=== PATIENT | female | born 1955 | race Caucasian/White ===

== ENCOUNTER → 2018-06-29 07:44 | Outpatient (CLI) | payer MEDICAID | END | disposition home or self-care (01) | LOC: D.RT 07:44 | DX: J44.9 Chronic obstructive pulmonary disease, unspecified (principal) ==

== ENCOUNTER → 2018-07-18 13:46 | Outpatient (CLI) | payer MEDICAID | END | disposition home or self-care (01) | LOC: D.NM 13:46 | DX: C34.90 Malignant neoplasm of unspecified part of unspecified bronchus or lung (principal) ==

== ENCOUNTER → 2018-07-27 09:54 | Outpatient (CLI) | payer MEDICAID | END | disposition home or self-care (01) | LOC: D.LAB 09:54 | DX: Z01.812 Encounter for preprocedural laboratory examination (principal) ==

== ENCOUNTER 2019-07-05 22:23 | Inpatient (IN) | payer MEDICARE, OTHER ==
[~2019-07-05] VITALS: Ht 175.3 cm; Wt 104.7 kg
[2019-07-05 22:40] VITALS: BP 121/78
[2019-07-05 23:00] VITALS: BP 123/72
[2019-07-05 23:10] VITALS: BP 124/72
[2019-07-05 23:23] VITALS: BP 114/66
--- NOTE | 2019-07-05 23:30 | NUR ---
PT TO CT AT THIS TIME WITH NURSE AND RESPIRATORY.
[2019-07-05 23:51] VITALS: BP 110/68
[2019-07-06] VITALS (28 sets, daily range): BP systolic 90–132; BP diastolic 51–86; BMI 30.1; BMI 29.9
--- NOTE | 2019-07-06 01:00 | NUR ---
Received patient from ER to 230, postitioned in bed and connected to monitor. Patient sedated with eyes closed, weakly moves extremities/does not follow instructions. ETT 7.5 @ 23cm, secured. S1/S2 noted NSR on telemetry, rythmic and regular. Vent settings AC R-16 V-500 40% P-5 with O2 sat 100%, lung sounds clear RUL/RML diminished RLL with MARISOL/LLL diminished/expiratory wheeze noted. Abdomen is round/soft with bowel sounds hypoactive x4, non-tender. [place] secured, clear yellow urine noted. Generalized edema noted all with all pulses palpable, skin cool/dry. NGT R nare to LIWS, yellow/green drainage noted. Oral care/suctioning provided, no further needs at this time. See flowsheet for details, all VSS and will continue to monitor.
--- NOTE | 2019-07-06 03:00 | NUR ---
Reassessment completed per flowsheet, no changes noted from previous assessment. Vent settings unchanged from previous with O2 sat 100%, lung sounds clear RUL/RML with diminished RLL and MARISOL/LLL diminished with expiratory wheeze noted. All pulses palpable with cap refill < 3 sec, skin cool/dry. Oral care/suctioning provided, repositioned for comfort. See flowsheet for details, all VSS and will continue to monitor.
--- NOTE | 2019-07-06 05:00 | NUR ---
Patient sedated in bed on vent with eyes closed, no s/s of distress at this time. Full bed bath/linen change performed, patient tolerated well. No further needs and will continue to monitor.
[2019-07-06 07:53] LABS: BASOPHILS 0 % (0-2); EOSINOPHILS 0 % (0-7); HEMATOCRIT 23.5 % (36.0-48.0); HEMOGLOBIN 7.8 g/dL (12-16); IMMATURE GRANULOCYTES 0.8 % (0-5); LYMPHOCYTES 4.8 % (15-50); MCHC 33.2 g/dL (31.0-37.0); MCV 93.3 fL (80.0-100.0); MEAN PLATELET VOLUME 8.4 fL (7.4-10.4); MONOCYTES 7.9 % (2-11); NEUTROPHILS 86.5 % (40-80); PLATELET COUNT 186 10x3/uL (130-400); RBC 2.52 10x6/uL (4.00-5.40); RDW 15.1 % (11.5-14.5); WBC 9.2 10x3/uL (4.8-10.8)
--- NOTE | 2019-07-06 08:00 | NUR ---
LYING IN BED ON VENT AT THIS TIME. NO ACUTE DISTRESS NOTED. VSS. PT NOT CURRENTLY FOLLOWING COMMANDS, RESPONDS TO PAINFUL STIMULATION. TURNED Q2H, ORAL CARE PROVIDED Q2H. WILL CONTINUE PLAN OF CARE.
[2019-07-06 08:01] LABS: INR 1.35 (0.85-1.17); PROTIME 16.1 SECONDS (11.6-15.0)
[2019-07-06 08:07] LABS: ALBUMIN 2.2 g/dL (3.4-5.0); ANION GAP 7.4 mmol/L (8-16); BILIRUBIN - TOTAL 0.35 mg/dL (0.2-1.3); CALCIUM 8.1 mg/dL (8.5-10.1); CARBON DIOXIDE 32.3 mmol/L (21.0-32.0); CREATININE - SERUM 0.9 mg/dL (0.6-1.3); MAGNESIUM - SERUM 1.7 mg/dL (1.8-2.4); PHOSPHOROUS 2.9 mg/dL (2.5-4.9); POTASSIUM - SERUM 3.7 mmol/L (3.5-5.1); PROTEIN - SERUM 5.8 g/dL (6.4-8.2)
--- NOTE | 2019-07-06 10:08 | NUR ---
DR KRAMER PAGED AT THIS TIME.
--- NOTE | 2019-07-06 11:52 | NUR ---
SPOKE WITH PTS DAUGHTER, UPDATES PROVIDED WELL SHE SPOKE WITH DR CONTRERAS AND RECIEVED UPDATES. ALSO CONSENTS RECIEVED FOR BLOOD PRODUCTS, AND BRONCHOSCOPY. VSS. NO ACUTE DISTRESS NOTED. WILL CONTINUE PLAN OF CARE.
--- NOTE | 2019-07-06 11:57 | NUR ---
PER DR MOLINA, ADMIN 1 U PRBC TOTAL FOR NOW. WILL ADMIN WHEN READY PER BLOOD BANK.
--- NOTE | 2019-07-06 12:24 | NUR ---
BLOOD GLUCOSE IS 68; PER DR MOLINA CHANGE FLUIDS FROM NS AT 100ML/HR TO D5 1/2 NS AT 100ML/HR. NO NEW ORDERS. WILL CONTINUE PLAN OF CARE.
--- NOTE | 2019-07-06 14:03 | NUR ---
WILL ADMIN BLOOD WHEN READY PER BLOOD BANK. NO ACUTE DISTRESS NOTED. VSS. WILL CONTINUE PLAN OF CARE.
--- NOTE | 2019-07-06 16:03 | NUR ---
SPOKE WITH PTS DAUGHTER, UPDATES PROVIDED. NO ACUTE DISTRESS NOTED. PT TURNED Q2H. WILL CONTINUE PLAN OF CARE.
[2019-07-06 16:20] LABS: APPEARANCE CLEAR (CLEAR); BILIRUBIN NEGATIVE (NEGATIVE); COLOR YELLOW (YELLOW); GLUCOSE NEGATIVE (NEGATIVE); KETONE NEGATIVE (NEGATIVE); NITRITE NEGATIVE (NEGATIVE); PROTEIN NEGATIVE (NEGATIVE); UROBILINOGEN NORMAL (NORMAL)
--- NOTE | 2019-07-06 16:45 | NUR ---
1 U PRBC INFUSION ADMIN INITIATED AT THIS TIME. VSS. NO ACUTE DISTRESS NOTED. WILL CONTINUE PLAN OF CARE.
--- NOTE | 2019-07-06 19:20 | NUR ---
PT DAUGHTER CALLED, PASSWORD PROVIDED, UPDATE GIVEN.
--- NOTE | 2019-07-06 21:10 | NUR ---
NO VISITORS PRESENT AT THIS TIME, VSS, CONT TO MONITOR.
--- NOTE | 2019-07-06 23:30 | NUR ---
REASSESSMENT PER FLOWSHEET, NO ACUTE CHANGES NOTED, CONT TO MONITOR.
[2019-07-07] VITALS (24 sets, daily range): BP systolic 97–135; BP diastolic 54–71
--- NOTE | 2019-07-07 01:20 | NUR ---
RT AT BEDSIDE, ORAL CARE AND SUCTIONING PROVIDED, VSS.
[2019-07-07 03:43] LABS: BASOPHILS 0.1 % (0-2); EOSINOPHILS 0 % (0-7); HEMATOCRIT 23.8 % (36.0-48.0); HEMOGLOBIN 8.2 g/dL (12-16); IMMATURE GRANULOCYTES 1.3 % (0-5); LYMPHOCYTES 4.9 % (15-50); MCH 30.6 pg (26.0-34.0); MCHC 34.5 g/dL (31.0-37.0); MEAN PLATELET VOLUME 8.5 fL (7.4-10.4); MONOCYTES 7.7 % (2-11); PLATELET COUNT 168 10x3/uL (130-400); RBC 2.68 10x6/uL (4.00-5.40); RDW 15.6 % (11.5-14.5); WBC 10.1 10x3/uL (4.8-10.8)
[2019-07-07 03:44] LABS: MCV 88.8 fL (80.0-100.0)
[2019-07-07 04:18] LABS: ALBUMIN 1.9 g/dL (3.4-5.0); ALKALINE PHOSPHATASE 64 U/L (46-116); ALT (SGPT) 25 U/L (10-68); BILIRUBIN - TOTAL 0.46 mg/dL (0.2-1.3); CALC OSMOLALITY 260 mosm/kg (275-300); CALCIUM 7.5 mg/dL (8.5-10.1); CARBON DIOXIDE 30.1 mmol/L (21.0-32.0); CHLORIDE - SERUM 94 mmol/L (98-107); CREATININE - SERUM 0.9 mg/dL (0.6-1.3); GLUCOSE 149 mg/dL (74-106); MAGNESIUM - SERUM 1.7 mg/dL (1.8-2.4); PHOSPHOROUS 2.9 mg/dL (2.5-4.9); PROTEIN - SERUM 4.7 g/dL (6.4-8.2); SODIUM 128 mmol/L (136-145); UREA NITROGEN 15 mg/dL (7-18); eGFR NON AFRICAN AMERICAN 67 mL/min (90-120)
[2019-07-07 04:24] LABS: POTASSIUM - SERUM 4.3 mmol/L (3.5-5.1); TROPONIN-I < 0.017 ng/mL (0.000-0.060)
--- NOTE | 2019-07-07 05:06 | NUR ---
FIRST OF 2 TOTAL DOSES OF MAG OX INITIATED PER ELECTROLYTE PROTOCOL.
--- NOTE | 2019-07-07 07:09 | NUR ---
PT SISTER CALLED, PASSWORD PROVIDED, UPDATE GIVEN AND ALL QUESTIONS ANSWERED.
--- NOTE | 2019-07-07 07:35 | NUR ---
UP IN BED ON VENT AT THIS TIME. NO ACUTE DISTRESS NOTED. DOES NOT FOLLOW COMMANDS, DOES RESPOND TO PAINFUL STIMULI. UNABLE TO PERFORM SEDATION VACATION BECAUSE PT BECOMES EASILY DISTRESSED EVIDENCED BY BITING ON TUBE EVEN WITH A BITE BLOCK, COUGHING WITH RED FACE STRAINING, AND SITTING UP. SEDATION MEDS TITRATED TO ORDER, SEE IV FLOWSHEET FOR FURTHER INFORMATION. VSS. WILL CONTINUE PLAN OF CARE.
--- NOTE | 2019-07-07 09:37 | NUR ---
LYING IN BED ON VENT. NO ACUTE DISTRESS NOTED. VSS. TURNED Q2H. ORAL CARE PROVIDED Q2H. DIFFICULT TO PROVIDE ORAL CARE BECAUSE PT BITES DOWN EVEN WITH BITE BLOCK. SEDATION TITRATED TO ORDER. WILL CONTINUE PLAN OF CARE.
--- NOTE | 2019-07-07 10:40 | NUR ---
NOTED ORDER FOR PT TO RECIEVE 2 U PRBC. FIRST UNIT INITIATED AT THIS TIME. NO ACUTE DISTRESS NOTED. VSS. WILL CONTINUE PLAN OF CARE.
--- NOTE | 2019-07-07 11:37 | NUR ---
PER DR CONTRERAS: OBTAIN EKG, DECREASE D5 1/2 NS FROM 100ML TO 75ML/HR, AND ADMIN 40 LASIX IV IN BETWEEN UNITS OF BLOOD. ALSO RECIEVED ORDERS FOR TUBE FEEDS. WILL START TUBE FEEDS WHEN RECIEVE PUMP FROM SENIOR FIRMWARE ENGINEER. VSS. WILL CONTINUE PLAN OF CARE.
--- NOTE | 2019-07-07 13:45 | NUR ---
2ND UNIT OF PRBC INITIATED AT THIS TIME. NO ACUTE DISTRESS NOTED. VSS. WILL CONTINUE PLAN OF CARE.
--- NOTE | 2019-07-07 15:16 | NUR ---
SPOKE WITH PTS DAUGHTER VIA PHONE, UPDATES PROVIDED. NO ACUTE DISTRESS NOTED. NO CHANGE. VSS. TURNED Q2H. WILL CONTINUE PLAN OF CARE.
--- NOTE | 2019-07-07 17:12 | NUR ---
CHG BATH GIVEN AT THIS TIME WITH TOTAL LINEN CHANGE. TUBE FEEDS ALSO STARTED AT THIS TIME PER ORDERS VIA NGT. PLACEMENT VERIFIED VIA AUSCULTATION. NO ACUTE DISTRESS NOTED. VSS. WILL CONTINUE PLAN OF CARE.
--- NOTE | 2019-07-07 17:17 | NUR ---
ATTEMPTING TO TITRATE DIPROVAN AT THIS TIME PER DR CONTRERAS ORDERS TO TITRATE OFF AND USE FENTANYL FOR SEDATION WITH VERSED PRN. SEE IV FLOWSHEET FOR FURTHER INFORMATION REGARDING TITRATIONS. NO ACUTE DISTRESS NOTED. VSS. WILL CONTINUE PLAN OF CARE.
[2019-07-08] VITALS (24 sets, daily range): BP systolic 83–110; BP diastolic 46–81
[2019-07-08 04:12] LABS: % SATURATION 58 % (15-55); IRON 102 ug/dl (35-150); TOTAL IRON BIND CAPACITY 175 ug/dl (260-445); UNSAT IRON BIND CAPACITY 73 ug/dl (150-375)
[2019-07-08 04:20] LABS: HEMOGLOBIN 10.1 g/dL (12-16); MCH 30.2 pg (26.0-34.0); MCHC 34.8 g/dL (31.0-37.0); MCV 86.8 fL (80.0-100.0); MEAN PLATELET VOLUME 8.8 fL (7.4-10.4); PLATELET COUNT 192 10x3/uL (130-400); RBC 3.34 10x6/uL (4.00-5.40); RDW 16.6 % (11.5-14.5); WBC 12.7 10x3/uL (4.8-10.8)
[2019-07-08 04:26] LABS: ALBUMIN 1.9 g/dL (3.4-5.0); ALKALINE PHOSPHATASE 64 U/L (46-116); BILIRUBIN - TOTAL 0.68 mg/dL (0.2-1.3); CALCIUM 7.9 mg/dL (8.5-10.1); CARBON DIOXIDE 31.6 mmol/L (21.0-32.0); CHLORIDE - SERUM 93 mmol/L (98-107); FERRITIN 723 ng/mL (3-244); GLUCOSE 162 mg/dL (74-106); MAGNESIUM - SERUM 1.8 mg/dL (1.8-2.4); POTASSIUM - SERUM 4.5 mmol/L (3.5-5.1); PROTEIN - SERUM 5.2 g/dL (6.4-8.2); SODIUM 128 mmol/L (136-145); TROPONIN-I < 0.017 ng/mL (0.000-0.060); eGFR NON AFRICAN AMERICAN 59 mL/min (90-120)
[2019-07-08 04:27] LABS: ALT (SGPT) 33 U/L (10-68); CALC OSMOLALITY 262 mosm/kg (275-300); PHOSPHOROUS 3.9 mg/dL (2.5-4.9); UREA NITROGEN 19 mg/dL (7-18)
[2019-07-08 05:20] LABS: EOSINOPHILS 1 % (0-7); LYMPHOCYTES 10 % (15-50); MONOCYTES 2 % (2-11); NEUTROPHILS 85 % (40-80); PLATELET ESTIMATE DECREASED
--- NOTE | 2019-07-08 07:00 | NUR ---
REPORT RECEIVED. ASSESSMENT COMPLETE PER FLOW SHEET. VSS. ORAL CARE ADM. REPOSITIONED FOR COMFORT. WILL CONTINUE TO MONITOR
--- NOTE | 2019-07-08 08:20 | NUR ---
VENT ALARMING VENT CARE ADM. NEEDS MET
--- NOTE | 2019-07-08 09:10 | NUR ---
FAMILY CALLED GIVEN UPDATE.
--- NOTE | 2019-07-08 09:32 | NUR ---
Nutrition follow-up: Pt intubated, sedated with Fentynal Pulmocare started @ 20 ml/hr -> increase 10 ml Q 12 hours to goal rate of 40 ml/hr via OGT Labs reviewed Wt: 208# RDN following.
--- NOTE | 2019-07-08 10:15 | NUR ---
DR CONTRERAS AT BEDSIDE GIVEN UPDATE. NEW ORDERS RECIEVED.
--- NOTE | 2019-07-08 11:15 | NUR ---
REASSESSMENT COMPLETE PER FLOW SHEET. VSS. NO NEW CHANGES WILL CONTINUE TO MONITOR
--- NOTE | 2019-07-08 13:10 | NUR ---
COMPLETE BB LINEN CHANGE ADM. CHG BATH ADM. WILL CONTINUE TO MONITOR
--- NOTE | 2019-07-08 15:15 | NUR ---
REASSESSMENT COMPLETE PER FLOW SHEET. VSS. NO NEW CHANGES PT RESTING COMFORTABLY WILL CONTINUE TO MONITOR
--- NOTE | 2019-07-08 19:00 | NUR ---
PT IN BED SEDATED BUT FOLLOWS COMMANDS. ASSESSMENT COMPLETED, SEE FLOWSHEET. PT ON VENT, FENTANYL ACTING MANAGER, LT AC PIV INFUSION, SEE FLOWSHEET. NGT IN PLACE, SEE FLOWSHEET. ORAL CARE PROVIDED, WILL CONTINUE TO MONITOR.
--- NOTE | 2019-07-08 21:17 | NUR ---
15CC'S RESIDUAL, ADVANCED TUBE FEEDING TO 20ML/HR PER ORDER.
--- NOTE | 2019-07-08 21:54 | MORECARE ---
CASE MANAGEMENT DISCHARGE SUMMARY PATIENT: JINA COLINDRES UNIT: [id number] ADM DATE: 07/05/19 AGE: 64 : 53 SEX: F ROOM/BED: D.2308 AUTHOR: CHARLINE JO PHYSICIAN: REFERRING PHYSICIAN: RHONA MOLINA MD DATE OF SERVICE: 07/08/19 Discharge Plan Patient Name: JINA COLINDRES [facility] [facility] 1955 Planned Disposition: Anticipated Discharge Date: Discharge Date: Expected LOS: Initial Reviewer: [email or web address] Initial Review Date: 07/06/2019 Generated: 07/08/19 10:54 pm Comments DCP- Discharge Planning Updated by [email or web address]: Mahi Root on 07/08/19 8:[address] Late Entry 1155 CM attempted to visit with patient regarding discharge planning/ needs. Patient currently on vent no family available. CM will continue to follow and assist as needed with discharge planning / needs Patient Name: JINA COLINDRES Page [id number] at 2154 All edits/amendments must be made on the electronic document DICTATION DATE: 07/08/192152 PROP MAKER: MICHAEL 07/08/192152 RPT#: [id number] DC DATE: STATUS: ADM IN [facility] [address] [place] [address] END OF REPORT
--- NOTE | 2019-07-08 23:00 | NUR ---
PT RESTING IN BED, NO ACUTE DISTRESS NOTED. ORAL CARE PROVIDED, WILL CONTINUE TO MONITOR.
[2019-07-09] VITALS (25 sets, daily range): BP systolic 88–130; BP diastolic 41–90
--- NOTE | 2019-07-09 01:00 | NUR ---
PT RESTING IN BED, AROUSES TO VOICE AND FOLLOWS COMMANDS. NO ACUTE DISTRESS NOTED. WILL CONTINUE TO MONITOR.
--- NOTE | 2019-07-09 03:00 | NUR ---
PT RESTING IN BED, AROUSES TO VOICE AND FOLLOWS COMMANDS. PT SUCTIONED AND TURNED, NO ACUTE DISTRESS NOTED. WILL CONTINUE TO MONITOR.
[2019-07-09 03:49] LABS: BASOPHILS 0.2 % (0-2); EOSINOPHILS 0 % (0-7); HEMATOCRIT 30.5 % (36.0-48.0); HEMOGLOBIN 10.5 g/dL (12-16); IMMATURE GRANULOCYTES 5.4 % (0-5); LYMPHOCYTES 2.4 % (15-50); MCHC 34.4 g/dL (31.0-37.0); MCV 87.1 fL (80.0-100.0); MEAN PLATELET VOLUME 8.5 fL (7.4-10.4); MONOCYTES 8.6 % (2-11); NEUTROPHILS 83.4 % (40-80); RDW 16.6 % (11.5-14.5)
[2019-07-09 03:53] LABS: PLATELET COUNT 150 10x3/uL (130-400); WBC 18.4 10x3/uL (4.8-10.8)
[2019-07-09 04:03] LABS: ALBUMIN 1.8 g/dL (3.4-5.0); ANION GAP 8.4 mmol/L (8-16); BILIRUBIN - TOTAL 2.02 mg/dL (0.2-1.3); CALCIUM 7.6 mg/dL (8.5-10.1); CARBON DIOXIDE 29.4 mmol/L (21.0-32.0); CREATININE - SERUM 1.1 mg/dL (0.6-1.3); MAGNESIUM - SERUM 2.1 mg/dL (1.8-2.4); PHOSPHOROUS 3.8 mg/dL (2.5-4.9); POTASSIUM - SERUM 4.8 mmol/L (3.5-5.1); PROTEIN - SERUM 5.4 g/dL (6.4-8.2); VANCOMYCIN - RANDOM 29.2 ug/mL (10.0-20.0)
--- NOTE | 2019-07-09 05:00 | NUR ---
PT CALM AND COOPERATIVE, SEDATED BUT FOLLOWS COMMANDS. NO ACUTE DISTRESS NOTED, WILL CONTINUE TO MONITOR.
--- NOTE | 2019-07-09 07:00 | NUR ---
PT IN BED WITH EYES OPEN. VSS. COMPLETED ASSESSMENT PER FLOWSHEET, FOR ASSESSMENT INFORMATION SEE FLOWSHEET. NO NEEDS OR DISTRESS NOTED AT THIS TIME. WILL CONT TO MONITOR.
--- NOTE | 2019-07-09 08:35 | NUR ---
PT RESTING IN BED. ASSESSMENT COMPLETED PER FLOWSHEET, SEE FLOWSHEET FOR INFORMATION. VSS. WILL CONT TO MONITOR.
--- NOTE | 2019-07-09 09:00 | NUR ---
PT CONTINUING TO BITE DOWN ON ETT. INSERTED BITE BLOCK AND PROVIDED ORAL CARE. THICK CLEAR SECRETIONS SUCTIONED FROM MOUTH. NO NEEDS OR DISTRESS NOTED AT THIS TIME. WILL CONT TO MONITOR.
--- NOTE | 2019-07-09 11:00 | NUR ---
1100 MEDICATIONS GIVEN. NO DISTRESS OR NEEDS NOTED AT THIS TIME. WILL CONT TO MONITOR. VSS.
--- NOTE | 2019-07-09 13:00 | NUR ---
CHG BED BATH AND COMPLETE LINEN CHANGE COMPLETED. NO NEEDS OR DISTRESS NOTED AT THIS TIME. VSS. WILL CONT TO MONITOR.
--- NOTE | 2019-07-09 13:38 | EC ---
PATIENT:JINA COLINDRES DATE OF SERVICE: 07/05/19 SEX: F MEDICAL RECORD: [id number] DATE OF : 53 LOCATION[facility] D.230 AGE OF PATIENT: 64 ADMISSION DATE: 07/05/19 REFERRING PHYSICIAN: INTERPRETING PHYSICIAN: ARACELI CHOWDARY MD ECHOCARDIOGRAM REPORT ECHO CHARGES 4 ECHO COMPLETE Date: 07/08/19 CLINICAL DIAGNOSIS: SOB ECHOCARDIOGRAPHIC MEASUREMENTS (adult normal given) AC root (d.<3.7cm) 2.5 cm LV Septum d (<1.2 cm> 1.2 cm Valve Excursion 1.8 cm LV Septum (systole) 1.7 cm Left Atria (s.<4.0cm> 3.7 cm LVPW d(<1.2cm) 1.1 cm RV (d.<2.3cm) 3.4 cm LVPW (sytole) 1.6 cm LV diastole(<5.6CM) 5.7 cm MV E-F(>70mm/sec) cm LV systole 4.7 cm LVOT Diameter 2.0 cm MV exc.(>10mm) cm Est.ejection fraction (50-75%) % DOPPLER: LVIT cm/sec A 92 cm/sec E 81 cm/sec LA cm/sec RVSP 21.7 mmHg LVOT 133 cm/sec AOP1/2T m/s Asc. Ao 161 cm/sec RVOT 81 cm/sec RA cm/sec PA 117 cm/sec AV Gradient Peak 10.4 mmHg AV Mean 5.9 mmHg AV Area 2.7 cm MV Gradient Peak 4.2 mmHg MV Mean 2.7 mmHg MV Area cm COMMENTS: Colliery Clerk: Luna [employer] Sales Representative: 1 Dr. Chowdary TAPE# PACS Pericardial Effusion N DATE OF SERVICE: 07/08/2019 PROCEDURE: Echocardiogram. FINDINGS: 1. Left ventricular chamber size is mildly dilated. Left ventricular systolic function is preserved at 50% to 55%. 2. Left atrium is within normal limits. Right atrium and right ventricular chamber sizes are mildly dilated. 3. Valvular structures have normal structure and motion. ECHOCARDIOGRAM REPORT [id number] JINA COLINDRES 4. Doppler interrogation reveals only trace tricuspid regurgitation, no other valvular insufficiency or stenosis. Pulmonary systolic pressure estimated at 21 mmHg. 5. No evidence of pericardial effusion or left ventricular thrombus. TRANSINT:[id number] Voice Confirmation ID: [id number] DOCUMENT ID: [id number] ARACELI CHOWDARY MD at 1338 CC: [id number] DICTATION DATE: 07/08/19 165 HEMMER LOCKSTITCH: 07/09/19 0129 ADM IN [facility] [address] [place] [address]
--- NOTE | 2019-07-09 14:00 | NUR ---
INCREASED NG TUBE FEEDING BY 10 ML/HR. NO RESIDUAL NOTED. VSS. WILL CONT TO MONITOR.
--- NOTE | 2019-07-09 15:00 | NUR ---
PT IN BED RESTING WITH EYES CLOSED. NO NEEDS OR DISTRESS NOTED AT THIS TIME. VSS. WILL CONT TO MONITOR.
[2019-07-09 16:09] LABS: AFB SPECIMEN PROCESSING Concentration (())
--- NOTE | 2019-07-09 17:00 | NUR ---
COMPLETED ORAL AND ENDOTRACHEAL INLINE SUCTION, PT TOLERATED WELL. VSS STABLE. WILL CONT TO MONITOR.
--- NOTE | 2019-07-09 18:37 | MORECARE ---
CASE MANAGEMENT DISCHARGE SUMMARY PATIENT: JINA COLINDRES UNIT: [id number] ADM DATE: 07/05/19 AGE: 64 : 53 SEX: F ROOM/BED: D.2308 AUTHOR: CHARLINE JO PHYSICIAN: REFERRING PHYSICIAN: RHONA MOLINA MD DATE OF SERVICE: 07/09/19 Discharge Plan Patient Name: JINA COLINDRES [facility] : 1955 Planned Disposition: Anticipated Discharge Date: Discharge Date: Expected LOS: Initial Reviewer: [email or web address] Initial Review Date: 07/06/2019 Generated: 07/09/19 7:37 pm Comments DCP- Discharge Planning Updated by LISA: Mahi Root on 07/08/19 8:[address] Late Entry 1155 CM attempted to visit with patient regarding discharge planning/ needs. Patient currently on vent no family available. CM will continue to follow and assist as needed with discharge planning / needs DCPIA - Discharge Planning Initial Assessment Updated by LISA: Mahi Root on 07/09/19 6:35 pm * Is the patient Alert and Oriented? No * PCP [facility] IN [place] * Pharmacy [place]? * Preadmission Environment Home Alone * ADLs Independent Last DP export: 07/08/19 8:54 p Patient Name: JINA COLINDRES Page [id number] at 1837 All edits/amendments must be made on the electronic document DICTATION DATE: 07/09/191836 ONSITE CASE MANAGER: MICHAEL 07/09/191836 RPT#: [id number] DC DATE: STATUS: ADM IN [facility] [address] [place] [address] END OF REPORT
--- NOTE | 2019-07-09 18:57 | MORECARE ---
CASE MANAGEMENT DISCHARGE SUMMARY PATIENT: JINA COLINDRES UNIT: [id number] ADM DATE: 07/05/19 AGE: 64 : 53 SEX: F ROOM/BED: D.2305 AUTHOR: SANDRO,DOC PHYSICIAN: REFERRING PHYSICIAN: RHONA MOLINA MD DATE OF SERVICE: 07/09/19 Discharge Plan Patient Name: JINA COLINDRES Facility: [facility]:[place] : 1955 Planned Disposition: Anticipated Discharge Date: Discharge Date: Expected LOS: Initial Reviewer: [email or web address] Initial Review Date: 07/06/2019 Generated: 07/09/19 7:56 pm Comments DCP- Discharge Planning Updated by [email or web address]: Mahi Root on 07/09/19 5:[address] Patient is still on vent and sedated. CM spoke with Ly Meza (Inward Toll Operator- [facility]) called to check status of patient. Ly stated that the patient doesn't have any close family here. The only relative she is aware of is her mother Gracia Blevins that lives in [place]. ([phone]) Ly stated she does have a son somewhere but doesn't know his name. Ly stated that BREANA Chavira [phone] manages patients money and pays her bills. Ly was able to give CM patient's PCP clinic and Pharmacy information. Ly stated that CM may can look at patients contacts on her phone and get more information. Carmela Marlon (good friend) [phone]. CM called patient's mother Gracia [phone]. She stated that she was in hospital in [place], [place] and she may get out sometime next week. CM realized that Gracia is very confused and not understanding CM's conversation. Gracia was not able to give CM any creditable information. CM will continue to try to contact some family or POA. DCP- Discharge Planning Updated by [id number]: Mahi Root on 07/08/19 8:[address] Late Entry 1155 CM attempted to visit with patient regarding discharge planning/ needs. Patient currently on vent no family available. CM will continue to follow and assist as needed with discharge planning / needs DCPIA - Discharge Planning Initial Assessment Updated by [id number]: Mahi Root on 07/09/19 6:35 pm * Is the patient Alert and Oriented? No * PCP [facility] IN [place] * Pharmacy [place]? * Preadmission Environment Home Alone * ADLs Independent Last DP export: 07/09/19 5:37 p Patient Name: JINA COLINDRES Page [phone] at 1857 All edits/amendments must be made on the electronic document DICTATION DATE: 07/09/191855 POT RUNNER: MICHAEL 07/09/191855 RPT#: [id number] DC DATE: STATUS: ADM IN [facility] [address] [place] [address] END OF REPORT
--- NOTE | 2019-07-09 19:00 | NUR ---
SHIFT ASSESSMENT COMPLETE. PT IS SEDATED ON VENT, OPENS EYES AND FOLLOWS ALL COMMANDS. NGT TO L NARE INFUSING PULMOCARE @ 30 ML/HR. PLACEMENT CHECKED VIA AUSCULATATION, 60 ML RESIDUAL, FLUSHED LINE. VENT SETTINGS: A/C RATE OF 16, TIDAL VOLUME 500, FIO2 40%, PEEP 5.0, O2 SAT 97%. CRACKLES HEARD BILAT THROUGHOUT ALL LOBES, SUCTIONED VIA INLINE, CLEAR SECRETIONS NOTED. S1S2 AUDIBLE, NSR SHOWING ON MONITOR. ABD SOFT, BS ACTIVE X4. UNACCESSED PORT SEEN IN R UPPER CHEST. L AC PIV INFUSING D5NS @ 75 ML/HR AND FENTANYL SIGNING TEACHER @ 450 MCG/H (9 ML/HR). RADIAL PULSES PALP. MEHTA CATH INTACT DRAINING TARA URINE. PEDAL PULSES PALP. BUTTOCKS HAS REDDENED AREA. REPOSITIONED FOR COMFORT. RT AT BEDSIDE FOR ORAL CARE. NO FURTHER FINDINGS AT THIS TIME. WILL CONT WITH POC.
--- NOTE | 2019-07-09 21:55 | NUR ---
URINE SAMPLE COLLECTED VIA MEHTA CATH AND SENT TO LAB.
--- NOTE | 2019-07-09 23:00 | NUR ---
REASSESSMENT COMPLETE. NO CHANGES IN PT CONDITION. VSS. SEE FLOWSHEET FOR FURTHER DETIALS. REPOSITIONED FOR COMFORT. ORAL CARE PROVIDED. WILL CONT WITH POC.
[2019-07-10] VITALS (24 sets, daily range): BP systolic 99–141; BP diastolic 55–77
--- NOTE | 2019-07-10 01:00 | NUR ---
IV TUBING CHANGED, DATED AND LABELED. REPOSITIONED FOR COMFORT. ORAL CARE PROVIDED VIA RT. WILL CONT WITH POC. VSS.
--- NOTE | 2019-07-10 03:00 | NUR ---
REASSESSMENT COMPLETE. NO CHANGES FROM PREVIOUS ASSESSMENT. SEE FLOWSHEET FOR FURTHER DETIALS. VSS. REPOSITIONED FOR COMFORT. ORAL CARE PROVIDED. WILL CONT WITH POC.
[2019-07-10 04:38] LABS: HEMATOCRIT 30.5 % (36.0-48.0); HEMOGLOBIN 10.6 g/dL (12-16); MCH 30.5 pg (26.0-34.0); MCHC 34.8 g/dL (31.0-37.0); MCV 87.9 fL (80.0-100.0); MEAN PLATELET VOLUME 8.8 fL (7.4-10.4); PLATELET COUNT 155 10x3/uL (130-400); RBC 3.47 10x6/uL (4.00-5.40); RDW 16.3 % (11.5-14.5); WBC 23.9 10x3/uL (4.8-10.8)
[2019-07-10 04:39] LABS: ALBUMIN 1.6 g/dL (3.4-5.0); ANION GAP 9.4 mmol/L (8-16); BILIRUBIN - TOTAL 1.47 mg/dL (0.2-1.3); CALCIUM 7.5 mg/dL (8.5-10.1); CARBON DIOXIDE 28.4 mmol/L (21.0-32.0); CREATININE - SERUM 1.1 mg/dL (0.6-1.3); MAGNESIUM - SERUM 2.5 mg/dL (1.8-2.4); PHOSPHOROUS 2.9 mg/dL (2.5-4.9); POTASSIUM - SERUM 4.8 mmol/L (3.5-5.1); PROTEIN - SERUM 4.6 g/dL (6.4-8.2); VANCOMYCIN - RANDOM 16.4 ug/mL (10.0-20.0)
--- NOTE | 2019-07-10 05:00 | NUR ---
MEHTA AND ORAL CARE PROVIDED. REPOSITIONED FOR COMFORT. WILL CONT WITH POC.
[2019-07-10 05:43] LABS: LYMPHOCYTES 6 % (15-50); MONOCYTES 6 % (2-11); NEUTROPHILS 87 % (40-80); PLATELET ESTIMATE DECREASED
--- NOTE | 2019-07-10 06:30 | NUR ---
FAMILY CALLED, PASSWORD GIVEN. UPDATE PROVIDED.
--- NOTE | 2019-07-10 07:00 | NUR ---
BEDISDE REPORT RECIEVED. PT IN BED WITH EYES OPEN. ASSESSMENT COMPLETED PER FLOWSHEET, SEE FLOWSHEET FOR ADDITIONAL INFORMATION. VSS. WILL CONT TO MONITOR.
--- NOTE | 2019-07-10 09:00 | NUR ---
0900 MEDICATIONS GIVEN. ORAL AND ENDOTRACHEAL INLINE SUCTIONED PT, PT TOLERATED WELL. VSS. WILL CONT TO MONITOR.
--- NOTE | 2019-07-10 11:00 | NUR ---
BEDBATH GIVEN, PT HAD A LIQUID BM. VSS. WILL CONT TO MONITOR.
--- NOTE | 2019-07-10 12:35 | NUR ---
Nutrition follow-up: Pt remains intubated, sedated Pulmocare @ 30 ml/hr with goal rate of 40 ml/hr Reglan started today due to high residuals per acquisition cost estimator Labs reviewed WT: 218# RDN following.
--- NOTE | 2019-07-10 13:00 | NUR ---
PICC INSERTED INTO LEFT UPPER ARM. PT TOLERATED WELL. VSS. WILL CONT TO MONITOR.
[2019-07-10 13:10] LABS: FUNGUS STAIN Final report (())
--- NOTE | 2019-07-10 15:00 | NUR ---
PT IN BED WITH EYES OPEN. VSS. NO NEEDS OR DISTRESS NOTED AT THIS TIME. WILL CONT TO MONITOR.
--- NOTE | 2019-07-10 17:00 | NUR ---
PT TURNED ON RIGHT SIDE. NO NEEDS OR DISTRESS NOTED AT THIS TIME. VSS. WILL CONT TO MONITOR.
--- NOTE | 2019-07-10 19:00 | NUR ---
SHIFT ASSESSMENT COMPLETE. PT IS SEDATED ON VENT. EYES ARE OPEN AND SHE IS ABLE TO FOLLOW ALL COMMANDS. PERRLA, 3 MM, BRISK REACTION TO LIGHT. NGT L NARE INFUSING PULMOCARE @ 40 ML/HR WITH 10 ML FLUSH Q1H. PLACEMENT CHECKED VIA AUSCULTATION, 0 RESIDUAL. ETT SIZE 7.5, 22 CM LIP LINE LEFT. VENT SETTINGS: A/C RATE OF 16, TIDAL VOLUME 500, FIO2 40%, PEEP 5.0, O2 SAT 97%. S1S2 AUDIBLE, HR 103 SINUS TACH SHOWING ON MONITOR. EXP WHEEZES HEARD BILAT THROUGHOUT ALL LOBES. ORAL CARE PROVIDED, SUCTIONED VIA INLINE AND ORAL, CLEAR SECRETIONS NOTED. ABD FLAT AND SOFT, HYPOACTIVE BS X4. L UPPER ARM PICC INFUSING D5NS @ 75 ML/HR AND FENTANYL CYTOLOGY MANAGER @ 450 MCG/HR. L A/C PIV SALINE LOC'D. RADIAL PULSES PALP. MEHTA CATH INTACT DRAINING TARA URINE. PEDAL PULSES PALP. REPOSITIONED FOR COMFORT AND ELEVATED EXT ON PILLOWS. L&R WRIST RESTRAINTS REMOVED AND SKIN ASSESSED, WNL. NO FURTHER FINDINGS AT THIS TIME. WILL CONT TO MONITOR CLOSELY IN ICU.
--- NOTE | 2019-07-10 21:00 | NUR ---
NO VISITORS DURING VISITATION HOURS. REPOSITIONED FOR COMFORT. ORAL CARE PROVIDED. VSS. WILL CONT WITH POC.
--- NOTE | 2019-07-10 23:00 | NUR ---
REASSESSMENT COMPLETE. NO CHANGES FROM PREVIOUS ASSESSMENT. SEE FLOWSHEET FOR FURTHER DETAILS. VSS. REPOSITIONED FOR COMFORT, ORAL CARE PROVIDED. WILL CONT WITH POC.
[2019-07-11] VITALS (24 sets, daily range): BP systolic 120–159; BP diastolic 66–89
--- NOTE | 2019-07-11 01:00 | NUR ---
REPOSITIONED FOR COMFORT. ORAL CARE PROVIDED. NO SIGNS OF ACUTE DISTRESS NOTED. VSS. WILL CONT WITH POC.
--- NOTE | 2019-07-11 03:00 | NUR ---
REASSESSMENT COMPLETE. NO CHANGES IN PT CONDITION. VSS. SEE FLOWSHEET FOR FURTHER DETAILS. WILL CONT WITH POC.
--- NOTE | 2019-07-11 05:00 | NUR ---
CHG BATH, ORAL CARE AND REPOSITIONED FOR COMFORT. PT TOLERATED WELL. VSS. MEHTA CARE PROVIDED. NO FURTHER NEEDS AT THIS TIME. WILL CONT WITH POC.
[2019-07-11 05:35] LABS: BASOPHILS 0.2 % (0-2); EOSINOPHILS 0 % (0-7); HEMATOCRIT 29.3 % (36.0-48.0); HEMOGLOBIN 9.8 g/dL (12-16); LYMPHOCYTES 1.8 % (15-50); MCH 29.9 pg (26.0-34.0); MCHC 33.4 g/dL (31.0-37.0); MCV 89.3 fL (80.0-100.0); MEAN PLATELET VOLUME 9.1 fL (7.4-10.4); MONOCYTES 5.3 % (2-11); NEUTROPHILS 85.7 % (40-80); PLATELET COUNT 132 10x3/uL (130-400); RBC 3.28 10x6/uL (4.00-5.40); RDW 16.5 % (11.5-14.5); WBC 22.8 10x3/uL (4.8-10.8)
[2019-07-11 05:44] LABS: ANION GAP 3.8 mmol/L (8-16); CALCIUM 7.6 mg/dL (8.5-10.1); CARBON DIOXIDE 26.4 mmol/L (21.0-32.0); POTASSIUM - SERUM 5.2 mmol/L (3.5-5.1); VANCOMYCIN - RANDOM 23.3 ug/mL (10.0-20.0)
[2019-07-11 05:56] LABS: CREATININE - SERUM 1.4 mg/dL (0.6-1.3)
--- NOTE | 2019-07-11 07:00 | NUR ---
BEDSIDE REPORT RECIEVED. COMPLETED ASSESSMENT PER FLOWSHEET, SEE FLOWSHEET FOR ADDITIONAL INFORMATION. 0800 MEDICATIONS GIVEN. VSS. WILL CONT TO MONITOR.
--- NOTE | 2019-07-11 09:00 | NUR ---
ORAL CARE COMPLETED, SUCTIONED AND REPOSITIONED FOR COMFORT. NO NEEDS OR DISTRESS NOTED AT THIS TIME. WILL CONT TO MONITOR.
--- NOTE | 2019-07-11 09:15 | MORECARE ---
CASE MANAGEMENT DISCHARGE SUMMARY PATIENT: JINA COLINDRES UNIT: [id number] ADM DATE: 07/05/19 AGE: 64 : 53 SEX: F ROOM/BED: D.2302 AUTHOR: SANDRO,DOC PHYSICIAN: REFERRING PHYSICIAN: RHONA MOLINA MD DATE OF SERVICE: 07/11/19 Discharge Plan Patient Name: JINA COLINDRES Facility: [facility]:[place] : 1955 Planned Disposition: Anticipated Discharge Date: Discharge Date: Expected LOS: Initial Reviewer: [email or web address] Initial Review Date: 07/06/2019 Generated: 07/11/19 10:15 am DCP- Discharge Planning Updated by [email or web address]: Mahi Root on 07/09/19 5:[address] Patient is still on vent and sedated. CM spoke with Ly Meza (Industrial Maintenance Mechanic- [facility]) called to check status of patient. Ly stated that the patient doesn't have any close family here. The only relative she is aware of is her mother Gracia Blevins that lives in [place]. ([phone]) Ly stated she does have a son somewhere but doesn't know his name. Ly stated that BREANA Chvaira [phone] manages patients money and pays her bills. Ly was able to give CM patient's PCP clinic and Pharmacy information. Ly stated that CM may can look at patients contacts on her phone and get more information. Carmela Marlon (good friend) [phone]. CM called patient's mother Gracia [phone]. She stated that she was in hospital in [place], [place] and she may get out sometime next week. CM realized that Gracia is very confused and not understanding CM's conversation. Gracia was not able to give CM any creditable information. CM will continue to try to contact some family or POA. DCP- Discharge Planning Updated by [id number]: Mahi Root on 07/08/19 8:[address] Late Entry 1155 CM attempted to visit with patient regarding discharge planning/ needs. Patient currently on vent no family available. CM will continue to follow and assist as needed with discharge planning / needs DCPIA - Discharge Planning Initial Assessment Updated by [email or web address]: Mahi Root on 07/09/19 6:35 pm * Is the patient Alert and Oriented? No * PCP [facility] [place] * Pharmacy [place]? * Preadmission Environment Home Alone * ADLs Independent Last DP export: 07/09/19 5:57 p Patient Name: JINA COLINDRES Page [id number] at 0915 All edits/amendments must be made on the electronic document DICTATION DATE: 07/11/19913 WELDING MACHINE OPERATOR HELPER GAS: MICHAEL 07/11/19913 RPT#: [id number] DC DATE: STATUS: ADM IN [facility] [address] [place] [address] END OF REPORT
--- NOTE | 2019-07-11 11:00 | NUR ---
1100 MEDICATIONS GIVEN. NO NEEDS OR DISTRESS NOTED AT THIS TIME. VSS. WILL CONT TO MONITOR.
--- NOTE | 2019-07-11 13:00 | NUR ---
DECREASED FENTANYL PER ORDRS TO TRY CPAP. TOLERATED WELL. VSS. WILL CONT TO MONITOR.
--- NOTE | 2019-07-11 15:00 | NUR ---
PT DID NOT TOLERATED DEEP SUCTIONING, HR 160. STOPPED STIMULATION AND HR DECREASED TO 102. INCREASED FENTANYL. NO NEEDS NOTED AT THIS TIME. VSS. WILL CONT TO MONITOR.
--- NOTE | 2019-07-11 17:00 | NUR ---
CHG BEDBATH GIVEN. COMPLETE LINEN CHANGE. NO NEEDS OR DISTRESS NOTED AT THIS TIME. VSS. WILL CONT TO MONITOR.
--- NOTE | 2019-07-11 19:00 | NUR ---
REPORT REC'D, ASSUMED PT'S CARE. ASSESSMENT COMPLETED PER FLOWSHEETS. PT SEDATED ON VENT, AROUSES WITH VOICES, FOLLOWS SIMPLE COMMANDS. ST ON CM. CONT SEDATION PER ORDER TO KEEP CALM ON VENT. REPOSITIONED FOR COMFORT.HOB UP. SIDE RAILS UP. WILL CONT TO MONITOR.
--- NOTE | 2019-07-11 21:00 | NUR ---
NO VISITORS NOTED, SCHEDULED MEDS GIVENT PER ORDER WITHOUT DIFFIC. VSS.
--- NOTE | 2019-07-11 23:00 | NUR ---
REASSESSMENT COMPLETED PER FLOWSHEETS. PT ON VENT WITHOUT DISTRESS. VSS. CONT TO MONITOR.
[2019-07-12] VITALS (24 sets, daily range): BP systolic 126–162; BP diastolic 60–86
--- NOTE | 2019-07-12 01:00 | NUR ---
REPOSITIONED FOR COMFORT. PILLOWS IN USE FOR SUPPORT. MOUTH CARE PROVIDED PER VAP. CPOC.
[2019-07-12 06:01] LABS: ANION GAP 10.5 mmol/L (8-16); CALCIUM 8.1 mg/dL (8.5-10.1); CARBON DIOXIDE 28.4 mmol/L (21.0-32.0); CREATININE - SERUM 1.2 mg/dL (0.6-1.3); POTASSIUM - SERUM 5.9 mmol/L (3.5-5.1)
[2019-07-12 06:27] LABS: HEMATOCRIT 30.4 % (36.0-48.0); MCH 30.5 pg (26.0-34.0); MCHC 32.9 g/dL (31.0-37.0); MCV 92.7 fL (80.0-100.0); MEAN PLATELET VOLUME 9.5 fL (7.4-10.4); PLATELET COUNT 155 10x3/uL (130-400); RBC 3.28 10x6/uL (4.00-5.40); RDW 16.4 % (11.5-14.5); WBC 22.8 10x3/uL (4.8-10.8)
--- NOTE | 2019-07-12 07:00 | NUR ---
SHIFT ASSESSMENT COMPLETED. PT CARE ASSUMED, MONITORS ON AND WORKING, VITALS STABLE. PT SEDATED ON VENTILATOR. VENT SETTINGS NOTED. SEE FLOW SHEET FOR FURTHER DETAILS. WILL CONTINUE TO OBSERVE.
[2019-07-12 08:07] LABS: EOSINOPHILS 1 % (0-7); LYMPHOCYTES 2 % (15-50); MONOCYTES 5 % (2-11); NEUTROPHILS 83 % (40-80); PLATELET ESTIMATE NORMAL
--- NOTE | 2019-07-12 09:00 | NUR ---
PT TURNED AND REPOSITIONED FOR COMFORT, MONITORS ON AND WORKING, RUNS OF SVT NOTED DURING TIMES OF REPOSITIONING OR BREATHING TREATMENTS. MD AWARE, WILL CONTINUE TO OBSERVE.
--- NOTE | 2019-07-12 09:57 | NUR ---
NUTRITION F/U PT REMAINS ON VENT, TOLERATING PULMOCARE TUBE FEEDS AT GOAL RATE 40 CC/HR. WILL CONTINUE TO MONITOR PT PROGRESS. RD FOLLOWING
--- NOTE | 2019-07-12 11:00 | NUR ---
PT TURNED AND REPOSITIONED FOR COMFORT, PT ON CPAP TRIALS, PT TOLERATING WELL THIS SHIFT. MONITORS ON AND WORKING, VITALS STABLE. SEE FLOW SHEET FOR FURTHER DETIALS. WILL CONTINUE TO OBSERVE.
--- NOTE | 2019-07-12 13:00 | NUR ---
NO CHANGES, PT CONTINUES TO TOLERATE CPAP TRIAL WELL, PT TURNED AND REPOSTIONED FOR COMFORT, MONITORS ON AND WORKING, WILL CONTINUE TO OBSERVE.
--- NOTE | 2019-07-12 15:00 | NUR ---
PT CONTINUES CPAP TRIALS, MONITORS ON AND WORKING, PT TURNED AND REPOSITIONED FOR COMFORT, ORAL CARE PROVIDED. SEE FLOW SHEET FOR FURTHER DETAILS. WILL CONTINUE TO OBSERVE.
--- NOTE | 2019-07-12 17:00 | NUR ---
PT SWITCHED BACK OVER TO ASSIST CONTROL, MONITORS ON AND WORKING, VITALS STABLE. PT TURNED AND REPOSTIONED FOR COMFORT, WILL CONTINUE TO OBSERVE.
--- NOTE | 2019-07-12 19:45 | NUR ---
RECEIVED CARE OF PT, ASSESSMENT PER FLOWSHEET. PT INTUBATED AND SEDATED, ABLE TO FOLLOW SIMPLE COMMANDS, NGT WITH PULMOCARE INFUSING AT 40CC/HR-PLACEMENT VERIFIED WITH AUSC OF SM AIR BOLUS, MEHTA CATH PATENT, PPP, HR SR ON CM.
--- NOTE | 2019-07-12 21:10 | NUR ---
NPO VISITORS PRESENT AT THIS TIME, VSS, CONT POC.
--- NOTE | 2019-07-12 23:45 | NUR ---
REASSESSMENT PER FLOWSHEET, NO ACUTE CHANGES NOTED, INCREASED HR NOTED WITH SUCTIONING OR WHEN PT COUGHING. WITHOUT STIMULATION HR SLOWS BACK TO SR WITHOUT INTERVENTION, WILL MONITOR.
[2019-07-13] VITALS (25 sets, daily range): BP systolic 80–177; BP diastolic 54–99; Ht 175.3 cm; Wt 104.7 kg
--- NOTE | 2019-07-13 03:45 | NUR ---
REASSESSMENT PER FLOWSHEET, NO ACUTE CHANGES NOTED, ORAL CARE AND SUCTIONING PROVIDED, INCREASED HR AGAIN NOTED WITH STIMULATION.
--- NOTE | 2019-07-13 03:50 | NUR ---
HR BACK TO SR IN 70'S-80'S.
[2019-07-13 06:13] LABS: ALBUMIN 2.2 g/dL (3.4-5.0); ANION GAP 11.4 mmol/L (8-16); BILIRUBIN - TOTAL 0.69 mg/dL (0.2-1.3); CALCIUM 8.3 mg/dL (8.5-10.1); CARBON DIOXIDE 28.7 mmol/L (21.0-32.0); CREATININE - SERUM 1.1 mg/dL (0.6-1.3)
[2019-07-13 06:17] LABS: POTASSIUM - SERUM 6.1 mmol/L (3.5-5.1)
--- NOTE | 2019-07-13 06:22 | NUR ---
AM LABS REVIEWED, NOTHING TO TREAT PER ELECTROLYTE PROTOCOL.
--- NOTE | 2019-07-13 07:00 | NUR ---
SHIFT ASSESSMENT COMPLETED. PT CARE ASSUMED. MONITORS ON AND WORKING, VITALS STABLE. VENT SETTINGS NOTED. SEE FLOW SHEET FOR FURTHER DETIALS. WILL CONTINUE TO OBSERVE.
[2019-07-13 07:05] LABS: BASOPHILS 0.3 % (0-2); EOSINOPHILS 0 % (0-7); HEMATOCRIT 32.1 % (36.0-48.0); HEMOGLOBIN 10.4 g/dL (12-16); IMMATURE GRANULOCYTES 9.7 % (0-5); LYMPHOCYTES 1.8 % (15-50); MCH 30.1 pg (26.0-34.0); MCHC 32.4 g/dL (31.0-37.0); MCV 92.8 fL (80.0-100.0); MEAN PLATELET VOLUME 9.3 fL (7.4-10.4); MONOCYTES 5.8 % (2-11); NEUTROPHILS 82.4 % (40-80); PLATELET COUNT 148 10x3/uL (130-400); RBC 3.46 10x6/uL (4.00-5.40); RDW 16.4 % (11.5-14.5); WBC 22.9 10x3/uL (4.8-10.8)
--- NOTE | 2019-07-13 09:00 | NUR ---
PT TURNED AND REPOSITIONED FOR COMFORT, MONITORS ON AND WORKING, PT BECOMES TACHYCARDIA DURING BREATHING TREATMENTS REPOSITIONING ETC, MD AWARE.
--- NOTE | 2019-07-13 11:00 | NUR ---
NO CHANGES, PT TURNED AND REPOSITIONED FOR COMFORT. MONITORS ON AND WORKING, VITALS STABLE. SEE FLOW SHEET FOR FURTHER DETAILS. WILL CONTINUE TO OBSERVE.
--- NOTE | 2019-07-13 13:00 | NUR ---
COMPLETE LINEN CHANGE AND CHG BATH GIVEN. PT TOLERATED WELL. MONITORS ON AND WORKING, VITALS REMAIN STABLE. WILL CONTINUE TO OBSERVE.
--- NOTE | 2019-07-13 15:00 | NUR ---
PT TURNED AND REPOSITIONED FOR COMFORT, MONITORS ON AND WORKING, VITALS STABLE, SEE FLOW SHEET FOR FURTHER DETAILS. WILL CONTINUE TO OBSERVE.
--- NOTE | 2019-07-13 17:00 | NUR ---
PT TURNED AND REPOSITIONED FOR COMFORT, MONITORS ON AND WORKING, VITALS STABLE, NO SIGNS/SYMPTOMS OF PAIN OR DISCOMFORT NOTED AT THIS TIME, WILL CONTINUE TO OBSERVE.
--- NOTE | 2019-07-13 19:30 | NUR ---
SHIFT ASSESSMENT COMPLETED SEE FLOWSHEET. PT INTUBATED AND SEDATED 250MCG/HR FENTANYL AT THIS TIME NS @ 75 - PT CAN OPEN EYES AND OBEY COMMANDS. VSS NOTED SINUS TACH AND HYPERTENSION. CPOC
--- NOTE | 2019-07-13 22:16 | NUR ---
PT RECEIVED PRN VERSAID FOR AGITATIION AND VENTILATOR COMPLIANCE
--- NOTE | 2019-07-13 23:10 | NUR ---
REASSESMENT COMPLETED SEE FLOWSHEET
--- NOTE | 2019-07-13 23:35 | NUR ---
REASSESSMENT COMPLETED SEE FLOWSHEET
[2019-07-14] VITALS (25 sets, daily range): BP systolic 131–182; BP diastolic 70–113
--- NOTE | 2019-07-14 00:48 | NUR ---
PATIENT TO RECEIVE Q2H PRN VERSAID FOR AGITATION AND VENTILATOR NON COMPLIANCE
[2019-07-14 05:37] LABS: HEMATOCRIT 32.1 % (36.0-48.0); HEMOGLOBIN 10.3 g/dL (12-16); MCH 29.8 pg (26.0-34.0); MCHC 32.1 g/dL (31.0-37.0); MCV 92.8 fL (80.0-100.0); MEAN PLATELET VOLUME 9.4 fL (7.4-10.4); PLATELET COUNT 145 10x3/uL (130-400); RBC 3.46 10x6/uL (4.00-5.40); RDW 16.4 % (11.5-14.5); WBC 23.8 10x3/uL (4.8-10.8)
[2019-07-14 05:39] LABS: ANION GAP 9.6 mmol/L (8-16); CALCIUM 8.3 mg/dL (8.5-10.1); CARBON DIOXIDE 28.4 mmol/L (21.0-32.0); CREATININE - SERUM 1.2 mg/dL (0.6-1.3)
--- NOTE | 2019-07-14 07:15 | NUR ---
REPORT RECEIVED. PT ON VENT PER RT. PT HAS NG TUBE AND RECEIVES PULMOCARE FEEDINGS AT 40ML/HR WHICH IS GOAL. LEFT PICC LINE WITH NS AT 75ML/HR AND FENTANYL AT 300MCG/HR. PT GETS HER BLOOD SUGAR CHECKED Q6H. PT HAS A MEHTA. SHE HAS A RIGHT CHEST PORT THAT IS NOT ACCESSED. SHE HAS REDNESS TO HER BOTTOM AND HAS SOME EDEMA IN ALL EXTREMITIES. HEAD TO TOE ASSESSMENT DOCUMENTED. WILL MONITOR.
[2019-07-14 08:22] LABS: LYMPHOCYTES 4 % (15-50); MONOCYTES 5 % (2-11); NEUTROPHILS 85 % (40-80); PLATELET ESTIMATE NORMAL
--- NOTE | 2019-07-14 09:00 | NUR ---
DR CABRERA ROUNDING ON PT. ADJUSTMENTS TO VENT MADE. NO OTHER ORDERS AT THIS TIME. WILL CONTINUE TO MONITOR.
--- NOTE | 2019-07-14 11:38 | NUR ---
PT RECEIVED DOSE OF VERSED. PT HEART RHYTHM CHANGED FROM SVT TO NORMAL SINUS WITH RATE OF 77. PT IS RESTING COMFORTABLY WITH NO SIGNS OF DISTRESS. WILL CONTINUE TO MONITOR.
--- NOTE | 2019-07-14 11:40 | NUR ---
PT IN AND OUT OF SVT. PT ON FENTANYL 300MCG/HR CONTINUOUS. PT SUCTIONED AND REPOSITIONED. GAVE DOSE OF VERSED PER ORDERS. HR CAME DOWN TO 111. WILL CONTINUE TO MONITOR.
--- NOTE | 2019-07-14 13:15 | NUR ---
PT RESIDUAL 20ML. KAYEXELATE AND LOPRESSOR GIVEN VIA NG TUBE.
--- NOTE | 2019-07-14 15:50 | NUR ---
PT HAD SMALL BM SMEAR. PT GIVEN CHG BATH. HR SHOT UP TO 150S. FINISHED AND TURNED PT TO HER BACK. HR RETURNED TO 110S. SCDS PUMPED ON. TUBE FEED RESTARTED. WILL CONTINUE TO MONITOR.
--- NOTE | 2019-07-14 19:20 | NUR ---
SHIFT ASSESSMENT COMPLETED, PATIENT INTUBATED AND SEDATED, OPENING EYES, CAN TRACK AND FOLLOW COMMANDS, NODS HEAD APPROPRIATELY TO YES AND NO QUESTIONS. REPOSITIONED FOR COMFORT AND SKIN INTEGRITY. VSS CPOC
--- NOTE | 2019-07-14 20:27 | NUR ---
FRIEND AT BEDSIDE, VSS PATIENT RECEIVED PRN MEDICATION PRIOR TO THIS FOR VENTILATOR COMPLIANCE AND AGITATION, SEE EMAR FOR MED ADMINISTRATION
[2019-07-15] VITALS (25 sets, daily range): BP systolic 140–188; BP diastolic 63–100
--- NOTE | 2019-07-15 01:52 | NUR ---
PT INTUBATED AND SEDATED, OPENS EYES TO SPEECH. RESPONDS TO COMMANDS VSS CPOC
[2019-07-15 05:51] LABS: BASOPHILS 0.2 % (0-2); EOSINOPHILS 0 % (0-7); HEMATOCRIT 29.2 % (36.0-48.0); HEMOGLOBIN 9.6 g/dL (12-16); IMMATURE GRANULOCYTES 4.5 % (0-5); LYMPHOCYTES 1.8 % (15-50); MCH 30.5 pg (26.0-34.0); MCHC 32.9 g/dL (31.0-37.0); MCV 92.7 fL (80.0-100.0); MEAN PLATELET VOLUME 9.7 fL (7.4-10.4); MONOCYTES 5.6 % (2-11); NEUTROPHILS 87.9 % (40-80); PLATELET COUNT 144 10x3/uL (130-400); RBC 3.15 10x6/uL (4.00-5.40); RDW 16.5 % (11.5-14.5); WBC 22.7 10x3/uL (4.8-10.8)
[2019-07-15 05:57] LABS: ANION GAP 9.8 mmol/L (8-16); CALCIUM 7.9 mg/dL (8.5-10.1); CARBON DIOXIDE 28.5 mmol/L (21.0-32.0); CREATININE - SERUM 0.9 mg/dL (0.6-1.3); POTASSIUM - SERUM 5.3 mmol/L (3.5-5.1)
--- NOTE | 2019-07-15 06:53 | NUR ---
PT INTUBATED AND SEDATED VSS CPOC
--- NOTE | 2019-07-15 07:00 | NUR ---
REC'D REPORT AND RESUMED CARE, ETT TO VENTILATION AND SECURED, SBP 18'S, OTHER VSS, VENT IN AC MODE FENTANYL IN USE, AT 300 MCG, RIGHT NARE NGT WITH PULMOCARE TF AT 45 CC/HR, RESIDUAL CHECK 25 CC, MEHTA TO GRAVITY WITH CLEAR YELLOW DRAINAGE TO BAG, SCD'S AND WRIST RESTRAINTS B/L EXTREMITIES, ASSESSMENT COMPLETED PER FLOWSHEET, REPOSITIONED UP AND TO LEFT SIDE WITH PILLOW TO BACK AND HEELS FLOATED.
--- NOTE | 2019-07-15 09:00 | NUR ---
MORNING MEDS GIVEN PER MAR FLOWSHEET, TOLERATED WITHOUT DIFFICULTY
--- NOTE | 2019-07-15 10:00 | NUR ---
SEDATION OFF CHANGED TO CPAP MODE PER DR CLOUD
--- NOTE | 2019-07-15 11:00 | NUR ---
NOT TOLERATED CPAP, RESP 45, SBP 190'S, CHANGED BACK TO RATE BY RT
--- NOTE | 2019-07-15 13:31 | NUR ---
Nutrition Follow-up: Remains intubated. Tolerating Pulmocare @ 40 mL/hr. Wt: 227# Last BM: 07/11 per chart Labs noted: K+ 5.3, Glu 185, Ca 7.9 Meds noted: Solumedrol, Humalog, Lantus, Reglan, NS @ 75 Continue current TF as tolerated. RD following.
--- NOTE | 2019-07-15 15:00 | NUR ---
ASSESSMENT COMPLETED PER FLOWSHEET, NO ACUTE CHANGE FROM PREVIOUS, WILL CONTIHUE WITH POC
[2019-07-16] VITALS (24 sets, daily range): BP systolic 129–200; BP diastolic 61–110
[2019-07-16 05:17] LABS: BASOPHILS 0.1 % (0-2); EOSINOPHILS 0.2 % (0-7); HEMATOCRIT 27.2 % (36.0-48.0); HEMOGLOBIN 8.7 g/dL (12-16); IMMATURE GRANULOCYTES 1.8 % (0-5); LYMPHOCYTES 3.9 % (15-50); MCH 29.9 pg (26.0-34.0); MCV 93.5 fL (80.0-100.0); MEAN PLATELET VOLUME 9.5 fL (7.4-10.4); MONOCYTES 6.6 % (2-11); NEUTROPHILS 87.4 % (40-80); PLATELET COUNT 124 10x3/uL (130-400); RBC 2.91 10x6/uL (4.00-5.40); RDW 16.6 % (11.5-14.5); WBC 19.6 10x3/uL (4.8-10.8)
[2019-07-16 05:29] LABS: CALC OSMOLALITY 302 mosm/kg (275-300); CARBON DIOXIDE 31.7 mmol/L (21.0-32.0); CHLORIDE - SERUM 110 mmol/L (98-107); CREATININE - SERUM 0.8 mg/dL (0.6-1.3); GLUCOSE 162 mg/dL (74-106); POTASSIUM - SERUM 4.8 mmol/L (3.5-5.1); SODIUM 144 mmol/L (136-145); UREA NITROGEN 45 mg/dL (7-18); eGFR NON AFRICAN AMERICAN 76 mL/min (90-120)
--- NOTE | 2019-07-16 12:10 | MORECARE ---
CASE MANAGEMENT DISCHARGE SUMMARY PATIENT: JINA COLINDRES UNIT: [id number] ADM DATE: 07/05/19 AGE: 64 : 53 SEX: F ROOM/BED: D.2302 AUTHOR: SANDRO,DOC PHYSICIAN: REFERRING PHYSICIAN: RHONA MOLINA MD DATE OF SERVICE: 07/16/19 Discharge Plan Patient Name: JINA COLINDRES Facility: [facility]:[place] : 1955 Planned Disposition: Anticipated Discharge Date: Discharge Date: Expected LOS: Initial Reviewer: [email or web address] Initial Review Date: 07/06/2019 Generated: 07/16/19 1:10 pm DCP- Discharge Planning Updated by [email or web address]: Mahi Root on 07/09/19 5:[address] Patient is still on vent and sedated. CM spoke with Ly Meza (Motorman/Woman- [facility]) called to check status of patient. Ly stated that the patient doesn't have any close family here. The only relative she is aware of is her mother Gracia Blevins that lives in [place]. ([phone]) Ly stated she does have a son somewhere but doesn't know his name. Ly stated that BREANA Chavira [phone] manages patients money and pays her bills. Ly was able to give CM patient's PCP clinic and Pharmacy information. Ly stated that CM may can look at patients contacts on her phone and get more information. Carmela Marlon (good friend) [phone]. CM called patient's mother Gracia [phone]. She stated that she was in hospital in [place], [place] and she may get out sometime next week. CM realized that Gracia is very confused and not understanding CM's conversation. Gracia was not able to give CM any creditable information. CM will continue to try to contact some family or POA. DCP- Discharge Planning Updated by [email or web address]: Mahi Root on 07/08/19 8:[address] Late Entry 1155 CM attempted to visit with patient regarding discharge planning/ needs. Patient currently on vent no family available. CM will continue to follow and assist as needed with discharge planning / needs DCPIA - Discharge Planning Initial Assessment Updated by [id number]: Mahi Root on 07/09/19 6:35 pm * Is the patient Alert and Oriented? No * PCP [facility] [place] * Pharmacy [place]? * Preadmission Environment Home Alone * ADLs Independent Last DP export: 07/11/19 8:15 a Patient Name: JINA COLINDRES Page [phone] at 1210 All edits/amendments must be made on the electronic document DICTATION DATE: 07/16/191208 FRAME RUNNER: MICHAEL 07/16/191208 RPT#: [id number] DC DATE: STATUS: ADM IN [facility] [address] [place] [address] END OF REPORT
[2019-07-16 19:04] LABS: HEMATOCRIT 28.4 % (36.0-48.0); HEMOGLOBIN 9.2 g/dL (12-16)
--- NOTE | 2019-07-16 19:43 | NUR ---
0700 PT INTUBATED RESTING NO DISTRESS. FOLLOWS COMMANDS. SEE FLOWSHEET FOR ASSESSMENT DETAILS.
--- NOTE | 2019-07-16 19:44 | NUR ---
0900 NO CHANGES IN ASSESS. PT RESTING WELL.
--- NOTE | 2019-07-16 19:45 | NUR ---
1000 PT ON PS WEANING TRIAL. LASTED SEVERAL HOURS. 1400- PT WITH BP ELEVATED BC SHE CONTINUES TO MOVE WHEN CUFF INFLATING. WHEN HOLDING PT ARM STILL BP IN MORE NORMAL RANGE. FENT OFF WHILE WEANING. 1400 PLACED BACK ON SIMV
--- NOTE | 2019-07-16 23:00 | NUR ---
PT IS AWAKE AND ALERT. DENIES PAIN.
[2019-07-17] VITALS (23 sets, daily range): BP systolic 156–212; BP diastolic 54–97
[2019-07-17 04:25] LABS: BASOPHILS 0.1 % (0-2); EOSINOPHILS 0.1 % (0-7); HEMATOCRIT 27.5 % (36.0-48.0); HEMOGLOBIN 8.9 g/dL (12-16); IMMATURE GRANULOCYTES 1.2 % (0-5); LYMPHOCYTES 1.3 % (15-50); MCHC 32.4 g/dL (31.0-37.0); MCV 92.6 fL (80.0-100.0); MEAN PLATELET VOLUME 9.1 fL (7.4-10.4); MONOCYTES 3.8 % (2-11); NEUTROPHILS 93.5 % (40-80); PLATELET COUNT 119 10x3/uL (130-400); RBC 2.97 10x6/uL (4.00-5.40); RDW 16.6 % (11.5-14.5); WBC 17.7 10x3/uL (4.8-10.8)
[2019-07-17 04:39] LABS: CALC OSMOLALITY 301 mosm/kg (275-300); CALCIUM 8.2 mg/dL (8.5-10.1); CARBON DIOXIDE 29.9 mmol/L (21.0-32.0); CHLORIDE - SERUM 109 mmol/L (98-107); CREATININE - SERUM 0.8 mg/dL (0.6-1.3); POTASSIUM - SERUM 4.8 mmol/L (3.5-5.1); SODIUM 143 mmol/L (136-145); UREA NITROGEN 41 mg/dL (7-18); eGFR NON AFRICAN AMERICAN 76 mL/min (90-120)
[2019-07-17 04:44] LABS: GLUCOSE 228 mg/dL (74-106)
--- NOTE | 2019-07-17 07:30 | NUR ---
REPORT RECEIVED. PT ON VENT. HAS NG TUBE TO LEFT NARE WITH PULMACARE FEED AT 40ML/HR WHICH IS GOAL. PT HAS A LEFT PICC LINE WITH NS AND FENTANYL INFUSING. PT HAS MEHTA. IN RESTRAINTS. ON 1ST STEP AIR MATTRESS. ASSESSMENT DONE AND DOCUMENTED. VSS. WILL CONTINUE TO MONITOR.
--- NOTE | 2019-07-17 09:46 | NUR ---
IV FENTANYL TITRATED DOWN WHILE PT DOING CPAP TRIALS. WILL MONITOR. VSS AT THIS TIME.
--- NOTE | 2019-07-17 09:51 | NUR ---
NUTRITION F/U CPAP TRIALS THIS AM. HAS BEEN TOLERATING PULMOCARE TUBE FEEDS AT 40 CC/HR. WILL MONITOR DIET ADVANCEMENT IF PT EXTUBATES. RD FOLLOWING
--- NOTE | 2019-07-17 11:15 | NUR ---
PT EXTUBATED. O2 PUT ON PT PER RT. PT SUCTIONED. FOLLOWING COMMANDS. DEMONSTRATED USING THE YAUNKERS TO THE SUCTION HER MOUTH. INSTRUCTED TO COUGH. O2 SAT 100%. WILL CONTINUE TO MONITOR.
[2019-07-17 11:56] LABS: APPEARANCE CLEAR (CLEAR); BILIRUBIN NEGATIVE (NEGATIVE); COLOR STRAW (YELLOW); GLUCOSE 50 mg/dL (NEGATIVE); KETONE NEGATIVE (NEGATIVE); NITRITE NEGATIVE (NEGATIVE); PROTEIN TRACE mg/dL (NEGATIVE); SPECIFIC GRAVITY 1.015 (1.005-1.020); UROBILINOGEN NORMAL (NORMAL)
[2019-07-17 11:58] LABS: BACTERIA NONE SEEN /hpf (NEGATIVE); EPITHELIAL CELLS NSEEN /hpf (0-5); RED CELLS - URINE 0-5 /hpf (0-5); WHITE CELLS - URINE 0-5 /hpf (NEGATIVE)
--- NOTE | 2019-07-17 13:25 | NUR ---
ORAL CARE PERFORMED ON PT. PT ALERT. FOLLOWING COMMANDS. UNDERSTANDS WE ARE WAITING ON SPEECH PATH TO EVAL BEFORE SHE CAN HAVE ANYTHING TO DRINK. WILL CONTINUE TO MONITOR.
--- NOTE | 2019-07-17 14:04 | NUR ---
PT ABLE TO SWALLOW THIN LIQUIDS. SPEECH PATHOLOGIST PUTTING HER ON MECHANICAL SOFT DIET.
--- NOTE | 2019-07-17 14:34 | NUR ---
NG TUBE REMOVED. PT TOLERATED WELL. PT DRANK A FEW SIPS OF WATER AFTER. NO COUGHING. VSS.
--- NOTE | 2019-07-17 16:00 | NUR ---
PT RESTING QUIETLY. VSS. WILL CONTINUE TO MONITOR.
--- NOTE | 2019-07-17 17:45 | NUR ---
ASSISTED WITH EATING DINNER. PT TOLERATED WELL. NO S/S OF ASPIRATING. PT ATE ABOUT 25% OF DINNER. VSS.
--- NOTE | 2019-07-17 18:47 | NUR ---
GAVE HYDRALAZINE FOR ELEVATED BP.
--- NOTE | 2019-07-17 19:18 | NUR ---
REPORT RECEIVED, SHIFT ASSESSMENT COMPLETED PER FLOW SHEET, SEE FOR DETAILS. DENIES NEEDS. CALL LIGHT WITHIN REACH. CONFUSED, REORIENTATION PROVIDED. WILL CONTINUE TO MONITOR.
--- NOTE | 2019-07-17 20:56 | NUR ---
ERIKA MAYORGA APN WHO IS HEEL SEAT FILLER FOR DR. MOLINA. [address] O[address] MAYORGA RETURNED CALL. INFORMED HIM OF PATIENT'S BP 170-180'S, HR IN THE 60'S, AND C/O ABDOMENAL "GAS PAIN." NEW ORDERS FOR MILK OF MAGNESIA AND TO GIVE 25 MG OF LOPRESSOR TONIGHT, NO OTHER ORDERS.
--- NOTE | 2019-07-17 21:28 | NUR ---
SISTER LATRICIA WOOD CALLED, SECURITY CALL CODE OBTAINED. UPDATE GIVEN. QUESTIONS ANSWERED.
--- NOTE | 2019-07-17 23:01 | NUR ---
REASSESSMENT COMPLETED PER FLOW SHEET, SEE FOR DETAILS.
[2019-07-18] VITALS (11 sets, daily range): BP systolic 106–180; BP diastolic 67–96
--- NOTE | 2019-07-18 01:00 | NUR ---
REPOSITIONED IN BED, WATER PROVIDED, DENIES OTHER NEEDS. CALL LIGHT WITHIN REACH. 0301 REASSESSMENT COMPLETED PER FLOW SHEET, SEE FOR DETAILS. CALL LIGHT WITHIN REACH. 0500 RESTING IN BED, NO ACUTE CHANGES NOTED. DENIES NEEDS. CALL LIGHT WITHIN REACH.
[2019-07-18 06:09] LABS: BASOPHILS 0 % (0-2); EOSINOPHILS 0 % (0-7); HEMOGLOBIN 9.2 g/dL (12-16); IMMATURE GRANULOCYTES 1.2 % (0-5); LYMPHOCYTES 3.6 % (15-50); MCH 29.5 pg (26.0-34.0); MCHC 31.7 g/dL (31.0-37.0); MCV 92.9 fL (80.0-100.0); MEAN PLATELET VOLUME 9.8 fL (7.4-10.4); MONOCYTES 3.5 % (2-11); NEUTROPHILS 91.7 % (40-80); PLATELET COUNT 141 10x3/uL (130-400); RBC 3.12 10x6/uL (4.00-5.40); RDW 16.7 % (11.5-14.5); WBC 17.3 10x3/uL (4.8-10.8)
[2019-07-18 06:18] LABS: CALC OSMOLALITY 297 mosm/kg (275-300); CALCIUM 8.6 mg/dL (8.5-10.1); CARBON DIOXIDE 32.6 mmol/L (21.0-32.0); CHLORIDE - SERUM 107 mmol/L (98-107); CREATININE - SERUM 0.7 mg/dL (0.6-1.3); GLUCOSE 183 mg/dL (74-106); POTASSIUM - SERUM 4.5 mmol/L (3.5-5.1); SODIUM 143 mmol/L (136-145); UREA NITROGEN 35 mg/dL (7-18); eGFR NON AFRICAN AMERICAN 89 mL/min (90-120)
--- NOTE | 2019-07-18 07:00 | NUR ---
pt awake, talking. pleasantly confused to date, time, and situation. see flowsheet for detailed assessment. CL in reach. Will cont. to monitor. 0800 pt eating breakfast. doing well. Will cont. to monitor.
--- NOTE | 2019-07-18 07:49 | NUR ---
NUTRITION F/U PT EXTUBATED. STARTED DIABETIC DIET (GROUND MEAT/GRAVY, THIN LIQUIDS). WILL MONITOR PT PROGRESS. RD FOLLOWING
--- NOTE | 2019-07-18 14:38 | MORECARE ---
CASE MANAGEMENT DISCHARGE SUMMARY PATIENT: JINA COLINDRES UNIT: [id number] ADM DATE: 07/05/19 AGE: 64 : 53 SEX: F ROOM/BED: D.2308 AUTHOR: SANDRO,DOC PHYSICIAN: REFERRING PHYSICIAN: RHONA MOLINA MD DATE OF SERVICE: 07/18/19 Discharge Plan Patient Name: JINA COLINDRES Facility: [facility]:[place] : 1955 Planned Disposition: Inpatient Rehab Anticipated Discharge Date: Discharge Date: Expected LOS: Initial Reviewer: [email or web address] Initial Review Date: 07/06/2019 Generated: 07/18/19 3:37 pm DCP- Discharge Planning Updated by [email or web address]: Mahi Root on 07/09/19 5:[address] Patient is still on vent and sedated. CM spoke with Ly Meza (Clerical Warehouse Worker- [facility]) called to check status of patient. Ly stated that the patient doesn't have any close family here. The only relative she is aware of is her mother Gracia Blevins that lives in [place]. ([phone]) Ly stated she does have a son somewhere but doesn't know his name. Ly stated that BREANA Chavira [phone] manages patients money and pays her bills. Ly was able to give CM patient's PCP clinic and Pharmacy information. Ly stated that CM may can look at patients contacts on her phone and get more information. Carmela Marlon (good friend) [phone]. CM called patient's mother Gracia [phone]. She stated that she was in hospital in [place], [place] and she may get out sometime next week. CM realized that Gracia is very confused and not understanding CM's conversation. Gracia was not able to give CM any creditable information. CM will continue to try to contact some family or POA. DCP- Discharge Planning Updated by [email or web address]: Mahi Root on 07/08/19 8:[address] Late Entry 1155 CM attempted to visit with patient regarding discharge planning/ needs. Patient currently on vent no family available. CM will continue to follow and assist as needed with discharge planning / needs DCPIA - Discharge Planning Initial Assessment Updated by [id number]: Mahi Root on 07/18/19 2:36 pm * Is the patient Alert and Oriented? No * PCP [facility] * Pharmacy [place]? * Preadmission Environment Home Alone * ADLs Independent * Other Equipment HOME / PORTABLE 02, NEBULIZER, CANE * List name and contact numbers for known caregivers / representatives who currently or will assist patient after discharge: GRACIA BLEVINS - MOTHER- [phone] Fan [phone] (REINFORCED STEEL PLACING SUPERVISOR) Carmela Marlon (good friend) [phone] Ly Meza (Clerical Warehouse Worker- [facility]) [phone] * Verbal permission to speak to the caregivers and representatives has been obtained from the patient. Yes * Community resources currently utilized Home Health * Please name any agencies selected above. [facility] * Additional services required to return to the preadmission environment? No * Can the patient safely return to the preadmission environment? Yes * Has this patient been hospitalized within the prior 30 days at any hospital? No Last DP export: 07/16/19 11:10 a Patient Name: JINA COLINDRES Page [id number] at 1438 All edits/amendments must be made on the electronic document DICTATION DATE: 07/18/191436 LAP CUTTER TRUER OPERATOR: MICHAEL 07/18/191436 RPT#: [id number] DC DATE: STATUS: ADM IN [facility] [address] [place] [address] END OF REPORT
--- NOTE | 2019-07-18 14:49 | MORECARE ---
CASE MANAGEMENT DISCHARGE SUMMARY PATIENT: JINA COLINDRES UNIT: [id number] ADM DATE: 07/05/19 AGE: 64 : 53 SEX: F ROOM/BED: D.2308 AUTHOR: CHARLINE JO PHYSICIAN: REFERRING PHYSICIAN: RHONA MOLINA MD DATE OF SERVICE: 07/18/19 Discharge Plan Patient Name: JINA COLINDRES Facility: [facility]:[place] : 1955 Planned Disposition: Inpatient Rehab Anticipated Discharge Date: Discharge Date: Expected LOS: Initial Reviewer: [email or web address] Initial Review Date: 07/06/2019 Generated: 07/18/19 3:49 pm Comments DCP- Discharge Planning Updated by [email or web address]: Mahi Root on 07/18/19 1:[address] Patient Name: JINA COLINDRES Admission Status: ER Accout number: [id number] Admission Date: 07-05-2019 : 1955 Admission Diagnosis:PNEUMONIA, UNSPECIFIED ORGANISM Attending: JOSE J MOLINA Current LOS: 13 Anticipated DC Date: Planned Disposition: Inpatient Rehab Primary Insurance: MEDICARE A & B Discharge Planning Comments: CM met with patient to complete initial dc planning assessment. CM educated patient on the CM role and verbal consent given by patient to complete assessment. Patient lives at home alone where she is independent with her care. Patient agrees that at discharge patient will need rehab prior to going home. CM discussed availability of home health, rehab services, and medical equipment. Patient states that she plans to resume care with [facility]. MORENA signed. Patient has a nebulizer and home / portable 02 ( [employer]) Patient denied known discharge needs at this time. CM will continue to follow and will assist as needed with dc plans/needs. Retail Key Holder: Mahi Root DCP- Discharge Planning Updated by [email or web address]: Mahi Root on 07/09/19 5:[address] Patient is still on vent and sedated. CM spoke with Ly Meza (Retail Key Holder- [facility]) called to check status of patient. Ly stated that the patient doesn't have any close family here. The only relative she is aware of is her mother Gracia Blevins that lives in [place]. ([phone]) Ly stated she does have a son somewhere but doesn't know his name. Ly stated that BREANA Chavira [phone] manages patients money and pays her bills. Ly was able to give CM patient's PCP clinic and Pharmacy information. Ly stated that CM may can look at patients contacts on her phone and get more information. Carmela Mason (good friend) [phone]. CM called patient's mother Gracia [phone]. She stated that she was in hospital in [place], [place] and she may get out sometime next week. CM realized that Gracia is very confused and not understanding CM's conversation. Gracia was not able to give CM any creditable information. CM will continue to try to contact some family or POA. DCP- Discharge Planning Updated by [email or web address]: Mahi Root on 07/08/19 8:[address] Late Entry 1155 CM attempted to visit with patient regarding discharge planning/ needs. Patient currently on vent no family available. CM will continue to follow and assist as needed with discharge planning / needs DCPIA - Discharge Planning Initial Assessment Updated by [id number]: Mahi Root on 07/18/19 2:36 pm * Is the patient Alert and Oriented? No * PCP [facility] * Pharmacy GEN? * Preadmission Environment Home Alone * ADLs Independent * Other Equipment HOME / PORTABLE 02, NEBULIZER, CANE * List name and contact numbers for known caregivers / representatives who currently or will assist patient after discharge: GRACIA BLEVINS - MOTHER- [phone] BREANA Chavira [phone] (POTATO CHIP PACKAGING MACHINE OPERATOR) Carmela Mason (good friend) [phone] Ly Meza (Retail Key Holder- [facility]) [phone] * Verbal permission to speak to the caregivers and representatives has been obtained from the patient. Yes * Community resources currently utilized Home Health * Please name any agencies selected above. [facility] * Additional services required to return to the preadmission environment? No * Can the patient safely return to the preadmission environment? Yes * Has this patient been hospitalized within the prior 30 days at any hospital? No Last DP export: 10/3/19 1:38 p Patient Name: JINA COLINDRES Page [phone] at 1449 All edits/amendments must be made on the electronic document DICTATION DATE: 07/18/191448 LABORATORY ASSOCIATE: MICHAEL 07/18/191448 RPT#: [id number] DC DATE: STATUS: ADM IN [facility] [address] [place] [address] END OF REPORT
--- NOTE | 2019-07-18 15:31 | NUR ---
REPORT CALLED TO [facility] PT GOING TO BED 2223.
--- NOTE | 2019-07-18 15:43 | NUR ---
Rehab Note- Acute Inpatient Rehab prescreen order received. The patient has a pending PT Eval- will await and see what the patient's physical mobility is at this time. Will follow at this time. Thank you for this referral! Queta Castillo RN Clinical Liaison, [facility] Rehab
--- NOTE | 2019-07-18 16:00 | NUR ---
RECEIVED PT ICU TRANSFER. ALERT AND ORIENTED X1. VITALS STABLE. NO C/O PAIN. NO S/S OF ACUTE DISTRESS NOTED. LEFT UPPER ARM PICC, SL. SITE PATENT WITHOUT REDNESS OR SWELLING. ON 2L O2, NC. BLISTER TO LEFT HEEL, OPEN TO AIR. PT DENIES ANY NEEDS AT THIS TIME. CALL LIGHT IN REACH. WILL CONTINUE TO MONITOR.
--- NOTE | 2019-07-18 16:12 | NUR ---
1100 pt sitting up watching TV. no distress. Dr. Chang here. Pt doing well can go to the floor.
--- NOTE | 2019-07-18 18:43 | NUR ---
RESTING IN BED, EYES OPEN. NO C/O PAIN. NO S/S OF ACUTE DISTRESS NOTED. PT DENIES ANY NEEDS AT THIS TIME. CALL LIGHT IN REACH. WILL CONTINUE TO MONITOR.
--- NOTE | 2019-07-18 19:45 | NUR ---
PT SITTING UP IN BED WITHOUT DISTRESS. ORIENTED TO SELF. VISITING FRIEND AT BEDSIDE. DENIES NEEDS AT THIS TIME. CL IN REACH, WILL CTM
--- NOTE | 2019-07-18 23:00 | NUR ---
PT STATES LEFT ANKLE HURTING, OPEN BLISTER ON HEEL. GAVE PT TYLENOL. RESP AT BEDSIDE TO GIVE BREATHING TREATMENT AND PLACE PT ON BIPAP. AFTER RESPIRATORY LEFT ROOM PT CALLED THIS NURSE BACK TO ROOM ASKING IF SHE COULD TAKE THE BIPAP OFF AND ALREADY HAD THE MASK PULLED ASSISTED OFF. EDUCATED PT ON WHY SHE HAS TO KEEP MASK ON AT NIGHT. PT RESPONDED BY PULLING MASK COMPLETELY OFF STATING SHE WOULD TAKE HER CHANCES WITHOUT IT AND WOULD SPEAK TO DR ABOUT IT WHEN HE COMES AROUND. CALLED AND NOTIFIED RESP.
[2019-07-19] VITALS (7 sets, daily range): BP systolic 128–193; BP diastolic 55–93
[2019-07-19 06:07] LABS: BASOPHILS 0 % (0-2); EOSINOPHILS 0 % (0-7); HEMATOCRIT 26.1 % (36.0-48.0); HEMOGLOBIN 8.5 g/dL (12-16); IMMATURE GRANULOCYTES 0.6 % (0-5); LYMPHOCYTES 2.5 % (15-50); MCH 29.8 pg (26.0-34.0); MCHC 32.6 g/dL (31.0-37.0); MCV 91.6 fL (80.0-100.0); MEAN PLATELET VOLUME 9.2 fL (7.4-10.4); MONOCYTES 6.8 % (2-11); NEUTROPHILS 90.1 % (40-80); PLATELET COUNT 114 10x3/uL (130-400); RBC 2.85 10x6/uL (4.00-5.40); RDW 16.4 % (11.5-14.5)
[2019-07-19 06:10] LABS: WBC 12.5 10x3/uL (4.8-10.8)
[2019-07-19 06:22] LABS: ALBUMIN 2.2 g/dL (3.4-5.0); ALKALINE PHOSPHATASE 71 U/L (46-116); ALT (SGPT) 20 U/L (10-68); CALC OSMOLALITY 287 mosm/kg (275-300); CALCIUM 8.3 mg/dL (8.5-10.1); CARBON DIOXIDE 32.9 mmol/L (21.0-32.0); CHLORIDE - SERUM 103 mmol/L (98-107); CREATININE - SERUM 0.8 mg/dL (0.6-1.3); GLUCOSE 209 mg/dL (74-106); POTASSIUM - SERUM 4.7 mmol/L (3.5-5.1); PROTEIN - SERUM 4.8 g/dL (6.4-8.2); SODIUM 138 mmol/L (136-145); UREA NITROGEN 29 mg/dL (7-18); eGFR NON AFRICAN AMERICAN 76 mL/min (90-120)
--- NOTE | 2019-07-19 17:39 | NUR ---
I have reviewed this patient and I concur with the Shift Assessment completed by the Licensed Practical Nurse today this shift.
--- NOTE | 2019-07-19 18:54 | NUR ---
PT RESTING IN BED, EYES OPEN. NO C/O PAIN. NO S/S OF ACUTE DISTRESS NOTED. PT DENIES ANY NEEDS AT THIS TIME. CALL LIGHT IN REACH.
--- NOTE | 2019-07-20 02:52 | NUR ---
I have reviewed this patient and I concur with the Shift Assessment completed by the Licensed Practical Nurse today this shift.
[2019-07-20 04:00] VITALS: BP 165/74
[2019-07-20 07:12] LABS: BASOPHILS 0 % (0-2); EOSINOPHILS 0.1 % (0-7); HEMATOCRIT 28.8 % (36.0-48.0); HEMOGLOBIN 9.3 g/dL (12-16); IMMATURE GRANULOCYTES 0.8 % (0-5); LYMPHOCYTES 2.7 % (15-50); MCHC 32.3 g/dL (31.0-37.0); MCV 92.9 fL (80.0-100.0); MEAN PLATELET VOLUME 9.3 fL (7.4-10.4); MONOCYTES 5.6 % (2-11); NEUTROPHILS 90.8 % (40-80); PLATELET COUNT 120 10x3/uL (130-400); RDW 16.6 % (11.5-14.5); WBC 12.6 10x3/uL (4.8-10.8)
[2019-07-20 07:28] LABS: ALBUMIN 2.2 g/dL (3.4-5.0); ALKALINE PHOSPHATASE 74 U/L (46-116); ALT (SGPT) 22 U/L (10-68); BILIRUBIN - TOTAL 0.62 mg/dL (0.2-1.3); CALC OSMOLALITY 285 mosm/kg (275-300); CALCIUM 8.4 mg/dL (8.5-10.1); CARBON DIOXIDE 32.7 mmol/L (21.0-32.0); CHLORIDE - SERUM 102 mmol/L (98-107); CREATININE - SERUM 0.8 mg/dL (0.6-1.3); GLUCOSE 168 mg/dL (74-106); POTASSIUM - SERUM 4.3 mmol/L (3.5-5.1); PROTEIN - SERUM 4.8 g/dL (6.4-8.2); SODIUM 139 mmol/L (136-145); UREA NITROGEN 24 mg/dL (7-18); eGFR NON AFRICAN AMERICAN 76 mL/min (90-120)
[2019-07-20 08:12] VITALS: BP 183/68
--- NOTE | 2019-07-20 09:00 | NUR ---
ALERT AND ORIENTED TO SELF. RESP. EVEN AND UNLABORED WITH EDEMA 3+ TO RUE. GENERALIZED EDEMA TO BLE WITH BLISTER NOTED TO LT. HEEL. BLISTER CLEANED WITH DRESSING APPLIED WITH HEEL FLOATED. RESP EVEN AND UNLABORED WITH O2 2L N/C..PICC TO RUE INTACT WITH NO S/S OF INFECTION/INFILTRATION NOTED.MEHTA CATH INTACT WITH TARA URINE. TELEMERY INTACT. ENCOURAGED TO USE CALL LIGHT FOR ASSSIT.
[2019-07-20 12:04] VITALS: BP 143/60
[2019-07-20 16:06] VITALS: BP 158/70
--- NOTE | 2019-07-20 19:30 | NUR ---
PT ALERT AND ORIENTED TO SELF AND SITUATION. GENERALIZED EDEMA. LEFT ARM HAS 3 + EDEMA. LEFT FOOT HAS BUSTED BLISTER ON SOLES OF FOOT. SACARL DRESSING IN TACT. PT CURRENTLY SALINE LOCKED. DENIES NEEDS. NO DISTRESS NOTED. CPOC.
[2019-07-20 20:16] VITALS: BP 167/78
[2019-07-21 00:23] VITALS: BP 154/65
--- NOTE | 2019-07-21 01:02 | NUR ---
I have reviewed this patient and I concur with the Shift Assessment completed by the Licensed Practical Nurse today this shift.
[2019-07-21 05:36] LABS: BASOPHILS 0 % (0-2); EOSINOPHILS 0.1 % (0-7); HEMATOCRIT 27.3 % (36.0-48.0); HEMOGLOBIN 8.8 g/dL (12-16); IMMATURE GRANULOCYTES 0.4 % (0-5); LYMPHOCYTES 3.5 % (15-50); MCH 29.7 pg (26.0-34.0); MCHC 32.2 g/dL (31.0-37.0); MCV 92.2 fL (80.0-100.0); MEAN PLATELET VOLUME 9.6 fL (7.4-10.4); MONOCYTES 8.4 % (2-11); NEUTROPHILS 87.6 % (40-80); PLATELET COUNT 118 10x3/uL (130-400); RBC 2.96 10x6/uL (4.00-5.40); RDW 16.4 % (11.5-14.5); WBC 12.9 10x3/uL (4.8-10.8)
[2019-07-21 05:55] LABS: ALKALINE PHOSPHATASE 65 U/L (46-116); BILIRUBIN - TOTAL 0.61 mg/dL (0.2-1.3); CALC OSMOLALITY 282 mosm/kg (275-300); CALCIUM 8.3 mg/dL (8.5-10.1); CHLORIDE - SERUM 103 mmol/L (98-107); CREATININE - SERUM 0.7 mg/dL (0.6-1.3); GLUCOSE 131 mg/dL (74-106); POTASSIUM - SERUM 4.3 mmol/L (3.5-5.1); PROTEIN - SERUM 4.5 g/dL (6.4-8.2); SODIUM 139 mmol/L (136-145); UREA NITROGEN 21 mg/dL (7-18); eGFR NON AFRICAN AMERICAN 89 mL/min (90-120)
[2019-07-21 05:57] LABS: ALT (SGPT) 16 U/L (10-68)
[2019-07-21 06:09] VITALS: BP 162/70
[2019-07-21 08:18] VITALS: BP 191/83
--- NOTE | 2019-07-21 09:37 | NUR ---
I have reviewed this patient and I concur with the Shift Assessment completed by the Licensed Practical Nurse today this shift.
[2019-07-21 13:33] VITALS: BP 175/75
[2019-07-21 16:14] VITALS: BP 162/52
[2019-07-21 19:00] VITALS: BP 155/73
--- NOTE | 2019-07-21 19:35 | NUR ---
LYING IN BED. HOB ELEVATED. C/O NAUSEA. MEDICATED WITH ZOFRAN FOR C/O NAUSEA. COUGHING SPELL NOTED WITH CLEAR SPUTUM. COUGH IS WEAK. RESP IRREG. O2 @ 2L/NC. PT IS APHASIC. SPEECH DIFF TO UNDERSTAND AT TIMES. 1+ EDEMA NOTED TO BLE. DRSG NOTED TO LT HEEL BLISTER THAT HAS OPENED. LUE IS EDEMATOUS. PICC TO LUE IS SALINE LOCKED. MEHTA CATH PATENT AND DRAINING CLOUDY YELLOW URINE. TELEMETRY SHOWS SR WITH RATE OF 70. SR ELEVATED X2. CL IN REACH.
[2019-07-22] VITALS: BP 135/69
--- NOTE | 2019-07-22 02:11 | NUR ---
LYING IN BED WITH EYES CLOSED. RESP EVEN AND NONLABORED. O2 @ 2L/NC. NO DISTRESS. CL IN REACH.
[2019-07-22 04:00] VITALS: BP 157/71
[2019-07-22 04:52] LABS: BASOPHILS 0 % (0-2); EOSINOPHILS 0.1 % (0-7); HEMATOCRIT 26.6 % (36.0-48.0); HEMOGLOBIN 8.4 g/dL (12-16); IMMATURE GRANULOCYTES 0.5 % (0-5); LYMPHOCYTES 5.3 % (15-50); MCH 29.4 pg (26.0-34.0); MCHC 31.6 g/dL (31.0-37.0); MEAN PLATELET VOLUME 9.4 fL (7.4-10.4); MONOCYTES 9.1 % (2-11); PLATELET COUNT 113 10x3/uL (130-400); RBC 2.86 10x6/uL (4.00-5.40); RDW 16.4 % (11.5-14.5); WBC 10.4 10x3/uL (4.8-10.8)
[2019-07-22 05:10] LABS: CHLORIDE - SERUM 105 mmol/L (98-107)
[2019-07-22 05:22] LABS: ALKALINE PHOSPHATASE 55 U/L (46-116); ALT (SGPT) 16 U/L (10-68); BILIRUBIN - TOTAL 0.63 mg/dL (0.2-1.3); CALCIUM 7.8 mg/dL (8.5-10.1); CARBON DIOXIDE 32.4 mmol/L (21.0-32.0); CREATININE - SERUM 0.7 mg/dL (0.6-1.3); PROTEIN - SERUM 4.5 g/dL (6.4-8.2); SODIUM 142 mmol/L (136-145); UREA NITROGEN 18 mg/dL (7-18); eGFR NON AFRICAN AMERICAN 89 mL/min (90-120)
[2019-07-22 05:24] LABS: CALC OSMOLALITY 282 mosm/kg (275-300); GLUCOSE 71 mg/dL (74-106); POTASSIUM - SERUM 3.6 mmol/L (3.5-5.1)
--- NOTE | 2019-07-22 07:25 | NUR ---
ALERT AND ORIENTED. LUNGS DIMINISHED BILATERALLY IN ALL RIVERA. HEART SOUNDS S1 AND S2 HEARD IN ALL RIVERA. TELEMETRY IN PLACE RUNNING 77 SR. +3 EDEMA TO LUE. +1 EDEMA TO BLE. PICC TO TONY PATENT WITHOUT REDNESS. O2 IN PLACE AT 2L. DENIES PAIN. DENIES NEEDS. BED LOW. CALL RAIMREZ AND PERSONAL ITEMS IN REACH. WILL CONTINUE TO MONITOR.
[2019-07-22 08:11] VITALS: BP 163/74
[2019-07-22 09:08] LABS: AMPHOTERICIN B MIC 1.0 ug/mL (())
--- NOTE | 2019-07-22 09:11 | NUR ---
UNABLE TO AROUSE PATIENT ENOUGH TO TAKE MEDICATIONS. NODS HEAD TO ANSWER QUESTIONS. WAS PREVIOUSLY ALERT ENOUGH TO ANSWER ASSESSMENT QUESTIONS AT ABOUT 0700. JOSEPH QUINTERO ORDERED STAT ABGS. RESPIRATORY CALLED TO DO ABGS. BLOOD GLUCOSE 95. WILL CONTINUE TO MONITOR.
--- NOTE | 2019-07-22 09:39 | NUR ---
SPOKE WITH JOSEPH QUINTERO WHO STATES NOT TO GIVE SCHEDULED INSULIN. BLOOD SUGAR 95.
--- NOTE | 2019-07-22 10:00 | NUR ---
PATIENT MORE ALERT. ABLE TO TAKE AM MEDICATIONS.
--- NOTE | 2019-07-22 10:13 | NUR ---
ASSISTED TO BEDPAN PER REQUEST.
--- NOTE | 2019-07-22 11:39 | NUR ---
MEHTA DISCONTINUED PER ORDER.
--- NOTE | 2019-07-22 12:27 | NUR ---
FALL PRECAUTIONS INITIATED D/T MEHTA REMOVAL AND PATIENT CONTINUING TO BE SLIGHTLY LETHARGIC.
[2019-07-22 13:09] LABS: FUNGUS CULTURE RESULT 1 Candida tropicalis (())
--- NOTE | 2019-07-22 13:21 | NUR ---
RESTING IN BED. DENIES NEEDS. WILL CONTINUE TO MONITOR.
[2019-07-22 14:15] VITALS: BP 179/80
--- NOTE | 2019-07-22 14:16 | NUR ---
BP 179/80. PRN APRESOLINE GIVEN PER ORDER.
--- NOTE | 2019-07-22 15:00 | NUR ---
BP DECREASED TO 150/90 AFTER PRN APRESOLINE.
--- NOTE | 2019-07-22 16:36 | NUR ---
PATIENT SLEEPING. WILL CONTINUE TO MONITOR.
[2019-07-22 16:41] VITALS: BP 150/70
--- NOTE | 2019-07-22 18:13 | NUR ---
RESTING IN BED. DENIES PAIN. DENIES NEEDS. BED LOW. FALL PRECAUTIONS IN PLACE. CALL RAMIREZ AND PERSONAL ITEMS IN REACH. WILL CONTINUE TO MONITOR.
--- NOTE | 2019-07-22 18:35 | NUR ---
PATIENT GIVEN AND DRINKING SPRITE PER DR CONTRERAS [facility] MESSAGE.
--- NOTE | 2019-07-22 20:00 | NUR ---
ASSESSMENT PER FLOWSHEET. IV PATENT PICC SALINE LOCK. O2 ON 2L/M PER NC. INC URINE CLEANED AND DRIED. STACI MAT ON BED SR UP X2 CALL LIGHT WITHIN REACH.
[2019-07-22 20:24] VITALS: BP 155/76
--- NOTE | 2019-07-22 21:18 | NUR ---
C/O PAIN IN HEAD RATES #5. TYLENOL 650 PO GIVEN FOR PAIN .
--- NOTE | 2019-07-22 23:00 | NUR ---
INC URINE BED CHANGE DONE
--- NOTE | 2019-07-22 23:15 | NUR ---
[id number] NO COVERAGE.
[2019-07-23 00:30] VITALS: BP 140/70
--- NOTE | 2019-07-23 02:00 | NUR ---
RESTIG QUIETLY DENIES NEEDS.
--- NOTE | 2019-07-23 04:15 | NUR ---
C/O NAUSEA ZOFRAN 4MG IVP GIVEN FOR NAUSEA. NO EMESIS SEEN.
--- NOTE | 2019-07-23 05:00 | NUR ---
SALY=[id number]. HUMALOG 4UNITS GIVEN SUBC PER S/S LEFT ARM
[2019-07-23 05:11] VITALS: BP 177/81
[2019-07-23 06:36] LABS: BASOPHILS 0 % (0-2); EOSINOPHILS 0.3 % (0-7); HEMATOCRIT 26.4 % (36.0-48.0); HEMOGLOBIN 8.4 g/dL (12-16); IMMATURE GRANULOCYTES 0.3 % (0-5); LYMPHOCYTES 3.9 % (15-50); MCH 29.6 pg (26.0-34.0); MCHC 31.8 g/dL (31.0-37.0); MEAN PLATELET VOLUME 9.7 fL (7.4-10.4); MONOCYTES 8.8 % (2-11); NEUTROPHILS 86.7 % (40-80); PLATELET COUNT 101 10x3/uL (130-400); RBC 2.84 10x6/uL (4.00-5.40); RDW 16.6 % (11.5-14.5)
[2019-07-23 06:38] LABS: ALKALINE PHOSPHATASE 60 U/L (46-116); ALT (SGPT) 17 U/L (10-68); BILIRUBIN - TOTAL 0.73 mg/dL (0.2-1.3); CALC OSMOLALITY 287 mosm/kg (275-300); CALCIUM 7.6 mg/dL (8.5-10.1); CARBON DIOXIDE 33.2 mmol/L (21.0-32.0); CHLORIDE - SERUM 103 mmol/L (98-107); CREATININE - SERUM 0.7 mg/dL (0.6-1.3); MAGNESIUM - SERUM 1.3 mg/dL (1.8-2.4); PHOSPHOROUS 3.5 mg/dL (2.5-4.9); POTASSIUM - SERUM 3.6 mmol/L (3.5-5.1); PROTEIN - SERUM 4.1 g/dL (6.4-8.2); SODIUM 143 mmol/L (136-145); UREA NITROGEN 15 mg/dL (7-18); eGFR NON AFRICAN AMERICAN 89 mL/min (90-120)
[2019-07-23 06:39] LABS: GLUCOSE 136 mg/dL (74-106); WBC 7.7 10x3/uL (4.8-10.8)
--- NOTE | 2019-07-23 08:00 | NUR ---
ASSESSMENT PER FLOW SHEET. PT IS WITHOUT DISRESS.CALL LIGHT IN REACH.
[2019-07-23 08:28] VITALS: BP 180/78
[2019-07-23] MEDS ORDERED: METOPROLOL TART50 MG PT (12:24)
[2019-07-23] MEDS ORDERED: LISINOPRIL10 MG PO (12:24)
[2019-07-23] MEDS ORDERED: DALIRESP500 MCG PO (12:25)
[2019-07-23] MEDS ORDERED: SINGULAIR10 MG PO (12:25)
[2019-07-23] MEDS ORDERED: PREDNISONE10 MG PO (12:26)
--- NOTE | 2019-07-23 13:03 | MORECARE ---
CASE MANAGEMENT DISCHARGE SUMMARY PATIENT: JINA COLINDRES UNIT: [id number] ADM DATE: 07/05/19 AGE: 64 : 53 SEX: F ROOM/BED: D.2223 AUTHOR: CHARLINE JO PHYSICIAN: REFERRING PHYSICIAN: RHONA MOLINA MD DATE OF SERVICE: 07/23/19 Discharge Plan Patient Name: JINA COLINDRES Facility: [facility]:[place] : 1955 Planned Disposition: Inpatient Rehab Anticipated Discharge Date: Discharge Date: Expected LOS: Initial Reviewer: [email or web address] Initial Review Date: 07/06/2019 Generated: 07/23/19 2:02 pm Comments DCP- Discharge Planning Updated by [email or web address]: Kaitlin Lane on 07/23/19 11:[address] CM met with patient and informed she has discharge to inpatient rehab today, she agrees with discharge. She asks me to notify Ly Meza. I called Ly and left a message at [phone]. I gave my call back number for any questions. CM will continue to follow and assist with discharge planning/needs. DCP- Discharge Planning Updated by [email or web address]: Mahi Root on 07/18/19 1:[address] Patient Name: JINA COLINDRES Admission Status: ER Accout number: [id number] Admission Date: 07-05-2019 : 1955 Admission Diagnosis:PNEUMONIA, UNSPECIFIED ORGANISM Attending: JOSE J MOLINA Current LOS: 13 Anticipated DC Date: Planned Disposition: Inpatient Rehab Primary Insurance: MEDICARE A & B Discharge Planning Comments: CM met with patient to complete initial dc planning assessment. CM educated patient on the CM role and verbal consent given by patient to complete assessment. Patient lives at home alone where she is independent with her care. Patient agrees that at discharge patient will need rehab prior to going home. CM discussed availability of home health, rehab services, and medical equipment. Patient states that she plans to resume care with [facility] . MORENA signed. Patient has a nebulizer and home / portable 02 ( [facility]) Patient denied known discharge needs at this time. CM will continue to follow and will assist as needed with dc plans/needs. Aperture Mask Etcher: aMhi Root DCP- Discharge Planning Updated by [email or web address]: Mahi Root on 07/09/19 5:[address] Patient is still on vent and sedated. CM spoke with Ly Meza (Aperture Mask Etcher- [facility]) called to check status of patient. Ly stated that the patient doesn't have any close family here. The only relative she is aware of is her mother Gracia Blevins that lives in [place]. ([phone]) Ly stated she does have a son somewhere but doesn't know his name. Ly stated that [employer] [phone] manages patients money and pays her bills. Ly was able to give CM patient's PCP clinic and Pharmacy information. Ly stated that CM may can look at patients contacts on her phone and get more information. Carmela Mason (good friend) [phone]. CM called patient's mother Gracia [phone]. She stated that she was in hospital in [place], [place] and she may get out sometime next week. CM realized that Gracia is very confused and not understanding CM's conversation. Gracia was not able to give CM any creditable information. CM will continue to try to contact some family or POA. DCP- Discharge Planning Updated by [email or web address]: Mahi Root on 07/08/19 8:[address] Late Entry 1155 CM attempted to visit with patient regarding discharge planning/ needs. Patient currently on vent no family available. CM will continue to follow and assist as needed with discharge planning / needs DCPIA - Discharge Planning Initial Assessment Updated by [email or web address]: Mahi Root on 07/18/19 2:36 pm * Is the patient Alert and Oriented? No * PCP [facility] * Pharmacy [facility]? * Preadmission Environment Home Alone * ADLs Independent * Other Equipment HOME / PORTABLE 02, NEBULIZER, CANE * List name and contact numbers for known caregivers / representatives who currently or will assist patient after discharge: GRACIA BLEVINS - MOTHER- [phone] BREANA Fan [phone] (ATTRACTION WORKER) Carmela Mason (good friend) [phone] Ly [facility] [phone] * Verbal permission to speak to the caregivers and representatives has been obtained from the patient. Yes * Community resources currently utilized Home Health * Please name any agencies selected above. [facility] * Additional services required to return to the preadmission environment? No * Can the patient safely return to the preadmission environment? Yes * Has this patient been hospitalized within the prior 30 days at any hospital? No Coverage Notice Reviewer: [id number] Notice Issued Date-Time: 07/23/2019 12:00 Notice Type: IM Discharge Notice Notice Delivered To: Patient Relationship to Patient: Self Scrub Woman Name: Delivery Method: HAND - Hand Delivered Giovana Days: Prior Verbal Notification: Recipient Understood Notice: Yes Recipient Signature: Yes Med Rec Note Co-signed by Attending: Coverage Notice Comment: IMM explained, signed, given, copy placed in MR Last DP export: 07/18/19 1:49 p Patient Name: JINA COLINDRES Page [phone] at 1303 All edits/amendments must be made on the electronic document DICTATION DATE: 07/23/19 1302 MANAGER FIELD: MICHAEL 07/23/19 1302 RPT#: [id number] DC DATE: STATUS: ADM IN [facility] [address] [place] [address] END OF REPORT
[2019-07-23 13:13] VITALS: BP 184/82
--- NOTE | 2019-07-23 15:49 | NUR ---
OT NOTE: PT COMPLETED BED MOB TASKS WITH HYGIENE WITH MAX A. PT REQUIRED MAX A WITH HYGIENE TASKS. PT WAS NAUSEOUS DURING SUPINE TO SIT. PT FUNCTIONAL PERFORMANCE IS INCONSISTENT. THANK YOU, LOLIS NICOLE
--- NOTE | 2019-07-23 16:21 | NUR ---
REPORT TO SALMA ON REHAB
--- NOTE | 2019-07-23 16:23 | NUR ---
TO REHAB VIA BED.
--- NOTE | 2019-07-26 09:56 | MORECARE ---
CASE MANAGEMENT DISCHARGE SUMMARY PATIENT: JINA COLINDRES UNIT: [id number] ADM DATE: 07/05/19 AGE: 64 : 53 SEX: F ROOM/BED: D.2223 AUTHOR: SANDRO,DOC PHYSICIAN: REFERRING PHYSICIAN: RHONA MOLINA MD DATE OF SERVICE: 07/26/19 Discharge Plan Patient Name: JINA COLINDRES Facility: [facility]:[place] : 1955 Planned Disposition: Inpatient Rehab Anticipated Discharge Date: Discharge Date: 07/23/2019 Expected LOS: 0 Initial Reviewer: [id number] Initial Review Date: 07/06/2019 Generated: 07/26/19 10:55 am Comments DCP- Discharge Planning Updated by [email or web address]: Kaitlin Lane on 07/23/19 11:[address] CM met with patient and informed she has discharge to inpatient rehab today, she agrees with discharge. She asks me to notify Ly Meza. I called Ly and left a message at [phone]. I gave my call back number for any questions. CM will continue to follow and assist with discharge planning/needs. DCP- Discharge Planning Updated by [id number]: Mahi Root on 07/18/19 1:[address] Patient Name: JINA COLINDRES Admission Status: ER Accout number: [id number] Admission Date: 07-05-2019 : 1955 Admission Diagnosis:PNEUMONIA, UNSPECIFIED ORGANISM Attending: JOSE J MOLINA Current LOS: 13 Anticipated DC Date: Planned Disposition: Inpatient Rehab Primary Insurance: MEDICARE A & B Discharge Planning Comments: CM met with patient to complete initial dc planning assessment. CM educated patient on the CM role and verbal consent given by patient to complete assessment. Patient lives at home alone where she is independent with her care. Patient agrees that at discharge patient will need rehab prior to going home. CM discussed availability of home health, rehab services, and medical equipment. Patient states that she plans to resume care with [facility] . MORENA signed. Patient has a nebulizer and home / portable 02 ( [employer]) Patient denied known discharge needs at this time. CM will continue to follow and will assist as needed with dc plans/needs. Journal Clerk: Mahi Root DCP- Discharge Planning Updated by [email or web address]: Mahi Root on 07/09/19 5:[address] Patient is still on vent and sedated. CM spoke with Ly Meza (Journal Clerk- [facility]) called to check status of patient. Ly stated that the patient doesn't have any close family here. The only relative she is aware of is her mother Gracia Blevins that lives in [place]. ([phone]) Ly stated she does have a son somewhere but doesn't know his name. Ly stated that [employer] [phone] manages patients money and pays her bills. Ly was able to give CM patient's PCP clinic and Pharmacy information. Ly stated that CM may can look at patients contacts on her phone and get more information. Carmela Mason (good friend) [phone]. CM called patient's mother Gracia [phone]. She stated that she was in hospital in [place], [place] and she may get out sometime next week. CM realized that Gracia is very confused and not understanding CM's conversation. Gracia was not able to give CM any creditable information. CM will continue to try to contact some family or POA. DCP- Discharge Planning Updated by [id number]: Mahi Root on 07/08/19 8:[address] Late Entry 1155 CM attempted to visit with patient regarding discharge planning/ needs. Patient currently on vent no family available. CM will continue to follow and assist as needed with discharge planning / needs DCPIA - Discharge Planning Initial Assessment Updated by [id number]: Mahi Root on 07/18/19 2:36 pm * Is the patient Alert and Oriented? No * PCP [facility] * Pharmacy [facility]? * Preadmission Environment Home Alone * ADLs Independent * Other Equipment HOME / PORTABLE 02, NEBULIZER, CANE * List name and contact numbers for known caregivers / representatives who currently or will assist patient after discharge: GRACIA BLEVINS - MOTHER- [phone] [employer] [phone] (WASTE EXAMINER) Carmela Mason (good friend) [phone] Ly Meza (Journal Clerk- [facility]) [phone] * Verbal permission to speak to the caregivers and representatives has been obtained from the patient. Yes * Community resources currently utilized Home Health * Please name any agencies selected above. [facility] * Additional services required to return to the preadmission environment? No * Can the patient safely return to the preadmission environment? Yes * Has this patient been hospitalized within the prior 30 days at any hospital? No Coverage Notice Reviewer: [id number] Notice Issued Date-Time: 07/23/2019 12:00 Notice Type: IM Discharge Notice Notice Delivered To: Patient Relationship to Patient: Self Glassware Selector Name: Delivery Method: HAND - Hand Delivered Giovana Days: Prior Verbal Notification: Recipient Understood Notice: Yes Recipient Signature: Yes Med Rec Note Co-signed by Attending: Coverage Notice Comment: IMM explained, signed, given, copy placed in MR Last DP export: 07/23/19 12:03 p Patient Name: JINA COLINDRES Page 70057 at 0956 All edits/amendments must be made on the electronic document DICTATION DATE: 07/26/19954 TILE SHADER: MICHAEL 07/26/19954 RPT#: [id number] DC DATE:07/23/19 STATUS: DIS IN [facility] [address] [place] [address] END OF REPORT
[2019-08-06 09:11] LABS: FUNGUS MYCOLOGY CULTURE Final report (())
[2019-08-06 14:04] LABS: AEROBE ID Haemophilus influenz
[2019-08-15 10:10] LABS: ACID FAST SMEAR Negative (())
[2019-09-06 12:09] LABS: ACID FAST CULTURE Positive (())
== END 2019-07-23 16:23 | DRG 207 ==
LOC: D.ER 22:23 → D.ICU 23:51 → D.MS 07-18 16:11
PROVIDERS: Family Medicine; Internal Medicine Pulmonary Disease; ADMIT Emergency Medicine; ATTEND Emergency Medicine
PROC: 5A1955Z Respiratory Ventilation, Greater than 96 Consecutive Hours (ICD-10-PCS; principal; 2019-07-05)
PROC: 0B998ZZ Drainage of Lingula Bronchus, Via Natural or Artificial Opening Endoscopic (ICD-10-PCS; 2019-07-06)
PROC: 0B988ZZ Drainage of Left Upper Lobe Bronchus, Via Natural or Artificial Opening Endoscopic (ICD-10-PCS; 2019-07-06)
PROC: 05HY33Z Insertion of Infusion Device into Upper Vein, Percutaneous Approach (ICD-10-PCS; 2019-07-10)
DX: J96.21 Acute and chronic respiratory failure with hypoxia (principal); J18.1 Lobar pneumonia, unspecified organism; I50.23 Acute on chronic systolic (congestive) heart failure; J44.1 Chronic obstructive pulmonary disease with (acute) exacerbation; J45.901 Unspecified asthma with (acute) exacerbation; C34.12 Malignant neoplasm of upper lobe, left bronchus or lung; E87.1 Hypo-osmolality and hyponatremia; J90 Pleural effusion, not elsewhere classified; J96.22 Acute and chronic respiratory failure with hypercapnia; R00.1 Bradycardia, unspecified; E78.5 Hyperlipidemia, unspecified; E11.9 Type 2 diabetes mellitus without complications; D64.9 Anemia, unspecified; M19.90 Unspecified osteoarthritis, unspecified site; E83.42 Hypomagnesemia; K21.9 Gastro-esophageal reflux disease without esophagitis; F17.200 Nicotine dependence, unspecified, uncomplicated; G72.89 Other specified myopathies; I11.0 Hypertensive heart disease with heart failure

== ENCOUNTER 2019-07-23 16:15 | Inpatient (IN) | payer MEDICARE, OTHER ==
[~2019-07-23] VITALS: Ht 175.3 cm; Wt 82.1 kg
[~2019-07-23 16:15] MED LIST: DALIRESP500 MCG PO; LISINOPRIL10 MG PO; METOPROLOL TART50 MG PT; PREDNISONE10 MG PO; SINGULAIR10 MG PO
[2019-07-23 16:54] VITALS: BP 168/66; BMI 26.8
--- NOTE | 2019-07-23 17:50 | NUR ---
PT ADMITTED TO REHAB FROM ACUTE UNIT. PT HAS SHORTNESS OF BREATH AND IS ON O2 AT 2LPM. PT HAS BRUISING TO UPPER EXTREMETIES AND ABD. PT HAS A PICC LINE TO LEFT UPPER ARM AND 1+ EDEMA. PT IS INCONTINENT OF URINE AND BOWEL. PT HAS A BLISTER TO LEFT HEEL THAT IS OPEN. NO DRESSING AT THIS TIME. PT STATES PAIN LEVEL OF 9 AND IS NAUSEATED. TYLENOL AND ZOFRAN GIVEN PER ORDERS. PT IS REFUSING DINNER AT THIS TIME. WCTM.
--- NOTE | 2019-07-23 19:40 | NUR ---
PT ASSISTED ON AND OFF BEDPAN. PT URINATED. DENIES FURTHER NEEDS. CL IN REACH. A/O X4. WHISPERS DUE TO VOICE BEING GONE AND THROAT SORE FROM BEING INTUBATED A FEW DAYS AGO. WCTM
--- NOTE | 2019-07-23 20:15 | NUR ---
PT SUPERVISOR RECORDS CHANGE LIGHT AGAIN FOR BEDPAN. PT URINATED AND VERY SMALL WATERY STOOL WAS NOTED IN BEDPAN. CLEANED PT. CL IN REACH. CPOC
--- NOTE | 2019-07-23 22:00 | NUR ---
PT FRAME AND SCRAP CRUSHER LIGHT AGAIN ASKING TO BE ON BEDPAN. CLEANED PT. CL IN REACH
[2019-07-23 22:15] VITALS: BP 168/66
--- NOTE | 2019-07-24 00:30 | NUR ---
FINANCIAL SALES CONSULTANT LIGHT NEEDING BED CHANGE DUE TO INCONT. LINENS CHANGED. CL IN REACH. DENIES FURTHER NEEDS.
--- NOTE | 2019-07-24 01:00 | NUR ---
FILBERT GROWER LIGHT STATING SHE IS WET. CHECKED PADS, PADS DRY. WCTM
--- NOTE | 2019-07-24 01:12 | NUR ---
I have reviewed this patient and I concur with the Shift Assessment completed by the Licensed Practical Nurse today this shift.
--- NOTE | 2019-07-24 01:45 | NUR ---
PT LOGISTICAL ENGINEER LIGHT FOR BEDPAN. BM AND URINATION NOTED. CL IN REACH
--- NOTE | 2019-07-24 02:15 | NUR ---
PT CONTINUES TO BE CIRCLE CUTTING SAW OPERATOR LIGHT. EDUCATED PT THAT "THERE IS A FULL DAY OF THERAPY TOMORROW. AND YOU NEED TO GET SOME SLEEP" PT JUST ROLLED EYES AND STATED SHE NEEDED A WET WIPE. WET WIPE GIVEN. CPOC
--- NOTE | 2019-07-24 04:15 | NUR ---
CHANGED ENTIRE LINENS DUE TO INCONT. OF URINE. CL IN REACH. DENIES NEEDS. WCTM
--- NOTE | 2019-07-24 06:36 | NUR ---
ASSISTED ON BEDPAN. SMALL URINE NOTED. WCTM CL IN REACH
[2019-07-24 07:57] LABS: CALC OSMOLALITY 287 mosm/kg (275-300); CALCIUM 7.7 mg/dL (8.5-10.1); CARBON DIOXIDE 30.5 mmol/L (21.0-32.0); CHLORIDE - SERUM 104 mmol/L (98-107); CREATININE - SERUM 0.7 mg/dL (0.6-1.3); POTASSIUM - SERUM 3.5 mmol/L (3.5-5.1); SODIUM 142 mmol/L (136-145); UREA NITROGEN 13 mg/dL (7-18); eGFR NON AFRICAN AMERICAN 89 mL/min (90-120)
[2019-07-24 07:59] LABS: GLUCOSE 193 mg/dL (74-106)
[2019-07-24 08:04] VITALS: BP 178/83
[2019-07-24 08:40] LABS: BASOPHILS 0 % (0-2); EOSINOPHILS 0.5 % (0-7); HEMATOCRIT 23.5 % (36.0-48.0); IMMATURE GRANULOCYTES 0.6 % (0-5); LYMPHOCYTES 4.4 % (15-50); MCH 29.4 pg (26.0-34.0); MCHC 31.5 g/dL (31.0-37.0); MCV 93.3 fL (80.0-100.0); MEAN PLATELET VOLUME 9.3 fL (7.4-10.4); MONOCYTES 9.4 % (2-11); NEUTROPHILS 85.1 % (40-80); PLATELET COUNT 97 10x3/uL (130-400); RBC 2.52 10x6/uL (4.00-5.40); RDW 16.5 % (11.5-14.5); WBC 6.4 10x3/uL (4.8-10.8)
[2019-07-24 08:42] LABS: HEMOGLOBIN 7.4 g/dL (12-16)
[2019-07-24 09:11] LABS: PLATELET ESTIMATE DECREASED
--- NOTE | 2019-07-24 13:57 | NUR ---
PT RESTING IN BED WITH EYES OPEN CALL LIGHT IN REACH NO PROBLEMS WILL MONITERS
[2019-07-24 16:08] VITALS: Ht 175.3 cm; Wt 82.1 kg
--- NOTE | 2019-07-24 18:01 | NUR ---
PT RESTING IN BED WITH EYES OPEN CALL LIGHT IN REACH NO PROBLEMS WILL MONITER
--- NOTE | 2019-07-24 19:54 | NUR ---
GAVE 10MG OF LASIX AND RECIEVED UNIT OF BLOOD FROM LAB. MONI BUENO ADMINISTERED BLOOD. PREVITALS AND 15 MIN VITALS WERE COMPLETED. NO SIGNS OF REACTION. ASSISTED PT ON BEDPAN. VERY LITTLE URINE NOTED. PT STILL HAVE FREQUENCY. WCTM
[2019-07-24 22:00] VITALS: BP 176/81
--- NOTE | 2019-07-24 22:05 | NUR ---
ASSISTED ON BED BALDERAS 3 TIMES ALREADY THIS SHIFT. PT ALSO HAS COMPLAINED OF BEING HOT AC IN ROOM TURNED ON. PT GIVEN PAIN MED EARLIER. PT BLOOD RUNNING AT THIS TIME NO SIGNS OF REACTION. WCTM
--- NOTE | 2019-07-25 00:17 | NUR ---
I have reviewed this patient and I concur with the Shift Assessment completed by the Licensed Practical Nurse today this shift.
--- NOTE | 2019-07-25 00:19 | NUR ---
PT RESIDENT MANAGER LIGHT WANTING TO BE PULLED UP IN BED. THIS NURSE AND ANOTHER NURSE PULLED PT UP IN BED. PT HAVING HARD TIME BREATHING AND HAVING PURSED LIP BREATHING. O2 STAT IS 94% AND FAN WAS PROVIDED IN ROOM DUE TO COMPLAINING OF BEING HOT. WCTM
--- NOTE | 2019-07-25 03:45 | NUR ---
CHANGED LINENS. DENIES NEEDS. CL IN REACH. CPOC
--- NOTE | 2019-07-25 06:02 | NUR ---
COMPLAINING OF STOMACH HURTING NOT TIME FOR ZOFRAN AT THIS TIME. WCTM. CL IN REACH
[2019-07-25 08:00] VITALS: BP 191/98
--- NOTE | 2019-07-25 08:15 | NUR ---
PT RESTING IN BED WITH CALL LIGHT IN REACH PT COMPLANING OF SOB O2 SAT 94 VITALS STABLE BP HYPOTENSIVE 191/[address] CONTRERAS ABOUT PT CONDITION
--- NOTE | 2019-07-25 08:30 | NUR ---
NEW ORDERS FROM DR CONTRERAS WILL FOLLOW ORDERS
--- NOTE | 2019-07-25 09:00 | RHP ---
PATIENT: JINA COLINDRES MEDICAL RECORD: [id number] ACCOUNT: [id number] LOCATION:[facility]11[facility] : 53 ADMISSION DATE: 07/23/19 REHABILITATION HISTORY AND PHYSICAL EXAMINATION POST ADMISSION PHYSICIAN EXAMINATION POST ADMISSION PHYSICAL EXAMINATION AND HISTORY AND PHYSICAL DATE OF ADMISSION: 07/23/2019 ADMITTING DIAGNOSIS: Disuse myopathy. HISTORY OF PRESENT ILLNESS: The patient is a 64-year-old patient, who was transferred from [facility] in [place] to [place] for a higher level of care secondary to COPD and respiratory failure, requiring intubation and ventilation. The patient completed x-ray therapy in January 2018. She is now on oral meds per Dr. Mercado. She has got a followup PET scan pending. When last seen in May, family stated the patient had been sick for 2-3 days prior to the acute hospital admit with increased shortness of breath, wheezing, cough, dyspnea on minimal exertion despite using her inhalers and nebulizers. Has got a history of COPD, CHF, diabetes, gastroesophageal reflux disease, osteoarthritis, adenocarcinoma of the left lung and continues to smoke. Initial images in the ED revealed a left apical loculated effusion. Pulmonary was consulted. The patient was admitted to the ICU. Remained intubated during her stay there. She currently is on telemetry. They are monitoring her vital signs closely. Having some problems with her blood pressure and medication adjustment. She is on Protonix IV, anticoagulation therapy subcutaneous, some electrolyte protocol, supplemental O2, receiving breathing treatments. Proximal muscle weakness, deconditioning, impaired mobility, gait disturbance, debility, confusion. She is a high fall risk and self-care deficits. These are all barriers to her discharge home at this time. She lives at home alone in an apartment, was independent with ADLs and mobility. Prior to this hospitalization, used a single point cane. She is currently receiving OT, PT and speech therapy. She has some confusion and set up max assist for ADLs and max assist to total assist for mobility. She and her caregivers plan to be able to return her back to her apartment hopefully at her prior level of functioning or better if possible. Comorbidities include pleural effusion, [id number] respiratory failure and hypoxia, oropharyngeal dysphagia, speech disturbance, loculated pulmonary effusion in the left lung, bilateral pleural effusions, hyponatremia, left upper lobe adenocarcinoma of the left lung, gastroesophageal reflux disease, anemia, diabetes, hyponatremia secondary to SIADH, SVT. She has got a history of chronic cough, nicotine dependence. She smokes 1 to 1-1/2 packs per day. Allergic rhinitis, osteoarthritis, hypertension, hyperlipidemia, debility. PAST MEDICAL HISTORY: Significant for diabetes, CHF, COPD, adenocarcinoma of the lung, and tobacco use. PAST SURGICAL HISTORY: Includes knee surgery. ALLERGIES: TETRACYCLINE, SULFA, METAL TAISHA, AND SERZONE. CURRENT MEDICATIONS: Include Daliresp 500 mcg daily. She is on Deltasone 30 mg daily, lisinopril 30 mg daily, Singulair 10 mg at bedtime, Lopressor 50 mg b.i.d., Tylenol 650 mg every 6 hours p.r.n., and Zofran 4 mg every 6 hours HISTORY AND PHYSICAL [id number] JINA COLINDRES p.r.n. HABITS: Once again does smoke about to 1 to 1-1/2 packs a day. FAMILY HISTORY: Noncontributory. SOCIAL HISTORY: The patient hopes to return back home and get back to her prior level of functioning. REVIEW OF SYSTEMS: GENERAL: Does complain of diffuse weakness and fatigue. HEENT: Does complain of cold, cough, and congestion. CARDIOVASCULAR: Denies any chest pain. LUNGS: Does complain of shortness of breath with even minimal activity. PHYSICAL EXAMINATION: VITAL SIGNS: Stable. She is afebrile. GENERAL: A somewhat obese female, in no distress upon exam. HEENT: Normocephalic and atraumatic. Mucosa moist. NECK: Supple. No lymphadenopathy. LUNGS: Clear at this time in the upper brian. She does have decreased breath sounds in both bases and also in her left upper lobe. CARDIOVASCULAR: Regular rate and rhythm. She does have a mild systolic ejection murmur. ABDOMEN: Soft and nondistended. Positive bowel sounds times 4. EXTREMITIES: No clubbing, cyanosis or edema. NEUROLOGIC: She does have diffuse weakness with 2/5 strength in her proximal muscles of her legs and 2/5 in her upper arms. LABORATORY DATA: White count of 6.4, H&H of 7.4 and 23.5, and platelet count was noted to be 97. Her sodium is 142, potassium 3.5, BUN and creatinine of 13 and 0.7, and blood sugars noted to be 193. 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 The patient has potential to make improvement. We will institute the following multidisciplinary therapies including, but not limited to, physical, occupational, respiratory, speech, nutritional services, prosthetics, and orthotics. Given her complex medical condition and risks for more complications, rehabilitation services cannot be provided at a lower level of care such as a skilled nurse facility. PLAN: 1. Admit to [facility] for an inpatient therapy to include the following disciplines; A. Physical therapy to improve gait, all transfer skills, and bed mobility to modified independent level. B. Occupational therapy to modified independent level. C. Case management to assist with discharge planning and placement options. D. Nutrition to assist with nutritional needs. E. Rehabilitation nursing to assist in monitoring the patient's underlying medical conditions and to assist with any type of bowel or bladder management. 2. The patient's current medications and medical care will be continued. 3. I am going to go ahead and transfuse her a couple units of blood. 4. We will go ahead and follow up in the a.m. HISTORY AND PHYSICAL [id number] JINA COLINDRES TRANSINT:[id number] Voice Confirmation ID: [id number] DOCUMENT ID: [id number] DACIA notes whether there has been none or any medical/functional change since admission: - Anemic- requiring Blood transfusion. DACIA attests patient continues to be appropriate for IRF: - Continues to be appropriate. RHONA MOLINA MD at 0900 CC: [id number] DICTATION DATE: 07/24/19 0854 DISH NETWORK INSTALLER: 07/24/19 1138 ADM IN [facility] [address] [place] [address]
--- NOTE | 2019-07-25 09:21 | NUR ---
PATIENT ADMITTED TO REHAB FROM ACUTE FLOOR. DUE TO CHANGE IN MEDICAL CONDITON PATIENT DISCHARGED FROM REHAB AND ADMITTED TO ACUTE FLOOR.
--- NOTE | 2019-07-25 09:30 | NUR ---
DR MOLINA ORDERED FOR PT TO BE TRANSFERED TO ACUTE CARE
--- NOTE | 2019-07-25 10:30 | NUR ---
I have reviewed this patient and I concur with the Shift Assessment completed by the Licensed Practical Nurse today this shift.
--- NOTE | 2019-07-25 11:20 | NUR ---
PT TRANSFERED TO ROOM 2233 REPORT CALLED PT TRANSFERED IN BED PORTABLE 02 AT 2 TOLERATED WELL
== END 2019-07-25 11:10 | disposition short-term general hospital (02) | DRG 91 ==
LOC: D.REHAB 16:15
PROVIDERS: ADMIT Emergency Medicine; ATTEND Emergency Medicine
DX: G72.89 Other specified myopathies (principal); J96.21 Acute and chronic respiratory failure with hypoxia; C34.92 Malignant neoplasm of unspecified part of left bronchus or lung; E22.2 Syndrome of inappropriate secretion of antidiuretic hormone; J44.9 Chronic obstructive pulmonary disease, unspecified; R13.12 Dysphagia, oropharyngeal phase; R47.9 Unspecified speech disturbances; K21.9 Gastro-esophageal reflux disease without esophagitis; D64.9 Anemia, unspecified; E11.9 Type 2 diabetes mellitus without complications; F17.210 Nicotine dependence, cigarettes, uncomplicated; E78.5 Hyperlipidemia, unspecified; I11.0 Hypertensive heart disease with heart failure; I50.9 Heart failure, unspecified

== ENCOUNTER 2019-07-25 11:28 | Inpatient (IN) | payer MEDICARE, OTHER ==
[2019-07-25] VITALS (15 sets, daily range): BP systolic 124–194; BP diastolic 63–96
[~2019-07-25] VITALS: Ht 167.6 cm; Wt 87.2 kg
--- NOTE | 2019-07-25 11:10 | NUR ---
RECEIVED PT FROM REHAB VIA BED. REPORT FROM SALMA. ALERT AND ORIENTED, UNABLE TO VERBALLY RESPOND DUE TO HAVING TO FOCUS ON BREATHING. ON 2L O2, NC, O2 SAT 96%. BUE AND BLE EDEMA PRESENT, 2+. PICC TO LEFT CHEST, SL. SITE PATENT WITHOUT REDNESS OR SWELLING. YEAST TO GROIN AREA, RED. LEFT HEEL ULCERATION/BLISTER. CALLED RESPIRATORY FOR UPDRAFT FOR PT. VITALS STABLE. DENIES ANY NEEDS AT THIS TIME. WILL CONTINUE TO MONITOR.
--- NOTE | 2019-07-25 11:40 | NUR ---
RECEIVED TO ROOM 2233 VIA BED FROM REHAB. AUDIBLE WHEEZES NOTED. CALLED RT FOR BREATHING TREATMENT. WILL MONITOR.
--- NOTE | 2019-07-25 12:09 | NUR ---
BP 182/83. GIVEN 10 UNITS APRESOLINE SLOW IVP FOR SAME. WILL MONITOR.
[2019-07-25 12:10] LABS: BASOPHILS 0.1 % (0-2); EOSINOPHILS 0.5 % (0-7); IMMATURE GRANULOCYTES 1.5 % (0-5); LYMPHOCYTES 5.7 % (15-50); MCH 30.2 pg (26.0-34.0); MCHC 32.9 g/dL (31.0-37.0); MCV 91.9 fL (80.0-100.0); MEAN PLATELET VOLUME 9.3 fL (7.4-10.4); MONOCYTES 3.3 % (2-11); NEUTROPHILS 88.9 % (40-80); PLATELET COUNT 87 10x3/uL (130-400)
[2019-07-25 12:16] LABS: RBC 3.97 10x6/uL (4.00-5.40); WBC 8.8 10x3/uL (4.8-10.8)
[2019-07-25 12:17] LABS: HEMATOCRIT 36.5 % (36.0-48.0); INR 1.26 (0.85-1.17); PROTIME 15.2 SECONDS (11.6-15.0)
[2019-07-25 12:23] LABS: ALBUMIN 2.7 g/dL (3.4-5.0); ALKALINE PHOSPHATASE 75 U/L (46-116); ALT (SGPT) 23 U/L (10-68); BILIRUBIN - TOTAL 0.93 mg/dL (0.2-1.3); CALC OSMOLALITY 289 mosm/kg (275-300); CALCIUM 8.2 mg/dL (8.5-10.1); CARBON DIOXIDE 35.5 mmol/L (21.0-32.0); CHLORIDE - SERUM 99 mmol/L (98-107); CREATININE - SERUM 0.8 mg/dL (0.6-1.3); GLUCOSE 229 mg/dL (74-106); POTASSIUM - SERUM 3.3 mmol/L (3.5-5.1); PROTEIN - SERUM 5.6 g/dL (6.4-8.2); SODIUM 142 mmol/L (136-145); UREA NITROGEN 12 mg/dL (7-18); eGFR NON AFRICAN AMERICAN 76 mL/min (90-120)
--- NOTE | 2019-07-25 12:41 | NUR ---
HAD A CHANGE IN STATUS, PATIENT USING ACCESSORY MUSCLES TO BREATHE. NOTIFIED RESPIRATORY, GIVEN UPDRAFT. PATIENT BECAME NON VERBAL AND WOULD NOT AROUSE TO STIMULI. NOTIFIED, PHYSICIAN DECIDED TO PUT PATIENT ON BIPAP MACHINE AND TO TRANSFER TO ICU. GAVE REPORT TO YOUSIF IN ICU, TRANSFERRED PT VIA BED WITH ASSISTANCE OF HOSPITAL STAFF.
[2019-07-25 12:45] LABS: CKMB 4.2 U/L (0.0-3.6); CREATINE KINASE 28 UL (21-215); PRO BNP 19484 pg/mL (0-125)
[2019-07-25 12:48] LABS: TROPONIN-I 0.188 ng/mL (0.000-0.060)
[2019-07-25 13:06] LABS: MAGNESIUM - SERUM 1.3 mg/dL (1.8-2.4); PHOSPHOROUS 3.6 mg/dL (2.5-4.9)
--- NOTE | 2019-07-25 13:20 | NUR ---
PT RECEIVED FROM FLOOR AT THIS TIME VSS DR CONTRERAS AT BEDSIDE NEW ORDERS RECEIVED. WILL ADM.
--- NOTE | 2019-07-25 15:00 | NUR ---
REASSESSMENT COMPLETE PER FLOW SHEET. VSS. NO NEW CHANGES WILL CONTINUE TO MONITOR
--- NOTE | 2019-07-25 16:41 | NUR ---
DR BERUMEN PAGED GIVEN UDPATE PT SBP>200 T ORDERS RECEIVED WILL ADM.
[2019-07-25 19:10] LABS: CKMB 4.1 U/L (0.0-3.6); CREATINE KINASE 23 UL (21-215)
--- NOTE | 2019-07-25 19:20 | NUR ---
PT SINUS TACH ON CM HR ELEVATED 120-140'S, RT HOLDING UPDRAFT Tx, CHELE LUIS APRN PAGED AND RETURNED CALL, UPDATE GIVEN ON PT, ORDERS RECEIVED; DECREASE CARDINE GTT BY HALF OF CURRENT RATE/DOSE, TO KEEP SBP BELOW 170, NOTIFY IF PT SUSTAINES HR ABOVE 120'S. NO FURTHER AT THIS TIME, PT RESTING COMFORTABLY IN BED, ON BIPAP @ 35% FiO2, PT LETHARGIC BUT AROUSES TO VERBAL STIMULI, OTHER VSS, WILL CONTINUE TO ASSESS
--- NOTE | 2019-07-25 19:45 | NUR ---
PT CONVERTED TO NSR WITH HR IN 90'S, CHELE LUIS APRN NTIFIED, ORDERS RECEIVED FOR ELECTROLYE PROTOCOL, NO FURTHER AT THIS TIME, WILL CONTINUE TO MONITOR
--- NOTE | 2019-07-25 20:38 | MORECARE ---
CASE MANAGEMENT DISCHARGE SUMMARY PATIENT: JINA COLINDRES MIRANDA UNIT: [id number] ADM DATE: 07/25/19 AGE: 64 : 53 SEX: F ROOM/BED: D.2304 AUTHOR: CHARLINE JO PHYSICIAN: REFERRING PHYSICIAN: GENEVA BERUMEN MD DATE OF SERVICE: 07/25/19 Discharge Plan Patient Name: JINA COLINDRES Facility: [facility]:[place] : 1955 Planned Disposition: Inpatient Rehab Anticipated Discharge Date: Discharge Date: Expected LOS: Initial Reviewer: [email or web address] Initial Review Date: 07/25/2019 Generated: 07/25/19 9:37 pm Patient Name: JINA COLINDRES Page [phone] at 203 All edits/amendments must be made on the electronic document DICTATION DATE: 07/25/192036 HEAD PIECE ASSEMBLER: MICHAEL 07/25/192036 RPT#: [id number] DC DATE: STATUS: ADM IN [facility] [address] [place] [address] END OF REPORT
--- NOTE | 2019-07-25 20:44 | MORECARE ---
CASE MANAGEMENT DISCHARGE SUMMARY PATIENT: JINA COLINDRES MIRANDA UNIT: [id number] ADM DATE: 07/25/19 AGE: 64 : 54 SEX: F ROOM/BED: D.2304 AUTHOR: CHARLINE JO PHYSICIAN: REFERRING PHYSICIAN: GENEVA BERUMEN MD DATE OF SERVICE: 07/25/19 Discharge Plan Patient Name: JINA COLINDRES Facility: [facility]:[place] : 1955 Planned Disposition: Inpatient Rehab Anticipated Discharge Date: Discharge Date: Expected LOS: Initial Reviewer: [email or web address] Initial Review Date: 07/25/2019 Generated: 07/25/19 9:44 pm Comments DCP- Discharge Planning Updated by [id number]: Mahi Root on 07/25/19 7:[address] Patient Name: JINA COLINDRES Admission Status: Urgent Accout number: [id number] Admission Date: 07-25-2019 : 1955 Admission Diagnosis: Attending: GENEVA BERUMEN Current LOS: 1 Anticipated DC Date: Planned Disposition: Inpatient Rehab Primary Insurance: MEDICARE A & B Discharge Planning Comments: Patient was just discharged 07/23/19 will plan to return to Inpatient rehab once medically stable. CM met with patient to complete initial dc planning assessment. CM educated patient on the CM role and verbal consent given by patient to complete assessment. Patient lives at home alone where she is independent with her care. Patient agrees that at discharge patient will need rehab prior to going home. CM discussed availability of home health, rehab services, and medical equipment. Patient states that she plans to resume care with [facility]. MORENA signed. Patient has a nebulizer and home / portable 02 ( [employer]) Patient denied known discharge needs at this time. CM will continue to follow and will assist as needed with dc plans/needs. College Service Officer: Mahi Root Last DP export: 07/25/19 7:38 Patient Name: JINA COLINDRES Page [id number] at 204 All edits/amendments must be made on the electronic document DICTATION DATE: 07/25/192043 AERIAL INSTALLER: DM 07/25/192043 RPT#: [id number] DC DATE: STATUS: ADM IN [facility] [address] [place] [address] END OF REPORT
--- NOTE | 2019-07-25 20:56 | MORECARE ---
CASE MANAGEMENT DISCHARGE SUMMARY PATIENT: JINA COLINDRES UNIT: [id number] ADM DATE: 07/25/19 AGE: 64 : 54 SEX: F ROOM/BED: D.2304 AUTHOR: SANDRO,DOC PHYSICIAN: REFERRING PHYSICIAN: GENEVA BERUMEN MD DATE OF SERVICE: 07/25/19 Discharge Plan Patient Name: JINA COLINDRES Facility: [facility]:[place] : 1955 Planned Disposition: Inpatient Rehab Anticipated Discharge Date: Discharge Date: Expected LOS: Initial Reviewer: [email or web address] Initial Review Date: 07/25/2019 Generated: 07/25/19 9:56 pm Comments DCP- Discharge Planning Updated by [email or web address]: Mahi Root on 07/25/19 7:[address] Patient Name: JINA COLINDRES Admission Status: Urgent Accout number: [id number] Admission Date: 07-25-2019 : 1955 Admission Diagnosis: Attending: GENEVA BERUMEN Current LOS: 1 Anticipated DC Date: Planned Disposition: Inpatient Rehab Primary Insurance: MEDICARE A & B Discharge Planning Comments: Patient was just discharged 07/23/19 will plan to return to Inpatient rehab once medically stable. CM met with patient to complete initial dc planning assessment. CM educated patient on the CM role and verbal consent given by patient to complete assessment. Patient lives at home alone where she is independent with her care. Patient agrees that at discharge patient will need rehab prior to going home. CM discussed availability of home health, rehab services, and medical equipment. Patient states that she plans to resume care with [facility]. MORENA signed. Patient has a nebulizer and home / portable 02 ( [employer]) Patient denied known discharge needs at this time. CM will continue to follow and will assist as needed with dc plans/needs. Recruitment Intern: Mahi Root DCPIA - Discharge Planning Initial Assessment Updated by [id number]: Mahi Root on 07/25/19 8:53 pm * Is the patient Alert and Oriented? Yes * How many steps to enter\exit or inside your home? * PCP [facility] [place] * Pharmacy [facility]? * Preadmission Environment Home Alone * ADLs Independent * Other Equipment HOME / PORTABLE 02, NEBULIZER, CANE * List name and contact numbers for known caregivers / representatives who currently or will assist patient after discharge: LIZZIE ROWLEY - MOTHER- [phone] BREANA Chavira [phone] (PHLEBOTOMY SERVICES TECHNICIAN) Carmela Mason (good friend) [phone] Ly Meza (Recruitment Intern- [facility]) [phone] * Community resources currently utilized Home Health * Please name any agencies selected above. [facility] * Additional services required to return to the preadmission environment? No * Can the patient safely return to the preadmission environment? Yes * Has this patient been hospitalized within the prior 30 days at any hospital? Yes Last DP export: 07/25/19 7:44 Patient Name: JINA COLINDRES Page [id number] at 2055 All edits/amendments must be made on the electronic document DICTATION DATE: 07/25/192055 CHICKEN CLEANER: MICHAEL 07/25/192055 RPT#: [id number] DC DATE: STATUS: ADM IN [facility] [address] [place] [address] END OF REPORT
--- NOTE | 2019-07-25 23:00 | NUR ---
REASSESSMENT COMPLETED, NO ACUTE CHANGES FROM PRIOR ASSESSMENT, REPOSITIONED PT FOR COMFORT, HEEL PROTECTORS AND BLE ELEVATED, VSS, WILL CONTINUE TO MONITOR
[2019-07-26] VITALS (25 sets, daily range): BP systolic 105–159; BP diastolic 60–87; BMI 32.6; BMI 35.0
[2019-07-26 01:28] LABS: CKMB 3.4 U/L (0.0-3.6); CREATINE KINASE 18 UL (21-215)
[2019-07-26 01:34] LABS: TROPONIN-I 0.156 ng/mL (0.000-0.060)
--- NOTE | 2019-07-26 03:00 | NUR ---
REASSESSMENT COMPLETE, PT RESTING COMFORTABLE IN BED, NO ACUTE S/S OF DISTRESS NOTED, REPOSITIONED FOR COMFORT, VSS, WILL CONTINUE TO MONITOR
[2019-07-26 03:31] LABS: BASOPHILS 0.2 % (0-2); EOSINOPHILS 0.2 % (0-7); HEMOGLOBIN 10.5 g/dL (12-16); LYMPHOCYTES 4.5 % (15-50); MCH 29.6 pg (26.0-34.0); MCHC 32.8 g/dL (31.0-37.0); MCV 90.1 fL (80.0-100.0); MEAN PLATELET VOLUME 9.3 fL (7.4-10.4); MONOCYTES 4.4 % (2-11); NEUTROPHILS 89.7 % (40-80); PLATELET COUNT 87 10x3/uL (130-400); RBC 3.55 10x6/uL (4.00-5.40); RDW 16.2 % (11.5-14.5)
[2019-07-26 03:44] LABS: CALC OSMOLALITY 288 mosm/kg (275-300); CALCIUM 7.9 mg/dL (8.5-10.1); CARBON DIOXIDE 34.5 mmol/L (21.0-32.0); CHLORIDE - SERUM 99 mmol/L (98-107); CREATININE - SERUM 0.8 mg/dL (0.6-1.3); GLUCOSE 233 mg/dL (74-106); PHOSPHOROUS 3.5 mg/dL (2.5-4.9); POTASSIUM - SERUM 3.5 mmol/L (3.5-5.1); SODIUM 141 mmol/L (136-145); eGFR NON AFRICAN AMERICAN 76 mL/min (90-120)
[2019-07-26 03:45] LABS: MAGNESIUM - SERUM 2.2 mg/dL (1.8-2.4); UREA NITROGEN 16 mg/dL (7-18)
[2019-07-26 03:48] LABS: WBC 5.7 10x3/uL (4.8-10.8)
[2019-07-26 03:49] LABS: PLATELET ESTIMATE DECREASED
--- NOTE | 2019-07-26 07:00 | NUR ---
REPORT RECEIVED. ASSESSMENT COMPLETE PER FLOW SHEET. VSS. NO NEW CHANGES PT RESTING COMFORTABLY WILL CONTINUE TO MONITOR
--- NOTE | 2019-07-26 09:00 | NUR ---
PO MEDS ADM WITHOUT DIFFICULTY. VSS NO NEW CHANGES WILL CONTINUE TO MONITOR
--- NOTE | 2019-07-26 11:00 | NUR ---
REASSESSMENT COMPLETE PER FLLOW SHEET. VSS. NO NEW CHANGES PT RESTING COMFORTABLY WILL CONTINUE TO MONITOR
--- NOTE | 2019-07-26 13:12 | NUR ---
PT ON BIPAP RESTING AT THIS TIME.VSS. NO NEW CHANGES WILL CONTINUE TO MONITOR
--- NOTE | 2019-07-26 15:26 | NUR ---
SPEECH THERAPY AT BEDSIDE, SWALLOW EVAL COMPLETE, PT TOLERATED WELL
--- NOTE | 2019-07-26 17:20 | NUR ---
COMPLETE BB LINEN CHANGE ADM LARGE LOOSE BM NOTED.
--- NOTE | 2019-07-26 19:40 | NUR ---
RECEIVED CARE OF PT, ASSESSMENT PER FLOWSHEET. PT ORIENTED TO PERSON AND PLACE ONLY, ON 4L O2 VIA NC, ABLE TO FOLLOW COMMANDS, SPEECH IS SOFT AND WEAK. HR SR ON CM, PPP, MEHTA CATH PATENT. VSS, WILL MONITOR.
--- NOTE | 2019-07-26 21:30 | NUR ---
NO VISITORS PRESENT AT THIS TIME, PT DENIES ANY NEEDS, VSS.
--- NOTE | 2019-07-26 23:30 | NUR ---
REASSESSMENT PER FLOWSHEET, NO ACUTE CHANGES NOTED AT THIS TIME. VSS
[2019-07-27] VITALS (12 sets, daily range): BP systolic 124–172; BP diastolic 60–109
--- NOTE | 2019-07-27 00:46 | NUR ---
BIPAP PLACED ON PER RT, FAN PROVIDED PER PT REQUEST.
[2019-07-27 04:24] LABS: BASOPHILS 0 % (0-2); EOSINOPHILS 0 % (0-7); HEMATOCRIT 31.7 % (36.0-48.0); HEMOGLOBIN 10.3 g/dL (12-16); IMMATURE GRANULOCYTES 0.5 % (0-5); LYMPHOCYTES 2.6 % (15-50); MCH 29.3 pg (26.0-34.0); MCHC 32.5 g/dL (31.0-37.0); MCV 90.3 fL (80.0-100.0); MEAN PLATELET VOLUME 9.2 fL (7.4-10.4); MONOCYTES 5.6 % (2-11); NEUTROPHILS 91.3 % (40-80); PLATELET COUNT 115 10x3/uL (130-400); RBC 3.51 10x6/uL (4.00-5.40); WBC 9.5 10x3/uL (4.8-10.8)
[2019-07-27 04:39] LABS: AMYLASE - SERUM 30 U/L (25-115); CALC OSMOLALITY 284 mosm/kg (275-300); CALCIUM 8.1 mg/dL (8.5-10.1); CARBON DIOXIDE 36.7 mmol/L (21.0-32.0); CHLORIDE - SERUM 100 mmol/L (98-107); CREATININE - SERUM 0.8 mg/dL (0.6-1.3); LIPASE 62 U/L (73-393); MAGNESIUM - SERUM 1.7 mg/dL (1.8-2.4); POTASSIUM - SERUM 3.1 mmol/L (3.5-5.1); SODIUM 140 mmol/L (136-145); UREA NITROGEN 19 mg/dL (7-18); eGFR NON AFRICAN AMERICAN 76 mL/min (90-120)
[2019-07-27 04:40] LABS: GLUCOSE 169 mg/dL (74-106); PHOSPHOROUS 2.6 mg/dL (2.5-4.9)
--- NOTE | 2019-07-27 04:53 | NUR ---
AM LABS REVIEWED, POTASSIUM AND MAGNESIUM TREATED PER ELECTROLYTE PROTOCOL.
--- NOTE | 2019-07-27 08:00 | NUR ---
LYING IN BED RESTING WITH EYES CLOSED AT THIS TIME. RESPIRATIONS STEADY AND UNLABORED. AWAKENS EASILY WHEN SPOKEN TO. VSS. PT TURNED Q2H. ANSWERS ORIENTATION QUESTIONS APPROPIATELY. WILL CONTINUE PLAN OF CARE.
--- NOTE | 2019-07-27 10:00 | NUR ---
PT REFUSED BREAKFAST, ONLY EATING A FEW BITES OF APPLESAUCE AND A FEW SIP OF THINKENED WATER. PT STATES SHE DOES NOT WANT ANY MORE. WILL CONTINUE TO OFFER SNACKS AND FLUIDS. WILL CONTINUE PLAN OF CARE.
--- NOTE | 2019-07-27 12:08 | NUR ---
UP IN BED WATCHING TV AT THIS TIME. C/O NAUSEA. PRN ZOFRAN ADMIN VIA IV. PT STATES SHE IS STARTING TO FEEL RELIEF. NO ACUTE DISTRESS NOTED. VSS. WILL CONTINUE PLAN OF CARE.
--- NOTE | 2019-07-27 12:08 | NUR ---
PER BIGG QUINTERO TO TRANSFER.
--- NOTE | 2019-07-27 12:09 | NUR ---
PER DR FAJARDO, TRANSFER TO [facility].
--- NOTE | 2019-07-27 12:16 | NUR ---
PER DR BERUMEN NEURO CHECKS CHANGED FROM Q2H TO Q12H AND BLOOD GLUCOSE CHECKS CHANGED FROM Q4H TO ACHS.
--- NOTE | 2019-07-27 13:32 | NUR ---
SBP TRENDING 150S-170S AT THIS TIME. DR FAJARDO NOTIFIED, NO NEW ORDERS RECIEVED.
--- NOTE | 2019-07-27 13:50 | NUR ---
CHG BATH OFFERED AT THIS TIME; PT REFUSED.
--- NOTE | 2019-07-27 15:11 | NUR ---
PATIENT HAS ARRIVED FROM ICU. SHE IS ALERT AND AWAKE. SHE HAS A VERY SOFT AND QUIET VOICE. SHE DID HAVE A BM, AND GOT A BATH ACCORDING TO REPORT. SHE HAS A PICC LINE IN HER LEFT UPPER ARM AND A IMPLANTED PORT IN HER RIGHT CHEST THAT HAS NOT BEEN ACCESSED. SHE IS ON 4 L NASAL CANNULA, AND SHE HAS A BIPAP THAT SHE ONLY WEARS AT NIGHT. PATIENT IS SITTING UP IN BED, PLAYING ON HER PHONE AND DENIES ANY NEEDS AT THIS TIME.
--- NOTE | 2019-07-27 15:17 | NUR ---
TRANSFERRED TO ROOM 2129 AT THIS TIME VIA BED WITH ALL PERSONAL ITEMS WITH NURSING STAFF. NO ACUTE DISTRESS NOTED. VSS. REPORT CALLED TO RECIEVING NURSE PRIOR TO TRANSFER. BEFORE TRANSFER TOTAL LINEN CHANGE AND CHG BATH GIVEN. SMALL INCONTINENT LOOSE BROWN BOWEL MOVEMENT NOTED. RAJ CARE AND MEHTA CARE PROVIDED. NO FURTHER ACTIONS.
--- NOTE | 2019-07-27 23:08 | NUR ---
INITAIL ROUNDS COMPLETED AT 1915 HRS. PT DENIED ANY DISCOMFORT. ASSESSMENT COMPLETED AT 2020 HRS. VSS. PT ALERT AND ORIENTED. IV TO LAC PICC WITH D51/2NS AT 50CC/HR. IV PATENT. O2 4LNC. LUNGS DIMINISHED IN BASES BILAT. JONES. ABD SOFT WITH ACTIVEN BS NOTED. SHEYLA AREA UNDER BILAT ABD FOLDS AND GROIN AREA. BUTTOCKS SLIGHTLY RED. BRUISES NOED TO ABD AND BILAT ARMS. INPLANTED PORT NOTRD TO UPPER R CHEST. STAGE 2 NOTED TO INNER L ANKLE AND HEEL. CENTER AREA 2CM X 2CM SURROUNDED BY AEA 5CM IN DIAMETER TAHT IS RED. HEEL PROTECTORES, RON HOSES AND SCD'S IN USE. REMOVED AND SKIN INSPECTED. NO OTHER BREAKDOWN NOTED. PM FSBS 188. 4 UNITS HUMALOG GIVEN SUB-Q TO UPPER R ARM. PM MEDS GIEN CRUSHED IN APPLE SAUCE. ASPIRATION PRECAUTIONS FOLLOWED. PT TOOK MEDS WELL. REPOSITIONED IN BED FOR COMFORT. PT CURRENTLY RESTING WITH EYES CLOSED. RESP EVEN AND REGULAR. SR UP X2,CALL LIGHT WITHIN REACH.
--- NOTE | 2019-07-28 00:35 | NUR ---
PT AWAKE; DENIES ANY DISCOMFORT. BIPAP IN USE. SR UP X2, CALL LIGHT WITHIN REACH.
--- NOTE | 2019-07-28 01:02 | NUR ---
PT REFUSES BIPAP AT THIS TIME. O2 4LNC PLACED.
--- NOTE | 2019-07-28 01:20 | NUR ---
PT REFUSED TO WEAR BIPAP
--- NOTE | 2019-07-28 02:24 | NUR ---
PT RESTING WITH EYES CLOSED. RESP EVEN AND REGULAR. SR UP X2,CALL LIGHT WITHIN REACH.
[2019-07-28 04:02] VITALS: BP 162/74
--- NOTE | 2019-07-28 04:18 | NUR ---
PT AWAKE;DENIES ANY DISCOMFORT. PT REPOSITIONED SELF IN BED. SR UP X2, CALL LIGHT WITHIN REACH.
[2019-07-28 04:57] LABS: BASOPHILS 0 % (0-2); EOSINOPHILS 0 % (0-7); HEMATOCRIT 28.9 % (36.0-48.0); HEMOGLOBIN 9.4 g/dL (12-16); IMMATURE GRANULOCYTES 1.2 % (0-5); LYMPHOCYTES 2.5 % (15-50); MCH 29.8 pg (26.0-34.0); MCHC 32.5 g/dL (31.0-37.0); MCV 91.7 fL (80.0-100.0); MEAN PLATELET VOLUME 9.6 fL (7.4-10.4); MONOCYTES 5.4 % (2-11); NEUTROPHILS 90.9 % (40-80); PLATELET COUNT 109 10x3/uL (130-400); RBC 3.15 10x6/uL (4.00-5.40); RDW 16.3 % (11.5-14.5); WBC 8.9 10x3/uL (4.8-10.8)
[2019-07-28 05:10] LABS: ANION GAP 6.1 mmol/L (8-16); CALCIUM 7.9 mg/dL (8.5-10.1); CARBON DIOXIDE 35.4 mmol/L (21.0-32.0); CREATININE - SERUM 0.9 mg/dL (0.6-1.3); MAGNESIUM - SERUM 1.5 mg/dL (1.8-2.4); PHOSPHOROUS 2.3 mg/dL (2.5-4.9); POTASSIUM - SERUM 3.5 mmol/L (3.5-5.1)
--- NOTE | 2019-07-28 07:15 | NUR ---
LOW MAG AND POTASSIUM TREATED PER ELECTROLYTE PROTOCOL. DENIED ANY DISCOMFORT. NEEDS MET; WILL CONTINUE TO MONITOR AND CALL LIGHT WITHIN REACH.
--- NOTE | 2019-07-28 07:33 | NUR ---
PATIENT IS AWAKE AND ALERT. DENIES ANY NEEDS AT THIS TIME. SHE DID HAVE A BM THIS MORNING. SHE HAS A ULCER ON HER LEFT ANKLE. WILL CONSULT WOUND CARE TO REACCESS.
[2019-07-28 08:47] VITALS: BP 149/63
--- NOTE | 2019-07-28 09:27 | NUR ---
FEEDING PATIENT BREAKFAST. TON RUIZ ROUNDING. PATIENT NAUSEATED, TREATING WITH ZOFRAN ORDERED PRN. PATIENT IS ON TEMP DROPLET PRECAUTION, MICRO CALLED AND SAID MAY HAVE STAFF IN THE LUNGS. WILL WAIT FOR FURTHUR TEST RESULTS TO DETERMINE. PRECAUTIONS TAKEN PER PROTOCOL.
[2019-07-28 13:04] VITALS: BP 134/53
[2019-07-28 17:47] VITALS: BP 139/51
--- NOTE | 2019-07-28 19:33 | NUR ---
INITIAL ROUNDS COMPLETED. PT DENIED ANY DISCOMFORT. CALL LIGHT WITHIN REACH.
[2019-07-28 20:32] VITALS: BP 160/68
--- NOTE | 2019-07-28 22:24 | NUR ---
ASSESSMENT COMPLETED AT 1950 HRS. VSS. SR PER CMHR 80. PT ALERT AND ORIENTED TO PERSON, PLACE AND TIME. JONES. O2 4LNC. LUNGS DIMINISHED IN BASES BILAT. IV L ARM PICC WITHD51/2NS AT 50CC/HR. IV PATENT. MEHTA DRAINING YELLOW URINE. JONES. BRUISES NOTED TO BILAT ARMS. BUTTOCK SLIGHTLY RED. SORE NOTED TO INNER L FOOT/ANKLE. SCD'S REMOVED AND SKIN INSPECTED. NO BREAKDOWN NOTED. RON HOSE FREE OF WRINKLES. HEEL PROTECTORS IN USE. PM FSBS 179. 4 UNITS HUMALOG GIVEN SUB-Q TO UPPER R ARM. PM MEDS GIVEN CRUSHED IN APPLE SAUCE. PT PLACED IN HIGH FOWLERS FOR MED ADMINISTRATION. PT SWALLOWED WITHOUT DIFFICULTY. PT CURRENTLY RESTING WITH EYES CLOSED. RESP EVEN AND REGULAR. SR UP X2, CALL LIGHT WITHIN REACH.
[2019-07-28 23:51] VITALS: BP 167/73
--- NOTE | 2019-07-29 00:03 | NUR ---
PT RESTING WITH EYES CLOSED. RESP EVEN AND REGULAR. SR UP X2, CALL LIGHT WITHIN REACH.
--- NOTE | 2019-07-29 02:09 | NUR ---
PT RESTING WITH EYES CLOSED. RESP EVEN AND REGULAR. SR UP X2, CALL LIGHT WITHIN REACH.
--- NOTE | 2019-07-29 04:19 | NUR ---
PT RESTING WITH EYES CLOSED. RESP EVEN AND REGULAR. CALL LIGHT WITHIN REACH.
[2019-07-29 04:30] VITALS: BP 173/80
[2019-07-29 06:03] LABS: BASOPHILS 0.1 % (0-2); EOSINOPHILS 0 % (0-7); HEMATOCRIT 28.9 % (36.0-48.0); HEMOGLOBIN 9.2 g/dL (12-16); IMMATURE GRANULOCYTES 2.4 % (0-5); LYMPHOCYTES 3.4 % (15-50); MCH 29.5 pg (26.0-34.0); MCHC 31.8 g/dL (31.0-37.0); MCV 92.6 fL (80.0-100.0); MEAN PLATELET VOLUME 9.4 fL (7.4-10.4); MONOCYTES 6.9 % (2-11); NEUTROPHILS 87.2 % (40-80); PLATELET COUNT 112 10x3/uL (130-400); RBC 3.12 10x6/uL (4.00-5.40); RDW 16.1 % (11.5-14.5); WBC 8.3 10x3/uL (4.8-10.8)
[2019-07-29 06:04] LABS: CALC OSMOLALITY 289 mosm/kg (275-300); CALCIUM 7.9 mg/dL (8.5-10.1); CHLORIDE - SERUM 100 mmol/L (98-107); CREATININE - SERUM 0.8 mg/dL (0.6-1.3); GLUCOSE 266 mg/dL (74-106); MAGNESIUM - SERUM 1.8 mg/dL (1.8-2.4); POTASSIUM - SERUM 3.8 mmol/L (3.5-5.1); SODIUM 140 mmol/L (136-145); UREA NITROGEN 19 mg/dL (7-18); eGFR NON AFRICAN AMERICAN 76 mL/min (90-120)
[2019-07-29 06:08] LABS: PHOSPHOROUS 3.4 mg/dL (2.5-4.9)
--- NOTE | 2019-07-29 06:46 | NUR ---
ELECTROLYTES WNL THIS AM. PT DENIED ANY DISCOMFORT. AM FSBS 266. 10 UNITS HUMALOG GIVEN SUB-Q TO UPPER R ARM. NEEDS MET; WILL CONTINUE TO MONITOR.
[2019-07-29 09:13] VITALS: BP 146/65
--- NOTE | 2019-07-29 09:45 | NUR ---
PATIENT IS FEELING A LITTLE DEPRESSED TODAY. FOOD MAKES HER NAUSEATED. SHE IS VERY WEAK AND DOES NOT WANT TO MOVE HER ARMS OR TRY. WE ARE FEEDING HER MUCH SHE WILL TAKE. SHE IS EATTING APPLE SAUCE WITH MEDS, A FEW BITES OF MEALS, DRINKING ENSURE. IV INFUSING THOUGH THE PORT IN HER LEFT UPPER ARM.
--- NOTE | 2019-07-29 10:41 | NUR ---
PATIENT IS REFUSING PT. TREATING HER WITH ZOFRAN NOW FOR ABD CRAMPS.
[2019-07-29 12:17] VITALS: BP 154/70
--- NOTE | 2019-07-29 14:26 | NUR ---
NUTRITION F/U REG PUREED DIET WITH HONEY THICK LIQUIDS, REQUIRES FEEDING ASSIST. ~25% INTAKE MEALS. PER PRIOR RD NOTE PT MAY BENEFIT FROM PROCALAMINE AT 75 CC/HR UNTIL PO INTAKE IMPROVES. RD FOLLOWING
[2019-07-29 17:24] VITALS: BP 175/84
--- NOTE | 2019-07-29 18:00 | NUR ---
CALLED [facility] BECAUSE OF HIGH B/P. PATIENT JUST HAD LASIX. SO WE ARE GOING TO WAIT AND IF NEXT PRESSURE IS 180 OR ABOVE, WILL CALL HIM BACK. PASSING ALONG TO NEXT SHIFT.
[2019-07-29 20:00] VITALS: BP 150/69
[2019-07-30] VITALS: BP 165/80
[2019-07-30 03:08] LABS: HEPATITIS C ANTIBODY 6.1 S/CO RAT (0.0-0.9)
[2019-07-30 04:00] VITALS: BP 175/83
[2019-07-30 04:52] LABS: CALC OSMOLALITY 288 mosm/kg (275-300); CALCIUM 7.3 mg/dL (8.5-10.1); CARBON DIOXIDE 39.1 mmol/L (21.0-32.0); CHLORIDE - SERUM 98 mmol/L (98-107); CREATININE - SERUM 0.8 mg/dL (0.6-1.3); GLUCOSE 269 mg/dL (74-106); PHOSPHOROUS 3.8 mg/dL (2.5-4.9); POTASSIUM - SERUM 3.6 mmol/L (3.5-5.1); SODIUM 139 mmol/L (136-145); UREA NITROGEN 19 mg/dL (7-18); eGFR NON AFRICAN AMERICAN 76 mL/min (90-120)
[2019-07-30 05:13] LABS: BASOPHILS 0.1 % (0-2); EOSINOPHILS 0 % (0-7); HEMATOCRIT 30.2 % (36.0-48.0); HEMOGLOBIN 9.7 g/dL (12-16); IMMATURE GRANULOCYTES 3.2 % (0-5); LYMPHOCYTES 3.6 % (15-50); MCH 29.5 pg (26.0-34.0); MCHC 32.1 g/dL (31.0-37.0); MCV 91.8 fL (80.0-100.0); MEAN PLATELET VOLUME 9.1 fL (7.4-10.4); MONOCYTES 4.9 % (2-11); NEUTROPHILS 88.2 % (40-80); PLATELET COUNT 90 10x3/uL (130-400); RBC 3.29 10x6/uL (4.00-5.40); RDW 15.5 % (11.5-14.5); WBC 7.2 10x3/uL (4.8-10.8)
[2019-07-30 05:15] LABS: MAGNESIUM - SERUM 1.3 mg/dL (1.8-2.4)
[2019-07-30 14:19] VITALS: BP 173/70
--- NOTE | 2019-07-30 14:26 | NUR ---
OT NOTE: PT COMPLETED BED MOB WITH MAX A. PT COMPLETED FACE WASH WITH SET UP. PT COMPLETED HAND HYGIENE WITH SET UP. THANK YOU, LOLIS NICOLE
--- NOTE | 2019-07-30 15:51 | NUR ---
I have reviewed this patient and I concur with the Shift Assessment completed by the Licensed Practical Nurse today this shift.
[2019-07-30 16:46] VITALS: BP 175/78
--- NOTE | 2019-07-30 18:09 | NUR ---
LYING QUIETLY WITHHOB UP. C/O NAUSEA. ZOFRAN GIVEN FOR RELIEF. SR UP WITH CALL LIGHT IN REACH. WILL MONITOR
--- NOTE | 2019-07-30 19:31 | NUR ---
BEDSIDE REPORT RECEIVED FROM DAY SHIFT, PT CARE ASSUMED. INTRODUCED SELF AND WROTE NAME ON BOARD. PT LYING IN BED WITH EYES CLOSED, RR EVEN AND NONLABORED, NO S/S OF DISTRESS, AROUSES EASILY TO VOICE. DISORIENTED X2, REORIENTED TO DATE AND SITUATION. DENIES ANY NEEDS AT THIS TIME. BED IN LOWEST POSITION, SR X3, CALL LIGHT WITHIN REACH. WILL CONTINUE TO MONITOR.
[2019-07-30 20:35] VITALS: BP 177/76
--- NOTE | 2019-07-30 22:43 | NUR ---
PT LYING IN BED AWAKE, FSBS 297. NIGHT TIME MEDS ADMINISTERED, PER ORDER. OFFERED PT SNACK, PT REFUSED. DENIES ANY OTHER NEEDS AT THIS TIME. BED IN LOWEST POSITION, SR X2, CALL LIGHT WITHIN REACH. WILL CONTINUE TO MONITOR.
[2019-07-31] VITALS: BP 176/71
[2019-07-31 04:30] VITALS: BP 164/66
[2019-07-31 04:48] LABS: BASOPHILS 0.1 % (0-2); EOSINOPHILS 0.1 % (0-7); HEMATOCRIT 30.1 % (36.0-48.0); HEMOGLOBIN 9.9 g/dL (12-16); IMMATURE GRANULOCYTES 1.8 % (0-5); LYMPHOCYTES 3.9 % (15-50); MCH 29.6 pg (26.0-34.0); MCHC 32.9 g/dL (31.0-37.0); MCV 90.1 fL (80.0-100.0); MEAN PLATELET VOLUME 8.9 fL (7.4-10.4); MONOCYTES 3.7 % (2-11); NEUTROPHILS 90.4 % (40-80); PLATELET COUNT 84 10x3/uL (130-400); RBC 3.34 10x6/uL (4.00-5.40); RDW 15.1 % (11.5-14.5); WBC 8.3 10x3/uL (4.8-10.8)
[2019-07-31 05:05] LABS: ALBUMIN 1.8 g/dL (3.4-5.0); ALKALINE PHOSPHATASE 68 U/L (46-116); ALT (SGPT) 14 U/L (10-68); BILIRUBIN - TOTAL 0.76 mg/dL (0.2-1.3); CALCIUM 7.4 mg/dL (8.5-10.1); CARBON DIOXIDE 38.8 mmol/L (21.0-32.0); CHLORIDE - SERUM 98 mmol/L (98-107); CREATININE - SERUM 0.7 mg/dL (0.6-1.3); PROTEIN - SERUM 4.2 g/dL (6.4-8.2); SODIUM 136 mmol/L (136-145); UREA NITROGEN 19 mg/dL (7-18); eGFR NON AFRICAN AMERICAN 89 mL/min (90-120)
[2019-07-31 05:06] LABS: CALC OSMOLALITY 277 mosm/kg (275-300); GLUCOSE 179 mg/dL (74-106)
[2019-07-31 05:33] LABS: PLATELET ESTIMATE DECREASED
--- NOTE | 2019-07-31 07:42 | NUR ---
SLEEPING BUT EASLIY AROUSED. ALERT AND ORIENTED.. TELEMERTY SHOWS SB 54. PT HAS A MEHTA CATH TO GRAVITY BAG. PT HAS A OPEN SORE ON THE LEFT ANKEL PT IS ON ISOLATION. O2 AT 4 L/M PER NC. LEFT ARM PICC LINE WITH D51/2 AT 50. WILL MONITOR
[2019-07-31 09:13] VITALS: BP 176/78
--- NOTE | 2019-07-31 12:07 | NUR ---
OT NOTE: PT REMAINS VERY LETHARGIC AND FATIGUED. PT DID NOT EAT AND REQUIRED EXTENSIVE ENCOURAGEMENT TO HOLD HER DRINK IN ORDER TO TAKE A SIP. ABLE TO WASH HER FACE AND HANDS WITH CLOTH AND SET UP; MOD ASSIST TO BRUSH HAIR; BED MOB INCLUDING ROLLING SIDE TO SIDE WITH MOD ASSIST, HOWEVER, PT ABLE TO MAINTAIN POSITION ON SIDE BY HOLDING ONTO BED RAIL. TOTAL ASSIST WITH PERINEAL CARE; INCONT OF BOWEL. SUPINE TO SIT WITH MAX ASSIST. ABLE TO MAINTAIN STATIC SITTING IWTH CGA.; UE/LE ROM EXS WHILE ON EOB. SIT TO SUPINE WITH MIN ASSIST. REPOSITIONED PT ON HER SIDE TO PREVENT SACRAL BREAKDOWN. PILLOWS BETWEEN KNEES. PT REPORTED THAT SHE FELT COMFORTABLE. TR[place]ON EDDY, OTR/L
[2019-07-31 13:36] VITALS: BP 165/73
--- NOTE | 2019-07-31 17:28 | NUR ---
OT NOTE: PT COMPLETED HYGIENE TASKS WITH KIMBERLEY Robles. PT COMPLETED BED MOB TASKS WITH KIMBERLEY Robles. THANK YOU, LOLIS NICOLE
--- NOTE | 2019-07-31 17:42 | NUR ---
I have reviewed this patient and I concur with the Shift Assessment completed by the Licensed Practical Nurse today this shift.
[2019-07-31 18:12] VITALS: BP 129/44
--- NOTE | 2019-07-31 19:15 | NUR ---
BEDSIDE REPORT RECEIVED FROM DAY SHIFT, PT CARE ASSUMED. WROTE NAME ON BOARD, PT SITTING UP IN BED, AAOX4. C/O SOB, REQUESTING RESPIRATORY TX. RESPIRATORY MAKING ROUNDS ON UNIT, INFORMED OF PT'S REQUEST. REPORTS SHE WILL BE SEEING HER SOON. DENIES ANY OTHER NEEDS AT THIS TIME. BED IN LOWEST POSITION, SR X2, CALL LIGHT WITHIN REACH. WILL CONTINUE TO MONITOR.
[2019-07-31 20:00] VITALS: BP 134/53
--- NOTE | 2019-07-31 20:55 | NUR ---
FSBS 178, NIGHT TIME MEDS ADMINISTERED, PER ORDER. OFFERED PT SNACK, PT REFUSED. DENIES ANY OTHER NEEDS AT THIS TIME. BED IN LOWEST POSITION, SR X2, CALL LIGHT WITHIN REACH. WILL CONTINUE TO MONITOR.
[2019-08-01] VITALS: BP 154/65
[2019-08-01 04:00] VITALS: BP 184/80
[2019-08-01 06:23] LABS: BASOPHILS 0 % (0-2); EOSINOPHILS 0 % (0-7); HEMATOCRIT 29.4 % (36.0-48.0); HEMOGLOBIN 9.7 g/dL (12-16); IMMATURE GRANULOCYTES 1.3 % (0-5); LYMPHOCYTES 5.1 % (15-50); MCH 29.6 pg (26.0-34.0); MCV 89.6 fL (80.0-100.0); MONOCYTES 5.7 % (2-11); NEUTROPHILS 87.9 % (40-80); RBC 3.28 10x6/uL (4.00-5.40); WBC 6.9 10x3/uL (4.8-10.8)
[2019-08-01 06:28] LABS: PLATELET COUNT 57 10x3/uL (130-400)
[2019-08-01 06:46] LABS: ALBUMIN 1.8 g/dL (3.4-5.0); ALKALINE PHOSPHATASE 68 U/L (46-116); ALT (SGPT) 15 U/L (10-68); CALC OSMOLALITY 283 mosm/kg (275-300); CALCIUM 7.4 mg/dL (8.5-10.1); CARBON DIOXIDE 36.7 mmol/L (21.0-32.0); CHLORIDE - SERUM 95 mmol/L (98-107); CREATININE - SERUM 0.6 mg/dL (0.6-1.3); MAGNESIUM - SERUM 1.5 mg/dL (1.8-2.4); POTASSIUM - SERUM 3.3 mmol/L (3.5-5.1); PRE-ALBUMIN 18.1 mg/dL (18.0-35.7); PROTEIN - SERUM 4.2 g/dL (6.4-8.2); SODIUM 135 mmol/L (136-145); THYROID STIMULATING HORMONE 2.13 uIU/mL (0.36-3.74); UREA NITROGEN 20 mg/dL (7-18); eGFR NON AFRICAN AMERICAN > 90 mL/min (90-120)
[2019-08-01 06:49] LABS: GLUCOSE 295 mg/dL (74-106)
[2019-08-01 06:55] LABS: PLATELET ESTIMATE DECREASED
--- NOTE | 2019-08-01 07:30 | NUR ---
A/A/OX4. C/O STOMACH BURNING AND REQUESTS PREVACID. INFORMED HER PROTONIX WOULD BE GIVEN THIS AM TO HELP WITH THAT PROBLEMS. NO OTHER COMPLAINTS OR REQUESTS. PICC LINE PATENT TO LEFT UPPER ARM WITHOUT REDNESS OR EDEMA NOTED AT SITE. ASSESSMENT COMPLETED AND WILL CONTINUE POC. DRESSING TO LEFT ANKLE C/D/I. CALL LIGHT IN REACH.
--- NOTE | 2019-08-01 08:03 | MORECARE ---
CASE MANAGEMENT DISCHARGE SUMMARY PATIENT: JINA COLINDRES UNIT: [id number] ADM DATE: 07/25/19 AGE: 64 : 53 SEX: F ROOM/BED: D.0529 AUTHOR: SANDRO,DOC PHYSICIAN: REFERRING PHYSICIAN: GENEVA BERUMEN MD DATE OF SERVICE: 08/01/19 Discharge Plan Patient Name: JINA COLINDRES Facility: [facility]:[place] : 1955 Planned Disposition: Mcfp Facility Anticipated Discharge Date: Discharge Date: Expected LOS: Initial Reviewer: [email or web address] Initial Review Date: 07/25/2019 Generated: 08/01/19 9:03 am Comments DCP- Discharge Planning Updated by [email or web address]: Mahi Root on 07/25/19 7:[address] Patient Name: JINA COLINDRES Admission Status: Urgent Accout number: [id number] Admission Date: 07-25-2019 : 1955 Admission Diagnosis: Attending: GENEVA BERUMEN Current LOS: 1 Anticipated DC Date: Planned Disposition: Inpatient Rehab Primary Insurance: MEDICARE A & B Discharge Planning Comments: Patient was just discharged 07/23/19 will plan to return to Inpatient rehab once medically stable. CM met with patient to complete initial dc planning assessment. CM educated patient on the CM role and verbal consent given by patient to complete assessment. Patient lives at home alone where she is independent with her care. Patient agrees that at discharge patient will need rehab prior to going home. CM discussed availability of home health, rehab services, and medical equipment. Patient states that she plans to resume care with [facility]. MORENA signed. Patient has a nebulizer and home / portable 02 ( [facility]) Patient denied known discharge needs at this time. CM will continue to follow and will assist as needed with dc plans/needs. Shell Mold Bonder: Mahi Root DCPIA - Discharge Planning Initial Assessment Updated by [email or web address]: Mahi Root on 07/25/19 8:53 pm * Is the patient Alert and Oriented? Yes * How many steps to enter\exit or inside your home? * PCP [facility] [place] * Pharmacy [facility]? * Preadmission Environment Home Alone * ADLs Independent * Other Equipment HOME / PORTABLE 02, NEBULIZER, CANE * List name and contact numbers for known caregivers / representatives who currently or will assist patient after discharge: LIZZIE ROWLEY - MOTHER- [phone] BREANA Chavira [phone] (MEN'S LEATHER DRESS BELT MAKER) Carmela Mason (good friend) [phone] Ly Meza (Shell Mold Bonder- [facility]) [phone] * Community resources currently utilized Home Health * Please name any agencies selected above. [facility] * Additional services required to return to the preadmission environment? No * Can the patient safely return to the preadmission environment? Yes * Has this patient been hospitalized within the prior 30 days at any hospital? Yes Last DP export: 07/25/19 7:57 Patient Name: JINA COLINDRES Page 52363 at 0803 All edits/amendments must be made on the electronic document DICTATION DATE: 08/01/19802 STRAIGHT KNIFE CUTTER MACHINE: MICHAEL 08/01/19802 RPT#: [id number] DC DATE: STATUS: ADM IN [facility] [address] [place] [address] END OF REPORT
--- NOTE | 2019-08-01 09:26 | MORECARE ---
CASE MANAGEMENT DISCHARGE SUMMARY PATIENT: JINA COLINDRES UNIT: [id number] ADM DATE: 07/25/19 AGE: 64 : 54 SEX: F ROOM/BED: D.8319 AUTHOR: SANDRO,DOC PHYSICIAN: REFERRING PHYSICIAN: GENEVA BERUMEN MD DATE OF SERVICE: 08/01/19 Discharge Plan Patient Name: JINA COLINDRES Facility: [facility]:[place] : 1955 Planned Disposition: Residential Facility Anticipated Discharge Date: Discharge Date: Expected LOS: Initial Reviewer: [email or web address] Initial Review Date: 07/25/2019 Generated: 08/01/19 10:26 am Comments DCP- Discharge Planning Updated by [id number]: Mahi Root on 07/25/19 7:[address] Patient Name: JINA COLINDRES Admission Status: Urgent Accout number: [id number] Admission Date: 07-25-2019 : 1955 Admission Diagnosis: Attending: GENEVA BERUMEN Current LOS: 1 Anticipated DC Date: Planned Disposition: Inpatient Rehab Primary Insurance: MEDICARE A & B Discharge Planning Comments: Patient was just discharged 07/23/19 will plan to return to Inpatient rehab once medically stable. CM met with patient to complete initial dc planning assessment. CM educated patient on the CM role and verbal consent given by patient to complete assessment. Patient lives at home alone where she is independent with her care. Patient agrees that at discharge patient will need rehab prior to going home. CM discussed availability of home health, rehab services, and medical equipment. Patient states that she plans to resume care with [facility]. MORENA signed. Patient has a nebulizer and home / portable 02 ( [facility]) Patient denied known discharge needs at this time. CM will continue to follow and will assist as needed with dc plans/needs. Ceramics Technician: Mahi Root DCPIA - Discharge Planning Initial Assessment Updated by [email or web address]: Mahi Root on 07/25/19 8:53 pm * Is the patient Alert and Oriented? Yes * How many steps to enter\exit or inside your home? * PCP [facility] [place] * Pharmacy [employer]? * Preadmission Environment Home Alone * ADLs Independent * Other Equipment HOME / PORTABLE 02, NEBULIZER, CANE * List name and contact numbers for known caregivers / representatives who currently or will assist patient after discharge: LIZZIE ROWLEY - MOTHER- [phone] BREANA Chavira [phone] (CIRCUIT RECORDER) Carmela Mason (good friend) [phone] Ly Meza (Ceramics Technician- [facility]) [phone] * Community resources currently utilized Home Health * Please name any agencies selected above. [facility] * Additional services required to return to the preadmission environment? No * Can the patient safely return to the preadmission environment? Yes * Has this patient been hospitalized within the prior 30 days at any hospital? Yes Last DP export: 08/01/19 7:03 Patient Name: JINA COLINDRES Page [phone] at 0926 All edits/amendments must be made on the electronic document DICTATION DATE: 08/01/19925 BANKRUPTCY ASSISTANT: MICHAEL 08/01/19925 RPT#: [id number] DC DATE: STATUS: ADM IN [facility] [address] [place] [address] END OF REPORT
--- NOTE | 2019-08-01 09:53 | MORECARE ---
CASE MANAGEMENT DISCHARGE SUMMARY PATIENT: JINA COLINDRES UNIT: [id number] ADM DATE: 07/25/19 AGE: 64 : 54 SEX: F ROOM/BED: D.4019 AUTHOR: SANDRO,DOC PHYSICIAN: REFERRING PHYSICIAN: GENEVA BERUMEN MD DATE OF SERVICE: 08/01/19 Discharge Plan Patient Name: JINA COLINDRES Facility: [facility]:[place] : 1955 Planned Disposition: Fdc Facility Anticipated Discharge Date: Discharge Date: Expected LOS: Initial Reviewer: [email or web address] Initial Review Date: 07/25/2019 Generated: 08/01/19 10:52 am Comments DCP- Discharge Planning Updated by [email or web address]: Pino Burton on 08/01/19 8:[address] Patient Name: JINA COLINDRSE Encounter No: [id number] : 1955 Primary Insurance: MEDICARE A & B Anticipated DC Date: Planned Disposition: Fdc Facility External Planned Provider: [facility], MEDICARE SKILLED / REHAB BED DCP follow-up note: CM SPOKE TO PT IN ROOM REGARDING DISCHARGE PLANNING AND NEEDS. CM DISCUSSED THE POSSIBLE NEED OF A PEG TUBE. PT STATES SHE DOES NOT WANT A PEG TUBE. CM DISCUSSED INPATIENT REHAB WILL NOT CONSIDER TAKING PT BACK DUE TO BEING TO LOW LEVEL AT THIS TIME. CM DISCUSSED [facility] FACILITY REHAB PLACEMENT. PT REPORTS SHE HAS BEEN TO [facility] IN [place] AND IF SHE NEEDS IT, SHE WOULD LIKE TO GO BACK THERE. CHOICE COMPLETED. PT STATES SHE IS NOT ABLE TO SIGN. PT PROVIDED EMERGENCY ADMINISTRATIVE JUDGE NANCY FLORENCE, FRIEND AND COUNSELOR FROM [facility], [place] [phone]. PT REPORTS SHE ATTENDS COUNSELING FOR DEPRESSION. PT STATES THAT SHE WOULD LIKE NANCY FLORENCE TO BE HER FIRST EMEGENCY CONTACT WITH HER MOTHER BEING SECOND. PT STATES THAT IF SHE NEEDS HELP DECIDING WHAT TO DO, IT WOULD BE OK TO DISCUSS HER CARE AND PLANNING WITH NANCY. CM TO REFER PT TO [facility] WHEN PROJECTED DISCHARGE DATE AND NEEDS ARE KNOWN. CM TO FOLLOW AND ASSIST NEEDED. Pino Burton CASE TRISTIAN DCP- Discharge Planning Updated by [id number]: Mahi Root on 07/25/19 7:[address] Patient Name: JINA COLINDRES Admission Status: Urgent Accout number: [id number] Admission Date: 07-25-2019 : 1955 Admission Diagnosis: Attending: GENEVA BERUMEN Current LOS: 1 Anticipated DC Date: Planned Disposition: Inpatient Rehab Primary Insurance: MEDICARE A & B Discharge Planning Comments: Patient was just discharged 07/23/19 will plan to return to Inpatient rehab once medically stable. CM met with patient to complete initial dc planning assessment. CM educated patient on the CM role and verbal consent given by patient to complete assessment. Patient lives at home alone where she is independent with her care. Patient agrees that at discharge patient will need rehab prior to going home. CM discussed availability of home health, rehab services, and medical equipment. Patient states that she plans to resume care with [facility]. MORENA signed. Patient has a nebulizer and home / portable 02 ( [facility]) Patient denied known discharge needs at this time. CM will continue to follow and will assist as needed with dc plans/needs. Group Account Director: Mahi Root DCPIA - Discharge Planning Initial Assessment Updated by [email or web address]: Mahi Root on 07/25/19 8:53 pm * Is the patient Alert and Oriented? Yes * How many steps to enter\exit or inside your home? * PCP [facility] [place] * Pharmacy [facility]? * Preadmission Environment Home Alone * ADLs Independent * Other Equipment HOME / PORTABLE 02, NEBULIZER, CANE * List name and contact numbers for known caregivers / representatives who currently or will assist patient after discharge: LIZZIE ROWLEY - MOTHER- [phone] BREANA Chavira [phone] (BUILD MASTER) Carmela Mason (good friend) [phone] Nancy Florence (Group Account Director- [facility]) [phone] * Community resources currently utilized Home Health * Please name any agencies selected above. [facility] * Additional services required to return to the preadmission environment? No * Can the patient safely return to the preadmission environment? Yes * Has this patient been hospitalized within the prior 30 days at any hospital? Yes Coverage Notice Reviewer: [id number] Jo Ann Burton Notice Issued Date-Time: 08/01/2019 8:00 Notice Type: Patient Choice Letter Notice Delivered To: Relationship to Patient: Bodily Injury Adjuster Name: Delivery Method: HAND - Hand Delivered Giovana Days: Prior Verbal Notification: Recipient Understood Notice: Yes Recipient Signature: Med Rec Note Co-signed by Attending: Coverage Notice Comment: SWAPNA SCHROEDER Last DP export: 08/01/19 8:26 Patient Name: JINA COLINDRES Page [phone] at 0953 All edits/amendments must be made on the electronic document DICTATION DATE: 08/01/19951 SCAFFOLD WORKER: MICHAEL 08/01/19951 RPT#: [id number] DC DATE: STATUS: ADM IN [facility] [address] [place] [address] END OF REPORT
--- NOTE | 2019-08-01 10:19 | NUR ---
I have reviewed this patient and I concur with the Shift Assessment completed by the Licensed Practical Nurse today this shift.
[2019-08-01 10:44] VITALS: BP 185/80
--- NOTE | 2019-08-01 13:06 | NUR ---
PT HAS A RUPTURED BLISTER ON LEFT HEEL MEASURING 2.5CM X 2.5CM X 0.2CM. IT IS A STAGE 2 PRESSURE INJURY. CURRENTLY IT IS BEING LEFT OPEN TO AIR, BRIDGED AND HEEL PROTECTORS ARE BEING USED. RECOMMEND CONTINUING THE CURRENT POC. WOUND CARE CONTINUES TO MONITOR.
[2019-08-01 13:42] VITALS: BP 146/65
--- NOTE | 2019-08-01 13:50 | NUR ---
OT NOTE: PT WAS ALERT BUT REPORTED THAT SHE STILL FELT SICK. PT HOLDING BUCKET AND SMALL AMOUNT OF EMISIS NOTED. BED MOB WITH MOD ASSIST AND ABLE TO MAINTAIN SIDELIEING POSITION WITH ONLY MIN ASSIST. PT REQUIRED TO ROLL FROM SIDE TO SIDE APPROX 4 TIMES WHILE CLEANING HER FROM BM. ABLE TO MILES GOWN WITH MAX ASSIST. DIFFICULTY HOLDING UP L UE DUE TO WEAKNESS. SUPINE TO SIT WITH MOD ASSIST; PT ABLE TO MAINTAIN STATIC SITTING ON EOB WITHOUT ASSIST X 15 MIN. ABLE TO PERFORM SMALL AMOUNT OF UE/LE EXS. ABLE TO WASH FACE AND HANDS WITH CLOTH. ABLE TO HOLD CUP AND TAKE A FEW SIPS. PT DID NOT EAT ANY BREAKFAST AND TOOK ONLY A FEW SIPS OF ENSURE THROUGHOUT TMT SESSION. REMAINS VERY WEAK AND DECONDITIONED. TRENTON EDDY, OTR/L
--- NOTE | 2019-08-01 14:06 | NUR ---
Nutrition Follow-up: Poor PO intake with N/V. Refusing PEG. Continues to work with ST who rec puree with honey thick liquids. Noted pt with stage 2 pressure injury to L heel. Receiving Procalamine @ 75 mL/hr; provides 441 kcal, 54 g protein. Diet: Regular, pureed, honey thick liquids; Ensure with meals PO intake: 0-20% Wt: 204# Last BM: 07/30 per chart Labs noted: Glu 295, K+ 3.3, Mg 1.5, Ca 7.4, Alb 1.8 Meds noted: Solumedrol, Humalog, Lasix, KDur, MagOx -Nutrition inadequate. Rec appetite stimulant. Monitor PO intake and pt's acceptance of nutrition support.
--- NOTE | 2019-08-01 15:32 | NUR ---
OT NOTE: PT COMPLETED EOB SITTING ENDURANCE WITH SBA/CGA. PT COMPLETED BED MOB WITH MAX X2. PT REQUIRED MOD CUES FOR NUTRITIONAL INTAKE. PT REQUIRED MAX A X2 FOR HYGIENE TASKS. THANK YOU, LOLIS NICOLE
[2019-08-01 18:20] VITALS: BP 138/65
--- NOTE | 2019-08-01 19:25 | NUR ---
BEDSIDE REPORT RECEIVED FROM DAY SHIFT, PT CARE ASSUMED. WROTE NAME ON BOARD, PT SITTING UP IN BED, AAOX4, RECEIVING RESPIRATORY TX. DENIES PAIN, N/V, AND ANY OTHER NEEDS AT THIS TIME. BED IN LOWEST POSITION, SR X2, CALL LIGHT WITHIN REACH. WILL CONTINUE TO MONITOR.
[2019-08-01 20:00] VITALS: BP 142/60
--- NOTE | 2019-08-01 22:30 | NUR ---
FSBS 333, NIGHT TIME MEDS ADMINISTERED, PER ORDER. OFFERED PT SNACK, PT REFUSED. DENIES ANY OTHER NEEDS AT THIS TIME. BED IN LOWEST POSITION, SR X2, CALL LIGHT WITHIN REACH. WILL CONTINUE TO MONITOR.
[2019-08-02] VITALS: BP 164/66
[2019-08-02 04:00] VITALS: BP 159/65
[2019-08-02 06:03] LABS: BASOPHILS 0 % (0-2); EOSINOPHILS 0 % (0-7); HEMATOCRIT 28.2 % (36.0-48.0); HEMOGLOBIN 9.3 g/dL (12-16); IMMATURE GRANULOCYTES 1.5 % (0-5); LYMPHOCYTES 5.4 % (15-50); MCH 29.2 pg (26.0-34.0); MCV 88.7 fL (80.0-100.0); MEAN PLATELET VOLUME 9.7 fL (7.4-10.4); MONOCYTES 7.7 % (2-11); NEUTROPHILS 85.4 % (40-80); RBC 3.18 10x6/uL (4.00-5.40); WBC 6.6 10x3/uL (4.8-10.8)
[2019-08-02 06:33] LABS: PLATELET COUNT 81 10x3/uL (130-400)
[2019-08-02 06:40] LABS: ALBUMIN 1.9 g/dL (3.4-5.0); ALKALINE PHOSPHATASE 69 U/L (46-116); ALT (SGPT) 14 U/L (10-68); BILIRUBIN - TOTAL 0.69 mg/dL (0.2-1.3); CALC OSMOLALITY 280 mosm/kg (275-300); CALCIUM 7.7 mg/dL (8.5-10.1); CARBON DIOXIDE 36.4 mmol/L (21.0-32.0); CHLORIDE - SERUM 97 mmol/L (98-107); CREATININE - SERUM 0.7 mg/dL (0.6-1.3); GLUCOSE 262 mg/dL (74-106); MAGNESIUM - SERUM 1.6 mg/dL (1.8-2.4); PROTEIN - SERUM 4.3 g/dL (6.4-8.2); SODIUM 134 mmol/L (136-145); UREA NITROGEN 24 mg/dL (7-18); VANCOMYCIN - TROUGH 14.6 ug/mL (10.0-20.0); eGFR NON AFRICAN AMERICAN 89 mL/min (90-120)
[2019-08-02 06:41] LABS: POTASSIUM - SERUM 3.7 mmol/L (3.5-5.1)
[2019-08-02 07:27] LABS: PLATELET ESTIMATE DECREASED; PLATELET MORPHOLOGY NORMAL PLT MORPH
[2019-08-02 08:58] VITALS: BP 160/77
[2019-08-02 12:00] VITALS: BP 145/84
--- NOTE | 2019-08-02 12:00 | NUR ---
ANIMAL TRAINER SUPERVISOR FED PT LUNCH.
--- NOTE | 2019-08-02 12:28 | NUR ---
I have reviewed this patient and I concur with the Shift Assessment completed by the Licensed Practical Nurse today this shift.
[2019-08-02 16:00] VITALS: BP 145/64
--- NOTE | 2019-08-02 17:00 | NUR ---
PT FED SELF DINNER.
[2019-08-02 19:00] VITALS: BP 119/51
[2019-08-03] VITALS (7 sets, daily range): BP systolic 118–161; BP diastolic 62–95
[2019-08-03 05:47] LABS: BASOPHILS 0 % (0-2); EOSINOPHILS 0.2 % (0-7); HEMATOCRIT 27.6 % (36.0-48.0); IMMATURE GRANULOCYTES 1.5 % (0-5); LYMPHOCYTES 10.2 % (15-50); MCH 29.4 pg (26.0-34.0); MCHC 32.6 g/dL (31.0-37.0); MCV 90.2 fL (80.0-100.0); MEAN PLATELET VOLUME 8.7 fL (7.4-10.4); MONOCYTES 9.9 % (2-11); NEUTROPHILS 78.2 % (40-80); PLATELET COUNT 76 10x3/uL (130-400); RBC 3.06 10x6/uL (4.00-5.40); RDW 15.6 % (11.5-14.5); WBC 5.3 10x3/uL (4.8-10.8)
[2019-08-03 06:07] LABS: ALBUMIN 1.9 g/dL (3.4-5.0); ALKALINE PHOSPHATASE 68 U/L (46-116); ALT (SGPT) 14 U/L (10-68); BILIRUBIN - TOTAL 0.65 mg/dL (0.2-1.3); CALC OSMOLALITY 280 mosm/kg (275-300); CALCIUM 7.7 mg/dL (8.5-10.1); CARBON DIOXIDE 35.7 mmol/L (21.0-32.0); CHLORIDE - SERUM 97 mmol/L (98-107); CREATININE - SERUM 0.7 mg/dL (0.6-1.3); GLUCOSE 297 mg/dL (74-106); MAGNESIUM - SERUM 1.9 mg/dL (1.8-2.4); POTASSIUM - SERUM 3.8 mmol/L (3.5-5.1); PROTEIN - SERUM 4.3 g/dL (6.4-8.2); SODIUM 133 mmol/L (136-145); UREA NITROGEN 25 mg/dL (7-18); eGFR NON AFRICAN AMERICAN 89 mL/min (90-120)
--- NOTE | 2019-08-03 12:05 | NUR ---
BLOOD SUGAR OF 221, 8UNITS OF HUMALOG GIVEN PER S/S. PT RESTING COMFORTABLY IN BED, DENIES ANY NEEDS AT THIS TIME. CALL LIGHT IN REACH, NAD NOTED, WILL CONTINUE TO MONITOR.
--- NOTE | 2019-08-03 19:20 | NUR ---
RECEIVED REPORT, WILL ASSUME CARE OF PT, PT SLEEPING, NO DISTRESS NOTICED AT THIS TIME, BED IS LOW, SRX2, CALL LIGHT IN REACH, BED IS LOW, SRX2, CALL LIGHT IN REACH, WILL CONTINUE PLAN OF CARE
--- NOTE | 2019-08-04 00:14 | NUR ---
I have reviewed this patient and I concur with the Shift Assessment completed by the Licensed Practical Nurse today this shift.
[2019-08-04 04:00] VITALS: BP 146/76
[2019-08-04 05:17] LABS: BASOPHILS 0 % (0-2); EOSINOPHILS 0 % (0-7); HEMATOCRIT 27.6 % (36.0-48.0); IMMATURE GRANULOCYTES 1.9 % (0-5); LYMPHOCYTES 7.7 % (15-50); MCH 29.2 pg (26.0-34.0); MCHC 32.6 g/dL (31.0-37.0); MCV 89.6 fL (80.0-100.0); MEAN PLATELET VOLUME 9.3 fL (7.4-10.4); MONOCYTES 7.1 % (2-11); NEUTROPHILS 83.3 % (40-80); PLATELET COUNT 81 10x3/uL (130-400); RBC 3.08 10x6/uL (4.00-5.40); RDW 15.5 % (11.5-14.5); WBC 5.8 10x3/uL (4.8-10.8)
[2019-08-04 05:27] LABS: PLATELET ESTIMATE DECREASED
[2019-08-04 05:31] LABS: ALBUMIN 1.9 g/dL (3.4-5.0); ALKALINE PHOSPHATASE 76 U/L (46-116); ALT (SGPT) 13 U/L (10-68); BILIRUBIN - TOTAL 0.65 mg/dL (0.2-1.3); CALC OSMOLALITY 281 mosm/kg (275-300); CALCIUM 7.9 mg/dL (8.5-10.1); CARBON DIOXIDE 35.7 mmol/L (21.0-32.0); CHLORIDE - SERUM 98 mmol/L (98-107); CREATININE - SERUM 0.7 mg/dL (0.6-1.3); GLUCOSE 290 mg/dL (74-106); MAGNESIUM - SERUM 1.8 mg/dL (1.8-2.4); POTASSIUM - SERUM 4.1 mmol/L (3.5-5.1); PROTEIN - SERUM 4.4 g/dL (6.4-8.2); SODIUM 132 mmol/L (136-145); UREA NITROGEN 29 mg/dL (7-18); eGFR NON AFRICAN AMERICAN 89 mL/min (90-120)
[2019-08-04 07:52] VITALS: BP 157/77
[2019-08-04 12:00] VITALS: BP 135/65
[2019-08-04 15:47] VITALS: BP 142/69
--- NOTE | 2019-08-04 19:10 | NUR ---
PT CARE ASSUMED. BEDSIDE SHIFT REPORT COMPLETE. PT RESTING IN BED WITH EYES CLOSED. RR EVEN, SHALLOW, AND UNLABORED. PT LETHARGIC AND HARD TO AROUSE, BUT ABLE TO FOLLOW COMANDS. NO S/S OF DISTRESS NOTED AT THIS TIME. WILL CTM.
[2019-08-04 20:00] VITALS: BP 133/59
[2019-08-05 00:34] VITALS: BP 152/73
[2019-08-05 04:00] VITALS: BP 147/61
[2019-08-05 05:55] LABS: BASOPHILS 0.2 % (0-2); EOSINOPHILS 0.2 % (0-7); HEMATOCRIT 25.9 % (36.0-48.0); HEMOGLOBIN 8.7 g/dL (12-16); IMMATURE GRANULOCYTES 2.3 % (0-5); LYMPHOCYTES 11.9 % (15-50); MCH 29.9 pg (26.0-34.0); MCHC 33.6 g/dL (31.0-37.0); MEAN PLATELET VOLUME 8.9 fL (7.4-10.4); MONOCYTES 9.7 % (2-11); NEUTROPHILS 75.7 % (40-80); PLATELET COUNT 72 10x3/uL (130-400); RBC 2.91 10x6/uL (4.00-5.40); RDW 15.6 % (11.5-14.5); WBC 5.5 10x3/uL (4.8-10.8)
[2019-08-05 05:59] LABS: ALBUMIN 1.9 g/dL (3.4-5.0); ALKALINE PHOSPHATASE 72 U/L (46-116); ALT (SGPT) 14 U/L (10-68); CALC OSMOLALITY 282 mosm/kg (275-300); CARBON DIOXIDE 33.6 mmol/L (21.0-32.0); CHLORIDE - SERUM 98 mmol/L (98-107); CREATININE - SERUM 0.7 mg/dL (0.6-1.3); MAGNESIUM - SERUM 1.6 mg/dL (1.8-2.4); POTASSIUM - SERUM 3.5 mmol/L (3.5-5.1); PROTEIN - SERUM 4.2 g/dL (6.4-8.2); SODIUM 134 mmol/L (136-145); UREA NITROGEN 31 mg/dL (7-18); eGFR NON AFRICAN AMERICAN 89 mL/min (90-120)
[2019-08-05 06:01] LABS: GLUCOSE 234 mg/dL (74-106)
--- NOTE | 2019-08-05 07:14 | NUR ---
PT RESTING PEACFULLY, BREATHS EVEN, REGULAR AND UNLABORED. NO SIGNS OR SYMTPOMS OF ACUTE DISTRESS NOTED AT THIS TIME. CL IN REACH, SRX2,
[2019-08-05 07:38] VITALS: BP 159/71
--- NOTE | 2019-08-05 11:02 | NUR ---
SPOKE WITH PT ABOUT WHERE SHE WANTED TO GO AFTER THE HOSPITAL. PT STATES SHE WOULD LIKE TO GO HOME AND TAKE BETTER CARE OF HERSELF. I EXPLAINED THAT SHE WAS CURRENTLY UNABLE TO GO HOME. PT STATES THEN SHE'D LIKE TO SPEAK WITH EVERYONE ABOUT HER OPTIONS. WILL CONSULT HOSPICE, CM WILL SPEAK WITH HER ABOUT [facility] OPTIONS. INFORMED BENY CAMILO.
[2019-08-05 11:27] VITALS: BP 110/63
--- NOTE | 2019-08-05 12:47 | NUR ---
OT NOTE: PT ALERT; VERY WEAK. BED MOB WITH MOD ASSIST; SUPINE TO SIT WITH MAX ASSIST; EOB SITTING WITH CGA; ABLE TO PERFORM SIMPLE GROOMING/HYGIENE TASKS WITH MIN ASSIST; TRANSFERRED TO CHAIR WITH P.T. WITH TOTAL ASSIST. ATTEMPTED UE AROM EXS, HOWEVER, PT REQUIRING NUMEROUS REST BREAKS DURING TASK. TRENTON EDDY, OTR/L
--- NOTE | 2019-08-05 13:24 | MORECARE ---
CASE MANAGEMENT DISCHARGE SUMMARY PATIENT: JINA COLINDRES UNIT: [id number] ADM DATE: 07/25/19 AGE: 64 : 53 SEX: F ROOM/BED: D.9940 AUTHOR: SANDRO,DOC PHYSICIAN: REFERRING PHYSICIAN: GENEVA BERUMEN MD DATE OF SERVICE: 08/05/19 Discharge Plan Patient Name: JINA COLINDRES Facility: [facility]:[place] : 1955 Planned Disposition: Fci Facility Anticipated Discharge Date: Discharge Date: Expected LOS: Initial Reviewer: [id number] Initial Review Date: 07/25/2019 Generated: 08/05/19 2:24 pm DCP- Discharge Planning Updated by [email or web address]: Pino Burton on 08/01/19 8:[address] Patient Name: JINA COLINDRES Encounter No: [id number] : 1955 Primary Insurance: MEDICARE A & B Anticipated DC Date: Planned Disposition: [facility]ci Facility External Planned Provider: [facility], MEDICARE SKILLED / REHAB BED DCP follow-up note: CM SPOKE TO PT IN ROOM REGARDING DISCHARGE PLANNING AND NEEDS. CM DISCUSSED THE POSSIBLE NEED OF A PEG TUBE. PT STATES SHE DOES NOT WANT A PEG TUBE. CM DISCUSSED INPATIENT REHAB WILL NOT CONSIDER TAKING PT BACK DUE TO BEING TO LOW LEVEL AT THIS TIME. CM DISCUSSED LONG-TERM FACILITY REHAB PLACEMENT. PT REPORTS SHE HAS BEEN TO [facility] IN [place] AND IF SHE NEEDS IT, SHE WOULD LIKE TO GO BACK THERE. CHOICE COMPLETED. PT STATES SHE IS NOT ABLE TO SIGN. PT PROVIDED EMERGENCY CARAVAN PARK AND CAMPING GROUND MANAGER NANCY FLORENCE, FRIEND AND COUNSELOR FROM [facility], [place] [phone]. PT REPORTS SHE ATTENDS COUNSELING FOR DEPRESSION. PT STATES THAT SHE WOULD LIKE NANCY FLORENCE TO BE HER FIRST EMEGENCY CONTACT WITH HER MOTHER BEING SECOND. PT STATES THAT IF SHE NEEDS HELP DECIDING WHAT TO DO, IT WOULD BE OK TO DISCUSS HER CARE AND PLANNING WITH NANCY. CM TO REFER PT TO [facility] WHEN PROJECTED DISCHARGE DATE AND NEEDS ARE KNOWN. CM TO FOLLOW AND ASSIST NEEDED. HUMBERTO Harper DCP- Discharge Planning Updated by [id number]: Mahi Root on 07/25/19 7:[address] Patient Name: JINA COLINDRES Admission Status: Urgent Accout number: [id number] Admission Date: 07-25-2019 : 1955 Admission Diagnosis: Attending: GENEVA BERUMEN Current LOS: 1 Anticipated DC Date: Planned Disposition: Inpatient Rehab Primary Insurance: MEDICARE A & B Discharge Planning Comments: Patient was just discharged 07/23/19 will plan to return to Inpatient rehab once medically stable. CM met with patient to complete initial dc planning assessment. CM educated patient on the CM role and verbal consent given by patient to complete assessment. Patient lives at home alone where she is independent with her care. Patient agrees that at discharge patient will need rehab prior to going home. CM discussed availability of home health, rehab services, and medical equipment. Patient states that she plans to resume care with [facility]. MORENA signed. Patient has a nebulizer and home / portable 02 ( [facility]) Patient denied known discharge needs at this time. CM will continue to follow and will assist as needed with dc plans/needs. Brush Trimming Machine Setter: Mahi Root DCPIA - Discharge Planning Initial Assessment Updated by [id number]: Mahi Root on 07/25/19 8:53 pm * Is the patient Alert and Oriented? Yes * How many steps to enter\exit or inside your home? * PCP [facility] [place] * [facility]? * Preadmission Environment Home Alone * ADLs Independent * Other Equipment HOME / PORTABLE 02, NEBULIZER, CANE * List name and contact numbers for known caregivers / representatives who currently or will assist patient after discharge: LIZZIE ROWLEY - MOTHER- [phone] BREANA Chavira [phone] (ACCESS DIRECTOR) Carmela Mason (good friend) [phone] Nancy Florence (Brush Trimming Machine Setter- [facility]) [phone] * Community resources currently utilized Home Health * Please name any agencies selected above. [facility] * Additional services required to return to the preadmission environment? No * Can the patient safely return to the preadmission environment? Yes * Has this patient been hospitalized within the prior 30 days at any hospital? Yes External Providers External Provider: [facility] Next Contact Date: 08/05/2019 Service Request Date: Service Type: Resolution: Reviewer: Comments: [facility] Next Contact Date: 08/05/2019 Service Request Date: Service Type: Resolution: Reviewer: Comments: Coverage Notice Reviewer: ALDAIR Burton Notice Issued Date-Time: 08/01/2019 8:00 Notice Type: Patient Choice Letter Notice Delivered To: Relationship to Patient: Pipe Coverer And Insulator Name: Delivery Method: HAND - Hand Delivered Giovana Days: Prior Verbal Notification: Recipient Understood Notice: Yes Recipient Signature: Med Rec Note Co-signed by Attending: Coverage Notice Comment: SWAPNA SCHROEDER Reviewer: ALDAIR Burton Notice Issued Date-Time: 08/05/2019 12:05 Notice Type: IM Discharge Notice Notice Delivered To: Patient Relationship to Patient: Pipe Coverer And Insulator Name: Delivery Method: HAND - Hand Delivered Giovana Days: Prior Verbal Notification: Recipient Understood Notice: Yes Recipient Signature: Yes Med Rec Note Co-signed by Attending: Coverage Notice Comment: Reviewer: ALDAIR Burton Notice Issued Date-Time: 08/05/2019 12:05 Notice Type: Patient Choice Letter Notice Delivered To: Patient Relationship to Patient: Pipe Coverer And Insulator Name: Delivery Method: HAND - Hand Delivered Giovana Days: Prior Verbal Notification: Recipient Understood Notice: Yes Recipient Signature: Yes Med Rec Note Co-signed by Attending: Coverage Notice Comment: [facility] SWAPNA SCHROEDER IN [place] Last DP export: 08/01/19 8:53 Patient Name: JINA COLINDRES Page [phone] at 1324 All edits/amendments must be made on the electronic document DICTATION DATE: 08/05/19 1324 LEGAL SPECIALIST: MICHAEL 08/05/19 1324 RPT#: [id number] DC DATE: STATUS: ADM IN [facility] [address] [place] [address] END OF REPORT
--- NOTE | 2019-08-05 14:10 | MORECARE ---
CASE MANAGEMENT DISCHARGE SUMMARY PATIENT: JINA COLINDRES UNIT: [id number] ADM DATE: 07/25/19 AGE: 64 : 53 SEX: F ROOM/BED: D.9279 AUTHOR: SANDRO,DOC PHYSICIAN: REFERRING PHYSICIAN: GENEVA BERUMEN MD DATE OF SERVICE: 08/05/19 Discharge Plan Patient Name: JINA COLINDRES Facility: [facility]:[place] : 1955 Planned Disposition: [facility] Facility Anticipated Discharge Date: Discharge Date: Expected LOS: Initial Reviewer: [id number] Initial Review Date: 07/25/2019 Generated: 08/05/19 3:10 pm Comments DCP- Discharge Planning Updated by [id number]: Pino Burton on 08/05/19 1:[address] Patient Name: JINA COLINDRES Encounter No: [id number] : 1955 Primary Insurance: MEDICARE A & B Anticipated DC Date: Planned Disposition: [facility] Facility External Planned Provider: SWAPNA HUME MEDICARE RHEAB BED DCP follow-up note: CM SPOKE TO BEDSIDE NURSE WHO INFORMED CM THAT PT REQUESTED TO SPEAK TO HOSPICE. CM RECEIVED HOSPICE CONSULT ORDER. CM MET WITH PT IN ROOM, DISCUSSED HOSPICE PROVIDERS, LOCATIONS AND SERVICES, PROVIDED HOSPICE LISTING OF PROVIDERS. PT REQUESTED [facility]. CHOICE COMPLETED. PT ALSO ASKED THAT CM SEND REFERRAL TO [facility] FOR REHAB IF SHE DECIDES FOR REHAB. ADDED TO CHOICE FORM, PT SIGNED THE CHOICE FOR [facility] AND [facility]. IMPORTANT MESSAGE FROM MEDICARE PROVIDED AND EXPLAINED. CM CALLED [facility], , SPOKE TO NANCY WHO TOOK REFERRAL AND WILL PROCESS REFERRAL AND HAVE NURSE MEET WITH PT IN HOSPITAL ROOM SOON POSSIBLE TODAY. CM FAXED REFERRAL TO [facility] AT [phone]. CM CALLED [facility], , SPOKE TO ADELINA AND PROVIDED REFERRAL INFORMATION; INFORMED HER THAT PT MAY WANT REHAB OR NURSING HOME CARE WITH HOSPICE. CM FAXED REFERRAL TO [facility] AT [phone]. CM WAITING ON ADMISSION DETERMINATION FROM [facility] AND [facility]. WAITING PT TO MAKE DECISIONS REGARDING HOSPICE OR REHAB AT [facility]. Pino Burton CASE MANAGEMENT DCP- Discharge Planning Updated by [id number]: Pino Burton on 08/01/19 8:[address] Patient Name: JINA COLINDRES Encounter No: [id number] : 1955 Primary Insurance: MEDICARE A & B Anticipated DC Date: Planned Disposition: [facility] Facility External Planned Provider: SWAPNA SCHROEDER MEDICARE SKILLED / REHAB BED DCP follow-up note: CM SPOKE TO PT IN ROOM REGARDING DISCHARGE PLANNING AND NEEDS. CM DISCUSSED THE POSSIBLE NEED OF A PEG TUBE. PT STATES SHE DOES NOT WANT A PEG TUBE. CM DISCUSSED INPATIENT REHAB WILL NOT CONSIDER TAKING PT BACK DUE TO BEING TO LOW LEVEL AT THIS TIME. CM DISCUSSED CARE HOME FACILITY REHAB PLACEMENT. PT REPORTS SHE HAS BEEN TO [facility] IN [place] AND IF SHE NEEDS IT, SHE WOULD LIKE TO GO BACK THERE. CHOICE COMPLETED. PT STATES SHE IS NOT ABLE TO SIGN. PT PROVIDED EMERGENCY BRIQUETTE MOLDER NANCY FLORENCE, FRIEND AND COUNSELOR FROM [facility], [place] [phone]. PT REPORTS SHE ATTENDS COUNSELING FOR DEPRESSION. PT STATES THAT SHE WOULD LIKE NANCY FLORENCE TO BE HER FIRST EMEGENCY CONTACT WITH HER MOTHER BEING SECOND. PT STATES THAT IF SHE NEEDS HELP DECIDING WHAT TO DO, IT WOULD BE OK TO DISCUSS HER CARE AND PLANNING WITH NANCY. CM TO REFER PT TO [facility] WHEN PROJECTED DISCHARGE DATE AND NEEDS ARE KNOWN. CM TO FOLLOW AND ASSIST NEEDED. HUMBERTO Harper DCP- Discharge Planning Updated by [id number]: Mahi Furr on 07/25/19 7:[address] Patient Name: JINA COLINDRES Admission Status: Urgent Accout number: [id number] Admission Date: 07-25-2019 : 1955 Admission Diagnosis: Attending: GENEVA BERUMEN Current LOS: 1 Anticipated DC Date: Planned Disposition: Inpatient Rehab Primary Insurance: MEDICARE A & B Discharge Planning Comments: Patient was just discharged 07/23/19 will plan to return to Inpatient rehab once medically stable. CM met with patient to complete initial dc planning assessment. CM educated patient on the CM role and verbal consent given by patient to complete assessment. Patient lives at home alone where she is independent with her care. Patient agrees that at discharge patient will need rehab prior to going home. CM discussed availability of home health, rehab services, and medical equipment. Patient states that she plans to resume care with [facility]. MORENA signed. Patient has a nebulizer and home / portable 02 ( [employer]) Patient denied known discharge needs at this time. CM will continue to follow and will assist as needed with dc plans/needs. Hr Receptionist: Mahi Root DCPIA - Discharge Planning Initial Assessment Updated by [id number]: Mahi Roto on 07/25/19 8:53 pm * Is the patient Alert and Oriented? Yes * How many steps to enter\exit or inside your home? * PCP [facility] IN [place] * Pharmacy [facility]? * Preadmission Environment Home Alone * ADLs Independent * Other Equipment HOME / PORTABLE 02, NEBULIZER, CANE * List name and contact numbers for known caregivers / representatives who currently or will assist patient after discharge: LIZZIE ROWLEY - MOTHER- [phone] BREANA Chavira [phone] (CUSTOMER SUPPORT ENGINEER) Carmela Marlon (good friend) [phone] Nancy Florence (Hr Receptionist- [facility]) [phone] * Community resources currently utilized Home Health * Please name any agencies selected above. [facility] * Additional services required to return to the preadmission environment? No * Can the patient safely return to the preadmission environment? Yes * Has this patient been hospitalized within the prior 30 days at any hospital? Yes Coverage Notice Reviewer: [id number] Burton Notice Issued Date-Time: 08/01/2019 8:00 Notice Type: Patient Choice Letter Notice Delivered To: Relationship to Patient: Swimming Pool Service Technician Name: Delivery Method: HAND - Hand Delivered Giovana Days: Prior Verbal Notification: Recipient Understood Notice: Yes Recipient Signature: Med Rec Note Co-signed by Attending: Coverage Notice Comment: SWAPNA SCHROEDER Reviewer: [id number] Jo Ann Burton Notice Issued Date-Time: 08/05/2019 12:05 Notice Type: IM Discharge Notice Notice Delivered To: Patient Relationship to Patient: Swimming Pool Service Technician Name: Delivery Method: HAND - Hand Delivered Giovana Days: Prior Verbal Notification: Recipient Understood Notice: Yes Recipient Signature: Yes Med Rec Note Co-signed by Attending: Coverage Notice Comment: Reviewer: [id number] Burton Notice Issued Date-Time: 08/05/2019 12:05 Notice Type: Patient Choice Letter Notice Delivered To: Patient Relationship to Patient: Swimming Pool Service Technician Name: Delivery Method: HAND - Hand Delivered Giovana Days: Prior Verbal Notification: Recipient Understood Notice: Yes Recipient Signature: Yes Med Rec Note Co-signed by Attending: Coverage Notice Comment: [facility] SWAPNA SCHROEDER IN [place] Last DP export: 08/05/19 12:24 Patient Name: JINA OCLINDRES Page [phone] at 1410 All edits/amendments must be made on the electronic document DICTATION DATE: 08/05/191409 SUPERVISING CHEF: MICHAEL 08/05/191409 RPT#: [id number] DC DATE: STATUS: ADM IN [facility] [address] [place] [address] END OF REPORT
--- NOTE | 2019-08-05 14:14 | NUR ---
I have reviewed this patient and I concur with the Shift Assessment completed by the Licensed Practical Nurse today this shift.
[2019-08-05 15:06] VITALS: BP 145/72
--- NOTE | 2019-08-05 17:03 | MORECARE ---
CASE MANAGEMENT DISCHARGE SUMMARY PATIENT: JINA COLINDRES UNIT: [id number] ADM DATE: 07/25/19 AGE: 64 : 53 SEX: F ROOM/BED: D.3747 AUTHOR: SANDRO,DOC PHYSICIAN: REFERRING PHYSICIAN: GENEVA BERUMEN MD DATE OF SERVICE: 08/05/19 Discharge Plan Patient Name: JINA COLINDRES Facility: [facility]:[place] : 1955 Planned Disposition: Custodial Facility Anticipated Discharge Date: Discharge Date: Expected LOS: Initial Reviewer: [id number] Initial Review Date: 07/25/2019 Generated: 08/05/19 6:03 pm Comments DCP- Discharge Planning Updated by [email or web address]: Diana Singletary on 08/05/19 3:[address] Patient Name: JINA COLINDRES Encounter No: [id number] : 1955 Primary Insurance: MEDICARE A & B Anticipated DC Date: Planned Disposition: Custodial Facility External Planned Provider: SWAPNA CERVANTES MEDICARE RHEAB BED DCP follow-up note: CM SPOKE TO BEDSIDE NURSE WHO INFORMED CM THAT PT REQUESTED TO SPEAK TO HOSPICE. CM RECEIVED HOSPICE CONSULT ORDER. CM MET WITH PT IN ROOM, DISCUSSED HOSPICE PROVIDERS, LOCATIONS AND SERVICES, PROVIDED HOSPICE LISTING OF PROVIDERS. PT REQUESTED [facility]. CHOICE COMPLETED. PT ALSO ASKED THAT CM SEND REFERRAL TO [facility] FOR REHAB IF SHE DECIDES FOR REHAB. ADDED TO CHOICE FORM, PT SIGNED THE CHOICE FOR [facility] AND [facility]. IMPORTANT MESSAGE FROM MEDICARE PROVIDED AND EXPLAINED. CM CALLED [facility], , SPOKE TO NANCY WHO TOOK REFERRAL AND WILL PROCESS REFERRAL AND HAVE NURSE MEET WITH PT IN HOSPITAL ROOM SOON POSSIBLE TODAY. CM FAXED REFERRAL TO [facility] AT [phone]. CM CALLED [facility], , SPOKE TO ADELINA AND PROVIDED REFERRAL INFORMATION; INFORMED HER THAT PT MAY WANT REHAB OR [facility] CARE WITH HOSPICE. CM FAXED REFERRAL TO [facility] AT [phone]. CM WAITING ON ADMISSION DETERMINATION FROM [facility] AND [facility]. WAITING PT TO MAKE DECISIONS REGARDING HOSPICE OR REHAB AT [facility]. Diana Singletary, CASE MANAGEMENT Appended by Diana Singletary on 08/05/2019 16:55 CDT: CM SPOKE TO HECTOR OF [facility], SHE SPOKE TO PT IN ROOM AND INFORMED CM THAT PT IS CONSIDERING PLACEMENT AT [facility] AND POSSIBLY HOSPICE WITH [facility]. HECTOR THINKS THAT [facility] MAY BE ABLE TO ASSIST WITH EITHER REHAB OR [facility] CARE, WHICHEVER PT DECIDES AND ASKED TO BE NOTIFIED WHEN PT MAKES UP HER MIND. CM SPOKE TO NANCY OF [facility], PT HAS BEEN ASSESSED BY NURSE EATON OF [facility] AND PT IS HOSPICE APPROPRIATE AND THEY DO HAVE A CONTRACT WITH [facility] IF PT WANTS HOSPICE THERE. [facility] WILL ACCEPT PT FOR INTERMEDIATE CARE; CM WAITING ADMISSION DETERMINATION FROM [facility]. CM WAITING PT'S DECISION REGARDING EITHER REHAB OR [facility] CARE PLACEMENT AT [facility]. DIANA SINGLETARY CASE MANAGEMENT DCP- Discharge Planning Updated by [id number]: Diana Singletary on 08/01/19 8:[address] Patient Name: JIAN COLINDRES Encounter No: [id number] : 1955 Primary Insurance: MEDICARE A & B Anticipated DC Date: Planned Disposition: Custodial Facility External Planned Provider: [facility], MEDICARE SKILLED / REHAB BED DCP follow-up note: CM SPOKE TO PT IN ROOM REGARDING DISCHARGE PLANNING AND NEEDS. CM DISCUSSED THE POSSIBLE NEED OF A PEG TUBE. PT STATES SHE DOES NOT WANT A PEG TUBE. CM DISCUSSED INPATIENT REHAB WILL NOT CONSIDER TAKING PT BACK DUE TO BEING TO LOW LEVEL AT THIS TIME. CM DISCUSSED INTERMEDIATE FACILITY REHAB PLACEMENT. PT REPORTS SHE HAS BEEN TO [facility] IN [place] AND IF SHE NEEDS IT, SHE WOULD LIKE TO GO BACK THERE. CHOICE COMPLETED. PT STATES SHE IS NOT ABLE TO SIGN. PT PROVIDED EMERGENCY MANAGER OF CASE NANCY FLORENCE, FRIEND AND COUNSELOR FROM [employer], [place] [phone]. PT REPORTS SHE ATTENDS COUNSELING FOR DEPRESSION. PT STATES THAT SHE WOULD LIKE NANCY FLORENCE TO BE HER FIRST EMEGENCY CONTACT WITH HER MOTHER BEING SECOND. PT STATES THAT IF SHE NEEDS HELP DECIDING WHAT TO DO, IT WOULD BE OK TO DISCUSS HER CARE AND PLANNING WITH NANCY. CM TO REFER PT TO [facility] WHEN PROJECTED DISCHARGE DATE AND NEEDS ARE KNOWN. CM TO FOLLOW AND ASSIST NEEDED. Diana Singletary CASE MANAGEMENT DCP- Discharge Planning Updated by [id number]: Mahi Root on 07/25/19 7:[address] Patient Name: JINA COLINDRES Admission Status: Urgent Accout number: [id number] Admission Date: 07-25-2019 : 1955 Admission Diagnosis: Attending: GENEVA BERUMEN Current LOS: 1 Anticipated DC Date: Planned Disposition: Inpatient Rehab Primary Insurance: MEDICARE A & B Discharge Planning Comments: Patient was just discharged 07/23/19 will plan to return to Inpatient rehab once medically stable. CM met with patient to complete initial dc planning assessment. CM educated patient on the CM role and verbal consent given by patient to complete assessment. Patient lives at home alone where she is independent with her care. Patient agrees that at discharge patient will need rehab prior to going home. CM discussed availability of home health, rehab services, and medical equipment. Patient states that she plans to [facility] care with [facility] MORENA signed. Patient has a nebulizer and home / portable 02 ( [employer]) Patient denied known discharge needs at this time. CM will continue to follow and will assist as needed with dc plans/needs. Clinical Data Abstractor: Mahi Root DCPIA - Discharge Planning Initial Assessment Updated by [email or web address]: Mahi Root on 07/25/19 8:53 pm * Is the patient Alert and Oriented? Yes * How many steps to enter\exit or inside your home? * PCP [facility] IN [place] * [facility]? * Preadmission Environment Home Alone * ADLs Independent * Other Equipment HOME / PORTABLE 02, NEBULIZER, CANE * List name and contact numbers for known caregivers / representatives who currently or will assist patient after discharge: LIZZIE ROWLEY - MOTHER- [phone] BREANA Chavira [phone] (VERTICAL BORING MILL OPERATOR) Carmela Mason (good friend) [phone] Nancy Florence (Clinical Data Abstractor- [facility]) [phone] * Community resources currently utilized Home Health * Please name any agencies selected above. [facility] * Additional services required to return to the preadmission environment? No * Can the patient safely return to the preadmission environment? Yes * Has this patient been hospitalized within the prior 30 days at any hospital? Yes Coverage Notice Reviewer: [id number] - Diana Singletary Notice Issued Date-Time: 08/01/2019 8:00 Notice Type: Patient Choice Letter Notice Delivered To: Relationship to Patient: President And Cmo Name: Delivery Method: HAND - Hand Delivered Goivana Days: Prior Verbal Notification: Recipient Understood Notice: Yes Recipient Signature: Med Rec Note Co-signed by Attending: Coverage Notice Comment: SWAPNA SCHROEDER Reviewer: [id number] Jo Ann Singletary Notice Issued Date-Time: 08/05/2019 12:05 Notice Type: IM Discharge Notice Notice Delivered To: Patient Relationship to Patient: President And Cmo Name: Delivery Method: HAND - Hand Delivered Giovana Days: Prior Verbal Notification: Recipient Understood Notice: Yes Recipient Signature: Yes Med Rec Note Co-signed by Attending: Coverage Notice Comment: Reviewer: [id number] Jo Ann Singletary Notice Issued Date-Time: 08/05/2019 12:05 Notice Type: Patient Choice Letter Notice Delivered To: Patient Relationship to Patient: President And Cmo Name: Delivery Method: HAND - Hand Delivered Giovana Days: Prior Verbal Notification: Recipient Understood Notice: Yes Recipient Signature: Yes Med Rec Note Co-signed by Attending: Coverage Notice Comment: [facility] SWAPNA HELENKellie IN [place] Last DP export: 08/05/19 1:10 Patient Name: JINA COLINDRES Page 48986 at 1703 All edits/amendments must be made on the electronic document DICTATION DATE: 08/05/191702 SKIVER COUNTER: MICHAEL 08/05/191702 RPT#: [id number] DC DATE: STATUS: ADM IN [facility] [address] [place] [address] END OF REPORT
--- NOTE | 2019-08-05 19:30 | NUR ---
RECEIVED BEDSIDE REPORT. PATIENT IS ALERT AND ORIENTED, RESTING COMFORTABLY IN BED. RESPIRATIONS ARE EVEN AND UNLABORED. NO S/S OF DISTRESS. PATIENT REQUESTED AND RECEIVED TYLENOL FOR A HEADACHE.ALL OTHER NEEDS MET. CALL LIGHT WITHIN REACH. WILL CPOC.
[2019-08-05 20:00] VITALS: BP 155/74
--- NOTE | 2019-08-05 20:26 | NUR ---
OT NOTE: PT COMPLETED BED MOB TASKS WITH KIMBERLEY Robles. PT LETHARGIC. PT COMPLETED HYGIENE TASKS WITH KIMBERLEY Robles. THANK YOU, LOLIS NICOLE
[2019-08-06] VITALS: BP 164/67
--- NOTE | 2019-08-06 02:19 | NUR ---
REFUSED BATH TONIGHT
[2019-08-06 03:05] LABS: BASOPHILS 0.2 % (0-2); EOSINOPHILS 0.6 % (0-7); HEMATOCRIT 25.9 % (36.0-48.0); HEMOGLOBIN 8.4 g/dL (12-16); IMMATURE GRANULOCYTES 3.2 % (0-5); LYMPHOCYTES 12.6 % (15-50); MCH 29.2 pg (26.0-34.0); MCHC 32.4 g/dL (31.0-37.0); MCV 89.9 fL (80.0-100.0); MEAN PLATELET VOLUME 8.9 fL (7.4-10.4); MONOCYTES 9.7 % (2-11); NEUTROPHILS 73.7 % (40-80); PLATELET COUNT 62 10x3/uL (130-400); RBC 2.88 10x6/uL (4.00-5.40); RDW 15.7 % (11.5-14.5); WBC 5.3 10x3/uL (4.8-10.8)
[2019-08-06 03:19] LABS: ALBUMIN 1.9 g/dL (3.4-5.0); ALKALINE PHOSPHATASE 72 U/L (46-116); ALT (SGPT) 17 U/L (10-68); BILIRUBIN - TOTAL 0.55 mg/dL (0.2-1.3); CALC OSMOLALITY 282 mosm/kg (275-300); CALCIUM 7.9 mg/dL (8.5-10.1); CARBON DIOXIDE 33.6 mmol/L (21.0-32.0); CHLORIDE - SERUM 101 mmol/L (98-107); CREATININE - SERUM 0.6 mg/dL (0.6-1.3); POTASSIUM - SERUM 3.4 mmol/L (3.5-5.1); PROTEIN - SERUM 4.1 g/dL (6.4-8.2); SODIUM 138 mmol/L (136-145); UREA NITROGEN 27 mg/dL (7-18); eGFR NON AFRICAN AMERICAN > 90 mL/min (90-120)
[2019-08-06 03:20] LABS: GLUCOSE 133 mg/dL (74-106)
[2019-08-06 04:27] VITALS: BP 178/83
--- NOTE | 2019-08-06 07:13 | NUR ---
REPORT RECEIVED. WILL CONTINUE WITH POC. PT CURRENTLY LYING SEMI FOWLERS. CALL LIGHT W/I REACH. PT IS RESTING AT THIS TIME WITH EYES CLOSED. RR EVEN AND UNLABORED ON 3L 02. PROCAL INFUSING @75ML/HR VIA L.PICC LINE. MEHTA IN PLACE AND DRIANING URINE. PT IS IN DROPLET ISO. NO S/S OF DISTRESS NOTED. PT DENIES ANY NEEDS. WILL CTM.
[2019-08-06 07:37] VITALS: BP 148/73
--- NOTE | 2019-08-06 11:09 | NUR ---
FSBS WAS 465 @1110. ADMININSTERED 20UNITS OF INSULIN AND NOTIFIED TON SWAN. WILL CTM.
[2019-08-06 11:10] VITALS: BP 149/78
--- NOTE | 2019-08-06 11:58 | NUR ---
OT NOTE: PT STATING THAT SHE NEEDED TO GO TO BATHROOM BUT COULDNT. C/O STOMACH CRAMPING. NURSING IN ROOM AND PROVIDED STOOL SOFTENER. PT REFUSED TO EAT BUT WAS ABLE TO DRINK HER ENSURE WITH ENCOURAGEMENT. PERFORMED BATHING WITH SET UP FOR FACE, CHEST, AND HANDS. MOD ASSIST WITH UES; MAX ASSIST WITH LES AND PERINEAL AREA. MAX ASSIST TO BRUSH HAIR. UE AROM EXS WITH EXTENSIVE REST BREAKS. BED MOB WITH MAX; SUPINE TO SIT WITH MAX ASSIST; SITTING BALANCE WITH OCCASSIONAL ASSIST. TRENTON EDDY, OTR/L
--- NOTE | 2019-08-06 14:10 | NUR ---
Nutrition Follow-up: Poor appetite/PO intake. C/o nausea. Per OT note, pt refused to eat but drank Ensure with encouragement. Megace started 08/05. Receiving Procalamine @ 75 mL/hr. Noted hospice consulted. Wt: 199.5# Last BM: 08/05 per chart Labs noted: Glu 133, K+ 3.4, Ca 7.9, Alb 1.9 Meds noted: Prednisone, Colace, Megace, Humalog, Lasix, KDur, Lexapro -Pt with severe malnutrition of chronic illness R/T lung cancer AEB: 1. <=75% intake of est energy needs for >=1 month. 2. Reduced property economist strength; fluid accumulation. RD following.
[2019-08-06 14:44] VITALS: BP 166/75
--- NOTE | 2019-08-06 15:12 | NUR ---
I have reviewed this patient and I concur with the Shift Assessment completed by the Licensed Practical Nurse today this shift.
--- NOTE | 2019-08-06 18:24 | NUR ---
OT NOTE: PT COMPLETED BED MOB WITH MAX/TOTAL A. PT VERY LETHARGIC DURING SESSION. NURSING PRESENT DURING PERIODS OF SESSION. PT REFUSED TO SIT AT EOB SECONDARY TO INCREASED STOMACH NAUSEA. NURSING PRESENT. PT REQUIRED MAX/TOTAL A WITH BATHING TASKS. THANK YOU, LOLIS NICOLE
--- NOTE | 2019-08-06 19:00 | NUR ---
PT ALERT AND ORIENTED X 4. SHE STATES SHE HAS NOT HAD A BOWEL MOVEMENT IN 4 DAYS. BOWEL SOUNDS HYPOACTIVE X 4. SHE ALSO STATES SHE HAS NOT EATEN MUCH IN THE LAST WEEK. PRUNE JUICE/DIET SPRITE WARMED UP AND GIVEN TO PT. LET HER KNOW SHE HAS A COLACE DUE AT BEDTIME. SHE DENIES PAIN OR NEEDS. BED LOW, BED ALARM ON AND CALL LIGHT WITHIN REACH.
[2019-08-06 20:00] VITALS: BP 161/77
[2019-08-07] VITALS (8 sets, daily range): BP systolic 123–170; BP diastolic 56–77
[2019-08-07 06:01] LABS: BASOPHILS 0.2 % (0-2); EOSINOPHILS 0.4 % (0-7); HEMATOCRIT 26.2 % (36.0-48.0); HEMOGLOBIN 8.6 g/dL (12-16); IMMATURE GRANULOCYTES 1.1 % (0-5); LYMPHOCYTES 12.5 % (15-50); MCH 29.4 pg (26.0-34.0); MCHC 32.8 g/dL (31.0-37.0); MCV 89.4 fL (80.0-100.0); MEAN PLATELET VOLUME 9.2 fL (7.4-10.4); MONOCYTES 8.9 % (2-11); NEUTROPHILS 76.9 % (40-80); PLATELET COUNT 69 10x3/uL (130-400); RBC 2.93 10x6/uL (4.00-5.40); RDW 15.8 % (11.5-14.5); WBC 5.5 10x3/uL (4.8-10.8)
[2019-08-07 06:26] LABS: ALKALINE PHOSPHATASE 71 U/L (46-116); ALT (SGPT) 16 U/L (10-68); BILIRUBIN - TOTAL 0.59 mg/dL (0.2-1.3); CALCIUM 8.1 mg/dL (8.5-10.1); CARBON DIOXIDE 32.2 mmol/L (21.0-32.0); CHLORIDE - SERUM 97 mmol/L (98-107); CREATININE - SERUM 0.7 mg/dL (0.6-1.3); POTASSIUM - SERUM 3.5 mmol/L (3.5-5.1); PROTEIN - SERUM 4.4 g/dL (6.4-8.2); SODIUM 133 mmol/L (136-145); UREA NITROGEN 24 mg/dL (7-18); eGFR NON AFRICAN AMERICAN 89 mL/min (90-120)
[2019-08-07 06:27] LABS: CALC OSMOLALITY 277 mosm/kg (275-300); GLUCOSE 248 mg/dL (74-106)
--- NOTE | 2019-08-07 08:46 | MORECARE ---
CASE MANAGEMENT DISCHARGE SUMMARY PATIENT: JINA COLINDRES UNIT: [id number] ADM DATE: 07/25/19 AGE: 64 : 53 SEX: F ROOM/BED: D.7244 AUTHOR: SANDRO,DOC PHYSICIAN: REFERRING PHYSICIAN: GENEVA BERUMEN MD DATE OF SERVICE: 08/07/19 Discharge Plan Patient Name: JINA COLINDRES Facility: [facility]:[place] : 1955 Planned Disposition: Nursing Facility DONNA Cert Anticipated Discharge Date: 08/07/19 Discharge Date: Expected LOS: 13 Initial Reviewer: [id number] Initial Review Date: 07/25/2019 Generated: 08/07/19 9:46 am Comments DCP- Discharge Planning Updated by [id number]: Diana Singletary on 08/05/19 3:[address] Patient Name: JINA COLINDRES Encounter No: [id number] : 1955 Primary Insurance: MEDICARE A & B Anticipated DC Date: Planned Disposition: Halfway Facility External Planned Provider: [facility], MEDICARE RHEAB BED DCP follow-up note: CM SPOKE TO BEDSIDE NURSE WHO INFORMED CM THAT PT REQUESTED TO SPEAK TO HOSPICE. CM RECEIVED HOSPICE CONSULT ORDER. CM MET WITH PT IN ROOM, DISCUSSED HOSPICE PROVIDERS, LOCATIONS AND SERVICES, PROVIDED HOSPICE LISTING OF PROVIDERS. PT REQUESTED [facility]. CHOICE COMPLETED. PT ALSO ASKED THAT CM SEND REFERRAL TO [facility] FOR REHAB IF SHE DECIDES FOR REHAB. ADDED TO CHOICE FORM, PT SIGNED THE CHOICE FOR [facility] AND [facility]. IMPORTANT MESSAGE FROM MEDICARE PROVIDED AND EXPLAINED. CM CALLED [facility], , SPOKE TO NANCY WHO TOOK REFERRAL AND WILL PROCESS REFERRAL AND HAVE NURSE MEET WITH PT IN HOSPITAL ROOM SOON POSSIBLE TODAY. CM FAXED REFERRAL TO [facility] AT [phone]. CM CALLED [facility], , SPOKE TO ADELINA AND PROVIDED REFERRAL INFORMATION; INFORMED HER THAT PT MAY WANT REHAB OR FCI CARE WITH HOSPICE. CM FAXED REFERRAL TO [facility] AT [phone]. CM WAITING ON ADMISSION DETERMINATION FROM [facility] AND [facility]. WAITING PT TO MAKE DECISIONS REGARDING HOSPICE OR REHAB AT [facility]. Diana Singletary, CASE MANAGEMENT Appended by Diana Singletary on 08/05/2019 16:55 CDT: CM SPOKE TO HECTOR OF [facility], SHE SPOKE TO PT IN ROOM AND INFORMED CM THAT PT IS CONSIDERING PLACEMENT AT [facility] AND POSSIBLY HOSPICE WITH [facility]. HECTOR THINKS THAT [facility] MAY BE ABLE TO ASSIST WITH EITHER REHAB OR FCI CARE, WHICHEVER PT DECIDES AND ASKED TO BE NOTIFIED WHEN PT MAKES UP HER MIND. CM SPOKE TO NANCY OF [facility], PT HAS BEEN ASSESSED BY NURSE EATON OF [facility] AND PT IS HOSPICE APPROPRIATE AND THEY DO HAVE A CONTRACT WITH [facility] IF PT WANTS HOSPICE THERE. [facility] WILL ACCEPT PT FOR USP CARE; CM WAITING ADMISSION DETERMINATION FROM [facility]. CM WAITING PT'S DECISION REGARDING EITHER REHAB OR FCI CARE PLACEMENT AT [facility]. DIANA SINGLETARY CASE MANAGEMENT DCP- Discharge Planning Updated by [id number]: Diana Singletary on 08/01/19 8:[address] Patient Name: JINA COLINDRES Encounter No: [id number] : 1955 Primary Insurance: MEDICARE A & B Anticipated DC Date: Planned Disposition: Halfway Facility External Planned Provider: [facility], MEDICARE SKILLED / REHAB BED DCP follow-up note: CM SPOKE TO PT IN ROOM REGARDING DISCHARGE PLANNING AND NEEDS. CM DISCUSSED THE POSSIBLE NEED OF A PEG TUBE. PT STATES SHE DOES NOT WANT A PEG TUBE. CM DISCUSSED INPATIENT REHAB WILL NOT CONSIDER TAKING PT BACK DUE TO BEING TO LOW LEVEL AT THIS TIME. CM DISCUSSED PENITENTIARY FACILITY REHAB PLACEMENT. PT REPORTS SHE HAS BEEN TO [facility] IN [place] AND IF SHE NEEDS IT, SHE WOULD LIKE TO GO BACK THERE. CHOICE COMPLETED. PT STATES SHE IS NOT ABLE TO SIGN. PT PROVIDED EMERGENCY SENIOR OUTSIDE SALES REPRESENTATIVE NANCY FLORENCE, FRIEND AND COUNSELOR FROM [employer], [place] [phone]. PT REPORTS SHE ATTENDS COUNSELING FOR DEPRESSION. PT STATES THAT SHE WOULD LIKE NANCY FLORENCE TO BE HER FIRST EMEGENCY CONTACT WITH HER MOTHER BEING SECOND. PT STATES THAT IF SHE NEEDS HELP DECIDING WHAT TO DO, IT WOULD BE OK TO DISCUSS HER CARE AND PLANNING WITH NANCY. CM TO REFER PT TO [facility] WHEN PROJECTED DISCHARGE DATE AND NEEDS ARE KNOWN. CM TO FOLLOW AND ASSIST NEEDED. Diana Deerfield, CASE MANAGEMENT DCP- Discharge Planning Updated by [id number]: Mahi Root on 07/25/19 7:[address] Patient Name: JINA COLINDRES Admission Status: Urgent Accout number: [id number] Admission Date: 07-25-2019 : 1955 Admission Diagnosis: Attending: GENEVA BERUMEN Current LOS: 1 Anticipated DC Date: Planned Disposition: Inpatient Rehab Primary Insurance: MEDICARE A & B Discharge Planning Comments: Patient was just discharged 07/23/19 will plan to return to Inpatient rehab once medically stable. CM met with patient to complete initial dc planning assessment. CM educated patient on the CM role and verbal consent given by patient to complete assessment. Patient lives at home alone where she is independent with her care. Patient agrees that at discharge patient will need rehab prior to going home. CM discussed availability of home health, rehab services, and medical equipment. Patient states that she plans to resume care with [facility] . MORENA signed. Patient has a nebulizer and home / portable 02 ( [facility]) Patient denied known discharge needs at this time. CM will continue to follow and will assist as needed with dc plans/needs. Bridge Inspector: Mahi Root DCPIA - Discharge Planning Initial Assessment Updated by [id number]: Mahi Root on 07/25/19 8:53 pm * Is the patient Alert and Oriented? Yes * How many steps to enter\exit or inside your home? * PCP [facility] [place] * [facility]? * Preadmission Environment Home Alone * ADLs Independent * Other Equipment HOME / PORTABLE 02, NEBULIZER, CANE * List name and contact numbers for known caregivers / representatives who currently or will assist patient after discharge: LIZZIE ROWLEY - MOTHER- [phone] BREANA Chavira [phone] (WASH RACK OPERATOR) Carmela Mason (good friend) [phone] Nancy Florence (Bridge Inspector- [facility]) [phone] * Community resources currently utilized Home Health * Please name any agencies selected above. [facility] * Additional services required to return to the preadmission environment? No * Can the patient safely return to the preadmission environment? Yes * Has this patient been hospitalized within the prior 30 days at any hospital? Yes Coverage Notice Reviewer: [id number] - Diana Singletary Notice Issued Date-Time: 08/01/2019 8:00 Notice Type: Patient Choice Letter Notice Delivered To: Relationship to Patient: Sexual Health Physician Name: Delivery Method: HAND - Hand Delivered Giovana Days: Prior Verbal Notification: Recipient Understood Notice: Yes Recipient Signature: Med Rec Note Co-signed by Attending: Coverage Notice Comment: SWAPNA SCHROEDER Reviewer: [id number] Singletary Notice Issued Date-Time: 08/05/2019 12:05 Notice Type: IM Discharge Notice Notice Delivered To: Patient Relationship to Patient: Sexual Health Physician Name: Delivery Method: HAND - Hand Delivered Giovana Days: Prior Verbal Notification: Recipient Understood Notice: Yes Recipient Signature: Yes Med Rec Note Co-signed by Attending: Coverage Notice Comment: Reviewer: [id number] Singletary Notice Issued Date-Time: 08/05/2019 12:05 Notice Type: Patient Choice Letter Notice Delivered To: Patient Relationship to Patient: Sexual Health Physician Name: Delivery Method: HAND - Hand Delivered Giovana Days: Prior Verbal Notification: Recipient Understood Notice: Yes Recipient Signature: Yes Med Rec Note Co-signed by Attending: Coverage Notice Comment: [facility] [place] Last DP export: 08/05/19 4:03 Patient Name: JINA COLINDRES Page [id number] at 0846 All edits/amendments must be made on the electronic document DICTATION DATE: 08/07/19845 ASSISTANT MEDIA PLANNER: MICHAEL 08/07/19845 RPT#: [id number] DC DATE: STATUS: ADM IN [facility] [address] [place] [address] END OF REPORT
--- NOTE | 2019-08-07 09:11 | MORECARE ---
CASE MANAGEMENT DISCHARGE SUMMARY PATIENT: JINA COLINDRES UNIT: [id number] ADM DATE: 07/25/19 AGE: 64 : 53 SEX: F ROOM/BED: D.1987 AUTHOR: SANDRO,DOC PHYSICIAN: REFERRING PHYSICIAN: GENEVA BERUMEN MD DATE OF SERVICE: 08/07/19 Discharge Plan Patient Name: JINA COLINDRES Facility: [facility]:[place] : 1955 Planned Disposition: Nursing Facility DONNA Cert Anticipated Discharge Date: 08/07/19 Discharge Date: Expected LOS: 13 Initial Reviewer: [id number] Initial Review Date: 07/25/2019 Generated: 08/07/19 10:11 am Comments DCP- Discharge Planning Updated by [id number]: Diana Singletary on 08/07/19 8:[address] Patient Name: JINA COLINDRES Encounter No: [id number] : 1955 Primary Insurance: MEDICARE A & B Anticipated DC Date: 08-07-2019 Planned Disposition: Nursing Facility DONNA Cert External Planned Provider:[facility], LONG TERM CARE MEDICAID BED DCP follow-up note: CM MET WITH PT IN ROOM, DISCUSSED HOSPICE AND SKILLED REHAB. PT THINKS SHE WANTS HOSPICE AT [facility]. PT REPORTS SHE HAS NO ONE BUT HER NEIGHBOR TO ASSIST WITH HER CARE AT HOME WITH HOSPICE. CM CALLED [facility], , SPOKE TO ADELINA AND PROVIDED UPDATE THAT PT IS REQUESTING PLACMENT WITH HOSPICE. CM WAS ADVISED THAT THEY WILL HAVE TO WORK ON FINANCIALS FOR MEDICAID. CM FAXED REFERRAL UDPATE TO [facility] AT [phone]. CM RECEIVED CALL FROM CARMELA WOOD, WHO REPORTS TO BE PATIENTS NEXT OF KIN AND NEIGHBOR. CARMELA REPORTS SHE IS NOT ABLE TO TAKE CARE OF PT AT HOME 24 HOURS A DAY AND THINKS IT BEST IF PT GOES TO [facility]. CARMELA PROVIDED HER NUMBER, . [facility] WILL ACCEPT PT FOR FDC CARE; CM WAITING ADMISSION DETERMINATION FROM [facility]. HUMBERTO RAMIREZ DCP- Discharge Planning Updated by [id number]: Diana Singletary on 08/05/19 3:[address] Patient Name: JINA COLINDRES Encounter No: [id number] : 1955 Primary Insurance: MEDICARE A & B Anticipated DC Date: Planned Disposition: Penitentiary Facility External Planned Provider: [facility], MEDICARE RHEAB BED DCP follow-up note: CM SPOKE TO BEDSIDE NURSE WHO INFORMED CM THAT PT REQUESTED TO SPEAK TO HOSPICE. CM RECEIVED HOSPICE CONSULT ORDER. CM MET WITH PT IN ROOM, DISCUSSED HOSPICE PROVIDERS, LOCATIONS AND SERVICES, PROVIDED HOSPICE LISTING OF PROVIDERS. PT REQUESTED [facility]. CHOICE COMPLETED. PT ALSO ASKED THAT CM SEND REFERRAL TO [facility] FOR REHAB IF SHE DECIDES FOR REHAB. ADDED TO CHOICE FORM, PT SIGNED THE CHOICE FOR [facility] AND [facility]. IMPORTANT MESSAGE FROM MEDICARE PROVIDED AND EXPLAINED. CM CALLED [facility], , SPOKE TO NANCY WHO TOOK REFERRAL AND WILL PROCESS REFERRAL AND HAVE NURSE MEET WITH PT IN HOSPITAL ROOM SOON POSSIBLE TODAY. CM FAXED REFERRAL TO [facility] AT [phone]. CM CALLED [facility], , SPOKE TO ADELINA AND PROVIDED REFERRAL INFORMATION; INFORMED HER THAT PT MAY WANT REHAB OR CARE HOME CARE WITH HOSPICE. CM FAXED REFERRAL TO [facility] AT [phone]. CM WAITING ON ADMISSION DETERMINATION FROM [facility] AND [facility]. WAITING PT TO MAKE DECISIONS REGARDING HOSPICE OR REHAB AT [facility]. Diana Singletary, CASE MANAGEMENT Appended by Diana Singletary on 08/05/2019 16:55 CDT: CM SPOKE TO HECTOR OF [facility], SHE SPOKE TO PT IN ROOM AND INFORMED CM THAT PT IS CONSIDERING PLACEMENT AT [facility] AND POSSIBLY HOSPICE WITH [facility]. HECTOR THINKS THAT [facility] MAY BE ABLE TO ASSIST WITH EITHER REHAB OR CARE HOME CARE, WHICHEVER PT DECIDES AND ASKED TO BE NOTIFIED WHEN PT MAKES UP HER MIND. CM SPOKE TO NANCY OF [facility], PT HAS BEEN ASSESSED BY NURSE [facility] OF [facility] AND PT IS HOSPICE APPROPRIATE AND THEY DO HAVE A CONTRACT WITH [facility] IF PT WANTS HOSPICE THERE. [facility] WILL ACCEPT PT FOR FDC CARE; CM WAITING ADMISSION DETERMINATION FROM [facility]. CM WAITING PT'S DECISION REGARDING EITHER REHAB OR CARE HOME CARE PLACEMENT AT [facility]. DIANA SINGLETARY, CASE MANAGEMENT DCP- Discharge Planning Updated by [id number]: Diana Singletary on 08/01/19 8:[address] Patient Name: JINA COLINDRES Encounter No: [id number] : 1955 Primary Insurance: MEDICARE A & B Anticipated DC Date: Planned Disposition: Penitentiary Facility External Planned Provider: [facility], MEDICARE SKILLED / REHAB BED DCP follow-up note: CM SPOKE TO PT IN ROOM REGARDING DISCHARGE PLANNING AND NEEDS. CM DISCUSSED THE POSSIBLE NEED OF A PEG TUBE. PT STATES SHE DOES NOT WANT A PEG TUBE. CM DISCUSSED INPATIENT REHAB WILL NOT CONSIDER TAKING PT BACK DUE TO BEING TO LOW LEVEL AT THIS TIME. CM DISCUSSED CUSTODIAL FACILITY REHAB PLACEMENT. PT REPORTS SHE HAS BEEN TO [facility] IN [place] AND IF SHE NEEDS IT, SHE WOULD LIKE TO GO BACK THERE. CHOICE COMPLETED. PT STATES SHE IS NOT ABLE TO SIGN. PT PROVIDED EMERGENCY RAILCAR CARPENTER NANCY FLORENCE, FRIEND AND COUNSELOR FROM [facility], [place] [phone]. PT REPORTS SHE ATTENDS COUNSELING FOR DEPRESSION. PT STATES THAT SHE WOULD LIKE NANCY FLORENCE TO BE HER FIRST EMEGENCY CONTACT WITH HER MOTHER BEING SECOND. PT STATES THAT IF SHE NEEDS HELP DECIDING WHAT TO DO, IT WOULD BE OK TO DISCUSS HER CARE AND PLANNING WITH NANCY. CM TO REFER PT TO [facility] WHEN PROJECTED DISCHARGE DATE AND NEEDS ARE KNOWN. CM TO FOLLOW AND ASSIST NEEDED. Diana Singletary, CASE MANAGEMENT DCP- Discharge Planning Updated by [id number]: Mahi Root on 07/25/19 7:[address] Patient Name: JINA COLINDRES Admission Status: Urgent Accout number: [id number] Admission Date: 07-25-2019 : 1955 Admission Diagnosis: Attending: GENEVA BERUMEN Current LOS: 1 Anticipated DC Date: Planned Disposition: Inpatient Rehab Primary Insurance: MEDICARE A & B Discharge Planning Comments: Patient was just discharged 07/23/19 will plan to return to Inpatient rehab once medically stable. CM met with patient to complete initial dc planning assessment. CM educated patient on the CM role and verbal consent given by patient to complete assessment. Patient lives at home alone where she is independent with her care. Patient agrees that at discharge patient will need rehab prior to going home. CM discussed availability of home health, rehab services, and medical equipment. Patient states that she plans to resume care with [facility]. MORENA signed. Patient has a nebulizer and home / portable 02 ( [facility]) Patient denied known discharge needs at this time. CM will continue to follow and will assist as needed with dc plans/needs. Shaft Tender: Mahi Root DCPIA - Discharge Planning Initial Assessment Updated by [email or web address]: Mahi Root on 07/25/19 8:53 pm * Is the patient Alert and Oriented? Yes * How many steps to enter\exit or inside your home? * PCP [facility] [place] * Pharmacy [facility]? * Preadmission Environment Home Alone * ADLs Independent * Other Equipment HOME / PORTABLE 02, NEBULIZER, CANE * List name and contact numbers for known caregivers / representatives who currently or will assist patient after discharge: LIZZIE ROWLEY - [facility]- [phone] Fan [phone] (ENAMEL BUFFER) Carmela Marlon (good friend) [phone] Nancy Florence (Shaft Tender- [facility]) [phone] * Community resources currently utilized Home Health * Please name any agencies selected above. [facility] * Additional services required to return to the preadmission environment? No * Can the patient safely return to the preadmission environment? Yes * Has this patient been hospitalized within the prior 30 days at any hospital? Yes Coverage Notice Reviewer: [id number] Singletary Notice Issued Date-Time: 08/05/2019 12:05 Notice Type: IM Discharge Notice Notice Delivered To: Patient Relationship to Patient: Superintendent Stations Name: Delivery Method: HAND - Hand Delivered Giovana Days: Prior Verbal Notification: Recipient Understood Notice: Yes Recipient Signature: Yes Med Rec Note Co-signed by Attending: Coverage Notice Comment: Reviewer: ALDAIR Singletary Notice Issued Date-Time: 08/05/2019 12:05 Notice Type: Patient Choice Letter Notice Delivered To: Patient Relationship to Patient: Superintendent Stations Name: Delivery Method: HAND - Hand Delivered Igovana Days: Prior Verbal Notification: Recipient Understood Notice: Yes Recipient Signature: Yes Med Rec Note Co-signed by Attending: Coverage Notice Comment: [facility] [place] Reviewer: [id number] Singletary Notice Issued Date-Time: 08/01/2019 8:00 Notice Type: Patient Choice Letter Notice Delivered To: Relationship to Patient: Superintendent Stations Name: Delivery Method: HAND - Hand Delivered Giovana Days: Prior Verbal Notification: Recipient Understood Notice: Yes Recipient Signature: Med Rec Note Co-signed by Attending: Coverage Notice Comment: SWAPNA SCHROEDER Last DP export: 08/07/19 7:46 Patient Name: JINA COLINDRES Page [id number] at 0911 All edits/amendments must be made on the electronic document DICTATION DATE: 08/07/19910 COKE DRAWER: MICHAEL 08/07/19910 RPT#: [id number] DC DATE: STATUS: ADM IN [facility] [address] [place] [address] END OF REPORT
[2019-08-07 09:18] LABS: PLATELET ESTIMATE DECREASED; ROULEAUX OCC; SCHISTOCYTES OCC
--- NOTE | 2019-08-07 14:09 | NUR ---
PT LYING IN BED WITH HOB ELEVATED. EYES CLOSED. CHEST RISING AND FALLING. BED LOW. CL IN REACH.
--- NOTE | 2019-08-07 15:03 | NUR ---
I have reviewed this patient and I concur with the Shift Assessment completed by the Licensed Practical Nurse today this shift.
--- NOTE | 2019-08-07 15:10 | NUR ---
LEFT UPPER ARM PICC LINE DRESSING CHANGED PER PROTOCOL USING STERILE TECHNIQUE.
--- NOTE | 2019-08-07 15:38 | MORECARE ---
CASE MANAGEMENT DISCHARGE SUMMARY PATIENT: JINA COLINDRES UNIT: [id number] ADM DATE: 07/25/19 AGE: 64 : 53 SEX: F ROOM/BED: D.3928 AUTHOR: SANDRO,DOC PHYSICIAN: REFERRING PHYSICIAN: GENEVA BERUMEN MD DATE OF SERVICE: 08/07/19 Discharge Plan Patient Name: JINA COLINDRES Facility: [facility]:[place] : 1955 Planned Disposition: Nursing Facility [facility] Cert Anticipated Discharge Date: 08/07/19 Discharge Date: Expected LOS: 13 Initial Reviewer: [id number] Initial Review Date: 07/25/2019 Generated: 08/07/19 4:38 pm Comments DCP- Discharge Planning Updated by [email or web address]: Diana Singletary on 08/07/19 2:[address] Patient Name: JINA COLINDRES Encounter No: [id number] : 1955 Primary Insurance: MEDICARE A & B Anticipated DC Date: 08-07-2019 Planned Disposition: Nursing Facility [facility] Cert External Planned Provider:[facility], LONG TERM CARE MEDICAID BED DCP follow-up note: CM SPOKE TO HECTOR OF [facility], THEY ARE TRYING TO LOCATE NEXT OF KIN TO ASSIST IN FILLING OUT MEDICAID APPLICATION AND PROVIDING FINANCIAL INFORMATION. CM PROVIDED INFORMATION FOR CARMELA MASON, , PT REPORTS HER TO BE A TRUSTED FRIEND AND NEIGHBOR. [facility] WILL ACCEPT PT FOR SNF CARE; CM WAITING [facility]. TO LOCATE PERSON TO ASSIST PT WITH FIANCIALS AND WORK OUT FINANCIAL ARRANGEMENTS WITH PT FOR ASSISTED CARE PLACEMENT. DIANA SINGLETARY, CASE MANAGEMENT DCP- Discharge Planning Updated by [id number]: Diana Singletary on 08/07/19 8:[address] Patient Name: JINA COLINDRES Encounter No: [id number] : 1955 Primary Insurance: MEDICARE A & B Anticipated DC Date: 08-07-2019 Planned Disposition: Nursing Facility [facility] Cert External Planned Provider:[facility], LONG TERM CARE MEDICAID BED DCP follow-up note: CM MET WITH PT IN ROOM, DISCUSSED HOSPICE AND SKILLED REHAB. PT THINKS SHE WANTS HOSPICE AT [facility]. PT REPORTS SHE HAS NO ONE BUT HER NEIGHBOR TO ASSIST WITH HER CARE AT HOME WITH HOSPICE. CM CALLED [facility], , SPOKE TO ADELINA AND PROVIDED UPDATE THAT PT IS REQUESTING PLACMENT WITH HOSPICE. CM WAS ADVISED THAT THEY WILL HAVE TO WORK ON FINANCIALS FOR MEDICAID. CM FAXED REFERRAL UDPATE TO [facility] AT [phone]. CM RECEIVED CALL FROM CARMELA MASON, WHO REPORTS TO BE PATIENTS NEXT OF KIN AND NEIGHBOR. CARMELA REPORTS SHE IS NOT ABLE TO TAKE CARE OF PT AT HOME 24 HOURS A DAY AND THINKS IT BEST IF PT GOES TO [facility]. CARMELA PROVIDED HER NUMBER, . [facility] WILL ACCEPT PT FOR SNF CARE; CM WAITING ADMISSION DETERMINATION FROM [facility]. HUMBERTO RAMIREZ MANAGEMENT DCP- Discharge Planning Updated by [email or web address]: Diana Singletary on 08/05/19 3:[address] Patient Name: JINA COLINDRES Encounter No: [id number] : 1955 Primary Insurance: MEDICARE A & B Anticipated DC Date: Planned Disposition: Prison Facility External Planned Provider: [facility] [place] MEDICARE RHEAB BED DCP follow-up note: CM SPOKE TO BEDSIDE NURSE WHO INFORMED CM THAT PT REQUESTED TO SPEAK TO HOSPICE. CM RECEIVED HOSPICE CONSULT ORDER. CM MET WITH PT IN ROOM, DISCUSSED HOSPICE PROVIDERS, LOCATIONS AND SERVICES, PROVIDED HOSPICE LISTING OF PROVIDERS. PT REQUESTED [facility]. CHOICE COMPLETED. PT ALSO ASKED THAT CM SEND REFERRAL TO [facility] FOR REHAB IF SHE DECIDES FOR REHAB. ADDED TO CHOICE FORM, PT SIGNED THE CHOICE FOR [facility] AND [facility]. IMPORTANT MESSAGE FROM MEDICARE PROVIDED AND EXPLAINED. CM CALLED [facility], , SPOKE TO NANCY WHO TOOK REFERRAL AND WILL PROCESS REFERRAL AND HAVE NURSE MEET WITH PT IN HOSPITAL ROOM SOON POSSIBLE TODAY. CM FAXED REFERRAL TO [facility] AT [phone]. CM CALLED [facility], , SPOKE TO ADELINA AND PROVIDED REFERRAL INFORMATION; INFORMED HER THAT PT MAY WANT REHAB OR MANAGER PORTABLE CARE WITH HOSPICE. CM FAXED REFERRAL TO [facility] AT [phone]. CM WAITING ON ADMISSION DETERMINATION FROM [facility] AND [facility]. WAITING PT TO MAKE DECISIONS REGARDING HOSPICE OR REHAB AT [facility]. Diana Singletary, CASE MANAGEMENT Appended by Diana Singletary on 08/05/2019 16:55 CDT: CM SPOKE TO HECTOR OF [facility], SHE SPOKE TO PT IN ROOM AND INFORMED CM THAT PT IS CONSIDERING PLACEMENT AT [facility] AND POSSIBLY HOSPICE WITH [facility]. HECTOR THINKS [facility] MAY BE ABLE TO ASSIST WITH EITHER REHAB OR MANAGER PORTABLE CARE, WHICHEVER PT DECIDES AND ASKED TO BE NOTIFIED WHEN PT MAKES UP HER MIND. CM SPOKE TO NANCY OF [facility], PT HAS BEEN ASSESSED BY NURSE EATON OF [facility] AND PT IS HOSPICE APPROPRIATE AND THEY DO HAVE A CONTRACT WITH [facility] IF PT WANTS HOSPICE THERE. [facility] WILL ACCEPT PT FOR SNF CARE; CM WAITING ADMISSION DETERMINATION FROM [facility]. CM WAITING PT'S DECISION REGARDING EITHER REHAB OR ASSISTED CARE PLACEMENT AT [facility]. DIANA SINGLETARY, CASE MANAGEMENT DCP- Discharge Planning Updated by [id number]: Diana Singletary on 08/01/19 8:[address] Patient Name: JINA COLINDRES Encounter No: [id number] : 1955 Primary Insurance: MEDICARE A & B Anticipated DC Date: Planned Disposition: Prison Facility External Planned Provider: [facility], MEDICARE SKILLED / REHAB BED DCP follow-up note: CM SPOKE TO PT IN ROOM REGARDING DISCHARGE PLANNING AND NEEDS. CM DISCUSSED THE POSSIBLE NEED OF A PEG TUBE. PT STATES SHE DOES NOT WANT A PEG TUBE. CM DISCUSSED INPATIENT REHAB WILL NOT CONSIDER TAKING PT BACK DUE TO BEING TO LOW LEVEL AT THIS TIME. CM DISCUSSED [facility] F[facility]ILITY REHAB PLACEMENT. PT REPORTS SHE HAS BEEN TO [facility] IN [place] AND IF SHE NEEDS IT, SHE WOULD LIKE TO GO BACK THERE. CHOICE COMPLETED. PT STATES SHE IS NOT ABLE TO SIGN. PT PROVIDED EMERGENCY ELECTRIC MOTOR TESTER NANCY FLORENCE, FRIEND AND COUNSELOR FROM [employer], [place] [phone]. PT REPORTS SHE ATTENDS COUNSELING FOR DEPRESSION. PT STATES THAT SHE WOULD LIKE NANCY FLORENCE TO BE HER FIRST EMEGENCY CONTACT WITH HER MOTHER BEING SECOND. PT STATES THAT IF SHE NEEDS HELP DECIDING WHAT TO DO, IT WOULD BE OK TO DISCUSS HER CARE AND PLANNING WITH NANCY. CM TO REFER PT TO [facility] WHEN PROJECTED DISCHARGE DATE AND NEEDS ARE KNOWN. CM TO FOLLOW AND ASSIST NEEDED. Diana Singletary, CASE MANAGEMENT DCP- Discharge Planning Updated by [id number]: Mahi Root on 07/25/19 7:[address] Patient Name: JINA COLINDRES Admission Status: Urgent Accout number: [id number] Admission Date: 07-25-2019 : 1955 Admission Diagnosis: Attending: GENEVA BERUMEN Current LOS: 1 Anticipated DC Date: Planned Disposition: Inpatient Rehab Primary Insurance: MEDICARE A & B Discharge Planning Comments: Patient was just discharged 07/23/19 will plan to return to Inpatient rehab once medically stable. CM met with patient to complete initial dc planning assessment. CM educated patient on the CM role and verbal consent given by patient to complete assessment. Patient lives at home alone where she is independent with her care. Patient agrees that at discharge patient will need rehab prior to going home. CM discussed availability of home health, rehab services, and medical equipment. Patient states that she plans to resume care with [facility]. MORENA signed. Patient has a nebulizer and home / portable 02 ( [employer]) Patient denied known discharge needs at this time. CM will continue to follow and will assist as needed with dc plans/needs. Student Education Specialist: Mahi Root DCPIA - Discharge Planning Initial Assessment Updated by [email or web address]: Mahi Root on 07/25/19 8:53 pm * Is the patient Alert and Oriented? Yes * How many steps to enter\exit or inside your home? * PCP [facility] [place] * [facility]? * Preadmission Environment Home Alone * ADLs Independent * Other Equipment HOME / PORTABLE 02, NEBULIZER, CANE * List name and contact numbers for known caregivers / representatives who currently or will assist patient after discharge: LIZZIE ROWLEY - MOTHER- [phone] Fan [phone] (SUPERVISOR HAND SILVERING) Carmela Mason (good friend) [phone] Nancy Florence (Student Education Specialist- [facility]) [phone] * Community resources currently utilized Home Health * Please name any agencies selected above. [facility] * Additional services required to return to the preadmission environment? No * Can the patient safely return to the preadmission environment? Yes * Has this patient been hospitalized within the prior 30 days at any hospital? Yes Coverage Notice Reviewer: [id number] - Diana Singletary Notice Issued Date-Time: 08/01/2019 8:00 Notice Type: Patient Choice Letter Notice Delivered To: Relationship to Patient: Physical Therapist Center Manager Name: Delivery Method: HAND - Hand Delivered Giovana Days: Prior Verbal Notification: Recipient Understood Notice: Yes Recipient Signature: Med Rec Note Co-signed by Attending: Coverage Notice Comment: SWAPNA SCHROEDER Reviewer: [id number] Jo Ann Singletary Notice Issued Date-Time: 08/05/2019 12:05 Notice Type: IM Discharge Notice Notice Delivered To: Patient Relationship to Patient: Physical Therapist Center Manager Name: Delivery Method: HAND - Hand Delivered Giovana Days: Prior Verbal Notification: Recipient Understood Notice: Yes Recipient Signature: Yes Med Rec Note Co-signed by Attending: Coverage Notice Comment: Reviewer: [id number] Jo Ann Singletary Notice Issued Date-Time: 08/05/2019 12:05 Notice Type: Patient Choice Letter Notice Delivered To: Patient Relationship to Patient: Physical Therapist Center Manager Name: Delivery Method: HAND - Hand Delivered Giovana Days: Prior Verbal Notification: Recipient Understood Notice: Yes Recipient Signature: Yes Med Rec Note Co-signed by Attending: Coverage Notice Comment: [facility] [place] Last DP export: 08/07/19 8:11 Patient Name: JINA COLINDRES Page [id number] at 1538 All edits/amendments must be made on the electronic document DICTATION DATE: 08/07/191537 WOOL HAT FLANGER: MICHAEL 08/07/191537 RPT#: [id number] DC DATE: STATUS: ADM IN [facility] [address] [place] [address] END OF REPORT
--- NOTE | 2019-08-07 17:45 | MORECARE ---
CASE MANAGEMENT DISCHARGE SUMMARY PATIENT: JINA COLINDRES UNIT: [id number] ADM DATE: 07/25/19 AGE: 64 : 53 SEX: F ROOM/BED: D.6319 AUTHOR: SANDRO,DOC PHYSICIAN: REFERRING PHYSICIAN: GENEVA BERUMEN MD DATE OF SERVICE: 08/07/19 Discharge Plan Patient Name: JINA COLINDRES Facility: [facility]:[place] : 1955 Planned Disposition: Nursing Facility [facility] Cert Anticipated Discharge Date: 08/07/19 Discharge Date: Expected LOS: 13 Initial Reviewer: [id number] Initial Review Date: 07/25/2019 Generated: 08/07/19 6:45 pm Comments DCP- Discharge Planning Updated by [email or web address]: Diana Singletary on 08/07/19 2:[address] Patient Name: JINA COLINDRES Encounter No: [id number] : 1955 Primary Insurance: MEDICARE A & B Anticipated DC Date: 08-07-2019 Planned Disposition: Nursing Facility [facility] Cert External Planned Provider:[facility], LONG TERM CARE MEDICAID BED DCP follow-up note: CM SPOKE TO HECTOR OF [facility], THEY ARE TRYING TO LOCATE NEXT OF KIN TO ASSIST IN FILLING OUT MEDICAID APPLICATION AND PROVIDING FINANCIAL INFORMATION. CM PROVIDED INFORMATION FOR CARMELA MASON, , PT REPORTS HER TO BE A TRUSTED FRIEND AND NEIGHBOR. [facility] WILL ACCEPT PT FOR SNF CARE; CM WAITING [facility]. TO LOCATE PERSON TO ASSIST PT WITH FIANCIALS AND WORK OUT FINANCIAL ARRANGEMENTS WITH PT FOR CUSTODIAL CARE PLACEMENT. DIANA SINGLETARY, CASE MANAGEMENT DCP- Discharge Planning Updated by [id number]: Diana Singletary on 08/07/19 8:[address] Patient Name: JINA COLINDRES Encounter No: [id number] : 1955 Primary Insurance: MEDICARE A & B Anticipated DC Date: 08-07-2019 Planned Disposition: Nursing Facility [facility] Cert External Planned Provider:[facility], LONG TERM CARE MEDICAID BED DCP follow-up note: CM MET WITH PT IN ROOM, DISCUSSED HOSPICE AND SKILLED REHAB. PT THINKS SHE WANTS HOSPICE AT [facility]. PT REPORTS SHE HAS NO ONE BUT HER NEIGHBOR TO ASSIST WITH HER CARE AT HOME WITH HOSPICE. CM CALLED [facility], , SPOKE TO ADELINA AND PROVIDED UPDATE THAT PT IS REQUESTING PLACMENT WITH HOSPICE. CM WAS ADVISED THAT THEY WILL HAVE TO WORK ON FINANCIALS FOR MEDICAID. CM FAXED REFERRAL UDPATE TO [facility] AT [phone]. CM RECEIVED CALL FROM CARMELA MASON, WHO REPORTS TO BE PATIENTS NEXT OF KIN AND NEIGHBOR. CARMELA REPORTS SHE IS NOT ABLE TO TAKE CARE OF PT AT HOME 24 HOURS A DAY AND THINKS IT BEST IF PT GOES TO [facility]. CARMELA PROVIDED HER NUMBER, . [facility] WILL ACCEPT PT FOR SNF CARE; CM WAITING ADMISSION DETERMINATION FROM [facility]. HUMBERTO RAMIREZ MANAGEMENT DCP- Discharge Planning Updated by [id number]: Diana Singletary on 08/05/19 3:[address] Patient Name: JINA COLINDRES Encounter No: [id number] : 1955 Primary Insurance: MEDICARE A & B Anticipated DC Date: Planned Disposition: Assisted Facility External Planned Provider: [facility] [place] MEDICARE RHEAB BED DCP follow-up note: CM SPOKE TO BEDSIDE NURSE WHO INFORMED CM THAT PT REQUESTED TO SPEAK TO HOSPICE. CM RECEIVED HOSPICE CONSULT ORDER. CM MET WITH PT IN ROOM, DISCUSSED HOSPICE PROVIDERS, LOCATIONS AND SERVICES, PROVIDED HOSPICE LISTING OF PROVIDERS. PT REQUESTED [facility]. CHOICE COMPLETED. PT ALSO ASKED THAT CM SEND REFERRAL TO [facility] FOR REHAB IF SHE DECIDES FOR REHAB. ADDED TO CHOICE FORM, PT SIGNED THE CHOICE FOR [facility] AND [facility]. IMPORTANT MESSAGE FROM MEDICARE PROVIDED AND EXPLAINED. CM CALLED [facility], , SPOKE TO NANCY WHO TOOK REFERRAL AND WILL PROCESS REFERRAL AND HAVE NURSE MEET WITH PT IN HOSPITAL ROOM SOON POSSIBLE TODAY. CM FAXED REFERRAL TO [facility] AT [phone]. CM CALLED [facility], , SPOKE TO ADELINA AND PROVIDED REFERRAL INFORMATION; INFORMED HER THAT PT MAY WANT REHAB OR WORD PROCESSOR OPERATOR CARE WITH HOSPICE. CM FAXED REFERRAL TO [facility] AT [phone]. CM WAITING ON ADMISSION DETERMINATION FROM [facility] AND [facility]. WAITING PT TO MAKE DECISIONS REGARDING HOSPICE OR REHAB AT [facility]. Diana Singletary, CASE MANAGEMENT Appended by Diana Singletary on 08/05/2019 16:55 CDT: CM SPOKE TO HECTOR OF [facility], SHE SPOKE TO PT IN ROOM AND INFORMED CM THAT PT IS CONSIDERING PLACEMENT AT [facility] AND POSSIBLY HOSPICE WITH [facility]. HECTOR THINKS THAT [facility] MAY BE ABLE TO ASSIST WITH EITHER REHAB OR WORD PROCESSOR OPERATOR CARE, WHICHEVER PT DECIDES AND ASKED TO BE NOTIFIED WHEN PT MAKES UP HER MIND. CM SPOKE TO NANCY OF [facility], PT HAS BEEN ASSESSED BY NURSE EATON OF [facility] AND PT IS HOSPICE APPROPRIATE AND THEY DO HAVE A CONTRACT WITH [facility] IF PT WANTS HOSPICE THERE. [facility] WILL ACCEPT PT FOR SNF CARE; CM WAITING ADMISSION DETERMINATION FROM [facility]. CM WAITING PT'S DECISION REGARDING EITHER REHAB OR CUSTODIAL CARE PLACEMENT AT [facility]. DIANA SINGLETARY, CASE MANAGEMENT DCP- Discharge Planning Updated by [id number]: Diana Singletary on 08/01/19 8:[address] Patient Name: JINA COLINDRES Encounter No: [id number] : 1955 Primary Insurance: MEDICARE A & B Anticipated DC Date: Planned Disposition: Assisted Facility External Planned Provider: [facility], MEDICARE SKILLED / REHAB BED DCP follow-up note: CM SPOKE TO PT IN ROOM REGARDING DISCHARGE PLANNING AND NEEDS. CM DISCUSSED THE POSSIBLE NEED OF A PEG TUBE. PT STATES SHE DOES NOT WANT A PEG TUBE. CM DISCUSSED INPATIENT REHAB WILL NOT CONSIDER TAKING PT BACK DUE TO BEING TO LOW LEVEL AT THIS TIME. CM DISCUSSED ALF FACILITY REHAB PLACEMENT. PT REPORTS SHE HAS BEEN TO [facility] IN [place] AND IF SHE NEEDS IT, SHE WOULD LIKE TO GO BACK THERE. CHOICE COMPLETED. PT STATES SHE IS NOT ABLE TO SIGN. PT PROVIDED EMERGENCY HR REPRESENTATIVE NANCY FLORENCE, FRIEND AND COUNSELOR FROM [employer], [place] [phone]. PT REPORTS SHE ATTENDS COUNSELING FOR DEPRESSION. PT STATES THAT SHE WOULD LIKE NANCY FLORENCE TO BE HER FIRST EMEGENCY CONTACT WITH HER MOTHER BEING SECOND. PT STATES THAT IF SHE NEEDS HELP DECIDING WHAT TO DO, IT WOULD BE OK TO DISCUSS HER CARE AND PLANNING WITH NANCY. CM TO REFER PT TO [facility] WHEN PROJECTED DISCHARGE DATE AND NEEDS ARE KNOWN. CM TO FOLLOW AND ASSIST NEEDED. Diana Singletary, CASE MANAGEMENT DCP- Discharge Planning Updated by [id number]: Mahi Root on 07/25/19 7:[address] Patient Name: JINA COLINDRES Admission Status: Urgent Accout number: [id number] Admission Date: 07-25-2019 : 1955 Admission Diagnosis: Attending: GENEVA BERUMEN Current LOS: 1 Anticipated DC Date: Planned Disposition: Inpatient Rehab Primary Insurance: MEDICARE A & B Discharge Planning Comments: Patient was just discharged 07/23/19 will plan to return to Inpatient rehab once medically stable. CM met with patient to complete initial dc planning assessment. CM educated patient on the CM role and verbal consent given by patient to complete assessment. Patient lives at home alone where she is independent with her care. Patient agrees that at discharge patient will need rehab prior to going home. CM discussed availability of home health, rehab services, and medical equipment. Patient states that she plans to resume care with [facility]. MORENA signed. Patient has a nebulizer and home / portable 02 ( [facility]) Patient denied known discharge needs at this time. CM will continue to follow and will assist as needed with dc plans/needs. Stapling Machine Operator: Mahi Root DCPIA - Discharge Planning Initial Assessment Updated by [id number]: Mahi Root on 07/25/19 8:53 pm * Is the patient Alert and Oriented? Yes * How many steps to enter\exit or inside your home? * PCP [facility] [place] * [facility]? * Preadmission Environment Home Alone * ADLs Independent * Other Equipment HOME / PORTABLE 02, NEBULIZER, CANE * List name and contact numbers for known caregivers / representatives who currently or will assist patient after discharge: LIZZIE ROWLEY - MOTHER- [phone] Fan [phone] (CANDY MAKER HELPER) Carmela Mason (good friend) [phone] Nancy Florence (Stapling Machine Operator- [facility]) [phone] * Community resources currently utilized Home Health * Please name any agencies selected above. [facility] * Additional services required to return to the preadmission environment? No * Can the patient safely return to the preadmission environment? Yes * Has this patient been hospitalized within the prior 30 days at any hospital? Yes Coverage Notice Reviewer: [id number] - Diana Singletary Notice Issued Date-Time: 08/01/2019 8:00 Notice Type: Patient Choice Letter Notice Delivered To: Relationship to Patient: Decorating Machine Operator Name: Delivery Method: HAND - Hand Delivered Giovana Days: Prior Verbal Notification: Recipient Understood Notice: Yes Recipient Signature: Med Rec Note Co-signed by Attending: Coverage Notice Comment: SWAPNA SCHROEDER Reviewer: [id number] Jo Ann Singletary Notice Issued Date-Time: 08/05/2019 12:05 Notice Type: IM Discharge Notice Notice Delivered To: Patient Relationship to Patient: Decorating Machine Operator Name: Delivery Method: HAND - Hand Delivered Giovana Days: Prior Verbal Notification: Recipient Understood Notice: Yes Recipient Signature: Yes Med Rec Note Co-signed by Attending: Coverage Notice Comment: Reviewer: [id number] Jo Ann Singletary Notice Issued Date-Time: 08/05/2019 12:05 Notice Type: Patient Choice Letter Notice Delivered To: Patient Relationship to Patient: Decorating Machine Operator Name: Delivery Method: HAND - Hand Delivered Giovana Days: Prior Verbal Notification: Recipient Understood Notice: Yes Recipient Signature: Yes Med Rec Note Co-signed by Attending: Coverage Notice Comment: [facility] SWAPNA EL[facility] IN [place] Last DP export: 08/07/19 2:38 Patient Name: JINA COLINDRES Page [id number] at 1745 All edits/amendments must be made on the electronic document DICTATION DATE: 08/07/191744 SIPHON OPERATOR: MICHAEL 08/07/191744 RPT#: [id number] DC DATE: STATUS: ADM IN [facility] [address] [place] [address] END OF REPORT
--- NOTE | 2019-08-07 19:44 | NUR ---
PT STATES SHE IS READY FOR BED AND WANTS THE LIGHTS OFF. SHE DENIES PAIN OR NEEDS. PER TELEMETRY SHE IS IN SINUS TACH WITH A RATE OF 108. BED LOW AND CALL LIGHT WITHIN REACH.
[2019-08-08 04:30] VITALS: BP 157/72
[2019-08-08 05:42] LABS: BASOPHILS 0.2 % (0-2); EOSINOPHILS 0.6 % (0-7); HEMATOCRIT 25.3 % (36.0-48.0); HEMOGLOBIN 8.4 g/dL (12-16); IMMATURE GRANULOCYTES 1.3 % (0-5); MCH 29.8 pg (26.0-34.0); MCHC 33.2 g/dL (31.0-37.0); MCV 89.7 fL (80.0-100.0); MEAN PLATELET VOLUME 8.9 fL (7.4-10.4); MONOCYTES 9.9 % (2-11); PLATELET COUNT 70 10x3/uL (130-400); RBC 2.82 10x6/uL (4.00-5.40); RDW 16.3 % (11.5-14.5); WBC 5.5 10x3/uL (4.8-10.8)
[2019-08-08 05:48] LABS: ALKALINE PHOSPHATASE 67 U/L (46-116); ALT (SGPT) 15 U/L (10-68); BILIRUBIN - TOTAL 0.52 mg/dL (0.2-1.3); CALC OSMOLALITY 277 mosm/kg (275-300); CALCIUM 8.3 mg/dL (8.5-10.1); CARBON DIOXIDE 29.7 mmol/L (21.0-32.0); CHLORIDE - SERUM 98 mmol/L (98-107); CREATININE - SERUM 0.8 mg/dL (0.6-1.3); GLUCOSE 208 mg/dL (74-106); PROTEIN - SERUM 4.5 g/dL (6.4-8.2); SODIUM 133 mmol/L (136-145); UREA NITROGEN 28 mg/dL (7-18); eGFR NON AFRICAN AMERICAN 76 mL/min (90-120)
[2019-08-08 05:51] LABS: POTASSIUM - SERUM 3.9 mmol/L (3.5-5.1)
[2019-08-08 08:10] VITALS: BP 157/78
[2019-08-08 11:02] VITALS: BP 132/69
--- NOTE | 2019-08-08 11:25 | NUR ---
UP IN BED SIDE CHAIR. ALERT. TELEMERTY SHOWS SR. MEHTA CATH PATENT TO GRAVITY BAG. LEFT HEEL WITH A STAGE 2 ON IT. HEEL PROCTER ON. PT IS ON ISOLATION
--- NOTE | 2019-08-08 14:37 | NUR ---
BACK IN BED. LYING QUIETLY WITH EYES CLOSED. TELEMERTY SHOWS SR. WILL MONITOR
--- NOTE | 2019-08-08 14:41 | NUR ---
I have reviewed this patient and I concur with the Shift Assessment completed by the Licensed Practical Nurse today this shift.
--- NOTE | 2019-08-08 14:47 | MORECARE ---
CASE MANAGEMENT DISCHARGE SUMMARY PATIENT: JINA COLINDRES UNIT: [id number] ADM DATE: 07/25/19 AGE: 64 : 53 SEX: F ROOM/BED: D.3256 AUTHOR: SANDRO,DOC PHYSICIAN: REFERRING PHYSICIAN: GENEVA BERUMEN MD DATE OF SERVICE: 08/08/19 Discharge Plan Patient Name: JINA COLINDRES Facility: [facility]:[place] : 1955 Planned Disposition: Nursing Facility DONNA Cert Anticipated Discharge Date: 08/07/19 Discharge Date: Expected LOS: 13 Initial Reviewer: [id number] Initial Review Date: 07/25/2019 Generated: 08/08/19 3:47 pm Comments DCP- Discharge Planning Updated by [id number]: Renita Hall on 08/08/19 1:[address] Patient Name: JINA COLINDRES Admission Status: Urgent Accout number: [id number] Admission Date: 07-25-2019 : 1955 Admission Diagnosis: Attending: GENEVA BERUMEN Current LOS: 14 Anticipated DC Date: 08-07-2019 Planned Disposition: Nursing Facility DONNA Cert Primary Insurance: MEDICARE A & B Discharge Planning Comments: CM SPOKE WITH ALEXANDER AT [facility] AND [facility] AND [facility] ARE WORKING ON GETTING FINANCIALS. WAITING CALL BACK FOR AN UPDATE. Assembler Erector: Renita Hall DCP- Discharge Planning Updated by [id number]: Diana Singletary on 08/07/19 2:[address] Patient Name: JINA COLINDRES Encounter No: [id number] : 1955 Primary Insurance: MEDICARE A & B Anticipated DC Date: 08-07-2019 Planned Disposition: Nursing Facility DONNA Cert External Planned Provider:[facility], LONG TERM CARE MEDICAID BED DCP follow-up note: CM SPOKE TO HECTOR OF [facility], THEY ARE TRYING TO LOCATE NEXT OF KIN TO ASSIST IN FILLING OUT MEDICAID APPLICATION AND PROVIDING FINANCIAL INFORMATION. CM PROVIDED INFORMATION FOR CARMELA MASON, , PT REPORTS HER TO BE A TRUSTED FRIEND AND NEIGHBOR. [facility] WILL ACCEPT PT FOR USP CARE; CM WAITING [facility]. TO LOCATE PERSON TO ASSIST PT WITH FIANCIALS AND WORK OUT FINANCIAL ARRANGEMENTS WITH PT FOR STEELER CARE PLACEMENT. DIANA SINGLETARY CASE MANAGEMENT DCP- Discharge Planning Updated by [id number]: Diana Singletary on 08/07/19 8:[address] Patient Name: JINA COLINDRES Encounter No: [id number] : 1955 Primary Insurance: MEDICARE A & B Anticipated DC Date: 08-07-2019 Planned Disposition: Nursing Facility [facility] External Planned Provider:[facility] TERM CARE MEDICAID BED DCP follow-up note: CM MET WITH PT IN ROOM, DISCUSSED HOSPICE AND SKILLED REHAB. PT THINKS SHE WANTS HOSPICE AT [facility]. PT REPORTS SHE HAS NO ONE BUT HER NEIGHBOR TO ASSIST WITH HER CARE AT HOME WITH HOSPICE. CM CALLED [facility], , SPOKE TO ADELINA AND PROVIDED UPDATE THAT PT IS REQUESTING PLACMENT WITH HOSPICE. CM WAS ADVISED THAT THEY WILL HAVE TO WORK ON FINANCIALS FOR MEDICAID. CM FAXED REFERRAL [place] TO [facility] AT [phone]. CM RECEIVED CALL FROM CARMELA MASON, WHO REPORTS TO BE PATIENTS NEXT OF KIN AND NEIGHBOR. CARMELA REPORTS SHE IS NOT ABLE TO TAKE CARE OF PT AT HOME 24 HOURS A DAY AND THINKS IT BEST IF PT GOES TO [facility]. CARMELA PROVIDED HER NUMBER, . [facility] WILL ACCEPT PT FOR USP CARE; CM WAITING ADMISSION DETERMINATION FROM [facility]. DIANA SINGLETARY CASE MANAGEMENT DCP- Discharge Planning Updated by [email or web address]: Diana Singletary on 08/05/19 3:[address] Patient Name: JINA COLINDRES Encounter No: [id number] : 1955 Primary Insurance: MEDICARE A & B Anticipated DC Date: Planned Disposition: Assisted Facility External Planned Provider: [facility], MEDICARE RHEAB BED DCP follow-up note: CM SPOKE TO BEDSIDE NURSE WHO INFORMED CM THAT PT REQUESTED TO SPEAK TO HOSPICE. CM RECEIVED HOSPICE CONSULT ORDER. CM MET WITH PT IN ROOM, DISCUSSED HOSPICE PROVIDERS, LOCATIONS AND SERVICES, PROVIDED HOSPICE LISTING OF PROVIDERS. PT REQUESTED [facility]. CHOICE COMPLETED. PT ALSO ASKED THAT CM SEND REFERRAL TO [facility] FOR REHAB IF SHE DECIDES FOR REHAB. ADDED TO CHOICE FORM, PT SIGNED THE CHOICE FOR [facility] AND [facility]. IMPORTANT MESSAGE FROM MEDICARE PROVIDED AND EXPLAINED. CM CALLED [facility], , SPOKE TO NANCY WHO TOOK REFERRAL AND WILL PROCESS REFERRAL AND HAVE NURSE MEET WITH PT IN HOSPITAL ROOM SOON POSSIBLE TODAY. CM FAXED REFERRAL TO [facility] AT [phone]. CM CALLED [facility], , SPOKE TO ADELINA AND PROVIDED REFERRAL INFORMATION; INFORMED HER THAT PT MAY WANT REHAB OR PENITENTIARY CARE WITH HOSPICE. CM FAXED REFERRAL TO [facility] AT [phone]. CM WAITING ON ADMISSION DETERMINATION FROM [facility] AND [facility]. WAITING PT TO MAKE DECISIONS REGARDING HOSPICE OR REHAB AT [facility]. Diana Singletary, CASE MANAGEMENT Appended by Diana Singletary on 08/05/2019 16:55 CDT: CM SPOKE TO HECTOR OF [facility], SHE SPOKE TO PT IN ROOM AND INFORMED CM THAT PT IS CONSIDERING PLACEMENT AT [facility] AND POSSIBLY HOSPICE WITH [facility]. HECTOR THINKS THAT [facility] MAY BE ABLE TO ASSIST WITH EITHER REHAB OR STEELER CARE, WHICHEVER PT DECIDES AND ASKED TO BE NOTIFIED WHEN PT MAKES UP HER MIND. CM SPOKE TO NANCY OF [facility], PT HAS BEEN ASSESSED BY NURSE EATON OF [facility] AND PT IS HOSPICE APPROPRIATE AND THEY DO HAVE A CONTRACT WITH [facility] IF PT WANTS HOSPICE THERE. [facility] WILL ACCEPT PT FOR USP CARE; CM WAITING ADMISSION DETERMINATION FROM [facility]. CM WAITING PT'S DECISION REGARDING EITHER REHAB OR STEELER CARE PLACEMENT AT [facility]. DIANA SINGLETARY, CASE MANAGEMENT DCP- Discharge Planning Updated by [id number]: Diana Singletary on 08/01/19 8:[address] Patient Name: JINA COLINDRES Encounter No: [id number] : 1955 Primary Insurance: MEDICARE A & B Anticipated DC Date: Planned Disposition: Assisted Facility External Planned Provider: [facility], MEDICARE SKILLED / REHAB BED DCP follow-up note: CM SPOKE TO PT IN ROOM REGARDING DISCHARGE PLANNING AND NEEDS. CM DISCUSSED THE POSSIBLE NEED OF A PEG TUBE. PT STATES SHE DOES NOT WANT A PEG TUBE. CM DISCUSSED INPATIENT REHAB WILL NOT CONSIDER TAKING PT BACK DUE TO BEING TO LOW LEVEL AT THIS TIME. CM DISCUSSED LONG-TERM FACILITY REHAB PLACEMENT. PT REPORTS SHE HAS BEEN TO [facility] IN [place] AND IF SHE NEEDS IT, SHE WOULD LIKE TO GO BACK THERE. CHOICE COMPLETED. PT STATES SHE IS NOT ABLE TO SIGN. PT PROVIDED EMERGENCY HEATER MECHANIC NANCY FLORENCE, FRIEND AND COUNSELOR FROM [facility], [place] [phone]. PT REPORTS SHE ATTENDS COUNSELING FOR DEPRESSION. PT STATES THAT SHE WOULD LIKE NANCY FLORENCE TO BE HER FIRST EMEGENCY CONTACT WITH HER MOTHER BEING SECOND. PT STATES THAT IF SHE NEEDS HELP DECIDING WHAT TO DO, IT WOULD BE OK TO DISCUSS HER CARE AND PLANNING WITH NANCY. CM TO REFER PT TO [facility] WHEN PROJECTED DISCHARGE DATE AND NEEDS ARE KNOWN. CM TO FOLLOW AND ASSIST NEEDED. Diana Singletary, CASE MANAGEMENT DCP- Discharge Planning Updated by [id number]: Mahi Root on 07/25/19 7:[address] Patient Name: JINA COLINDRES Admission Status: Urgent Accout number: [id number] Admission Date: 07-25-2019 : 1955 Admission Diagnosis: Attending: GENEVA BERUMEN Current LOS: 1 Anticipated DC Date: Planned Disposition: Inpatient Rehab Primary Insurance: MEDICARE A & B Discharge Planning Comments: Patient was just discharged 07/23/19 will plan to return to Inpatient rehab once medically stable. CM met with patient to complete initial dc planning assessment. CM educated patient on the CM role and verbal consent given by patient to complete assessment. Patient lives at home alone where she is independent with her care. Patient agrees that at discharge patient will need rehab prior to going home. CM discussed availability of home health, rehab services, and medical equipment. Patient states that she plans to resume care with [facility]. MORENA signed. Patient has a nebulizer and home / portable 02 ( [employer]) Patient denied known discharge needs at this time. CM will continue to follow and will assist as needed with dc plans/needs. Assembler Erector: Mahi Root DCPIA - Discharge Planning Initial Assessment Updated by [id number]: Mahi Root on 07/25/19 8:53 pm * Is the patient Alert and Oriented? Yes * How many steps to enter\exit or inside your home? * PCP [facility] IN [place] * Pharmacy [facility]? * Preadmission Environment Home Alone * ADLs Independent * Other Equipment HOME / PORTABLE 02, NEBULIZER, CANE * List name and contact numbers for known caregivers / representatives who currently or will assist patient after discharge: LIZZIE ROWLEY - MOTHER- [phone] BREANA Chavira [phone] (PHARMACY LABORATORY TECHNICIAN) Carmela Mason (good friend) [phone] Nancy Florence (Assembler Erector- [facility]) [phone] * Community resources currently utilized Home Health * Please name any agencies selected above. [facility] * Additional services required to return to the preadmission environment? No * Can the patient safely return to the preadmission environment? Yes * Has this patient been hospitalized within the prior 30 days at any hospital? Yes Coverage Notice Reviewer: [id number] Singletary Notice Issued Date-Time: 08/01/2019 8:00 Notice Type: Patient Choice Letter Notice Delivered To: Relationship to Patient: Early Childhood Worker Name: Delivery Method: HAND - Hand Delivered Giovana Days: Prior Verbal Notification: Recipient Understood Notice: Yes Recipient Signature: Med Rec Note Co-signed by Attending: Coverage Notice Comment: [facility] Reviewer: [id number] Singletary Notice Issued Date-Time: 08/05/2019 12:05 Notice Type: IM Discharge Notice Notice Delivered To: Patient Relationship to Patient: Early Childhood Worker Name: Delivery Method: HAND - Hand Delivered Giovana Days: Prior Verbal Notification: Recipient Understood Notice: Yes Recipient Signature: Yes Med Rec Note Co-signed by Attending: Coverage Notice Comment: Reviewer: [id number] Singletary Notice Issued Date-Time: 08/05/2019 12:05 Notice Type: Patient Choice Letter Notice Delivered To: Patient Relationship to Patient: Early Childhood Worker Name: Delivery Method: HAND - Hand Delivered Giovana Days: Prior Verbal Notification: Recipient Understood Notice: Yes Recipient Signature: Yes Med Rec Note Co-signed by Attending: Coverage Notice Comment: [facility] IN [place] Last DP export: 08/07/19 4:45 Patient Name: JINA COLINDRES Page [id number] at 1447 All edits/amendments must be made on the electronic document DICTATION DATE: 08/08/191446 SEISMIC SURVEY ASSISTANT: MICHAEL 08/08/191446 RPT#: [id number] DC DATE: STATUS: ADM IN [facility] [address] [place] [address] END OF REPORT
--- NOTE | 2019-08-08 15:00 | NUR ---
OT NOTE: PT PERFORMED SLIGHTLY BETTER TODAY; MOD/MAX ASSIST WITH BED MOB; SITTING BALANCE ON EOB WITHOUT ASSIST; PERFORMED SIMPLE GROOMING TO INCLUDE WASHING FACE, CHEST, AND HANDS WITH WASH CLOTH AND SET UP. PT MORE ALERT SHE IS SITTING UP ON SIDE OF BED. SIT TO STAND WITH MOD ASSIST. UE/LE AROM EXS AT VERY SLOW PACE WITH EXTENSIVE REST BREAKS. BACK TO BED WITH MAX ASSIST; MAX ASSIST TO REPOSTION. ABLE TO REACH DRINKS ON TRAY AND WAS ABLE TO DRINK SEVERAL TIMES UPON COMMAND. DID NOT EAT MUCH IF ANY OF MEAL. PT WILL BE DCD FROM OT SERVICES AT THIS TIME DUE TO AWAITING HOSPICE CARE. TRENTON EDDY, OTR/L
[2019-08-08 15:51] VITALS: BP 138/76
--- NOTE | 2019-08-08 17:01 | NUR ---
OT NOTE: PT COMPLETED SUPINE TO SIT WITH DECREASED ASSISTANCE. PT COMPLETED EOB SITTING WITH NO C/O OF NAUSEA AND REQUIRED SBA. PT COMPLETED BED TO CHAIR TSF WITH MOD/MAX A. PT COMPLETED HYGIENE TASKS WITH MAX A. THANK YOU, LOLIS NICOLE
--- NOTE | 2019-08-08 19:29 | NUR ---
PT RESTING WITH EYES CLOSED. ALERT TO VERBAL STIMULI. RESPIRATIONS EVEN AND UNLABORED. SHE IS ON 2L NC. BED LOW AND CALL LIGHT WITHIN REACH. DENIES NEEDS OR PAIN.
[2019-08-08 20:19] VITALS: BP 129/67
[2019-08-08 23:19] VITALS: BP 146/77
[2019-08-09 04:38] VITALS: BP 151/82
[2019-08-09 05:23] LABS: BASOPHILS 0 % (0-2); EOSINOPHILS 0.9 % (0-7); HEMATOCRIT 26.3 % (36.0-48.0); HEMOGLOBIN 8.9 g/dL (12-16); IMMATURE GRANULOCYTES 1.3 % (0-5); LYMPHOCYTES 10.1 % (15-50); MCH 30.2 pg (26.0-34.0); MCHC 33.8 g/dL (31.0-37.0); MCV 89.2 fL (80.0-100.0); MONOCYTES 10.3 % (2-11); NEUTROPHILS 77.4 % (40-80); PLATELET COUNT 60 10x3/uL (130-400); RBC 2.95 10x6/uL (4.00-5.40); RDW 16.1 % (11.5-14.5); WBC 4.5 10x3/uL (4.8-10.8)
[2019-08-09 05:46] LABS: ALBUMIN 1.9 g/dL (3.4-5.0); ALKALINE PHOSPHATASE 70 U/L (46-116); ALT (SGPT) 17 U/L (10-68); BILIRUBIN - TOTAL 0.69 mg/dL (0.2-1.3); CALCIUM 7.9 mg/dL (8.5-10.1); CHLORIDE - SERUM 98 mmol/L (98-107); CREATININE - SERUM 0.8 mg/dL (0.6-1.3); POTASSIUM - SERUM 3.8 mmol/L (3.5-5.1); PROTEIN - SERUM 4.5 g/dL (6.4-8.2); SODIUM 131 mmol/L (136-145); UREA NITROGEN 27 mg/dL (7-18); eGFR NON AFRICAN AMERICAN 76 mL/min (90-120)
[2019-08-09 05:55] LABS: CALC OSMOLALITY 277 mosm/kg (275-300); GLUCOSE 274 mg/dL (74-106)
--- NOTE | 2019-08-09 07:30 | NUR ---
AWAKE AND ALERT. DENIES ANY NEEDS. PT IS ON ISOLATION. PICC LINE TO LEFT ARM WITH PROCALIMINE AT 75. MEHTA CATH TO BEDSIDE DRAINAGE. HEEL PROTECTORS BILATERAL. PT HAD A LARGE BM. SR UP WITH CALL LIGHT IN REACH
[2019-08-09 09:05] VITALS: BP 139/51
--- NOTE | 2019-08-09 12:39 | NUR ---
Nutrition Follow-up: Pt sleeping at time of visit. Breakfast tray appeared untouched. Chart reviewed. Receiving Procalamine @ 75 mL/hr. Awaiting hospice placement. Diet: Regular, Puree, Glucerna with meals PO intake: 11% avg x 6 meals Wt: 182.9# (199.5# on 08/06) Last BM: 08/07 per chart Labs noted: Na 131, Glu 274, Ca 7.9, Alb 1.9 Meds noted: Colace, Megace, Humalog, Lexapro, Lasix -Continue current diet/supplements as tolerated. -[place] food preferences within diet restrictions. -Monitor wt trends. -RD following.
[2019-08-09 12:59] VITALS: BP 151/53
--- NOTE | 2019-08-09 13:51 | MORECARE ---
CASE MANAGEMENT DISCHARGE SUMMARY PATIENT: JINA COLINDRES UNIT: [id number] ADM DATE: 07/25/19 AGE: 64 : 53 SEX: F ROOM/BED: D.9068 AUTHOR: [place] PHYSICIAN: REFERRING PHYSICIAN: GENEVA BERUMEN MD DATE OF SERVICE: 08/09/19 Discharge Plan Patient Name: JINA COLINDRES Facility: [facility]:[place] : 1955 Planned Disposition: Nursing Facility [facility] Cert Anticipated Discharge Date: 08/07/19 Discharge Date: Expected LOS: 13 Initial Reviewer: [id number] Initial Review Date: 07/25/2019 Generated: 08/09/19 2:51 pm Comments DCP- Discharge Planning Updated by [email or web address]: Renita Hall on 08/09/19 12:[address] Patient Name: JINA COLINDRES Admission Status: Urgent Accout number: [id number] Admission Date: 07-25-2019 : 1955 Admission Diagnosis: Attending: GENEVA BERUMEN Current LOS: 15 Anticipated DC Date: 08-07-2019 Planned Disposition: Nursing Facility [facility] Cert Primary Insurance: MEDICARE A & B Discharge Planning Comments: I spoke with Nancy Florence at [phone] and she can provide financials to [facility]. I called [facility] and left a message with Tanna. I will call [facility] and give them the info also. Special Education Preschool Teacher: Renita Hall DCP- Discharge Planning Updated by [email or web address]: Renita Hall on 08/08/19 1:[address] Patient Name: JINA COLINDRES Admission Status: Urgent Accout number: [id number] Admission Date: 07-25-2019 : 1955 Admission Diagnosis: Attending: GENEVA BERUMEN Current LOS: 14 Anticipated DC Date: 08-07-2019 Planned Disposition: Nursing Facility [facility] Cert Primary Insurance: MEDICARE A & B Discharge Planning Comments: SPOKE WITH ALEXANDER AT [facility] AND THEM AND [facility] ARE WORKING ON GETTING FINANCIALS. WAITING CALL BACK FOR AN UPDATE. Special Education Preschool Teacher: Renita Hall DCP- Discharge Planning Updated by [id number]: Diana Singletary on 08/07/19 2:[address] Patient Name: JINA COLINDRES Encounter No: [id number] : 1955 Primary Insurance: MEDICARE A & B Anticipated DC Date: 08-07-2019 Planned Disposition: Nursing Facility [facility] Cert External Planned Provider:[facility], LONG TERM CARE MEDICAID BED DCP follow-up note: CM SPOKE TO HECTOR OF [facility], THEY ARE TRYING TO LOCATE NEXT OF KIN TO ASSIST IN FILLING OUT MEDICAID APPLICATION AND PROVIDING FINANCIAL INFORMATION. CM PROVIDED INFORMATION FOR CARMELA WOOD, , PT REPORTS HER TO BE A TRUSTED FRIEND AND NEIGHBOR. [facility] WILL ACCEPT PT FOR GROUP HOME CARE; CM WAITING [facility]. TO LOCATE PERSON TO ASSIST PT WITH FIANCIALS AND WORK OUT FINANCIAL ARRANGEMENTS WITH PT FOR RETIREMENT CARE PLACEMENT. DIANA SINGLETARY, CASE MANAGEMENT DCP- Discharge Planning Updated by [id number]: Diana Singletary on 08/07/19 8:[address] Patient Name: JINA COLINDRES Encounter No: [id number] : 1955 Primary Insurance: MEDICARE A & B Anticipated DC Date: 08-07-2019 Planned Disposition: Nursing Facility [facility] Cert External Planned Provider:[facility], LONG TERM CARE MEDICAID BED DCP follow-up note: CM MET WITH PT IN ROOM, DISCUSSED HOSPICE AND SKILLED REHAB. PT THINKS SHE WANTS HOSPICE AT [facility]. PT REPORTS SHE HAS NO ONE BUT HER NEIGHBOR TO ASSIST WITH HER CARE AT HOME WITH HOSPICE. CM CALLED [facility], , SPOKE TO ADELINA AND PROVIDED UPDATE THAT PT IS REQUESTING PLACMENT WITH HOSPICE. CM WAS ADVISED THAT THEY WILL HAVE TO WORK ON FINANCIALS FOR MEDICAID. CM FAXED REFERRAL UDPATE TO [facility] AT [phone]. CM RECEIVED CALL FROM CARMELA WOOD, WHO REPORTS TO BE PATIENTS NEXT OF KIN AND NEIGHBOR. CARMELA REPORTS SHE IS NOT ABLE TO TAKE CARE OF PT AT HOME 24 HOURS A DAY AND THINKS IT BEST IF PT GOES TO [facility]. CARMELA PROVIDED HER NUMBER, . [facility] ACCEPT PT FOR GROUP HOME CARE; CM WAITING ADMISSION DETERMINATION FROM [facility]. DIANA SINGLETARY, CASE MANAGEMENT DCP- Discharge Planning Updated by [id number]: Diana Singletary on 08/05/19 3:[address] Patient Name: JINA COLINDRES Encounter No: [id number] : 1955 Primary Insurance: MEDICARE A & B Anticipated DC Date: Planned Disposition: Penitentiary Facility External Planned Provider: [facility], MEDICARE RHEAB BED DCP follow-up note: CM SPOKE TO BEDSIDE NURSE WHO INFORMED CM THAT PT REQUESTED TO SPEAK TO HOSPICE. CM RECEIVED HOSPICE CONSULT ORDER. CM MET WITH PT IN ROOM, DISCUSSED HOSPICE PROVIDERS, LOCATIONS AND SERVICES, PROVIDED HOSPICE LISTING OF PROVIDERS. PT REQUESTED [facility]. CHOICE COMPLETED. PT ALSO ASKED THAT CM SEND REFERRAL TO [facility] FOR REHAB IF SHE DECIDES FOR REHAB. ADDED TO CHOICE FORM, PT SIGNED THE CHOICE FOR [facility] AND [facility]. IMPORTANT MESSAGE FROM MEDICARE PROVIDED AND EXPLAINED. CM CALLED [facility], , SPOKE TO NANCY WHO TOOK REFERRAL AND WILL PROCESS REFERRAL AND HAVE NURSE MEET WITH PT IN HOSPITAL ROOM SOON POSSIBLE TODAY. CM FAXED REFERRAL TO [facility] AT [phone]. CM CALLED [facility], , SPOKE TO ADELINA AND PROVIDED REFERRAL INFORMATION; INFORMED HER THAT PT MAY WANT REHAB OR RETIREMENT CARE WITH HOSPICE. CM FAXED REFERRAL TO [facility] AT [phone]. CM WAITING ON ADMISSION DETERMINATION FROM [facility] AND [facility]. WAITING PT TO MAKE DECISIONS REGARDING HOSPICE OR REHAB AT [facility]. Diana Singletary, CASE MANAGEMENT Appended by Diana Singletary on 08/05/2019 16:55 CDT: CM SPOKE TO HECTOR OF [facility], SHE SPOKE TO PT IN ROOM AND INFORMED CM THAT PT IS CONSIDERING PLACEMENT AT [facility] AND POSSIBLY HOSPICE WITH [facility]. HECTOR THINKS THAT [facility] MAY BE ABLE TO ASSIST WITH EITHER REHAB OR RETIREMENT CARE, WHICHEVER PT DECIDES AND ASKED TO BE NOTIFIED WHEN PT MAKES UP HER MIND. CM SPOKE TO NANCY OF [facility], PT HAS BEEN ASSESSED BY NURSE EATON OF [facility] AND PT IS HOSPICE APPROPRIATE AND THEY DO HAVE A CONTRACT WITH [facility] IF PT WANTS HOSPICE THERE. [facility] WILL ACCEPT PT FOR GROUP HOME CARE; CM WAITING ADMISSION DETERMINATION FROM [facility]. CM WAITING PT'S DECISION REGARDING EITHER REHAB OR RETIREMENT CARE PLACEMENT AT [facility]. DIANA SINGLETARY, CASE MANAGEMENT DCP- Discharge Planning Updated by [id number]: Diana Singletary on 08/01/19 8:[address] Patient Name: JINA COLINDRES Encounter No: [id number] : 1955 Primary Insurance: MEDICARE A & B Anticipated DC Date: Planned Disposition: Penitentiary Facility External Planned Provider: [facility], MEDICARE SKILLED / REHAB BED DCP follow-up note: CM SPOKE TO PT IN ROOM REGARDING DISCHARGE PLANNING AND NEEDS. CM DISCUSSED THE POSSIBLE NEED OF A PEG TUBE. PT STATES SHE DOES NOT WANT A PEG TUBE. CM DISCUSSED INPATIENT REHAB WILL NOT CONSIDER TAKING PT BACK DUE TO BEING TO LOW LEVEL AT THIS TIME. CM DISCUSSED [facility]AB PLACEMENT. PT REPORTS SHE HAS BEEN TO [facility] IN [place] AND IF SHE NEEDS IT, SHE WOULD LIKE TO GO BACK THERE. CHOICE COMPLETED. PT STATES SHE IS NOT ABLE TO SIGN. PT PROVIDED EMERGENCY BARBER SHOP MANAGER NANCY FLORENCE, FRIEND AND COUNSELOR FROM [facility], [place] [phone]. PT REPORTS SHE ATTENDS COUNSELING FOR DEPRESSION. PT STATES THAT SHE WOULD LIKE NANCY FLORENCE TO BE HER FIRST EMEGENCY CONTACT WITH HER MOTHER BEING SECOND. PT STATES THAT IF SHE NEEDS HELP DECIDING WHAT TO DO, IT WOULD BE OK TO DISCUSS HER CARE AND PLANNING WITH NANCY. CM TO REFER PT TO [facility] WHEN PROJECTED DISCHARGE DATE AND NEEDS ARE KNOWN. CM TO FOLLOW AND ASSIST NEEDED. Diana Singletary, CASE MANAGEMENT DCP- Discharge Planning Updated by [id number]: Mahi Root on 07/25/19 7:[address] Patient Name: JINA COLINDRES Admission Status: Urgent Accout number: [id number] Admission Date: 07-25-2019 : 1955 Admission Diagnosis: Attending: GENEVA BERUMEN Current LOS: 1 Anticipated DC Date: Planned Disposition: Inpatient Rehab Primary Insurance: MEDICARE A & B Discharge Planning Comments: Patient was just discharged 07/23/19 will plan to return to Inpatient rehab once medically stable. CM met with patient to complete initial dc planning assessment. CM educated patient on the CM role and verbal consent given by patient to complete assessment. Patient lives at home alone where she is independent with her care. Patient agrees that at discharge patient will need rehab prior to going home. CM discussed availability of home health, rehab services, and medical equipment. Patient states that she plans to resume care with [facility]. [facility] signed. Patient has a nebulizer and home / portable 02 ( [employer]) Patient denied known discharge needs at this time. CM will continue to follow and will assist as needed with dc plans/needs. Special Education Preschool Teacher: Mahi Root DCPIA - Discharge Planning Initial Assessment Updated by [id number]: Mahi Root on 07/25/19 8:53 pm * Is the patient Alert and Oriented? Yes * How many steps to enter\exit or inside your home? * PCP [facility] IN [place] * Pharmacy [facility]? * Preadmission Environment Home Alone * ADLs Independent * Other Equipment HOME / PORTABLE 02, NEBULIZER, CANE * List name and contact numbers for known caregivers / representatives who currently or will assist patient after discharge: LIZZIE ROWLEY - [facility]- [phone] Fan [phone] (PLASTIC SURGERY NURSE) Carmela Marlon (good friend) [phone] Nancy Florence (Special Education Preschool Teacher- [facility]) [phone] * Community resources currently utilized Home Health * Please name any agencies selected above. [facility] * Additional services required to return to the preadmission environment? No * Can the patient safely return to the preadmission environment? Yes * Has this patient been hospitalized within the prior 30 days at any hospital? Yes Coverage Notice Reviewer: [id number] Singletary Notice Issued Date-Time: 08/01/2019 8:00 Notice Type: Patient Choice Letter Notice Delivered To: Relationship to Patient: Diesel Maintenance Technician Name: Delivery Method: HAND - Hand Delivered Giovana Days: Prior Verbal Notification: Recipient Understood Notice: Yes Recipient Signature: Med Rec Note Co-signed by Attending: Coverage Notice Comment: SWAP[facility] SCHROEDER Reviewer: [id number] Singletary Notice Issued Date-Time: 08/05/2019 12:05 Notice Type: IM Discharge Notice Notice Delivered To: Patient Relationship to Patient: Diesel Maintenance Technician Name: Delivery Method: HAND - Hand Delivered Giovana Days: Prior Verbal Notification: Recipient Understood Notice: Yes Recipient Signature: Yes Med Rec Note Co-signed by Attending: Coverage Notice Comment: Reviewer: [id number] Singletary Notice Issued Date-Time: 08/05/2019 12:05 Notice Type: Patient Choice Letter Notice Delivered To: Patient Relationship to Patient: Diesel Maintenance Technician Name: Delivery Method: HAND - Hand Delivered Giovana Days: Prior Verbal Notification: Recipient Understood Notice: Yes Recipient Signature: Yes Med Rec Note Co-signed by Attending: Coverage Notice Comment: [facility] IN [place] Last DP export: 08/08/19 1:47 Patient Name: JINA COLINDRES Page [id number] at 1351 All edits/amendments must be made on the electronic document DICTATION DATE: 08/09/19 1351 PUBLIC HEALTH TECHNICIAN: MICHAEL 08/09/19 1351 RPT#: [id number] DC DATE: STATUS: ADM IN [facility] [address] [place] [address] END OF REPORT
--- NOTE | 2019-08-09 17:27 | NUR ---
HOB UP FOR DIET. DENIES ANY NEED. SR UP WITH CALL LIGHT IN REACH.TELEMERTY SHOWS SR
[2019-08-09 18:01] VITALS: BP 131/51
--- NOTE | 2019-08-09 19:20 | NUR ---
PT CARE ASSUMED. BEDSIDE SHIFT REPORT COMPLETE. PT RESTING IN BED SEMI-FOWLERS RR EVEN AND UNLABORED ON 2L NC. NO S/S OF DISTRESS NOTED AT THIS TIME. NO NEEDS EXPRESSED. SRX2. CALL LIGHT IN REACH. WILL CTM.
[2019-08-09 20:00] VITALS: BP 144/78
[2019-08-10] VITALS: BP 142/72
[2019-08-10 04:00] VITALS: BP 152/76
[2019-08-10 05:28] LABS: BASOPHILS 0.3 % (0-2); EOSINOPHILS 0.8 % (0-7); HEMATOCRIT 25.8 % (36.0-48.0); HEMOGLOBIN 8.6 g/dL (12-16); IMMATURE GRANULOCYTES 0.6 % (0-5); MCHC 33.3 g/dL (31.0-37.0); MCV 89.9 fL (80.0-100.0); MEAN PLATELET VOLUME 8.2 fL (7.4-10.4); MONOCYTES 13.9 % (2-11); NEUTROPHILS 74.4 % (40-80); PLATELET COUNT 53 10x3/uL (130-400); RBC 2.87 10x6/uL (4.00-5.40); WBC 3.6 10x3/uL (4.8-10.8)
[2019-08-10 06:00] LABS: ALBUMIN 1.9 g/dL (3.4-5.0); ALKALINE PHOSPHATASE 69 U/L (46-116); ALT (SGPT) 13 U/L (10-68); BILIRUBIN - TOTAL 0.62 mg/dL (0.2-1.3); CALC OSMOLALITY 278 mosm/kg (275-300); CALCIUM 7.9 mg/dL (8.5-10.1); CARBON DIOXIDE 29.9 mmol/L (21.0-32.0); CHLORIDE - SERUM 98 mmol/L (98-107); CREATININE - SERUM 0.7 mg/dL (0.6-1.3); GLUCOSE 284 mg/dL (74-106); POTASSIUM - SERUM 3.8 mmol/L (3.5-5.1); PROTEIN - SERUM 4.4 g/dL (6.4-8.2); SODIUM 132 mmol/L (136-145); UREA NITROGEN 25 mg/dL (7-18); eGFR NON AFRICAN AMERICAN 89 mL/min (90-120)
--- NOTE | 2019-08-10 07:00 | NUR ---
RECEIVED REPORT. ASSUMED CARE OF PATIENT. CALL LIGHT WITHIN REACH. RESTING IN BED WITH EYES CLOSED. RESP EVEN AND UNLABORED. NO DISTRESS. 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 PROCALAMINE INFUSING TO LEFT UPPER PICC ORDERED.
[2019-08-10 09:20] VITALS: BP 128/49
--- NOTE | 2019-08-10 11:43 | NUR ---
FSBA 292. 16 UNITS HUMALOG ADMINISTERED PER SLIDING SCALE.
--- NOTE | 2019-08-10 15:21 | NUR ---
PATIENT RESTING IN BED WITH EYES CLOSED. REPORT GIVEN AND PATIENT HANDED OFF TO KARINA WITT. NO DISTRESS.
[2019-08-10 16:30] VITALS: BP 144/53
--- NOTE | 2019-08-10 19:30 | NUR ---
REPORT RECEIVED. PT UP IN BED, A&0 X3. RECEIVING UPDRAFT. RR EVEN AND UNLABORED. C/O LEFT FOOT PAIN, TYLENOL PROVIDED. NO FUTHER NEEDS EXPRESSED. NO S/S OF DISTRESS AT THIS TIME. SRX2, CALL LIGHT IN REACH. BED ALARM ON. WILL CTM.
[2019-08-10 20:00] VITALS: BP 146/72
[2019-08-11] VITALS: BP 141/68
[2019-08-11 04:00] VITALS: BP 137/72
--- NOTE | 2019-08-11 07:43 | NUR ---
PATIENT IS LAYING ON HER BACK IN BED. LIGHTS ARE DIM. DENIES ANY NEEDS AT THIS TIME.
[2019-08-11 07:58] VITALS: BP 164/83
--- NOTE | 2019-08-11 10:00 | NUR ---
PATIENT IS SITTING UP IN BED, TALKING AND REQUEST TO BE REPOSITIONED. REPOSTIONED REQUESTED. DR CLOUD STATES THAT PATIENT SHOULD SIT UP TO SIDE OF BED OR IN CHAIR FOR MEALS.
--- NOTE | 2019-08-11 12:05 | MORECARE ---
CASE MANAGEMENT DISCHARGE SUMMARY PATIENT: JINA COLINDRES UNIT: [id number] ADM DATE: 07/25/19 AGE: 64 : 53 SEX: F ROOM/BED: D.3825 AUTHOR: [place] PHYSICIAN: REFERRING PHYSICIAN: GENEVA BERUMEN MD DATE OF SERVICE: 08/11/19 Discharge Plan Patient Name: JINA COLINDRES Facility: [facility] : 1955 Planned Disposition: Nursing Facility [facility] Cert Anticipated Discharge Date: 08/07/19 Discharge Date: Expected LOS: 13 Initial Reviewer: [id number] Initial Review Date: 07/25/2019 Generated: 08/11/19 1:04 pm Comments DCP- Discharge Planning Updated by [email or web address]: Renita Hall on 08/09/19 12:[address] Patient Name: JINA COLINDRES Admission Status: Urgent Accout number: [id number] Admission Date: 07-25-2019 : 1955 Admission Diagnosis: Attending: GENEVA BERUMEN Current LOS: 15 Anticipated DC Date: 08-07-2019 Planned Disposition: Nursing Facility [facility] Cert Primary Insurance: MEDICARE A & B Discharge Planning Comments: I spoke with Nancy Florence at [phone] and she can provide financials to [facility]. I called [email or web address] and left a message with Tanna. I will call [facility] and give them the info also. Dragline Oiler: Renita Hall DCP- Discharge Planning Updated by [id number]: Renita Hall on 08/08/19 1:[address] Patient Name: JINA COLINDRES Admission Status: Urgent Accout number: [id number] Admission Date: 07-25-2019 : 1955 Admission Diagnosis: Attending: GENEVA BERUMEN Current LOS: 14 Anticipated DC Date: 08-07-2019 Planned Disposition: Nursing Facility [facility] Cert Primary Insurance: MEDICARE A & B Discharge Planning Comments: SPOKE WITH ALEXANDER AT [facility] AND THEM AND [facility] ARE WORKING ON GETTING FINANCIALS. WAITING CALL BACK FOR AN UPDATE. Dragline Oiler: Renita Hall DCP- Discharge Planning Updated by [id number]: Diana Singletary on 08/07/19 2:[address] Patient Name: JINA COLINDRES Encounter No: [id number] : 1955 Primary Insurance: MEDICARE A & B Anticipated DC Date: 08-07-2019 Planned Disposition: Nursing Facility [facility] Cert External Planned Provider:[facility], LONG TERM CARE MEDICAID BED DCP follow-up note: CM SPOKE TO HECTOR OF [facility], THEY ARE TRYING TO LOCATE NEXT OF KIN TO ASSIST IN FILLING OUT MEDICAID APPLICATION AND PROVIDING FINANCIAL INFORMATION. CM PROVIDED INFORMATION FOR CARMELA WOOD, , PT REPORTS HER TO BE A TRUSTED FRIEND AND NEIGHBOR. [facility] WILL ACCEPT PT FOR GROUP HOME CARE; CM WAITING [facility]. TO LOCATE PERSON TO ASSIST PT WITH FIANCIALS AND WORK OUT FINANCIAL ARRANGEMENTS WITH PT FOR SNF CARE PLACEMENT. DIANA SINGLETARY, CASE MANAGEMENT DCP- Discharge Planning Updated by [email or web address]: Diana Singletary on 08/07/19 8:[address] Patient Name: JINA COLINDRES Encounter No: [id number] : 1955 Primary Insurance: MEDICARE A & B Anticipated DC Date: 08-07-2019 Planned Disposition: Nursing Facility [facility] Cert External Planned Provider:[facility], LONG TERM CARE MEDICAID BED DCP follow-up note: CM MET WITH PT IN ROOM, DISCUSSED HOSPICE AND SKILLED REHAB. PT THINKS SHE WANTS HOSPICE AT [facility]. PT REPORTS SHE HAS NO ONE BUT HER NEIGHBOR TO ASSIST WITH HER CARE AT HOME WITH HOSPICE. CM CALLED [facility], , SPOKE TO ADELINA AND PROVIDED UPDATE THAT PT IS REQUESTING PLACMENT WITH HOSPICE. CM WAS ADVISED THAT THEY WILL HAVE TO WORK ON FINANCIALS FOR MEDICAID. CM FAXED REFERRAL UDPATE TO [facility] AT [phone]. CM RECEIVED CALL FROM CARMELA WOOD, WHO REPORTS TO BE PATIENTS NEXT OF KIN AND NEIGHBOR. CARMELA REPORTS SHE IS NOT ABLE TO TAKE CARE OF PT AT HOME 24 HOURS A DAY AND THINKS IT BEST IF PT GOES TO [facility]. CARMELA PROVIDED HER NUMBER, . [facility] WILL ACCEPT PT FOR GROUP HOME CARE; CM WAITING ADMISSION DETERMINATION FROM [facility]. DIANA SINGLETARY, CASE MANAGEMENT DCP- Discharge Planning Updated by [id number]: Diana Singletary on 08/05/19 3:[address] Patient Name: JINA COLINDRES Encounter No: [id number] : 1955 Primary Insurance: MEDICARE A & B Anticipated DC Date: Planned Disposition: Retirement Facility External Planned Provider: [facility], MEDICARE RHEAB BED DCP follow-up note: CM SPOKE TO BEDSIDE NURSE WHO INFORMED CM THAT PT REQUESTED TO SPEAK TO HOSPICE. CM RECEIVED HOSPICE CONSULT ORDER. CM MET WITH PT IN ROOM, DISCUSSED HOSPICE PROVIDERS, LOCATIONS AND SERVICES, PROVIDED HOSPICE LISTING OF PROVIDERS. PT REQUESTED [facility]. CHOICE COMPLETED. PT ALSO ASKED THAT CM SEND REFERRAL TO [facility] FOR REHAB IF SHE DECIDES FOR REHAB. ADDED TO CHOICE FORM, PT SIGNED THE CHOICE FOR [facility] AND [facility]. IMPORTANT MESSAGE FROM MEDICARE PROVIDED AND EXPLAINED. CM CALLED [facility], , SPOKE TO NANCY WHO TOOK REFERRAL AND WILL PROCESS REFERRAL AND HAVE NURSE MEET WITH PT IN HOSPITAL ROOM SOON POSSIBLE TODAY. CM FAXED REFERRAL TO [facility] AT [phone]. CM CALLED [facility], , SPOKE TO ADELINA AND PROVIDED REFERRAL INFORMATION; INFORMED HER THAT PT MAY WANT REHAB OR SNF CARE WITH HOSPICE. CM FAXED REFERRAL TO [facility] AT [phone]. CM WAITING ON ADMISSION DETERMINATION FROM [facility] AND [facility]. WAITING PT TO MAKE DECISIONS REGARDING HOSPICE OR REHAB AT [facility]. Diana Singletary, CASE MANAGEMENT Appended by Diana Singletary on 08/05/2019 16:55 CDT: CM SPOKE TO HECTOR OF [facility], SHE SPOKE TO PT IN ROOM AND INFORMED CM THAT PT IS CONSIDERING PLACEMENT AT [facility] AND POSSIBLY HOSPICE WITH [facility]. HECTOR THINKS THAT [facility] MAY BE ABLE TO ASSIST WITH EITHER REHAB OR SNF CARE, WHICHEVER PT DECIDES AND ASKED TO BE NOTIFIED WHEN PT MAKES UP HER MIND. CM SPOKE TO NANCY OF [facility], PT HAS BEEN ASSESSED BY NURSE EATON OF [facility] AND PT IS HOSPICE APPROPRIATE AND THEY DO HAVE A CONTRACT WITH [facility] IF PT WANTS HOSPICE THERE. [facility] WILL ACCEPT PT FOR GROUP HOME CARE; CM WAITING ADMISSION DETERMINATION FROM [facility]. CM WAITING PT'S DECISION REGARDING EITHER REHAB OR SNF CARE PLACEMENT AT [facility]. DIANA SINGLETARY, CASE MANAGEMENT DCP- Discharge Planning Updated by [id number]: Diana Singletary on 08/01/19 8:[address] Patient Name: JINA COLINDRES Encounter No: [id number] : 1955 Primary Insurance: MEDICARE A & B Anticipated DC Date: Planned Disposition: Retirement Facility External Planned Provider: [facility], MEDICARE SKILLED / REHAB BED DCP follow-up note: CM SPOKE TO PT IN ROOM REGARDING DISCHARGE PLANNING AND NEEDS. CM DISCUSSED THE POSSIBLE NEED OF A PEG TUBE. PT STATES SHE DOES NOT WANT A PEG TUBE. CM DISCUSSED INPATIENT REHAB WILL NOT CONSIDER TAKING PT BACK DUE TO BEING TO LOW LEVEL AT THIS TIME. CM DISCUSSED [facility] PLACEMENT. PT REPORTS SHE HAS BEEN TO [facility] IN [place] AND IF SHE NEEDS IT, SHE WOULD LIKE TO GO BACK THERE. CHOICE COMPLETED. PT STATES SHE IS NOT ABLE TO SIGN. PT PROVIDED EMERGENCY TELEMARKETING SUPERVISOR NANCY FLORENCE, FRIEND AND COUNSELOR FROM [facility] [place], [place] [phone]. PT REPORTS SHE ATTENDS COUNSELING FOR DEPRESSION. PT STATES THAT SHE WOULD LIKE NANCY FLORENCE TO BE HER FIRST EMEGENCY CONTACT WITH HER MOTHER BEING SECOND. PT STATES THAT IF SHE NEEDS HELP DECIDING WHAT TO DO, IT WOULD BE OK TO DISCUSS HER CARE AND PLANNING WITH NANCY. CM TO REFER PT TO [facility] WHEN PROJECTED DISCHARGE DATE AND NEEDS ARE KNOWN. CM TO FOLLOW AND ASSIST NEEDED. Diana Singletary, CASE MANAGEMENT DCP- Discharge Planning Updated by [id number]: Mahi Root on 07/25/19 7:[address] Patient Name: JINA COLINDRES Admission Status: Urgent Accout number: [id number] Admission Date: 07-25-2019 : 1955 Admission Diagnosis: Attending: GENEVA BERUMEN Current LOS: 1 Anticipated DC Date: Planned Disposition: Inpatient Rehab Primary Insurance: MEDICARE A & B Discharge Planning Comments: Patient was just discharged 07/23/19 will plan to return to Inpatient rehab once medically stable. CM met with patient to complete initial dc planning assessment. CM educated patient on the CM role and verbal consent given by patient to complete assessment. Patient lives at home alone where she is independent with her care. Patient agrees that at discharge patient will need rehab prior to going home. CM discussed availability of home health, rehab services, and medical equipment. Patient states that she plans to resume care with [facility]. [facility] signed. Patient has a nebulizer and home / portable 02 ( [employer]) Patient denied known discharge needs at this time. CM will continue to follow and will assist as needed with dc plans/needs. Dragline Oiler: Mahi Root DCPIA - Discharge Planning Initial Assessment Updated by [id number]: Mahi Root on 07/25/19 8:53 pm * Is the patient Alert and Oriented? Yes * How many steps to enter\exit or inside your home? * PCP [facility] IN [place] * Pharmacy [facility]? * Preadmission Environment Home Alone * ADLs Independent * Other Equipment HOME / PORTABLE 02, NEBULIZER, CANE * List name and contact numbers for known caregivers / representatives who currently or will assist patient after discharge: LIZZIE ROWLEY - [facility]- [phone] Fan [phone] (DIGITAL EDITOR) Carmela Marlon (good friend) [phone] Nancy Florence (Dragline Oiler- [facility]) [phone] * Community resources currently utilized Home Health * Please name any agencies selected above. [facility] * Additional services required to return to the preadmission environment? No * Can the patient safely return to the preadmission environment? Yes * Has this patient been hospitalized within the prior 30 days at any hospital? Yes Coverage Notice Reviewer: [id number] Singletary Notice Issued Date-Time: 08/01/2019 8:00 Notice Type: Patient Choice Letter Notice Delivered To: Relationship to Patient: Fast Food Delivery Driver Name: Delivery Method: HAND - Hand Delivered Giovana Days: Prior Verbal Notification: Recipient Understood Notice: Yes Recipient Signature: Med Rec Note Co-signed by Attending: Coverage Notice Comment: SWAPNA SCHROEDER Reviewer: [id number] Singletary Notice Issued Date-Time: 08/05/2019 12:05 Notice Type: IM Discharge Notice Notice Delivered To: Patient Relationship to Patient: Fast Food Delivery Driver Name: Delivery Method: HAND - Hand Delivered Giovana Days: Prior Verbal Notification: Recipient Understood Notice: Yes Recipient Signature: Yes Med Rec Note Co-signed by Attending: Coverage Notice Comment: Reviewer: [id number] Singletary Notice Issued Date-Time: 08/05/2019 12:05 Notice Type: Patient Choice Letter Notice Delivered To: Patient Relationship to Patient: Fast Food Delivery Driver Name: Delivery Method: HAND - Hand Delivered Giovana Days: Prior Verbal Notification: Recipient Understood Notice: Yes Recipient Signature: Yes Med Rec Note Co-signed by Attending: Coverage Notice Comment: [facility] SWAPNA SCHROEDER IN [place] Last DP export: 08/09/19 12:51 Patient Name: JINA COLINDRES Page 02018 at 1205 All edits/amendments must be made on the electronic document DICTATION DATE: 08/11/191203 TELEPHONE OPERATOR CHIEF: MICHAEL 08/11/19 120 RPT#: [id number] DC DATE: STATUS: ADM IN [facility] [address] [place] [address] END OF REPORT
[2019-08-11 12:41] VITALS: BP 157/77
[2019-08-11 17:04] VITALS: BP 188/92
--- NOTE | 2019-08-11 18:46 | NUR ---
PAGED SARA ABOUT ELEVATED B/P.
--- NOTE | 2019-08-11 19:33 | NUR ---
INITIAL ORUNDS COMPLETED. PT DENIES ANY DISCOMFORT. CALL LIGHT WITHIN REACH.
[2019-08-11 20:00] VITALS: BP 134/67
--- NOTE | 2019-08-11 22:32 | NUR ---
ASSESSMENT COMPLETED AT 2010 HRS. PT INCONTINENT OF MODERATE AMOUNT OF FORMED STOOL. INCONTINENT CARE DONE. ROUTINE MEHTA CARE DONE. VSS. SR PER CM HR 97. ALERT AND ORIENTED TO PERSON, PLACE, TIME. JONES. UPER L ARM PICC WITH PROCAL AT 75CC/HR. IV PATENT. O2 2LNC. LUNGS DIMINISHED IN BASES BILAT. BUTT SLIGHTLY RED. ABD SOFT WTIH ACTIVE BS NOTED. RED RASKH LIKE AREA FRON UPPER L BREAST WARAAPING AROUND TO L SCAPULA. BRUISES NOTED TO BILAT ARMS AND ABD. L HEL DRESSING CLEAN, DRY AND INTACT. BILAT HEEL PROTECTORS IN PLACE. SCD'S REMOVED AND SKIN INSPECTED. NO BREAKDOWN NOTED. MEHTA DRAINING YELLOW URINE. PM FSBS 199.INSULIN GIVEN SUB-Q TO UPPER R ARM PER S/S. PM MEDS GIVEN WITHOUT DIFFICULTY. PT CURRENTLY WATCHING TV. SR UP X2, CALL LIGHT WITHIN REACH AND BED ALARM ON.
[2019-08-12] VITALS: BP 130/67
--- NOTE | 2019-08-12 00:04 | NUR ---
PT RESTING WITH EYES CLOSED. RESP EVEN AND REGULAR. SR UP X2, CALL LIGHT WITHIN REACH.
--- NOTE | 2019-08-12 01:50 | NUR ---
PT RESTING WITH EYES CLOSED. RESP EVEN AND REGULAR. SR UP X2, CALL LIGHT WITHIN REACH.
[2019-08-12 04:00] VITALS: BP 156/85
--- NOTE | 2019-08-12 04:30 | NUR ---
PT AWAKE; DENIES ANY DISCOMFORT. CALL LIGHT WITHIN REACH.
--- NOTE | 2019-08-12 07:28 | NUR ---
PATIENT IS RESTING QUIETLY ON HER BACK, EYES OPEN. DENIES ANY NEEDS AT THIS TIME.
[2019-08-12 08:27] VITALS: BP 164/82
--- NOTE | 2019-08-12 09:39 | NUR ---
DURING MEDICATION ADMINISTRATION , BED BATH AND LINEN CHANGE DONE. ORDERING NEW PINK HEEL PROTECTORS AND WILL COMPLETE DRESSING CHANGE ON LEFT HEEL. SCD'S ON. PATIENT HAS REDNESS AND BLISTERS WRAPPING FROM HER LEFT BREAST AROUND TO HER BACK. DARK RED SPOTS. CALLING TO REPORT TO DR CASTILLO.
--- NOTE | 2019-08-12 09:48 | NUR ---
RASH ON LEFT BREAST REPORTED TO JOSEPH RUIZ LATIN DANCE INSTRUCTOR WITH DR LEES TODAY. ORDER FOR MERLE ACKNOWLEDGED.
[2019-08-12 13:04] VITALS: BP 163/79
[2019-08-12 17:19] VITALS: BP 158/78
--- NOTE | 2019-08-12 18:40 | NUR ---
DRESSING CHANGE COMPLETE ON LEFT HEEL. WOUND LOOKS MUCH BETTER THEN 2 WEEKS AGO. IT IS LIGHT PINK AND NO EXUDATE. SILVER DOLLAR SIZE. HEEL PROTECTORS IN PLACE.
--- NOTE | 2019-08-12 19:28 | NUR ---
ASSESSMENT COMPLETE, PT A&O. RESPERATIONS NON LABORED ON O2 AT 2 LITERS VIA NC. PICC NOTED TO LEFT UPPER ARM WITH PROCAL INFUSING AT 75 CC/HR. MEHTA CATH DRAINING TO GRAVITY. PT CURRENTLY DENIES PAIN OR NEEDS, BED LOW, CL IN REACH.
[2019-08-12 20:00] VITALS: BP 128/103
--- NOTE | 2019-08-12 21:25 | NUR ---
HS MEDS GIVEN WITH FRESH ICE WATER. BS 264, COVERED PER S/S. TYLENOL 2 TABS GIVEN AT PT REQUEST.
[2019-08-13] VITALS: BP 142/69
--- NOTE | 2019-08-13 03:38 | NUR ---
RESTING WITH EYES CLOSED, RESPERATIONS EVEN, NO S/S DISTRESS NOTED.
[2019-08-13 04:00] VITALS: BP 153/83
--- NOTE | 2019-08-13 07:05 | NUR ---
REPORT RECEIVED. WILL CONTINUE WITH POC. PT CURRENTLY LYING SEMI FOWLERS. CALL LIGHT W/I REACH. RR EVEN AND UNLABORED ON 2L 02. PROCAL INFUSING @75ML/HR VIA L.PICC. PT UNDERGONG RESP TRX AT THIS TIME. NO S/S OF DISTRESS NOTED. PT DENEIS ANY NEEDS. WILL CTM.
[2019-08-13 08:01] VITALS: Ht 167.6 cm; Wt 87.2 kg
--- NOTE | 2019-08-13 09:22 | MORECARE ---
CASE MANAGEMENT DISCHARGE SUMMARY PATIENT: JINA COLINDRES UNIT: [id number] ADM DATE: 07/25/19 AGE: 64 : 53 SEX: F ROOM/BED: D.1271 AUTHOR: SANDRO,DOC PHYSICIAN: REFERRING PHYSICIAN: GENEVA BERUMEN MD DATE OF SERVICE: 08/13/19 Discharge Plan Patient Name: JINA COLINDRES Facility: [facility]:[place] : 1955 Planned Disposition: Nursing Facility [facility] Cert Anticipated Discharge Date: 08/07/19 Discharge Date: Expected LOS: 13 Initial Reviewer: [email or web address] Initial Review Date: 07/25/2019 Generated: 08/13/19 10:22 am DCP- Discharge Planning Updated by [id number]: Renita Hall on 08/09/19 12:[address] Patient Name: JINA COLINDRES Admission Status: Urgent Accout number: [id number] Admission Date: 07-25-2019 : 1955 Admission Diagnosis: Attending: GENEVA BERUMEN Current LOS: 15 Anticipated DC Date: 08-07-2019 Planned Disposition: Nursing Facility [facility] Cert Primary Insurance: MEDICARE A & B Discharge Planning Comments: I spoke with Nancy Florence at [phone] and she can provide financials to [facility]. I called [facility] and left a message with Tanna. I will call [facility] and give them the info also. Fiberglass Ski Maker: Renita Hall DCP- Discharge Planning Updated by [id number]: Renita Hall on 08/08/19 1:[address] Patient Name: JNIA COLINDRES Admission Status: Urgent Accout number: [id number] Admission Date: 07-25-2019 : 1955 Admission Diagnosis: Attending: GENEVA BERUMEN Current LOS: 14 Anticipated DC Date: 08-07-2019 Planned Disposition: Nursing Facility [facility] Cert Primary Insurance: MEDICARE A & B Discharge Planning Comments: ARLETTE SPOKE WITH ALEXANDER AT [facility] AND [facility] AND [facility] ARE WORKING ON GETTING FINANCIALS. WAITING CALL BACK FOR AN UPDATE. Fiberglass Ski Maker: Renita Hall DCP- Discharge Planning Updated by [id number]: Diana Singletary on 08/07/19 2:[address] Patient Name: JINA COLINDRES Encounter No: [id number] : 1955 Primary Insurance: MEDICARE A & B Anticipated DC Date: 08-07-2019 Planned Disposition: Nursing Facility [facility] Cert External Planned Provider:[facility], LONG TERM CARE MEDICAID BED DCP follow-up note: CM SPOKE TO HECTOR OF [facility], THEY ARE TRYING TO LOCATE NEXT OF KIN TO ASSIST IN FILLING OUT MEDICAID APPLICATION AND PROVIDING FINANCIAL INFORMATION. CM PROVIDED INFORMATION FOR CARMELA WOOD, , PT REPORTS HER TO BE A TRUSTED FRIEND AND NEIGHBOR. [facility] WILL ACCEPT PT FOR SHELTER CARE; CM WAITING [facility]. TO LOCATE PERSON TO ASSIST PT WITH FIANCIALS AND WORK OUT FINANCIAL ARRANGEMENTS WITH PT FOR ACADEMIC DIRECTOR CARE PLACEMENT. DIANA SINGLETARY, CASE MANAGEMENT DCP- Discharge Planning Updated by [id number]: Diana Singletary on 08/07/19 8:[address] Patient Name: JINA COLINDRES Encounter No: [id number] : 1955 Primary Insurance: MEDICARE A & B Anticipated DC Date: 08-07-2019 Planned Disposition: Nursing Facility [facility] Cert External Planned Provider:[facility], LONG TERM CARE MEDICAID BED DCP follow-up note: CM MET WITH PT IN ROOM, DISCUSSED HOSPICE AND SKILLED REHAB. PT THINKS SHE WANTS HOSPICE AT [facility]. PT REPORTS SHE HAS NO ONE BUT HER NEIGHBOR TO ASSIST WITH HER CARE AT HOME WITH HOSPICE. CM CALLED [facility], , SPOKE TO ADELINA AND PROVIDED UPDATE THAT PT IS REQUESTING PLACMENT WITH HOSPICE. CM WAS ADVISED THAT THEY WILL HAVE TO WORK ON FINANCIALS FOR MEDICAID. CM FAXED REFERRAL [place] TO [facility] AT [phone]. CM RECEIVED CALL FROM CARMELA WOOD, WHO REPORTS TO BE PATIENTS NEXT OF KIN AND NEIGHBOR. CARMELA REPORTS SHE IS NOT ABLE TO TAKE CARE OF PT AT HOME 24 HOURS A DAY AND THINKS IT BEST IF PT GOES TO [facility]. CARMELA PROVIDED HER NUMBER, . [facility] WILL ACCEPT PT FOR SHELTER CARE; CM WAITING ADMISSION DETERMINATION FROM [facility]. DIANA SINGLETARY, CASE MANAGEMENT DCP- Discharge Planning Updated by [id number]: Diana Singletary on 08/05/19 3:[address] Patient Name: JINA COLINDRES Encounter No: [id number] : 1955 Primary Insurance: MEDICARE A & B Anticipated DC Date: Planned Disposition: Fpc Facility External Planned Provider: [facility], MEDICARE RHEAB BED DCP follow-up note: CM SPOKE TO BEDSIDE NURSE WHO INFORMED CM THAT PT REQUESTED TO SPEAK TO HOSPICE. CM RECEIVED HOSPICE CONSULT ORDER. CM MET WITH PT IN ROOM, DISCUSSED HOSPICE PROVIDERS, LOCATIONS AND SERVICES, PROVIDED HOSPICE LISTING OF PROVIDERS. PT REQUESTED [facility]. CHOICE COMPLETED. PT ALSO ASKED THAT CM SEND REFERRAL TO [facility] FOR REHAB IF SHE DECIDES FOR REHAB. ADDED TO CHOICE FORM, PT SIGNED THE CHOICE FOR [facility] AND [facility]. IMPORTANT MESSAGE FROM MEDICARE PROVIDED AND EXPLAINED. CM CALLED [facility], , SPOKE TO NANCY WHO TOOK REFERRAL AND WILL PROCESS REFERRAL AND HAVE NURSE MEET WITH PT IN HOSPITAL ROOM SOON POSSIBLE TODAY. CM FAXED REFERRAL TO [facility] AT [phone]. CM CALLED [facility], , SPOKE TO ADELINA AND PROVIDED REFERRAL INFORMATION; INFORMED HER THAT PT MAY WANT REHAB OR ALF CARE WITH HOSPICE. CM FAXED REFERRAL TO [facility] AT [phone]. CM WAITING ON ADMISSION DETERMINATION FROM [facility] AND [facility]. WAITING PT TO MAKE DECISIONS REGARDING HOSPICE OR REHAB AT [facility]. Diana Singletary, CASE MANAGEMENT Appended by Diana Singletary on 08/05/2019 16:55 CDT: CM SPOKE TO HECTOR OF [facility], SHE SPOKE TO PT IN ROOM AND INFORMED CM THAT PT IS CONSIDERING PLACEMENT AT [facility] AND POSSIBLY HOSPICE WITH [facility]. HECTOR THINKS THAT [facility] MAY BE ABLE TO ASSIST WITH EITHER REHAB OR ACADEMIC DIRECTOR CARE, WHICHEVER PT DECIDES AND ASKED TO BE NOTIFIED WHEN PT MAKES UP HER MIND. CM SPOKE TO NANCY OF [facility], PT HAS BEEN ASSESSED BY NURSE EATON OF [facility] AND PT IS HOSPICE APPROPRIATE AND THEY DO HAVE A CONTRACT WITH [facility] IF PT WANTS HOSPICE THERE. [facility] WILL ACCEPT PT FOR SHELTER CARE; CM WAITING ADMISSION DETERMINATION FROM [facility]. CM WAITING PT'S DECISION REGARDING EITHER REHAB OR ACADEMIC DIRECTOR CARE PLACEMENT AT [facility]. DIANA SINGLETARY, CASE MANAGEMENT DCP- Discharge Planning Updated by [id number]: Diana Singletary on 08/01/19 8:[address] Patient Name: JINA COLINDRES Encounter No: [id number] : 1955 Primary Insurance: MEDICARE A & B Anticipated DC Date: Planned Disposition: Fpc Facility External Planned Provider: [facility], MEDICARE SKILLED / REHAB BED DCP follow-up note: CM SPOKE TO PT IN ROOM REGARDING DISCHARGE PLANNING AND NEEDS. CM DISCUSSED THE POSSIBLE NEED OF A PEG TUBE. PT STATES SHE DOES NOT WANT A PEG TUBE. CM DISCUSSED INPATIENT REHAB WILL NOT CONSIDER TAKING PT BACK DUE TO BEING TO LOW LEVEL AT THIS TIME. CM DISCUSSED ASSISTED FACILITY REHAB PLACEMENT. PT REPORTS SHE HAS BEEN TO [facility] IN [place] AND IF SHE NEEDS IT, SHE WOULD LIKE TO GO BACK THERE. CHOICE COMPLETED. PT STATES SHE IS NOT ABLE TO SIGN. PT PROVIDED EMERGENCY GREY WASHER NANCY FLORENCE, FRIEND AND [facility] [place] [phone]. PT REPORTS SHE ATTENDS COUNSELING FOR DEPRESSION. PT STATES THAT SHE WOULD LIKE NANCY FLORENCE TO BE HER FIRST EMEGENCY CONTACT WITH HER MOTHER BEING SECOND. PT STATES THAT IF SHE NEEDS HELP DECIDING WHAT TO DO, IT WOULD BE OK TO DISCUSS HER CARE AND PLANNING WITH NANCY. CM TO REFER PT TO [facility] WHEN PROJECTED DISCHARGE DATE AND NEEDS ARE KNOWN. CM TO FOLLOW AND ASSIST NEEDED. Diana Singletary, CASE MANAGEMENT DCP- Discharge Planning Updated by [id number]: Mahi Root on 07/25/19 7:[address] Patient Name: JINA COLINDRES Admission Status: Urgent Accout number: [id number] Admission Date: 07-25-2019 : 1955 Admission Diagnosis: Attending: GENEVA BERUMEN Current LOS: 1 Anticipated DC Date: Planned Disposition: Inpatient Rehab Primary Insurance: MEDICARE A & B Discharge Planning Comments: Patient was just discharged 07/23/19 will plan to return to Inpatient rehab once medically stable. CM met with patient to complete initial dc planning assessment. CM educated patient on the CM role and verbal consent given by patient to complete assessment. Patient lives at home alone where she is independent with her care. Patient agrees that at discharge patient will need rehab prior to going home. CM discussed availability of home health, rehab services, and medical equipment. Patient states that she plans to resume care with [facility]. MORENA signed. Patient has a nebulizer and home / portable 02 ( [employer]) Patient denied known discharge needs at this time. CM will continue to follow and will assist as needed with dc plans/needs. Fiberglass Ski Maker: Mahi Dk DCPIA - Discharge Planning Initial Assessment Updated by [id number]: Mahi Root on 07/25/19 8:53 pm * Is the patient Alert and Oriented? Yes * How many steps to enter\exit or inside your home? * PCP [facility] [place] * Pharmacy [facility]? * Preadmission Environment Home Alone * ADLs Independent * Other Equipment HOME / PORTABLE 02, NEBULIZER, CANE * List name and contact numbers for known caregivers / representatives who currently or will assist patient after discharge: LIZZIE ROWLEY - [facility]- [phone] Fan [phone] (RIDE OPERATOR) Carmela Marlon (good friend) [phone] Nancy Florence (Fiberglass Ski Maker- [facility]) [phone] * Community resources currently utilized Home Health * Please name any agencies selected above. [facility] * Additional services required to return to the preadmission environment? No * Can the patient safely return to the preadmission environment? Yes * Has this patient been hospitalized within the prior 30 days at any hospital? Yes External Providers External Provider: LUIS Orosco Next Contact Date: 08/13/2019 Service Request Date: Service Type: Resolution: Reviewer: Comments: Coverage Notice Reviewer: [email or web address] Jo Ann Singletary Notice Issued Date-Time: 08/01/2019 8:00 Notice Type: Patient Choice Letter Notice Delivered To: Relationship to Patient: Technical Assistance Consultant Name: Delivery Method: HAND - Hand Delivered Giovana Days: Prior Verbal Notification: Recipient Understood Notice: Yes Recipient Signature: Med Rec Note Co-signed by Attending: Coverage Notice Comment: SWAPNA SCHROEDER Reviewer: [id number] Jo Ann Singletary Notice Issued Date-Time: 08/05/2019 12:05 Notice Type: IM Discharge Notice Notice Delivered To: Patient Relationship to Patient: Technical Assistance Consultant Name: Delivery Method: HAND - Hand Delivered Giovana Days: Prior Verbal Notification: Recipient Understood Notice: Yes Recipient Signature: Yes Med Rec Note Co-signed by Attending: Coverage Notice Comment: Reviewer: [email or web address] Jo Ann Singletary Notice Issued Date-Time: 08/05/2019 12:05 Notice Type: Patient Choice Letter Notice Delivered To: Patient Relationship to Patient: Technical Assistance Consultant Name: Delivery Method: HAND - Hand Delivered Giovana Days: Prior Verbal Notification: Recipient Understood Notice: Yes Recipient Signature: Yes Med Rec Note Co-signed by Attending: Coverage Notice Comment: [facility] SWAPNA SCHROEDER IN [place] Reviewer: [id number] Jo Ann Singletary Notice Issued Date-Time: 08/12/2019 16:00 Notice Type: IM Discharge Notice Notice Delivered To: Patient Relationship to Patient: Technical Assistance Consultant Name: Delivery Method: HAND - Hand Delivered Giovana Days: Prior Verbal Notification: Recipient Understood Notice: Yes Recipient Signature: Yes Med Rec Note Co-signed by Attending: Coverage Notice Comment: Last DP export: 08/11/19 11:05 Patient Name: JINA COLINDRES Page [id number] at 0922 All edits/amendments must be made on the electronic document DICTATION DATE: 08/13/19920 SUPERVISOR COAL HANDLING: MICHAEL 08/13/19920 RPT#: [id number] DC DATE: STATUS: ADM IN [facility] [address] [place] [address] END OF REPORT
--- NOTE | 2019-08-13 09:36 | MORECARE ---
CASE MANAGEMENT DISCHARGE SUMMARY PATIENT: JINA COLINDRES UNIT: [id number] ADM DATE: 07/25/19 AGE: 64 : 53 SEX: F ROOM/BED: D.8115 AUTHOR: SANDRO,DOC PHYSICIAN: REFERRING PHYSICIAN: GENEVA BERUMEN MD DATE OF SERVICE: 08/13/19 Discharge Plan Patient Name: JINA COLINDRES Facility: [facility]:[place] : 1955 Planned Disposition: Nursing Facility [facility] Cert Anticipated Discharge Date: 08/07/19 Discharge Date: Expected LOS: 13 Initial Reviewer: [id number] Initial Review Date: 07/25/2019 Generated: 08/13/19 10:35 am Comments DCP- Discharge Planning Updated by [id number]: Diana Singletary on 08/13/19 8:[address] Patient Name: IJNA COLINDRES Encounter No: [id number] : 1955 Primary Insurance: MEDICARE A & B Anticipated DC Date: 08-07-2019 Planned Disposition: Nursing Facility [facility] Cert External Planned Provider: [facility], MEDICARE RHEAB BED DCP follow-up note: LATE ENTRY FROM 08-12-19 CM RECEIVED CALL FROM [facility], , SPOKE TO NANCY AND CM PROVIDED UPDATE. [facility] STILL WILL ACCEPT WHEN PT IS ADMITTED TO [facility]. CM RECEIVED CALL FROM [facility], , SPOKE TO ALEXANDER WHO INFORMED THAT PT'S FRIEND, NANCY, PROVIDED FIANCIAL INFORMATION, [facility] PLANS TO ACCEPT PT BUT THE FRIEND STATES PT HAS MENTAL ILLNESS AND ALEXANDER THINKS PT MAY NEED A IAN. THE MENTAL ILLNESS DIAGNOSIS IS NOT KNOWN TO [facility]. FAXED REFERRAL UPDATE TO [facility] AT [phone]. CM MET WITH PT IN ROOM, DISCUSSED MENTAL HEALTH DIAGNOSIS. PT REPORTS HAVING DEPRESSION AND SCHIZOPHRENIA. SCHIZOPHRENIA HAS BEEN SINCE AGE 6. PT SEES AT [facility] AND [facility], PT DOES NOT KNOW WHAT HER MEDICATIONS ARE SINCE THEY COME FROM [facility], PREPACKAGED TO TAKE AT PRESCRIBED TIMES. PT ASSISTED WITH COMPLETING IAN SCREENING FORM. SIGNATURE OBTAINED FROM JOSEPH KAUR. IMPORTANT MESSAGE FROM MEDICARE PROVIDED AND EXPLAINED TO PATIENT. PT STILL WANTS TO GO TO [facility] WITH [facility] CARE. DISCHARGE PLANNING NOTE; 08-13-2019: CM SENT COMPLETED IAN WITH SUPPORTING DOCUMENTS VIA FAX TO [employer] AT [phone]. [facility] WILL ACCEPT PT FOR SHELTER CARE; [facility] PLANS TO ACCEPT PATIENT PENDING IAN SCREENING COMPLETION AND CLEARANCE. DIANA SINGLETARY, CASE MANAGEMENT DCP- Discharge Planning Updated by [id number]: Renita Hall on 08/09/19 12:[address] Patient Name: JINA COLINDRES Admission Status: Urgent Accout number: [id number] Admission Date: 07-25-2019 : 1955 Admission Diagnosis: Attending: GENEVA BERUMEN Current LOS: 15 Anticipated DC Date: 08-07-2019 Planned Disposition: Nursing Facility [facility] Cert Primary Insurance: MEDICARE A & B Discharge Planning Comments: I spoke with Nancy Florence at [phone] and she can provide financials to [facility]. I called [facility] and left a message with Tanna. I will call [facility] and give them the info also. Career Development Director: Renita Hall DCP- Discharge Planning Updated by [id number]: Renita Hall on 08/08/19 1:[address] Patient Name: JINA COLINDRES Admission Status: Urgent Accout number: [id number] Admission Date: 07-25-2019 : 1955 Admission Diagnosis: Attending: GENEVA BERUMEN Current LOS: 14 Anticipated DC Date: 08-07-2019 Planned Disposition: Nursing Facility [facility] Cert Primary Insurance: MEDICARE A & B Discharge Planning Comments: CM SPOKE WITH ALEXANDER AT [facility] AND [facility] ARE WORKING ON GETTING FINANCIALS. WAITING CALL BACK FOR AN UPDATE. Career Development Director: Renita Hall DCP- Discharge Planning Updated by [id number]: Diana Singletary on 08/07/19 2:[address] Patient Name: JINA COLINDRES Encounter No: [id number] : 1955 Primary Insurance: MEDICARE A & B Anticipated DC Date: 08-07-2019 Planned Disposition: Nursing Facility [facility] Cert External Planned Provider:[facility] TERM CARE MEDICAID BED DCP follow-up note: CM SPOKE TO HECTOR OF [facility], THEY ARE TRYING TO LOCATE NEXT OF KIN TO ASSIST IN FILLING OUT MEDICAID APPLICATION AND PROVIDING FINANCIAL INFORMATION. CM PROVIDED INFORMATION FOR [facility], , PT REPORTS HER TO BE A TRUSTED FRIEND AND NEIGHBOR. [facility] WILL ACCEPT PT FOR SHELTER CARE; CM WAITING [facility]. TO LOCATE PERSON TO ASSIST PT WITH FIANCIALS AND WORK OUT FINANCIAL ARRANGEMENTS WITH PT FOR SENIOR CARE CARE PLACEMENT. DIANA SINGLETARY CASE MANAGEMENT DCP- Discharge Planning Updated by [id number]: Diana Singletary on 08/07/19 8:[address] Patient Name: JINA COLINDRES Encounter No: [id number] : 1955 Primary Insurance: MEDICARE A & B Anticipated DC Date: 08-07-2019 Planned Disposition: Nursing Facility [facility] External Planned Provider:[facility], LONG TERM CARE MEDICAID BED DCP follow-up note: CM MET WITH PT IN ROOM, DISCUSSED HOSPICE AND SKILLED REHAB. PT THINKS SHE WANTS HOSPICE AT [facility]. PT REPORTS SHE HAS NO ONE BUT HER NEIGHBOR TO ASSIST WITH HER CARE AT HOME WITH HOSPICE. CM CALLED [facility], , SPOKE TO ADELINA AND PROVIDED UPDATE THAT PT IS REQUESTING PLACMENT WITH HOSPICE. CM WAS ADVISED THAT THEY WILL HAVE TO WORK ON FINANCIALS FOR MEDICAID. CM FAXED REFERRAL UDPATE TO [facility] AT [phone]. CM RECEIVED CALL FROM CARMELA [facility], WHO REPORTS TO BE PATIENTS NEXT OF KIN AND NEIGHBOR. CARMELA REPORTS SHE IS NOT ABLE TO TAKE CARE OF PT AT HOME 24 HOURS A DAY AND THINKS IT BEST IF PT GOES TO [facility]. CARMELA PROVIDED HER NUMBER, . [facility] WILL ACCEPT PT FOR SHELTER CARE; CM WAITING ADMISSION DETERMINATION FROM [facility]. DIANA SINGLETARY CASE MANAGEMENT DCP- Discharge Planning Updated by [id number]: Diana Singletary on 08/05/19 3:[address] Patient Name: JINA COLINDRES Encounter No: [id number] : 1955 Primary Insurance: MEDICARE A & B Anticipated DC Date: Planned Disposition: [facility] Facility External Planned Provider: [facility], MEDICARE RHEAB BED DCP follow-up note: CM SPOKE TO BEDSIDE NURSE WHO INFORMED CM THAT PT REQUESTED TO SPEAK TO HOSPICE. CM RECEIVED HOSPICE CONSULT ORDER. CM MET WITH PT IN ROOM, DISCUSSED HOSPICE PROVIDERS, LOCATIONS AND SERVICES, PROVIDED HOSPICE LISTING OF PROVIDERS. PT REQUESTED [facility]. CHOICE COMPLETED. PT ALSO ASKED THAT CM SEND REFERRAL TO [facility] FOR REHAB IF SHE DECIDES FOR REHAB. ADDED TO CHOICE FORM, PT SIGNED THE CHOICE FOR [facility] AND [facility]. IMPORTANT MESSAGE FROM MEDICARE PROVIDED AND EXPLAINED. CM CALLED [facility], , SPOKE TO NANCY WHO TOOK REFERRAL AND WILL PROCESS REFERRAL AND HAVE NURSE MEET WITH PT IN HOSPITAL ROOM SOON POSSIBLE TODAY. CM FAXED REFERRAL TO [facility] AT [phone]. CM CALLED [facility], , SPOKE TO ADELINA AND PROVIDED REFERRAL INFORMATION; INFORMED HER THAT PT MAY WANT REHAB OR SENIOR CARE CARE WITH HOSPICE. CM FAXED REFERRAL TO [facility] AT [phone]. CM WAITING ON ADMISSION DETERMINATION FROM [facility] AND [facility]. WAITING PT TO MAKE DECISIONS REGARDING HOSPICE OR REHAB AT [facility]. Diana Singletary, CASE MANAGEMENT Appended by Diana Singletary on 08/05/2019 16:55 CDT: CM SPOKE TO HECTOR OF [facility], SHE SPOKE TO PT IN ROOM AND INFORMED CM THAT PT IS CONSIDERING PLACEMENT AT [facility] AND POSSIBLY HOSPICE WITH [facility]. HECTOR THINKS THAT [facility] MAY BE ABLE TO ASSIST WITH EITHER REHAB OR [facility] CARE, WHICHEVER PT DECIDES AND ASKED TO BE NOTIFIED WHEN PT MAKES UP HER MIND. CM SPOKE TO NANCY OF [facility], PT HAS BEEN ASSESSED BY NURSE EATON OF [facility] AND PT IS HOSPICE APPROPRIATE AND THEY DO HAVE A CONTRACT WITH [facility] IF PT WANTS HOSPICE THERE. [facility] WILL ACCEPT PT FOR SHELTER CARE; CM WAITING ADMISSION DETERMINATION FROM [facility]. CM WAITING PT'S DECISION REGARDING EITHER REHAB OR SENIOR CARE CARE PLACEMENT AT [facility]. DIANA SINGLETARY, CASE MANAGEMENT DCP- Discharge Planning Updated by [id number]: Diana Singletary on 08/01/19 8:[address] Patient Name: JINA COLINDRES Encounter No: [id number] : 1955 Primary Insurance: MEDICARE A & B Anticipated DC Date: Planned Disposition: [facility] Facility External Planned Provider: [facility], MEDICARE SKILLED / REHAB BED DCP follow-up note: CM SPOKE TO PT IN ROOM REGARDING DISCHARGE PLANNING AND NEEDS. CM DISCUSSED THE POSSIBLE NEED OF A PEG TUBE. PT STATES SHE DOES NOT WANT A PEG TUBE. CM DISCUSSED INPATIENT REHAB WILL NOT CONSIDER TAKING PT BACK DUE TO BEING TO LOW LEVEL AT THIS TIME. CM DISCUSSED [facility] REHAB PLACEMENT. PT REPORTS SHE HAS BEEN TO [facility] IN [place] AND IF SHE NEEDS IT, SHE WOULD LIKE TO GO BACK THERE. CHOICE COMPLETED. PT STATES SHE IS NOT ABLE TO SIGN. PT PROVIDED [employer]ERG[employer] HCM DEVELOPER NANCY FLORENCE, FRIEND AND COUNSELOR FROM [facility] [place] [phone]. PT REPORTS SHE ATTENDS COUNSELING FOR DEPRESSION. PT STATES THAT SHE WOULD LIKE NANCY FLORENCE TO BE HER FIRST EMEGENCY CONTACT WITH HER MOTHER BEING SECOND. PT STATES THAT IF SHE NEEDS HELP DECIDING WHAT TO DO, IT WOULD BE OK TO DISCUSS HER CARE AND PLANNING WITH NANCY. CM TO REFER PT TO [facility] WHEN PROJECTED DISCHARGE DATE AND NEEDS ARE KNOWN. CM TO FOLLOW AND ASSIST NEEDED. Diana Singletary, CASE MANAGEMENT DCP- Discharge Planning Updated by [id number]: Mahi Root on 07/25/19 7:[address] Patient Name: JINA COLINDRES Admission Status: Urgent Accout number: [id number] Admission Date: 07-25-2019 : 1955 Admission Diagnosis: Attending: GENEVA BERUMEN Current LOS: 1 Anticipated DC Date: Planned Disposition: Inpatient Rehab Primary Insurance: MEDICARE A & B Discharge Planning Comments: Patient was just discharged 07/23/19 will plan to return to Inpatient rehab once medically stable. CM met with patient to complete initial dc planning assessment. CM educated patient on the CM role and verbal consent given by patient to complete assessment. Patient lives at home alone where she is independent with her care. Patient agrees that at discharge patient will need rehab prior to going home. CM discussed availability of home health, rehab services, and medical equipment. Patient states that she plans to resume care with [facility]. MORENA signed. Patient has a nebulizer and home / portable 02 ( [employer]) Patient denied known discharge needs at this time. CM will continue to follow and will assist as needed with dc plans/needs. Career Development Director: Mahi Root DCPIA - Discharge Planning Initial Assessment Updated by [id number]: Mahi Root on 07/25/19 8:53 pm * Is the patient Alert and Oriented? Yes * How many steps to enter\exit or inside your home? * PCP [facility] [place] * Pharmacy [facility]? * Preadmission Environment Home Alone * ADLs Independent * Other Equipment HOME / PORTABLE 02, NEBULIZER, CANE * List name and contact numbers for known caregivers / representatives who currently or will assist patient after discharge: LIZZIE ROWLEY - MOTHER- [phone] BREANA hCavira [phone] (PRESCRIPTIONIST) Carmela Mason (good friend) [phone] Nancy Florence (Career Development Director- [facility]) [phone] * Community resources currently utilized Home Health * Please name any agencies selected above. [facility] * Additional services required to return to the preadmission environment? No * Can the patient safely return to the preadmission environment? Yes * Has this patient been hospitalized within the prior 30 days at any hospital? Yes Coverage Notice Reviewer: [id number] Singletary Notice Issued Date-Time: 08/05/2019 12:05 Notice Type: Patient Choice Letter Notice Delivered To: Patient Relationship to Patient: Transportation Project Manager Name: Delivery Method: HAND - Hand Delivered Giovana Days: Prior Verbal Notification: Recipient Understood Notice: Yes Recipient Signature: Yes Med Rec Note Co-signed by Attending: Coverage Notice Comment: [facility] [place] Reviewer: [id number] Singletary Notice Issued Date-Time: 08/01/2019 8:00 Notice Type: Patient Choice Letter Notice Delivered To: Relationship to Patient: Transportation Project Manager Name: Delivery Method: HAND - Hand Delivered Giovana Days: Prior Verbal Notification: Recipient Understood Notice: Yes Recipient Signature: Med Rec Note Co-signed by Attending: Coverage Notice Comment: [facility] Reviewer: [id number] Singletary Notice Issued Date-Time: 08/12/2019 16:00 Notice Type: IM Discharge Notice Notice Delivered To: Patient Relationship to Patient: Transportation Project Manager Name: Delivery Method: HAND - Hand Delivered Giovana Days: Prior Verbal Notification: Recipient Understood Notice: Yes Recipient Signature: Yes Med Rec Note Co-signed by Attending: Coverage Notice Comment: Reviewer: ALDAIR Singletary Notice Issued Date-Time: 08/05/2019 12:05 Notice Type: IM Discharge Notice Notice Delivered To: Patient Relationship to Patient: Transportation Project Manager Name: Delivery Method: HAND - Hand Delivered Giovana Days: Prior Verbal Notification: Recipient Understood Notice: Yes Recipient Signature: Yes Med Rec Note Co-signed by Attending: Coverage Notice Comment: Last DP export: 08/13/19 8:22 Patient Name: JINA COLINDRES Page [id number] at 0936 All edits/amendments must be made on the electronic document DICTATION DATE: 08/13/19934 PLUMBING SERVICE TECHNICIAN: MICHAEL 08/13/19934 RPT#: [id number] DC DATE: STATUS: ADM IN [facility] [address] [place] [address] END OF REPORT
[2019-08-13 12:00] VITALS: BP 127/74
--- NOTE | 2019-08-13 13:35 | NUR ---
PT TRANSFERED TO 2100. WILL CTM. ALL BELONGINGS TRANSFERED WELL.
[2019-08-13 14:11] VITALS: BP 127/69
--- NOTE | 2019-08-13 14:41 | NUR ---
Nutrition Follow-up: PO intake seems to be improving. Continues to receive Procalamine @ 75 mL/hr. Awaiting hospice placement. Diet: Regular, Puree, Glucerna TID PO intake: 50-60% yesterday Wt: 191# Last BM: 08/12 per chart Labs noted: Glu 277 Meds noted: Megace, Colace, Humalog, Lasix -Change to diabetic diet. -RD following.
--- NOTE | 2019-08-13 15:41 | NUR ---
I have reviewed this patient and I concur with the Shift Assessment completed by the Licensed Practical Nurse today this shift.
[2019-08-13 16:00] VITALS: BP 122/77
--- NOTE | 2019-08-13 16:45 | MORECARE ---
CASE MANAGEMENT DISCHARGE SUMMARY PATIENT: JINA COLINDRES UNIT: [id number] ADM DATE: 07/25/19 AGE: 64 : 53 SEX: F ROOM/BED: D.0161 AUTHOR: SANDRO,DOC PHYSICIAN: REFERRING PHYSICIAN: GENEVA BERUMEN MD DATE OF SERVICE: 08/13/19 Discharge Plan Patient Name: JINA COLINDRES Facility: [facility]:[place] : 1955 Planned Disposition: Nursing Facility [facility] Cert Anticipated Discharge Date: 08/07/19 Discharge Date: Expected LOS: 13 Initial Reviewer: [id number] Initial Review Date: 07/25/2019 Generated: 08/13/19 5:44 pm Comments DCP- Discharge Planning Updated by [id number]: Diana Singletary on 08/13/19 3:[address] Patient Name: JINA COLINDRES Encounter No: [id number] : 1955 Primary Insurance: MEDICARE A & B Anticipated DC Date: 08-07-2019 Planned Disposition: Nursing Facility [facility] Cert External Planned Provider: [facility] MEDICARE RHEAB BED DCP follow-up note: CM RECEIVED CALL FROM [facility], , SPOKE TO NANCY AND CM PROVIDED UPDATE. [facility] STILL WILL ACCEPT WHEN PT IS ADMITTED TO [facility]. CM RECEIVED IAN EXEMPT DETERMINATION, PT MAY ENTER [facility] FACILITY. CM CALLED [facility], , ALEXANDER WAS GONE FOR THE DAY, CM WAS ASKED TO CALL TOMORROW MORNING. CM SENT MESSAGE TO HECTOR CLIN[facility] FOR [facility], , NOTIFIED OF IAN EXEPTION AND ASKED FOR ADMISSION TO FACILITY. CM FAXED IAN EXEMPTION TO [facility] AT [phone]. [facility] WILL ACCEPT PT FOR ALF CARE; [facility] PLANS TO ACCEPT PATIENT, IAN SCREENING RECEIVED AND APPROVED/ EXEMPTED. CM WAITING ARRANGEMENTS FOR FACILITY TO ACCEPT PT TO HALFWAY CARE WITH HOSPICE. CM ANTICIPATES ADMISSION TO FACILITY TOMORROW, 08-14-19. FOR DISCHARGE, FAX DISCHARGE INFORMATION TO [facility] AT [phone]. NURSE REPORT TO BE CALLED TO [facility] AT [phone]. [facility] TO ARRANGE VAN TRANSPORTATION. HUMBERTO RAMIREZ MANAGEMENT DCP- Discharge Planning Updated by [id number]: Diana Singletary on 08/13/19 8:[address] Patient Name: JINA COLINDRES Encounter No: [id number] : 1955 Primary Insurance: MEDICARE A & B Anticipated DC Date: 08-07-2019 Planned Disposition: Nursing Facility [facility] Cert External Planned Provider: [facility], MEDICARE RHEAB BED DCP follow-up note: LATE ENTRY FROM 08-12-19 CM RECEIVED CALL FROM [facility], , SPOKE TO NANCY AND CM PROVIDED UPDATE. [facility] STILL WILL ACCEPT WHEN PT IS ADMITTED TO [facility]. CM RECEIVED CALL FROM [facility], , SPOKE TO ALEXANDER WHO INFORMED CM THAT PT'S FRIEND, NANCY, PROVIDED FIANCIAL INFORMATION, [facility] PLANS TO ACCEPT PT BUT THE FRIEND STATES PT HAS MENTAL ILLNESS AND ALEXANDER THINKS PT MAY NEED A IAN. THE MENTAL ILLNESS DIAGNOSIS IS NOT KNOWN TO ALEXANDER. CM FAXED REFERRAL UPDATE TO [facility] AT [phone]. CM MET WITH PT IN ROOM, DISCUSSED MENTAL HEALTH DIAGNOSIS. PT REPORTS HAVING DEPRESSION AND SCHIZOPHRENIA. SCHIZOPHRENIA HAS BEEN SINCE AGE 6. PT SE[facility] AT [facility] AND [facility], PT DOES NOT KNOW WHAT HER MEDICATIONS ARE SINCE THEY COME FROM [facility], PREPACKAGED TO TAKE AT PRESCRIBED TIMES. PT ASSISTED WITH COMPLETING IAN SCREENING FORM. SIGNATURE OBTAINED FROM JOSEPH [facility]. IMPORTANT MESSAGE FROM MEDICARE PROVIDED AND EXPLAINED TO PATIENT. PT STILL WANTS TO GO TO [facility] WITH [facility]. DISCHARGE PLANNING NOTE; 08-13-2019: CM SENT COMPLETED IAN WITH SUPPORTING DOCUMENTS VIA FAX TO [employer] AT [phone]. [facility] WILL ACCEPT PT FOR ALF CARE; [facility] PLANS TO ACCEPT PATIENT PENDING IAN SCREENING COMPLETION AND CLEARANCE. HUMBERTO RAMIREZ DCP- Discharge Planning Updated by [id number]: Renita Hall on 08/09/19 12:[address] Patient Name: JINA COLINDRES Admission Status: Urgent Accout number: [id number] Admission Date: 07-25-2019 : 1955 Admission Diagnosis: Attending: GENEVA BERUMEN Current LOS: 15 Anticipated DC Date: 08-07-2019 Planned Disposition: Nursing Facility [facility] Cert Primary Insurance: MEDICARE A & B Discharge Planning Comments: I spoke with Nancy Florence at [phone] and she can provide financials to [facility]. I called [facility] and left a message with Tanna. I will call [facility] and give them the info also. Architectural Wood Model Maker: Renita Hall DCP- Discharge Planning Updated by [id number]: Renita Hall on 08/08/19 1:[address] Patient Name: JINA COLINDRES Admission Status: Urgent Accout number: [id number] Admission Date: 07-25-2019 : 1955 Admission Diagnosis: Attending: GENEVA BERUMEN Current LOS: 14 Anticipated DC Date: 08-07-2019 Planned Disposition: Nursing Facility [facility] Cert Primary Insurance: MEDICARE A & B Discharge Planning Comments: CM SPOKE WITH ALEXANDER AT [facility] AND THEM AND [facility] ARE WORKING ON GETTING FINANCIALS. WAITING CALL BACK FOR AN UPDATE. Architectural Wood Model Maker: Renita Hall DCP- Discharge Planning Updated by [id number]: Diana Singletary on 08/07/19 2:[address] Patient Name: JINA COLINDRES Encounter No: [id number] : 1955 Primary Insurance: MEDICARE A & B Anticipated DC Date: 08-07-2019 Planned Disposition: Nursing Facility [facility] Cert External Planned Provider:[facility], HALFWAY CARE MEDICAID BED DCP follow-up note: CM SPOKE TO HECTOR OF [facility], THEY ARE TRYING TO LOCATE NEXT OF KIN TO ASSIST IN FILLING OUT MEDICAID APPLICATION AND PROVIDING FINANCIAL INFORMATION. CM PROVIDED INFORMATION FOR CARMELA MASON, , PT REPORTS HER TO BE A TRUSTED FRIEND AND NEIGHBOR. [facility] WILL ACCEPT PT FOR ALF CARE; CM WAITING [facility]. TO LOCATE PERSON TO ASSIST PT WITH FIANCIALS AND WORK OUT FINANCIAL ARRANGEMENTS WITH PT FOR HALFWAY CARE PLACEMENT. DIANA SINGLETARY, CASE MANAGEMENT DCP- Discharge Planning Updated by [id number]: Diana Singletary on 08/07/19 8:[address] Patient Name: JINA COLINDRES Encounter No: [id number] : 1955 Primary Insurance: MEDICARE A & B Anticipated DC Date: 08-07-2019 Planned Disposition: Nursing Facility [facility] Cert External Planned Provider:[facility] MEDICA[facility] BED DCP follow-up note: CM MET WITH PT IN ROOM, DISCUSSED HOSPICE AND SKILLED REHAB. PT THINKS SHE WANTS HOSPICE AT [facility]. PT REPORTS SHE HAS NO ONE BUT HER NEIGHBOR TO ASSIST WITH HER CARE AT HOME WITH HOSPICE. CM CALLED [facility], , SPOKE TO ADELINA AND PROVIDED UPDATE THAT PT IS REQUESTING PLACMENT WITH HOSPICE. CM WAS ADVISED THAT THEY WILL HAVE TO WORK ON FINANCIALS FOR MEDICAID. CM FAXED REFERRAL [place] TO [facility] AT [phone]. CM RECEIVED CALL FROM CARMELA MASON, WHO REPORTS TO BE PATIENTS NEXT OF KIN AND NEIGHBOR. CARMELA REPORTS SHE IS NOT ABLE TO TAKE CARE OF PT AT HOME 24 HOURS A DAY AND THINKS IT BEST IF PT GOES TO [facility]. CARMELA PROVIDED HER NUMBER, . [facility] WILL ACCEPT PT FOR ALF CARE; CM WAITING ADMISSION DETERMINATION FROM [facility]. DIANA SINGLETARY, CASE MANAGEMENT DCP- Discharge Planning Updated by [id number]: Diana Singletary on 08/05/19 3:[address] Patient Name: JINA COLINDRES Encounter No: [id number] : 1955 Primary Insurance: MEDICARE A & B Anticipated DC Date: Planned Disposition: Alf Facility External Planned Provider: [facility], MEDICARE RHEAB BED DCP follow-up note: CM SPOKE TO BEDSIDE NURSE WHO INFORMED CM THAT PT REQUESTED TO SPEAK TO HOSPICE. CM RECEIVED HOSPICE CONSULT ORDER. CM MET WITH PT IN ROOM, DISCUSSED HOSPICE PROVIDERS, LOCATIONS AND SERVICES, PROVIDED HOSPICE LISTING OF PROVIDERS. PT REQUESTED [facility]. CHOICE COMPLETED. PT ALSO ASKED THAT CM SEND REFERRAL TO [facility] FOR REHAB IF SHE DECIDES FOR REHAB. ADDED TO CHOICE FORM, PT SIGNED THE CHOICE FOR [facility] AND [facility]. IMPORTANT MESSAGE FROM MEDICARE PROVIDED AND EXPLAINED. CM CALLED [facility], , SPOKE TO NANCY WHO TOOK REFERRAL AND WILL PROCESS REFERRAL AND HAVE NURSE MEET WITH PT IN HOSPITAL ROOM SOON POSSIBLE TODAY. CM FAXED REFERRAL TO [facility] AT [phone]. CM CALLED [facility], , SPOKE TO ADELINA AND PROVIDED REFERRAL INFORMATION; INFORMED HER THAT PT MAY WANT REHAB OR [facility] WITH HOSPICE. CM FAXED REFERRAL TO [facility] AT [phone]. CM WAITING ON ADMISSION DETERMINATION FROM [facility] AND [facility]. WAITING PT TO MAKE DECISIONS REGARDING HOSPICE OR REHAB AT [facility]. Diana Singletary, CASE MANAGEMENT Appended by Diana Singletary on 08/05/2019 16:55 CDT: CM SPOKE TO HECTOR OF [facility], SHE SPOKE TO PT IN ROOM AND INFORMED CM THAT PT IS CONSIDERING PLACEMENT AT [facility] AND POSSIBLY HOSPICE WITH [facility]. HECTOR THINKS THAT [facility] MAY BE ABLE TO ASSIST WITH EITHER REHAB OR [facility], WHICHEVER PT DECIDES AND ASKED TO BE NOTIFIED WHEN PT MAKES UP HER MIND. CM SPOKE TO NANCY OF [facility], PT HAS BEEN ASSESSED BY NURSE EATON OF [facility] AND PT IS HOSPICE APPROPRIATE AND THEY DO HAVE A CONTRACT WITH [facility] IF PT WANTS HOSPICE THERE. [facility] WILL ACCEPT PT FOR ALF CARE; CM WAITING ADMISSION DETERMINATION FROM [facility]. CM WAITING PT'S DECISION REGARDING EITHER REHAB OR HALFWAY CARE PLACEMENT AT [facility]. DIANA SINGLETARY, CASE MANAGEMENT DCP- Discharge Planning Updated by [id number]: Diana Singletary on 08/01/19 8:[address] Patient Name: JINA COLINDRES Encounter No: [id number] : 1955 Primary Insurance: MEDICARE A & B Anticipated DC Date: Planned Disposition: Alf Facility External Planned Provider: [facility] MEDICARE SKILLED / REHAB BED DCP follow-up note: CM SPOKE TO PT IN ROOM REGARDING DISCHARGE PLANNING AND NEEDS. CM DISCUSSED THE POSSIBLE NEED OF A PEG TUBE. PT STATES SHE DOES NOT WANT A PEG TUBE. CM DISCUSSED INPATIENT REHAB WILL NOT CONSIDER TAKING PT BACK DUE TO BEING TO LOW LEVEL AT THIS TIME. CM DISCUSSED [facility] FACILITY REHAB PLACEMENT. PT REPORTS SHE HAS BEEN TO [facility] IN [place] AND IF SHE NEEDS IT, SHE WOULD LIKE TO GO BACK THERE. CHOICE COMPLETED. PT STATES SHE IS NOT ABLE TO SIGN. PT PROVIDED EMERGENCY DEEP FRYER ASSEMBLER NANCY FLORENCE, FRIEND AND COUNSELOR FROM [facility] [place] [phone]. PT REPORTS SHE ATTENDS COUNSELING FOR DEPRESSION. PT STATES THAT SHE WOULD LIKE NANCY FLORENCE TO BE HER FIRST EMEGENCY CONTACT WITH HER MOTHER BEING SECOND. PT STATES THAT IF SHE NEEDS HELP DECIDING WHAT TO DO, IT WOULD BE OK TO DISCUSS HER CARE AND PLANNING WITH NANCY. CM TO REFER PT TO [facility] WHEN PROJECTED DISCHARGE DATE AND NEEDS ARE KNOWN. CM TO FOLLOW AND ASSIST NEEDED. Diana Singletary, CASE MANAGEMENT DCP- Discharge Planning Updated by [id number]: Mahi Root on 07/25/19 7:[address] Patient Name: JINA COLINDRES Admission Status: Urgent Accout number: [id number] Admission Date: 07-25-2019 : 1955 Admission Diagnosis: Attending: GENEVA BERUMEN Current LOS: 1 Anticipated DC Date: Planned Disposition: Inpatient Rehab Primary Insurance: MEDICARE A & B Discharge Planning Comments: Patient was just discharged 07/23/19 will plan to return to Inpatient rehab once medically stable. CM met with patient to complete initial dc planning assessment. CM educated patient on the CM role and verbal consent given by patient to complete assessment. Patient lives at home alone where she is independent with her care. Patient agrees that at discharge patient will need rehab prior to going home. CM discussed availability of home health, rehab services, and medical equipment. Patient states that she plans to resume care with [facility] . [facility] signed. Patient has a nebulizer and home / portable 02 ( [employer]) Patient denied known discharge needs at this time. CM will continue to follow and will assist as needed with dc plans/needs. Architectural Wood Model Maker: Mahi Root DCPIA - Discharge Planning Initial Assessment Updated by [id number]: Mahi Root on 07/25/19 8:53 pm * Is the patient Alert and Oriented? Yes * How many steps to enter\exit or inside your home? * PCP [facility] [place] * [facility]? * Preadmission Environment Home Alone * ADLs Independent * Other Equipment HOME / PORTABLE 02, NEBULIZER, CANE * List name and contact numbers for known caregivers / representatives who currently or will assist patient after discharge: LIZZIE ROWLEY - MOTHER- [phone] BREANA Chavira [phone] (SECURITY PROFESSIONAL) Carmela Mason (good friend) [phone] Nancy Floernce (Architectural Wood Model Maker- [facility]) [phone] * Community resources currently utilized Home Health * Please name any agencies selected above. [facility] * Additional services required to return to the preadmission environment? No * Can the patient safely return to the preadmission environment? Yes * Has this patient been hospitalized within the prior 30 days at any hospital? Yes Coverage Notice Reviewer: [id number] Singletary Notice Issued Date-Time: 08/01/2019 8:00 Notice Type: Patient Choice Letter Notice Delivered To: Relationship to Patient: Medical Record Librarian Name: Delivery Method: HAND - Hand Delivered Giovana Days: Prior Verbal Notification: Recipient Understood Notice: Yes Recipient Signature: Med Rec Note Co-signed by Attending: Coverage Notice Comment: SWAPNA SCHROEDER Reviewer: [id number] Singletary Notice Issued Date-Time: 08/05/2019 12:05 Notice Type: IM Discharge Notice Notice Delivered To: Patient Relationship to Patient: Medical Record Librarian Name: Delivery Method: HAND - Hand Delivered Giovana Days: Prior Verbal Notification: Recipient Understood Notice: Yes Recipient Signature: Yes Med Rec Note Co-signed by Attending: Coverage Notice Comment: Reviewer: ALDAIR Singletary Notice Issued Date-Time: 08/05/2019 12:05 Notice Type: Patient Choice Letter Notice Delivered To: Patient Relationship to Patient: Medical Record Librarian Name: Delivery Method: HAND - Hand Delivered Giovana Days: Prior Verbal Notification: Recipient Understood Notice: Yes Recipient Signature: Yes Med Rec Note Co-signed by Attending: Coverage Notice Comment: [facility] SWAPNA SCHROEDER IN [place] Reviewer: [id number] Jo Ann Singletary Notice Issued Date-Time: 08/12/2019 16:00 Notice Type: IM Discharge Notice Notice Delivered To: Patient Relationship to Patient: Medical Record Librarian Name: Delivery Method: HAND - Hand Delivered Giovana Days: Prior Verbal Notification: Recipient Understood Notice: Yes Recipient Signature: Yes Med Rec Note Co-signed by Attending: Coverage Notice Comment: Last DP export: 08/13/19 8:36 Patient Name: JINA COLINDRES Page [id number] at 1645 All edits/amendments must be made on the electronic document DICTATION DATE: 08/13/191643 REDEVELOPMENT SPECIALIST: MICHAEL 08/13/191643 RPT#: [id number] DC DATE: STATUS: ADM IN [place] [address] [place] [address] END OF REPORT
--- NOTE | 2019-08-13 19:10 | NUR ---
EVENING ROUNDS COMPLETE. PT SITTING UP IN BED. NO SIGNS OF DISTRESS. PT DENIES ANY PAIN OR NEEDS AT THIS TIME. CL IN REACH, BED IN LOWEST POSITION.
[2019-08-13 21:04] VITALS: BP 140/73
[2019-08-14 00:24] VITALS: BP 131/75
[2019-08-14 04:30] VITALS: BP 156/85
--- NOTE | 2019-08-14 06:47 | MORECARE ---
CASE MANAGEMENT DISCHARGE SUMMARY PATIENT: JINA COLINDRES UNIT: [id number] ADM DATE: 07/25/19 AGE: 64 : 53 SEX: F ROOM/BED: D.3133 AUTHOR: SANDRO,DOC PHYSICIAN: REFERRING PHYSICIAN: GENEVA BERUMEN MD DATE OF SERVICE: 08/14/19 Discharge Plan Patient Name: JINA COLINDRES Facility: [facility]:[place] : 1955 Planned Disposition: Nursing Facility DONNA Cert Anticipated Discharge Date: 08/14/19 Discharge Date: Expected LOS: 20 Initial Reviewer: [id number] Initial Review Date: 07/25/2019 Generated: 08/14/19 7:47 am Comments DCP- Discharge Planning Updated by [id number]: Diana Singletary on 08/13/19 3:[address] Patient Name: JINA COLINDRES Encounter No: [id number] : 1955 Primary Insurance: MEDICARE A & B Anticipated DC Date: 08-07-2019 Planned Disposition: Nursing Facility DONNA Cert External Planned Provider: [facility] MEDICARE RHEAB BED DCP follow-up note: CM RECEIVED CALL FROM [facility], , SPOKE TO NANCY AND CM PROVIDED UPDATE. [facility] STILL WILL ACCEPT WHEN PT IS ADMITTED TO [facility]. CM RECEIVED IAN EXEMPT DETERMINATION, PT MAY ENTER RETIREMENT FACILITY. CM CALLED [facility], , ALEXANDER WAS GONE FOR THE DAY, CM WAS ASKED TO CALL TOMORROW MORNING. CM SENT MESSAGE TO [facility] FOR [facility], , NOTIFIED OF IAN EXEPTION AND ASKED FOR ADMISSION TO FACILITY. CM FAXED IAN EXEMPTION TO [facility] AT [phone]. [facility] WILL ACCEPT PT FOR JAIL CARE; [facility] PLANS TO ACCEPT PATIENT, IAN SCREENING RECEIVED AND APPROVED/ EXEMPTED. CM WAITING ARRANGEMENTS FOR FACILITY TO ACCEPT PT TO SENIOR LIVING CARE WITH HOSPICE. CM ANTICIPATES ADMISSION TO FACILITY TOMORROW, 08-14-19. FOR DISCHARGE, FAX DISCHARGE INFORMATION TO [facility] AT [phone]. NURSE REPORT TO BE CALLED TO [facility] AT [phone]. [facility] TO ARRANGE VAN TRANSPORTATION. HUMBRETO RAMIREZ MANAGEMENT DCP- Discharge Planning Updated by [id number]: Diana Singletary on 08/13/19 8:[address] Patient Name: JINA COLINDRES Encounter No: [id number] : 1955 Primary Insurance: MEDICARE A & B Anticipated DC Date: 08-07-2019 Planned Disposition: Nursing Facility DONNA Cert External Planned Provider: [facility], MEDICARE RHEAB BED DCP follow-up note: LATE ENTRY FROM 08-12-19 CM RECEIVED CALL FROM [facility], , SPOKE TO NANCY AND CM PROVIDED UPDATE. [facility] STILL WILL ACCEPT WHEN PT IS ADMITTED TO [facility]. CM RECEIVED CALL FROM [facility], , SPOKE TO ALEXANDER WHO INFORMED CM THAT PT'S FRIEND, NANCY, PROVIDED FIANCIAL INFORMATION, [facility] PLANS TO ACCEPT PT BUT THE FRIEND STATES PT HAS MENTAL ILLNESS AND ALEXANDER THINKS PT MAY NEED A IAN. THE MENTAL ILLNESS DIAGNOSIS IS NOT KNOWN TO ALEXANDER. CM FAXED REFERRAL UPDATE TO [facility] AT [phone]. CM MET WITH PT IN ROOM, DISCUSSED MENTAL HEALTH DIAGNOSIS. PT REPORTS HAVING DEPRESSION AND SCHIZOPHRENIA. SCHIZOPHRENIA HAS BEEN SINCE AGE 6. PT SE[facility] AT [facility] AND [facility], PT DOES NOT KNOW WHAT HER MEDICATIONS ARE SINCE THEY COME FROM [facility], PREPACKAGED TO TAKE AT PRESCRIBED TIMES. PT ASSISTED WITH COMPLETING IAN SCREENING FORM. SIGNATURE OBTAINED FROM JOSEPH KAUR. IMPORTANT MESSAGE FROM MEDICARE PROVIDED AND EXPLAINED TO PATIENT. PT STILL WANTS TO GO TO [facility] WITH [facility]. DISCHARGE PLANNING NOTE; 08-13-2019: CM SENT COMPLETED IAN WITH SUPPORTING DOCUMENTS VIA FAX TO [facility] AT [phone]. [facility] WILL ACCEPT PT FOR JAIL CARE; [facility] PLANS TO ACCEPT PATIENT PENDING IAN SCREENING COMPLETION AND CLEARANCE. HUMBERTO RAMIREZ DCP- Discharge Planning Updated by [id number]: Renita Hall on 08/09/19 12:[address] Patient Name: JINA COLINDRES Admission Status: Urgent Accout number: [id number] Admission Date: 07-25-2019 : 1955 Admission Diagnosis: Attending: GENEVA BERUMEN Current LOS: 15 Anticipated DC Date: 08-07-2019 Planned Disposition: Nursing Facility [facility] Cert Primary Insurance: MEDICARE A & B Discharge Planning Comments: I spoke with Nancy Florence at [phone] and she can provide financials to [facility]. I called [facility] and left a message with Tanna. I will call [facility] and give them the info also. Water Resources Business Segment Leader: Renita Hall DCP- Discharge Planning Updated by [id number]: Renita Hall on 08/08/19 1:[address] Patient Name: JINA COLINDRES Admission Status: Urgent Accout number: [id number] Admission Date: 07-25-2019 : 1955 Admission Diagnosis: Attending: GENEVA BERUMEN Current LOS: 14 Anticipated DC Date: 08-07-2019 Planned Disposition: Nursing Facility [facility] Cert Primary Insurance: MEDICARE A & B Discharge Planning Comments: CM SPOKE WITH ALEXANDER AT [facility] AND THEM AND [facility] ARE WORKING ON GETTING FINANCIALS. WAITING CALL BACK FOR AN UPDATE. Water Resources Business Segment Leader: Renita Hall DCP- Discharge Planning Updated by [id number]: Diana Singletary on 08/07/19 2:[address] Patient Name: JINA COLINDRES Encounter No: [id number] : 1955 Primary Insurance: MEDICARE A & B Anticipated DC Date: 08-07-2019 Planned Disposition: Nursing Facility [facility] Cert External Planned Provider:[facility], SENIOR LIVING CARE MEDICAID BED DCP follow-up note: CM SPOKE TO HECTOR OF [facility], THEY ARE TRYING TO LOCATE NEXT OF KIN TO ASSIST IN FILLING OUT MEDICAID APPLICATION AND PROVIDING FINANCIAL INFORMATION. CM PROVIDED INFORMATION FOR CARMELA MASON, , PT REPORTS HER TO BE A TRUSTED FRIEND AND NEIGHBOR. [facility] WILL ACCEPT PT FOR JAIL CARE; CM WAITING [facility]. TO LOCATE PERSON TO ASSIST PT WITH FIANCIALS AND WORK OUT FINANCIAL ARRANGEMENTS WITH PT FOR SENIOR LIVING CARE PLACEMENT. DIANA SINGLETARY, CASE MANAGEMENT DCP- Discharge Planning Updated by [id number]: Diana Singletary on 08/07/19 8:[address] Patient Name: JINA COLINDRES Encounter No: [id number] : 1955 Primary Insurance: MEDICARE A & B Anticipated DC Date: 08-07-2019 Planned Disposition: Nursing Facility [facility] Cert External Planned Provider:[facility] MEDICAID BED DCP follow-up note: CM MET WITH PT IN ROOM, DISCUSSED HOSPICE AND SKILLED REHAB. PT THINKS SHE WANTS HOSPICE AT [facility]. PT REPORTS SHE HAS NO ONE BUT HER NEIGHBOR TO ASSIST WITH HER CARE AT HOME WITH HOSPICE. CM CALLED [facility], , SPOKE TO ADELINA AND PROVIDED UPDATE THAT PT IS REQUESTING PLACMENT WITH HOSPICE. CM WAS ADVISED THAT THEY WILL HAVE TO WORK ON FINANCIALS FOR MEDICAID. CM FAXED REFERRAL [place] TO [facility] AT [phone]. CM RECEIVED CALL FROM CARMELA MASON, WHO REPORTS TO BE PATIENTS NEXT OF KIN AND NEIGHBOR. CARMELA REPORTS SHE IS NOT ABLE TO TAKE CARE OF PT AT HOME 24 HOURS A DAY AND THINKS IT BEST IF PT GOES TO [facility]. CARMELA PROVIDED HER NUMBER, . [facility] WILL ACCEPT PT FOR JAIL CARE; CM WAITING ADMISSION DETERMINATION FROM [facility]. DIANA SINGLETARY, CASE MANAGEMENT DCP- Discharge Planning Updated by [id number]: Diana Singletary on 08/05/19 3:[address] Patient Name: JINA COLINDRES Encounter No: [id number] : 1955 Primary Insurance: MEDICARE A & B Anticipated DC Date: Planned Disposition: Senior Living Facility External Planned Provider: [facility], MEDICARE RHEAB BED DCP follow-up note: CM SPOKE TO BEDSIDE NURSE WHO INFORMED CM THAT PT REQUESTED TO SPEAK TO HOSPICE. CM RECEIVED HOSPICE CONSULT ORDER. CM MET WITH PT IN ROOM, DISCUSSED HOSPICE PROVIDERS, LOCATIONS AND SERVICES, PROVIDED HOSPICE LISTING OF PROVIDERS. PT REQUESTED [facility]. CHOICE COMPLETED. PT ALSO ASKED THAT CM SEND REFERRAL TO [facility] FOR REHAB IF SHE DECIDES FOR REHAB. ADDED TO CHOICE FORM, PT SIGNED THE CHOICE FOR [facility] AND [facility]. IMPORTANT MESSAGE FROM MEDICARE PROVIDED AND EXPLAINED. CM CALLED [facility], , SPOKE TO NANCY WHO TOOK REFERRAL AND WILL PROCESS REFERRAL AND HAVE NURSE MEET WITH PT IN HOSPITAL ROOM SOON POSSIBLE TODAY. CM FAXED REFERRAL TO [facility] AT [phone]. CM CALLED [facility], , SPOKE TO ADELINA AND PROVIDED REFERRAL INFORMATION; INFORMED HER THAT PT MAY WANT REHAB OR HOME HELP AIDE CARE WITH HOSPICE. CM FAXED REFERRAL TO [facility] AT [phone]. CM WAITING ON ADMISSION DETERMINATION FROM [facility] AND [facility]. WAITING PT TO MAKE DECISIONS REGARDING HOSPICE OR REHAB AT [facility]. Diana Singletary, CASE MANAGEMENT Appended by Diana Singletary on 08/05/2019 16:55 CDT: CM SPOKE TO HECTOR OF [facility], SHE SPOKE TO PT IN ROOM AND INFORMED CM THAT PT IS CONSIDERING PLACEMENT AT [facility] AND POSSIBLY HOSPICE WITH [facility]. HECTOR THINKS THAT [facility] MAY BE ABLE TO ASSIST WITH EITHER REHAB OR HOME HELP AIDE CARE, WHICHEVER PT DECIDES AND ASKED TO BE NOTIFIED WHEN PT MAKES UP HER MIND. CM SPOKE TO NANCY OF [facility], PT HAS BEEN ASSESSED BY NURSE EATON OF [facility] AND PT IS HOSPICE APPROPRIATE AND THEY DO HAVE A CONTRACT WITH [facility] IF PT WANTS HOSPICE THERE. [facility] WILL ACCEPT PT FOR JAIL CARE; CM WAITING ADMISSION DETERMINATION FROM [facility]. CM WAITING PT'S DECISION REGARDING EITHER REHAB OR SENIOR LIVING CARE PLACEMENT AT [facility]. DIANA SINGLETARY, CASE MANAGEMENT DCP- Discharge Planning Updated by [id number]: Diana Singletary on 08/01/19 8:[address] Patient Name: JINA COLINDRES Encounter No: [id number] : 1955 Primary Insurance: MEDICARE A & B Anticipated DC Date: Planned Disposition: Senior Living Facility External Planned Provider: [facility] MEDICARE SKILLED / REHAB BED DCP follow-up note: CM SPOKE TO PT IN ROOM REGARDING DISCHARGE PLANNING AND NEEDS. CM DISCUSSED THE POSSIBLE NEED OF A PEG TUBE. PT STATES SHE DOES NOT WANT A PEG TUBE. CM DISCUSSED INPATIENT REHAB WILL NOT CONSIDER TAKING PT BACK DUE TO BEING TO LOW LEVEL AT THIS TIME. CM DISCUSSED RETIREMENT FACILITY REHAB PLACEMENT. PT REPORTS SHE HAS BEEN TO [facility] IN [place] AND IF SHE NEEDS IT, SHE WOULD LIKE TO GO BACK THERE. CHOICE COMPLETED. PT STATES SHE IS NOT ABLE TO SIGN. PT PROVIDED EMERGENCY LOAN PROCESSING SUPERVISOR NANCY FLORENCE, FRIEND AND COUNSELOR FROM [facility], [place] [phone]. PT REPORTS SHE ATTENDS COUNSELING FOR DEPRESSION. PT STATES THAT SHE WOULD LIKE NANCY FLORENCE TO BE HER FIRST EMEGENCY CONTACT WITH HER MOTHER BEING SECOND. PT STATES THAT IF SHE NEEDS HELP DECIDING WHAT TO DO, IT WOULD BE OK TO DISCUSS HER CARE AND PLANNING WITH NANCY. CM TO REFER PT TO [facility] WHEN PROJECTED DISCHARGE DATE AND NEEDS ARE KNOWN. CM TO FOLLOW AND ASSIST NEEDED. Diana Singletary, CASE MANAGEMENT DCP- Discharge Planning Updated by [id number]: Mahi Root on 07/25/19 7:[address] Patient Name: JINA COLINDRES Admission Status: Urgent Accout number: [id number] Admission Date: 07-25-2019 : 1955 Admission Diagnosis: Attending: GENEVA BERUMEN Current LOS: 1 Anticipated DC Date: Planned Disposition: Inpatient Rehab Primary Insurance: MEDICARE A & B Discharge Planning Comments: Patient was just discharged 07/23/19 will plan to return to Inpatient rehab once medically stable. CM met with patient to complete initial dc planning assessment. CM educated patient on the CM role and verbal consent given by patient to complete assessment. Patient lives at home alone where she is independent with her care. Patient agrees that at discharge patient will need rehab prior to going home. CM discussed availability of home health, rehab services, and medical equipment. Patient states that she plans to resume care with [facility] . MORENA signed. Patient has a nebulizer and home / portable 02 ( [employer]) Patient denied known discharge needs at this time. CM will continue to follow and will assist as needed with dc plans/needs. Water Resources Business Segment Leader: Mahi Root DCPIA - Discharge Planning Initial Assessment Updated by [id number]: Mahi Root on 07/25/19 8:53 pm * Is the patient Alert and Oriented? Yes * How many steps to enter\exit or inside your home? * PCP [facility] [place] * [facility]? * Preadmission Environment Home Alone * ADLs Independent * Other Equipment HOME / PORTABLE 02, NEBULIZER, CANE * List name and contact numbers for known caregivers / representatives who currently or will assist patient after discharge: LIZZIE ROWLEY - MOTHER- [phone] BREANA Chavira [phone] (FLOSSER) Carmela Mason (good friend) [phone] Nancy Florence (Water Resources Business Segment Leader- [facility]) [phone] * Community resources currently utilized Home Health * Please name any agencies selected above. [facility] * Additional services required to return to the preadmission environment? No * Can the patient safely return to the preadmission environment? Yes * Has this patient been hospitalized within the prior 30 days at any hospital? Yes Coverage Notice Reviewer: [id number] Singletary Notice Issued Date-Time: 08/01/2019 8:00 Notice Type: Patient Choice Letter Notice Delivered To: Relationship to Patient: Rf Design Engineer Name: Delivery Method: HAND - Hand Delivered Giovana Days: Prior Verbal Notification: Recipient Understood Notice: Yes Recipient Signature: Med Rec Note Co-signed by Attending: Coverage Notice Comment: SWAPNA SCHROEDER Reviewer: [id number] Singletary Notice Issued Date-Time: 08/05/2019 12:05 Notice Type: IM Discharge Notice Notice Delivered To: Patient Relationship to Patient: Rf Design Engineer Name: Delivery Method: HAND - Hand Delivered Giovana Days: Prior Verbal Notification: Recipient Understood Notice: Yes Recipient Signature: Yes Med Rec Note Co-signed by Attending: Coverage Notice Comment: Reviewer: ALDAIR Singletary Notice Issued Date-Time: 08/05/2019 12:05 Notice Type: Patient Choice Letter Notice Delivered To: Patient Relationship to Patient: Rf Design Engineer Name: Delivery Method: HAND - Hand Delivered Giovana Days: Prior Verbal Notification: Recipient Understood Notice: Yes Recipient Signature: Yes Med Rec Note Co-signed by Attending: Coverage Notice Comment: [facility] SWAPNA SCHROEDER IN [place] Reviewer: [id number] Jo Ann Singletary Notice Issued Date-Time: 08/12/2019 16:00 Notice Type: IM Discharge Notice Notice Delivered To: Patient Relationship to Patient: Rf Design Engineer Name: Delivery Method: HAND - Hand Delivered Giovana Days: Prior Verbal Notification: Recipient Understood Notice: Yes Recipient Signature: Yes Med Rec Note Co-signed by Attending: Coverage Notice Comment: Last DP export: 08/13/19 3:44 Patient Name: JINA COLINDRES Page [id number] at 0647 All edits/amendments must be made on the electronic document DICTATION DATE: 08/14/19646 PRESIDENT ERGONOMIC CONSULTING: MICHAEL 08/14/19646 RPT#: [id number] DC DATE: STATUS: ADM IN [facility] [address] [place] [address] END OF REPORT
[2019-08-14] MEDS ORDERED: Nystatin Oral Susp [ PO (11:54)
[2019-08-14] MEDS ORDERED: VALTREX500 MG PO (11:54)
--- NOTE | 2019-08-14 12:02 | NUR ---
PER SARA KAUR APN TO DISCONTINNUE PICC LINE.
[2019-08-14] MEDS ORDERED: GEODON20 MG PO (12:20)
--- NOTE | 2019-08-14 12:53 | NUR ---
REPORT CALLED TO MAIDA AT THIS TIME.
--- NOTE | 2019-08-14 13:31 | NUR ---
DC PAPERWORK GONE OVER AND SIGNED WITH PT. ALL QUESTIONS ANSWERED. PT DC WITH TYSON MARI. AWAITING [facility] TRANSPORT.
[2019-08-14 13:36] VITALS: BP 124/61
--- NOTE | 2019-08-14 13:37 | MORECARE ---
CASE MANAGEMENT DISCHARGE SUMMARY PATIENT: JINA COLINDRES UNIT: [id number] ADM DATE: 07/25/19 AGE: 64 : 53 SEX: F ROOM/BED: D.8071 AUTHOR: SANDRO,DOC PHYSICIAN: REFERRING PHYSICIAN: GENEVA BERUMEN MD DATE OF SERVICE: 08/14/19 Discharge Plan Patient Name: JINA COLINDRES Facility: [facility]:[place] : 1955 Planned Disposition: Nursing Facility DONNA Cert Anticipated Discharge Date: 08/14/19 Discharge Date: Expected LOS: 20 Initial Reviewer: [id number] Initial Review Date: 07/25/2019 Generated: 08/14/19 2:37 pm Comments DCP- Discharge Planning Updated by [id number]: Diana Singletary on 08/13/19 3:[address] Patient Name: JINA COLINDRES Encounter No: [id number] : 1955 Primary Insurance: MEDICARE A & B Anticipated DC Date: 08-07-2019 Planned Disposition: Nursing Facility DONNA Cert External Planned Provider: [facility] MEDICARE RHEAB BED DCP follow-up note: CM RECEIVED CALL FROM [facility], , SPOKE TO NANCY AND CM PROVIDED UPDATE. [facility] STILL WILL ACCEPT WHEN PT IS ADMITTED TO [facility]. CM RECEIVED IAN EXEMPT DETERMINATION, PT MAY ENTER [facility] F[facility]. CM CALLED [facility], , ALEXANDER WAS GONE FOR THE DAY, CM WAS ASKED TO CALL TOMORROW MORNING. CM SENT MESSAGE TO [facility]ECTOR [facility] FOR [facility], , NOTIFIED OF IAN EXEPTION AND ASKED FOR ADMISSION TO FACILITY. CM FAXED IAN EXEMPTION TO [facility] AT [phone]. [facility] WILL ACCEPT PT FOR SKILLED NURSING CARE; [facility] PLANS TO ACCEPT PATIENT, IAN SCREENING RECEIVED AND APPROVED/ EXEMPTED. CM WAITING ARRANGEMENTS FOR FACILITY TO ACCEPT PT TO SENIOR CARE CARE WITH HOSPICE. CM ANTICIPATES ADMISSION TO FACILITY TOMORROW, 08-14-19. FOR DISCHARGE, FAX DISCHARGE INFORMATION TO [facility] AT [phone]. NURSE REPORT TO BE CALLED TO [facility] AT [phone]. [facility] TO ARRANGE VAN TRANSPORTATION. HUMBERTO RAMIREZ MANAGEMENT DCP- Discharge Planning Updated by [id number]: Diana Singletary on 08/13/19 8:[address] Patient Name: JINA COLINDRES Encounter No: [id number] : 1955 Primary Insurance: MEDICARE A & B Anticipated DC Date: 08-07-2019 Planned Disposition: Nursing Facility DONNA Cert External Planned Provider: [facility], MEDICARE RHEAB BED DCP follow-up note: LATE ENTRY FROM 08-12-19 CM RECEIVED CALL FROM [facility], , SPOKE TO NANCY AND CM PROVIDED UPDATE. [facility] STILL WILL ACCEPT WHEN PT IS ADMITTED TO [facility]. CM RECEIVED CALL FROM [facility], , SPOKE TO ALEXANDER WHO INFORMED CM THAT PT'S FRIEND, NANCY, PROVIDED FIANCIAL INFORMATION, [facility] PLANS TO ACCEPT PT BUT THE FRIEND STATES PT HAS MENTAL ILLNESS AND ALEXANDER THINKS PT MAY NEED A IAN. THE MENTAL ILLNESS DIAGNOSIS IS NOT KNOWN TO ALEXANDER. CM FAXED REFERRAL UPDATE TO [facility] AT [phone]. CM MET WITH PT IN ROOM, DISCUSSED MENTAL HEALTH DIAGNOSIS. PT REPORTS HAVING DEPRESSION AND SCHIZOPHRENIA. SCHIZOPHRENIA HAS BEEN SINCE AGE 6. PT SEES AT [facility] AND [facility], PT DOES NOT KNOW WHAT HER MEDICATIONS ARE SINCE THEY COME FROM [facility], PREPACKAGED TO TAKE AT PRESCRIBED TIMES. PT ASSISTED WITH COMPLETING IAN SCREENING FORM. SIGNATURE OBTAINED FROM JOSEPH KAUR. IMPORTANT MESSAGE FROM MEDICARE PROVIDED AND EXPLAINED TO PATIENT. PT STILL WANTS TO GO TO [facility] WITH [facility]ARE. DISCHARGE PLANNING NOTE; 08-13-2019: CM SENT COMPLETED IAN WITH SUPPORTING DOCUMENTS VIA FAX TO [employer] AT [phone]. [facility] WILL ACCEPT PT FOR SKILLED NURSING CARE; [facility] PLANS TO ACCEPT PATIENT PENDING IAN SCREENING COMPLETION AND CLEARANCE. HUMBERTO RAMIREZ DCP- Discharge Planning Updated by [id number]: Renita Hall on 08/09/19 12:[address] Patient Name: JINA COLINDRES Admission Status: Urgent Accout number: [id number] Admission Date: 07-25-2019 : 1955 Admission Diagnosis: Attending: GENEVA BERUMEN Current LOS: 15 Anticipated DC Date: 08-07-2019 Planned Disposition: Nursing Facility [facility] Cert Primary Insurance: MEDICARE A & B Discharge Planning Comments: I spoke with Nancy Florence at [phone] and she can provide financials to [facility]. I called [facility] and left a message with Tanna. I will call [facility] and give them the info also. Multineedle Shirrer: Renita Hall DCP- Discharge Planning Updated by [id number]: Renita Hall on 08/08/19 1:[address] Patient Name: JINA COLINDRES Admission Status: Urgent Accout number: [id number] Admission Date: 07-25-2019 : 1955 Admission Diagnosis: Attending: GENEVA BERUMEN Current LOS: 14 Anticipated DC Date: 08-07-2019 Planned Disposition: Nursing Facility [facility] Cert Primary Insurance: MEDICARE A & B Discharge Planning Comments: CM SPOKE WITH ALEXANDER AT [facility] AND THEM AND [facility] ARE WORKING ON GETTING FINANCIALS. WAITING CALL BACK FOR AN UPDATE. Multineedle Shirrer: Renita Hall DCP- Discharge Planning Updated by [id number]: Diana Singletary on 08/07/19 2:[address] Patient Name: JINA COLINDRES Encounter No: [id number] : 1955 Primary Insurance: MEDICARE A & B Anticipated DC Date: 08-07-2019 Planned Disposition: Nursing Facility [facility] Cert External Planned Provider:[facility], SENIOR CARE CARE MEDICAID BED DCP follow-up note: CM SPOKE TO HECTOR OF [facility], THEY ARE TRYING TO LOCATE NEXT OF KIN TO ASSIST IN FILLING OUT MEDICAID APPLICATION AND PROVIDING FINANCIAL INFORMATION. CM PROVIDED INFORMATION FOR CARMELA MASON, , PT REPORTS HER TO BE A TRUSTED FRIEND AND NEIGHBOR. [facility] WILL ACCEPT PT FOR SKILLED NURSING CARE; CM WAITING [facility]. TO LOCATE PERSON TO ASSIST PT WITH FIANCIALS AND WORK OUT FINANCIAL ARRANGEMENTS WITH PT FOR SENIOR CARE CARE PLACEMENT. DIANA SINGLETARY, CASE MANAGEMENT DCP- Discharge Planning Updated by [id number]: Diana Singletary on 08/07/19 8:[address] Patient Name: JINA COLINDRES Encounter No: [id number] : 1955 Primary Insurance: MEDICARE A & B Anticipated DC Date: 08-07-2019 Planned Disposition: Nursing Facility [facility] Cert External Planned Provider:[facility] MEDICAID BED DCP follow-up note: CM MET WITH PT IN ROOM, DISCUSSED HOSPICE AND SKILLED REHAB. PT THINKS SHE WANTS HOSPICE AT [facility]. PT REPORTS SHE HAS NO ONE BUT HER NEIGHBOR TO ASSIST WITH HER CARE AT HOME WITH HOSPICE. CM CALLED [facility], , SPOKE TO ADELINA AND PROVIDED UPDATE THAT PT IS REQUESTING PLACMENT WITH HOSPICE. CM WAS ADVISED THAT THEY WILL HAVE TO WORK ON FINANCIALS FOR MEDICAID. CM FAXED REFERRAL [place] TO [facility] AT [phone]. CM RECEIVED CALL FROM CARMELA MASON, WHO REPORTS TO BE PATIENTS NEXT OF KIN AND NEIGHBOR. CARMELA REPORTS SHE IS NOT ABLE TO TAKE CARE OF PT AT HOME 24 HOURS A DAY AND THINKS IT BEST IF PT GOES TO [facility]. CARMELA PROVIDED HER NUMBER, . [facility] WILL ACCEPT PT FOR SKILLED NURSING CARE; CM WAITING ADMISSION DETERMINATION FROM [facility]. DIANA SINGLETARY, CASE MANAGEMENT DCP- Discharge Planning Updated by [id number]: Diana Singletary on 08/05/19 3:[address] Patient Name: JINA COLINDRES Encounter No: [id number] : 1955 Primary Insurance: MEDICARE A & B Anticipated DC Date: Planned Disposition: Correction Facility External Planned Provider: [facility], MEDICARE RHEAB BED DCP follow-up note: CM SPOKE TO BEDSIDE NURSE WHO INFORMED CM THAT PT REQUESTED TO SPEAK TO HOSPICE. CM RECEIVED HOSPICE CONSULT ORDER. CM MET WITH PT IN ROOM, DISCUSSED HOSPICE PROVIDERS, LOCATIONS AND SERVICES, PROVIDED HOSPICE LISTING OF PROVIDERS. PT REQUESTED [facility]. CHOICE COMPLETED. PT ALSO ASKED THAT CM SEND REFERRAL TO [facility] FOR REHAB IF SHE DECIDES FOR REHAB. ADDED TO CHOICE FORM, PT SIGNED THE CHOICE FOR [facility] AND [facility]. IMPORTANT MESSAGE FROM MEDICARE PROVIDED AND EXPLAINED. CM CALLED [facility], , SPOKE TO NANCY WHO TOOK REFERRAL AND WILL PROCESS REFERRAL AND HAVE NURSE MEET WITH PT IN HOSPITAL ROOM SOON POSSIBLE TODAY. CM FAXED REFERRAL TO [facility] AT [phone]. CM CALLED [facility], , SPOKE TO ADELINA AND PROVIDED REFERRAL INFORMATION; INFORMED HER THAT PT MAY WANT REHAB OR GLOBAL COORDINATOR CARE WITH HOSPICE. CM FAXED REFERRAL TO [facility] AT [phone]. CM WAITING ON ADMISSION DETERMINATION FROM [facility] AND [facility]. WAITING PT TO MAKE DECISIONS REGARDING HOSPICE OR REHAB AT [facility]. Diana Singletary, CASE MANAGEMENT Appended by Diana Singletary on 08/05/2019 16:55 CDT: CM SPOKE TO HECTOR OF [facility], SHE SPOKE TO PT IN ROOM AND INFORMED CM THAT PT IS CONSIDERING PLACEMENT AT [facility] AND POSSIBLY HOSPICE WITH [facility]. HECTOR THINKS THAT [facility] MAY BE ABLE TO ASSIST WITH EITHER REHAB OR GLOBAL COORDINATOR CARE, WHICHEVER PT DECIDES AND ASKED TO BE NOTIFIED WHEN PT MAKES UP HER MIND. CM SPOKE TO NANCY OF [facility], PT HAS BEEN ASSESSED BY NURSE EATON OF [facility] AND PT IS HOSPICE APPROPRIATE AND THEY DO HAVE A CONTRACT WITH [facility] IF PT WANTS HOSPICE THERE. [facility] WILL ACCEPT PT FOR SKILLED NURSING CARE; CM WAITING ADMISSION DETERMINATION FROM [facility]. CM WAITING PT'S DECISION REGARDING EITHER REHAB OR SENIOR CARE CARE PLACEMENT AT [facility]. DIANA SINGLETARY, CASE MANAGEMENT DCP- Discharge Planning Updated by [id number]: Diana Singletary on 08/01/19 8:[address] Patient Name: JINA COLINDRES Encounter No: [id number] : 1955 Primary Insurance: MEDICARE A & B Anticipated DC Date: Planned Disposition: Correction Facility External Planned Provider: [facility] MEDICARE SKILLED / REHAB BED DCP follow-up note: CM SPOKE TO PT IN ROOM REGARDING DISCHARGE PLANNING AND NEEDS. CM DISCUSSED THE POSSIBLE NEED OF A PEG TUBE. PT STATES SHE DOES NOT WANT A PEG TUBE. CM DISCUSSED INPATIENT REHAB WILL NOT CONSIDER TAKING PT BACK DUE TO BEING TO LOW LEVEL AT THIS TIME. CM DISCUSSED [facility] F[facility] REHAB PLACEMENT. PT REPORTS SHE HAS BEEN TO [facility] IN [place] AND IF SHE NEEDS IT, SHE WOULD LIKE TO GO BACK THERE. CHOICE COMPLETED. PT STATES SHE IS NOT ABLE TO SIGN. PT PROVIDED EMERGENCY HEEL PACKER NANCY FLORENCE, FRIEND AND COUNSELOR FROM [facility] [employer], [place] [phone]. PT REPORTS SHE ATTENDS COUNSELING FOR DEPRESSION. PT STATES THAT SHE WOULD LIKE NANCY FLORENCE TO BE HER FIRST EMEGENCY CONTACT WITH HER MOTHER BEING SECOND. PT STATES THAT IF SHE NEEDS HELP DECIDING WHAT TO DO, IT WOULD BE OK TO DISCUSS HER CARE AND PLANNING WITH NANCY. CM TO REFER PT TO [facility] WHEN PROJECTED DISCHARGE DATE AND NEEDS ARE KNOWN. CM TO FOLLOW AND ASSIST NEEDED. Diana Singletary, CASE MANAGEMENT DCP- Discharge Planning Updated by [id number]: Mahi Root on 07/25/19 7:[address] Patient Name: JINA COLINDRES Admission Status: Urgent Accout number: [id number] Admission Date: 07-25-2019 : 1955 Admission Diagnosis: Attending: GENEVA BERUMEN Current LOS: 1 Anticipated DC Date: Planned Disposition: Inpatient Rehab Primary Insurance: MEDICARE A & B Discharge Planning Comments: Patient was just discharged 07/23/19 will plan to return to Inpatient rehab once medically stable. CM met with patient to complete initial dc planning assessment. CM educated patient on the CM role and verbal consent given by patient to complete assessment. Patient lives at home alone where she is independent with her care. Patient agrees that at discharge patient will need rehab prior to going home. CM discussed availability of home health, rehab services, and medical equipment. Patient states that she plans to resume care with [facility] . MORENA signed. Patient has a nebulizer and home / portable 02 ( [employer]) Patient denied known discharge needs at this time. CM will continue to follow and will assist as needed with dc plans/needs. Multineedle Shirrer: Mahi Root DCPIA - Discharge Planning Initial Assessment Updated by [id number]: Mahi Root on 07/25/19 8:53 pm * Is the patient Alert and Oriented? Yes * How many steps to enter\exit or inside your home? * PCP [facility] [place] * [facility]? * Preadmission Environment Home Alone * ADLs Independent * Other Equipment HOME / PORTABLE 02, NEBULIZER, CANE * List name and contact numbers for known caregivers / representatives who currently or will assist patient after discharge: LIZZIE ROWLEY - MOTHER- [phone] BREANA Chavira [phone] (SLATE CUTTER) Carmela Mason (good friend) [phone] Nancy Florence (Multineedle Shirrer- [facility]) [phone] * Community resources currently utilized Home Health * Please name any agencies selected above. [facility] * Additional services required to return to the preadmission environment? No * Can the patient safely return to the preadmission environment? Yes * Has this patient been hospitalized within the prior 30 days at any hospital? Yes Coverage Notice Reviewer: [id number] Singletary Notice Issued Date-Time: 08/01/2019 8:00 Notice Type: Patient Choice Letter Notice Delivered To: Relationship to Patient: Nylon Machine Operator Name: Delivery Method: HAND - Hand Delivered Giovana Days: Prior Verbal Notification: Recipient Understood Notice: Yes Recipient Signature: Med Rec Note Co-signed by Attending: Coverage Notice Comment: SWAPNA SCHROEDER Reviewer: [id number] Singletary Notice Issued Date-Time: 08/05/2019 12:05 Notice Type: IM Discharge Notice Notice Delivered To: Patient Relationship to Patient: Nylon Machine Operator Name: Delivery Method: HAND - Hand Delivered Giovana Days: Prior Verbal Notification: Recipient Understood Notice: Yes Recipient Signature: Yes Med Rec Note Co-signed by Attending: Coverage Notice Comment: Reviewer: ALDAIR Singletary Notice Issued Date-Time: 08/05/2019 12:05 Notice Type: Patient Choice Letter Notice Delivered To: Patient Relationship to Patient: Nylon Machine Operator Name: Delivery Method: HAND - Hand Delivered Giovana Days: Prior Verbal Notification: Recipient Understood Notice: Yes Recipient Signature: Yes Med Rec Note Co-signed by Attending: Coverage Notice Comment: [facility] SWAPNA SCHROEDER IN [place] Reviewer: [id number] Singletary Notice Issued Date-Time: 08/12/2019 16:00 Notice Type: IM Discharge Notice Notice Delivered To: Patient Relationship to Patient: Nylon Machine Operator Name: Delivery Method: HAND - Hand Delivered Giovana Days: Prior Verbal Notification: Recipient Understood Notice: Yes Recipient Signature: Yes Med Rec Note Co-signed by Attending: Coverage Notice Comment: Last DP export: 08/14/19 5:48 Patient Name: JINA COLINDRES Page [id number] at 1337 All edits/amendments must be made on the electronic document DICTATION DATE: 08/14/196 UNIFORM ROOM ATTENDANT: MICHAEL 08/14/19 1336 RPT#: [id number] DC DATE: STATUS: ADM IN [id number] [place] [address] END OF REPORT
--- NOTE | 2019-08-14 13:55 | NUR ---
PT BEING TRANSPORT VIA WHEELCHAIR TO [facility]. ALL VALUBLES REMOVED FROM ROOM AND PT BEING TRANSPORTED WEARING PPE.
--- NOTE | 2019-08-14 16:17 | MORECARE ---
CASE MANAGEMENT DISCHARGE SUMMARY PATIENT: JINA COLINDRES UNIT: [id number] ADM DATE: 07/25/19 AGE: 64 : 53 SEX: F ROOM/BED: D.2103 AUTHOR: SANDRO,DOC PHYSICIAN: REFERRING PHYSICIAN: GENEVA BERUMEN MD DATE OF SERVICE: 08/14/19 Discharge Plan Patient Name: JINA COLINDRES Facility: [facility]:[place] : 1955 Planned Disposition: Nursing Facility [facility] Cert Anticipated Discharge Date: 08/14/19 Discharge Date: 08/14/2019 Expected LOS: 20 Initial Reviewer: [id number] Initial Review Date: 07/25/2019 Generated: 08/14/19 5:16 pm Comments DCP- Discharge Planning Updated by [id number]: Diana Singletary on 08/14/19 3:[address] Patient Name: JINA COLINDRES Encounter No: [id number] : 1955 Primary Insurance: MEDICARE A & B Anticipated DC Date: 08-14-2019 Planned Disposition: Nursing Facility [facility] Cert External Planned Provider: [facility], MEDICARE REHAB BED DCP follow-up note: CM RECEIVED CALL FROM NANCY OF [facility] WHO ADVISED THAT PT REFUSED HOSPICE TODAY AT [facility] AND WAS ADMITTED TO SKILLED REHAB BED AT [facility]. HUMBERTO Harper DCP- Discharge Planning Updated by [id number]: Diana Singletary on 08/14/19 12:[address] Patient Name: JINA COLINDRES Encounter No: [id number] : 1955 Primary Insurance: MEDICARE A & B Anticipated DC Date: 08-14-2019 Planned Disposition: Nursing Facility [facility] Cert External Planned Provider:[facility], MEDICARE RHEAB BED DCP follow-up note: CM RECEIVED DISCHARGE ORDERS. CM CALLED AND NOTIFIED NANCY OF [facility], ; FAXED DISCHARGE INFORMATION TO [facility] AT [phone]. CM FAXED DISCHARGE INFORMATION TO [facility] AT [phone]. CM NOTIFIED HECTOR OF [facility] WHO INFORMED CM THAT [facility] IS ON THE WAY NOW AND THEY HAVE RECEIVED NURSE REPORT ALREADY. CM NOTIFIED PT WHO IS IN AGREEEMENT WITH DISCHARGE TO [facility] AND FOR HOSPICE ADMIT WITH [facility]. DIANA SINGLETARY CASE MANAGEMENT DCP- Discharge Planning Updated by [id number]: Diana Singletary on 08/13/19 3:[address] Patient Name: JINA COLINDRES Encounter No: [id number] : 1955 Primary Insurance: MEDICARE A & B Anticipated DC Date: 08-07-2019 Planned Disposition: Nursing Facility [facility] Cert External Planned Provider: [facility], MEDICARE RHEAB BED DCP follow-up note: CM RECEIVED CALL FROM [facility], , SPOKE TO NANCY AND CM PROVIDED UPDATE. [facility] STILL WILL ACCEPT WHEN PT IS ADMITTED TO [facility]. CM RECEIVED IAN EXEMPT DETERMINATION, PT MAY ENTER [facility] FACILITY. CM CALLED [facility], , ALEXANDER WAS GONE FOR THE DAY, CM WAS ASKED TO CALL TOMORROW MORNING. CM SENT MESSAGE TO HECTOR [facility] FOR [facility], , NOTIFIED OF IAN EXEPTION AND ASKED FOR ADMISSION TO FACILITY. CM FAXED IAN EXEMPTION TO [facility] AT [phone]. [facility] WILL ACCEPT PT FOR LONGTERM CARE; [facility] PLANS TO ACCEPT PATIENT, IAN SCREENING RECEIVED AND APPROVED/ EXEMPTED. CM WAITING ARRANGEMENTS FOR FACILITY TO ACCEPT PT TO ADMINISTRATIVE JUDGE CARE WITH HOSPICE. CM ANTICIPATES ADMISSION TO FACILITY TOMORROW, 08-14-19. FOR DISCHARGE, FAX DISCHARGE INFORMATION TO [facility] AT [phone]. NURSE REPORT TO BE CALLED TO [facility] AT [phone]. [facility] TO ARRANGE [facility] TRANSPORTATION. DIANA SINGLETARY CASE MANAGEMENT DCP- Discharge Planning Updated by [email or web address]: Diana Singletary on 08/13/19 8:[address] Patient Name: JINA COLINDRES Encounter No: [id number] : 1955 Primary Insurance: MEDICARE A & B Anticipated DC Date: 08-07-2019 Planned Disposition: Nursing Facility [facility] Cert External Planned Provider: [facility], MEDICARE RHEAB BED DCP follow-up note: LATE ENTRY FROM 08-12-19 [address] RECE[address] CALL FROM [facility], , SPOKE TO NANCY AND CM PROVIDED UPDATE. [facility] STILL WILL ACCEPT WHEN PT IS ADMITTED TO [facility]. CM RECEIVED CALL FROM [facility], , SPOKE TO ALEXANDER WHO INFORMED CM THAT PT'S FRIEND, NANCY, PROVIDED FIANCIAL INFORMATION, [facility] PLANS TO ACCEPT PT BUT THE FRIEND STATES PT HAS MENTAL ILLNESS AND ALEXANDER THINKS PT MAY NEED A IAN. THE MENTAL ILLNESS DIAGNOSIS IS NOT KNOWN TO ALEXANDER. CM FAXED REFERRAL UPDATE TO [facility] AT [phone]. CM MET WITH PT IN ROOM, DISCUSSED MENTAL HEALTH DIAGNOSIS. PT REPORTS HAVING DEPRESSION AND SCHIZOPHRENIA. SCHIZOPHRENIA HAS BEEN SINCE AGE 6. PT SEES [address] AT [facility], PT DOES NOT KNOW WHAT HER MEDICATIONS ARE SINCE THEY COME FROM [facility], PREPACKAGED TO TAKE AT PRESCRIBED TIMES. PT ASSISTED WITH COMPLETING IAN SCREENING FORM. SIGNATURE OBTAINED FROM JOSEPH [facility]. IMPORTANT MESSAGE FROM MEDICARE PROVIDED AND EXPLAINED TO PATIENT. PT STILL WANTS TO GO TO [facility] WITH [facility] CARE. DISCHARGE PLANNING NOTE; 08-13-2019: CM SENT COMPLETED IAN WITH SUPPORTING DOCUMENTS VIA FAX TO [facility] AT [phone]. [facility] WILL ACCEPT PT FOR LONGTERM CARE; [facility] PLANS TO ACCEPT PATIENT PENDING IAN SCREENING COMPLETION AND CLEARANCE. DIANA SINGLETARY, CASE MANAGEMENT DCP- Discharge Planning Updated by [id number]: Renita Hall on 08/09/19 12:[address] Patient Name: JINA COLINDRES Admission Status: Urgent Accout number: [id number] Admission Date: 07-25-2019 : 1955 Admission Diagnosis: Attending: GENEVA BERUMEN Current LOS: 15 Anticipated DC Date: 08-07-2019 Planned Disposition: Nursing Facility [facility] Primary Insurance: MEDICARE A & B Discharge Planning Comments: I spoke with Nancy Florence at [phone] and she can provide financials to [facility]. I called [facility] and left a message with Tanna. I will call [facility] and give them the info also. Tool Drawing Checker: Renita Hall DCP- Discharge Planning Updated by [id number]: Renita Hall on 08/08/19 1:[address] Patient Name: JINA COLINDRES Admission Status: Urgent Accout number: [id number] Admission Date: 07-25-2019 : 1955 Admission Diagnosis: Attending: GENEVA BERUMEN Current LOS: 14 Anticipated DC Date: 08-07-2019 Planned Disposition: Nursing Facility [facility] Cert Primary Insurance: MEDICARE A & B Discharge Planning Comments: CM SPOKE WITH ALEXANDER AT [facility] AND [facility] AND [facility] ARE WORKING ON GETTING FINANCIALS. WAITING CALL BACK FOR AN UPDATE. Tool Drawing Checker: Renita Hall DCP- Discharge Planning Updated by [id number]: Diana Singletary on 08/07/19 2:[address] Patient Name: JINA COLINDRES Encounter No: [id number] : 1955 Primary Insurance: MEDICARE A & B Anticipated DC Date: 08-07-2019 Planned Disposition: Nursing Facility [facility] Cert External Planned Provider:[facility], LONG TERM CARE MEDICAID BED DCP follow-up note: CM SPOKE TO HECTOR OF [facility], THEY ARE TRYING TO LOCATE NEXT OF KIN TO ASSIST IN FILLING OUT MEDICAID APPLICATION AND PROVIDING FINANCIAL INFORMATION. CM PROVIDED INFORMATION FOR [facility]A [facility], , PT REPORTS HER TO BE A TRUSTED FRIEND AND NEIGHBOR. [facility] WILL ACCEPT PT FOR LONGTERM CARE; CM WAITING [facility]. TO LOCATE PERSON TO ASSIST PT WITH FIANCIALS AND WORK OUT FINANCIAL ARRANGEMENTS WITH PT FOR ADMINISTRATIVE JUDGE CARE PLACEMENT. DIANA SINGLETARY, CASE MANAGEMENT DCP- Discharge Planning Updated by [id number]: Diana Singletary on 08/07/19 8:[address] Patient Name: JINA COLINDRES Encounter No: [id number] : 1955 Primary Insurance: MEDICARE A & B Anticipated DC Date: 08-07-2019 Planned Disposition: Nursing Facility [facility] External Planned Provider:[facility] TERM CARE MEDICAID BED DCP follow-up note: CM MET WITH PT IN ROOM, DISCUSSED HOSPICE AND SKILLED REHAB. PT THINKS SHE WANTS HOSPICE AT [facility]. PT REPORTS SHE HAS NO ONE BUT HER NEIGHBOR TO ASSIST WITH HER CARE AT HOME WITH HOSPICE. CM CALLED [facility], , SPOKE TO ADELINA AND PROVIDED UPDATE THAT PT IS REQUESTING PLACMENT WITH HOSPICE. CM WAS ADVISED THAT THEY WILL HAVE TO WORK ON FINANCIALS FOR MEDICAID. CM FAXED REFERRAL UDPATE TO [facility] AT [phone]. CM RECEIVED CALL FROM [facility]A [facility], WHO REPORTS TO BE PATIENTS NEXT OF KIN AND NEIGHBOR. CARMELA REPORTS SHE IS NOT ABLE TO TAKE CARE OF PT AT HOME 24 HOURS A DAY AND THINKS IT BEST IF PT GOES TO [facility]. CARMELA PROVIDED HER NUMBER, . [facility] WILL ACCEPT PT FOR LONGTERM CARE; CM WAITING ADMISSION DETERMINATION FROM [facility]. DIANA SINGLETARY, CASE MANAGEMENT DCP- Discharge Planning Updated by [id number]: Diana Singletary on 08/05/19 3:[address] Patient Name: JINA COLINDRES Encounter No: [id number] : 1955 Primary Insurance: MEDICARE A & B Anticipated DC Date: Planned Disposition: Retirement Facility External Planned Provider: [facility], MEDICARE RHEAB BED DCP follow-up note: CM SPOKE TO BEDSIDE NURSE WHO INFORMED CM THAT PT REQUESTED TO SPEAK TO HOSPICE. CM RECEIVED HOSPICE CONSULT ORDER. CM MET WITH PT IN ROOM, DISCUSSED HOSPICE PROVIDERS, LOCATIONS AND SERVICES, PROVIDED HOSPICE LISTING OF PROVIDERS. PT REQUESTED [facility]. CHOICE COMPLETED. PT ALSO ASKED THAT CM SEND REFERRAL TO [facility] FOR REHAB IF SHE DECIDES FOR REHAB. ADDED TO CHOICE FORM, PT SIGNED THE CHOICE FOR [facility] AND [facility]. IMPORTANT MESSAGE FROM MEDICARE PROVIDED AND EXPLAINED. CM CALLED [facility], , SPOKE TO NANCY WHO TOOK REFERRAL AND WILL PROCESS REFERRAL AND HAVE NURSE MEET WITH PT IN HOSPITAL ROOM SOON POSSIBLE TODAY. CM FAXED REFERRAL TO [facility] AT [phone]. CM CALLED [facility], , SPOKE TO ADELINA AND PROVIDED REFERRAL INFORMATION; INFORMED HER THAT PT MAY WANT REHAB OR ADMINISTRATIVE JUDGE CARE WITH HOSPICE. CM FAXED REFERRAL TO [facility] AT [phone]. CM WAITING ON ADMISSION DETERMINATION FROM [facility] AND [facility]. WAITING PT TO MAKE DECISIONS REGARDING HOSPICE OR REHAB AT [facility]. Diana Singletary, CASE MANAGEMENT Appended by Diana Singletary on 08/05/2019 16:55 CDT: ARLETTE SPOKE TO HECTOR OF [facility], SHE SPOKE TO PT IN ROOM AND INFORMED CM THAT PT IS CONSIDERING PLACEMENT AT [facility] AND POSSIBLY HOSPICE WITH [facility]. HECTOR THINKS THAT [facility] MAY BE ABLE TO ASSIST WITH EITHER REHAB OR [facility] CARE, WHICHEVER PT DECIDES AND ASKED TO BE NOTIFIED WHEN PT MAKES UP HER MIND. ARLETTE SPOKE TO NANCY OF [facility], PT HAS BEEN ASSESSED BY NURSE EATON OF [facility] AND PT IS HOSPICE APPROPRIATE AND THEY DO HAVE A CONTRACT WITH [facility] IF PT WANTS HOSPICE THERE. [facility] WILL ACCEPT PT FOR LONGTERM CARE; CM WAITING ADMISSION DETERMINATION FROM [facility]. CM WAITING PT'S DECISION REGARDING EITHER REHAB OR [facility] C[facility] PLACEMENT AT [facility]. HUMBERTO HARPER MANAGEMENT DCP- Discharge Planning Updated by [id number]: Diana Singletary on 08/01/19 8:[address] Patient Name: JINA COLINDRES Encounter No: [id number] : 1955 Primary Insurance: MEDICARE A & B Anticipated DC Date: Planned Disposition: Retirement Facility External Planned Provider: [facility], MEDICARE SKILLED / REHAB BED DCP follow-up note: CM SPOKE TO PT IN ROOM REGARDING DISCHARGE PLANNING AND NEEDS. CM DISCUSSED THE POSSIBLE NEED OF A PEG TUBE. PT STATES SHE DOES NOT WANT A PEG TUBE. CM DISCUSSED INPATIENT REHAB WILL NOT CONSIDER TAKING PT BACK DUE TO BEING TO LOW LEVEL AT THIS TIME. CM DISCUSSED [facility] F[facility]ILITY REHAB PLACEMENT. PT REPORTS SHE HAS BEEN TO [facility] IN [place] AND IF SHE NEEDS IT, SHE WOULD LIKE TO GO BACK THERE. CHOICE COMPLETED. PT STATES SHE IS NOT ABLE TO SIGN. PT PROVIDED EMERGENCY VARNISH COOKER NANCY FLORENCE, FRIEND AND COUNSELOR FROM [facility], [place] [phone]. PT REPORTS SHE ATTENDS COUNSELING FOR DEPRESSION. PT STATES THAT SHE WOULD LIKE NANCY FLORENCE TO BE HER FIRST EMEGENCY CONTACT WITH HER MOTHER BEING SECOND. PT STATES THAT IF SHE NEEDS HELP DECIDING WHAT TO DO, IT WOULD BE OK TO DISCUSS HER CARE AND PLANNING WITH NANCY. CM TO REFER PT TO [facility] WHEN PROJECTED DISCHARGE DATE AND NEEDS ARE KNOWN. CM TO FOLLOW AND ASSIST NEEDED. HUMBERTO Harper DCP- Discharge Planning Updated by [email or web address]: Mahi Root on 07/25/19 7:[address] Patient Name: JINA COLINDRES Admission Status: Urgent Accout number: [id number] Admission Date: 07-25-2019 : 1955 Admission Diagnosis: Attending: GENEVA BERUMEN Current LOS: 1 Anticipated DC Date: Planned Disposition: Inpatient Rehab Primary Insurance: MEDICARE A & B Discharge Planning Comments: Patient was just discharged 07/23/19 will plan to return to Inpatient rehab once medically stable. CM met with patient to complete initial dc planning assessment. CM educated patient on the CM role and verbal consent given by patient to complete assessment. Patient lives at home alone where she is independent with her care. Patient agrees that at discharge patient will need rehab prior to going home. CM discussed availability of home health, rehab services, and medical equipment. Patient states that she plans to resume care with [facility]. MORENA signed. Patient has a nebulizer and home / portable 02 ( [employer]) Patient denied known discharge needs at this time. CM will continue to follow and will assist as needed with dc plans/needs. Tool Drawing Checker: Mahi Root DCPIA - Discharge Planning Initial Assessment Updated by [id number]: Mahi Root on 07/25/19 8:53 pm * Is the patient Alert and Oriented? Yes * How many steps to enter\exit or inside your home? * PCP [facility] IN [place] * Pharmacy [facility]? * Preadmission Environment Home Alone * ADLs Independent * Other Equipment HOME / PORTABLE 02, NEBULIZER, CANE * List name and contact numbers for known caregivers / representatives who currently or will assist patient after discharge: LIZZIE ROWLEY - MOTHER- [phone] BREANA Chavira [phone] (RENTAL CLERK) Carmela Mason (good friend) [phone] Nancy Florence (Tool Drawing Checker- [facility]) [phone] * Community resources currently utilized Home Health * Please name any agencies selected above. [facility] * Additional services required to return to the preadmission environment? No * Can the patient safely return to the preadmission environment? Yes * Has this patient been hospitalized within the prior 30 days at any hospital? Yes Coverage Notice Reviewer: [id number] Jo Ann Singletary Notice Issued Date-Time: 08/01/2019 8:00 Notice Type: Patient Choice Letter Notice Delivered To: Relationship to Patient: Natural [employer] Plant Supervisor Name: Delivery Method: HAND - Hand Delivered Giovana Days: Prior Verbal Notification: Recipient Understood Notice: Yes Recipient Signature: Med Rec Note Co-signed by Attending: Coverage Notice Comment: SWAPNA SCHROEDER Reviewer: [id number] Jo Ann Singletary Notice Issued Date-Time: 08/05/2019 12:05 Notice Type: IM Discharge Notice Notice Delivered To: Patient Relationship to Patient: Natural [employer] Plant Supervisor Name: Delivery Method: HAND - Hand Delivered Giovana Days: Prior Verbal Notification: Recipient Understood Notice: Yes Recipient Signature: Yes Med Rec Note Co-signed by Attending: Coverage Notice Comment: Reviewer: [id number] Singletary Notice Issued Date-Time: 08/05/2019 12:05 Notice Type: Patient Choice Letter Notice Delivered To: Patient Relationship to Patient: Natural [employer] Plant Supervisor Name: Delivery Method: HAND - Hand Delivered Giovana Days: Prior Verbal Notification: Recipient Understood Notice: Yes Recipient Signature: Yes Med Rec Note Co-signed by Attending: Coverage Notice Comment: [facility] [place] Reviewer: [id number] Jo Ann Singletary Notice Issued Date-Time: 08/12/2019 16:00 Notice Type: IM Discharge Notice Notice Delivered To: Patient Relationship to Patient: Natural [employer] Plant Supervisor Name: Delivery Method: HAND - Hand Delivered Giovana Days: Prior Verbal Notification: Recipient Understood Notice: Yes Recipient Signature: Yes Med Rec Note Co-signed by Attending: Coverage Notice Comment: Last DP export: 08/14/19 12:37 Patient Name: JINA COLINDRES Page [id number] at 1617 All edits/amendments must be made on the electronic document DICTATION DATE: 08/14/191615 MEMBERSHIP SALES ADVISOR: MICHAEL 08/14/191615 RPT#: [id number] DC DATE:08/14/19 STATUS: DIS IN [place] [id number] [place] [address] END OF REPORT
== END 2019-08-14 14:09 | DRG 177 ==
LOC: D.ICU 11:28 → D.MS 11:28 → D.M2 11:28 → D.ICU 12:41 → D.M2 07-27 15:10
PROVIDERS: Emergency Medicine; Internal Medicine Pulmonary Disease; ADMIT Internal Medicine Nephrology; ATTEND Internal Medicine Nephrology
DX: J15.212 Pneumonia due to Methicillin resistant Staphylococcus aureus (principal); J96.22 Acute and chronic respiratory failure with hypercapnia; J96.21 Acute and chronic respiratory failure with hypoxia; G93.41 Metabolic encephalopathy; I50.33 Acute on chronic diastolic (congestive) heart failure; E43 Unspecified severe protein-calorie malnutrition; J44.1 Chronic obstructive pulmonary disease with (acute) exacerbation; E87.1 Hypo-osmolality and hyponatremia; C34.92 Malignant neoplasm of unspecified part of left bronchus or lung; F17.203 Nicotine dependence unspecified, with withdrawal; I11.0 Hypertensive heart disease with heart failure; F32.9 Major depressive disorder, single episode, unspecified; M19.90 Unspecified osteoarthritis, unspecified site; E78.5 Hyperlipidemia, unspecified; E83.42 Hypomagnesemia; E87.6 Hypokalemia; J30.9 Allergic rhinitis, unspecified; E11.9 Type 2 diabetes mellitus without complications; K21.9 Gastro-esophageal reflux disease without esophagitis; R53.81 Other malaise; R22.32 Localized swelling, mass and lump, left upper limb; Z68.26 Body mass index [BMI] 26.0-26.9, adult; B02.9 Zoster without complications; F20.9 Schizophrenia, unspecified